=== PATIENT | female | born 1950 | race Caucasian/White ===

== ENCOUNTER 2018-01-23 11:17 | Inpatient (IN) | payer MEDICARE, OTHER ==
[2018-01-23 12:40] LABS: #Basophils 0.1 thou/uL (0.0-0.2); #Eosinphils 0.2 thou/uL (0.0-0.7); #Lymphocytes 1.5 thou/uL (1.20-3.40); #Monocytes 0.8 thou/uL (0.11-0.59); #Neutrophils 7.3 thou/uL (1.40-6.50); %Basophils 0.6 % (0.0-1.0); %Eosinophils 2.5 % (0.0-10.0); %Monocytes 8.2 % (0.0-10.0); %Neutrophils 73.8 % (42.0-75.0); Hemoglobin 10.3 g/dL (12.0-16.0); Mean Corpuscular HGB CONC 31.5 g/dL (32.0-36.0); Mean Corpuscular Hemoglobin 28.3 pg (27.0-31.0); Mean Corpuscular Volume 89.7 fl (81.0-99.0); Mean Platelet Volume 6.6 fL (7.4-10.4); Platelet Count 376 thou/uL (130-400); RBC Distribution Width 14.6 % (11.5-14.5); Red Blood Cell (RBC) Count 3.65 mill/uL (4.20-5.40); White Blood Cell (WBC) Count 9.9 thou/uL (4.8-10.8)
[2018-01-23 13:06] LABS: ALT (SGPT) 10 U/L (8-55); AST (SGOT) 17 U/L (5-34); Albumin 3.4 g/dL (3.4-4.8); Alkaline Phosphatase 120 U/L (40-150); Anion Gap 15 mmol/L (10-20); BUN (Urea Nitrogen) 16 mg/dL (9.8-20.1); Bilirubin, Total 0.4 mg/dL (0.2-1.2); Calc. Creatinine Clearance 0 mL/min (70-130); Calcium 9.1 mg/dL (7.8-10.44); Carbon Dioxide 26 mmol/L (23-31); Chloride 100 mmol/L (98-107); Estimated GFR-MDRD 32; Globulin 4.1 g/dL (2.4-3.5); Glucose 184 mg/dL (80-115); Potassium 4.1 mmol/L (3.5-5.1); Protein, Total 7.5 g/dL (6.0-8.3); Sodium 137 mmol/L (136-145)
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
[2018-01-23 17:25] LABS: Clarity Clear (Clear)
[2018-01-23 17:26] LABS: BF Color Yellow; BF RBC Count - Manual 289 /cumm; BF WBC/Nonhematics Ct. - Manua 135 /cumm; Tube # EDTA
[2018-01-23 17:46] LABS: BF Segmented Neutrophils 16 %; Cell Count Non Hematic 27 %; Lymphocytes 57 %
[2018-01-23] MEDS ORDERED: Clindamycin/D5W 900 mg/50 ml Premix Bag ONE (18:08)
[2018-01-23] MEDS ORDERED: Cefepime 2 GM/10 ML SYR ONE (18:08)
[2018-01-23] MEDS ORDERED: Acetaminophen 325 MG TAB PO PRN (18:36)
[2018-01-23] MEDS ORDERED: HumaLOG 300 UNITS/3 ML VIAL SC PRN (18:36)
[2018-01-23] MEDS ORDERED: Acetaminophen 650 MG Suppository PR PRN (18:36)
[2018-01-23] MEDS ORDERED: Dextrose 50% Abboject 50 ML SYRINGE SLOW IVP PRN (18:36)
[2018-01-23] MEDS ORDERED: Dextrose 5% in Water 1,000 ML IV PRN (18:36)
[2018-01-23 18:51] LABS: INR-International Normal Ratio 1.1; Prothrombin Time 14.2 SEC (12.0-14.7)
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
[2018-01-23] MEDS ORDERED: Ondansetron HCl/PF 4 MG/2 ML Vial IVP PRN (20:13)
[2018-01-23] MEDS ORDERED: Ondansetron ODT 4 MG TAB SL PRN (20:13)
[2018-01-23] MEDS ORDERED: Warfarin Sodium 10 MG TAB PO SCH (21:00)
[2018-01-23 21:58] VITALS: BMI 51.7
[2018-01-24] MEDS ORDERED: cloNIDine 0.2 MG TAB PO SCH ×2 (00:15→09:00)
[2018-01-24] MEDS ORDERED: Amitriptyline HCl 10 MG TAB PO SCH ×2 (00:15→21:00)
[2018-01-24] MEDS ORDERED: Pregabalin 75 MG CAP PO SCH ×2 (00:15→21:00)
[2018-01-24] MEDS ORDERED: Hydroxychloroquine Sulfate 200 MG TAB PO SCH ×2 (00:15→21:00)
[2018-01-24] MEDS: Clindamycin/D5W 900 MG in Premix Bag 1 BAG IVPB SCH ×2 (01:31→09:02)
[2018-01-24] MEDS: Albuterol Sulfate 1.25 MG/3 ML NEB NEB PRN (05:07)
[2018-01-24 05:21] LABS: #Basophils 0.1 thou/uL (0.0-0.2); #Eosinphils 0.4 thou/uL (0.0-0.7); #Lymphocytes 2.4 thou/uL (1.20-3.40); #Monocytes 1.1 thou/uL (0.11-0.59); #Neutrophils 4.9 thou/uL (1.40-6.50); %Basophils 0.6 % (0.0-1.0); %Eosinophils 4.4 % (0.0-10.0); %Monocytes 12.3 % (0.0-10.0); %Neutrophils 55.8 % (42.0-75.0); Hemoglobin 9.2 g/dL (12.0-16.0); Mean Corpuscular HGB CONC 31.4 g/dL (32.0-36.0); Mean Corpuscular Hemoglobin 28.1 pg (27.0-31.0); Mean Corpuscular Volume 89.4 fl (81.0-99.0); Mean Platelet Volume 7.1 fL (7.4-10.4); Platelet Count 377 thou/uL (130-400); RBC Distribution Width 14.7 % (11.5-14.5); Red Blood Cell (RBC) Count 3.27 mill/uL (4.20-5.40); White Blood Cell (WBC) Count 8.8 thou/uL (4.8-10.8)
[2018-01-24 05:25] LABS: INR-International Normal Ratio 1.2; Prothrombin Time 15.3 SEC (12.0-14.7)
[2018-01-24 05:31] LABS: Anion Gap 11 mmol/L (10-20); BUN (Urea Nitrogen) 18 mg/dL (9.8-20.1); Calc. Creatinine Clearance 67 mL/min (70-130); Calcium 8.4 mg/dL (7.8-10.44); Carbon Dioxide 29 mmol/L (23-31); Chloride 102 mmol/L (98-107); Estimated GFR-MDRD 27; Glucose 157 mg/dL (80-115); Sodium 138 mmol/L (136-145)
[2018-01-24] MEDS: Hydroxychloroquine Sulfate 200 MG TAB PO SCH ×2 (08:35→21:29)
[2018-01-24] MEDS: Pregabalin 75 MG CAP PO SCH ×2 (08:39→21:27)
[2018-01-24] MEDS ORDERED: Nystatin Powder 15 GM BOT TOP PRN (10:49)
--- NOTE | 2018-01-24 12:37 | PDOC.PN ---
- Subjective Encounter Start Date: 01/24/18 Encounter Start Time: 08:20 Pt seen for followup re: cellulitis. Denies chest pain, shortness of breath, fevers or chills. - Objective Resuscitation Status: Resuscitation Status FULL:Full Resuscitation MAR Reviewed: Yes Vital Signs & Weight: Vital Signs (12 hours) Temp Pulse Resp BP BP Pulse Ox 01/24/18 11:24 98.2 F 97 18 123/73 91 L 01/24/18 08:43 98.2 F 96 18 93 L 01/24/18 08:37 129/76 01/24/18 07:57 98.2 F 96 18 129/76 93 L 01/24/18 05:07 103 H 18 93 L 01/24/18 04:00 98.2 F 96 16 150/85 H Weight Weight 330 lb I&O: 01/23/18 01/24/18 01/25/18 06:59 06:59 06:59 Intake Total 1080 Balance 1080 Result Diagrams: 01/24/18 04:30 01/24/18 04:30 Additional Labs: Accuchecks 01/24/18 01/24/18 01/23/18 11:25 05:55 20:27 POC Glucose 175 H 157 H 212 H EKG Reviewed by me: Yes Phys Exam - Physical Examination Morbid obesity HEENT: PERRLA, moist MMs, sclera anicteric, oral pharynx no lesions Neck: no nodes, no JVD, supple, full ROM Respiratory: no wheezing, no rales, no rhonchi, clear to auscultation bilateral Cardiovascular: RRR, no rub Gastrointestinal: soft, non-tender, positive bowel sounds Neurological: moves all 4 limbs Psychiatric: normal affect Deviation from normal: R thigh: cellulitis has improved, no crepitus Dx/Plan (1) Cellulitis Code(s): L03.90 - CELLULITIS, UNSPECIFIED Status: Acute (2) Anticoagulated on Coumadin Code(s): Z51.81 - ENCOUNTER FOR THERAPEUTIC DRUG LEVEL MONITORING; Z79.01 - [facility] (CURRENT) USE OF ANTICOAGULANTS Status: Chronic (3) Diabetes Code(s): E11.9 - TYPE 2 DIABETES MELLITUS WITHOUT COMPLICATIONS Status: Chronic (4) HTN (hypertension) Code(s): I10 - ESSENTIAL (PRIMARY) HYPERTENSION Status: Chronic - Plan * . Monitor vital signs, titrate antihypertensives as needed. Continue IV antibiotics as below, await ID consult. Warfarim being managed by pharmacy. Review of Systems - Review of Systems Constitutional: negative: fever, chills, sweats, weakness, malaise Respiratory: negative: Cough, Dry, Shortness of Breath, Hemoptysis, SOB with Excertion, Pleuritic Pain, Sputum, Wheezing Cardiovascular: negative: chest pain, palpitations, orthopnea, paroxysmal nocturnal dyspnea, edema, light headedness Gastrointestinal: negative: Nausea, Vomiting, Abdominal Pain, Diarrhea, Constipation, Melena, Hematochezia Skin: Rash. negative: Lesions, Will, Bruising, Other - Medications/Allergies Allergies/Adverse Reactions: Allergies Allergy/AdvReac Type Severity Reaction Status Date / Time aspirin Allergy Verified 01/23/18 21:57 [From Talwin Compound] chocolate flavor Allergy Verified 01/23/18 21:57 codeine Allergy Verified 01/23/18 21:57 morphine Allergy Verified 01/23/18 21:57 NSAIDS (Non-Steroidal Allergy Verified 01/23/18 21:57 Anti-Inflamma Penicillins Allergy Verified 01/23/18 21:57 pentazocine HCl Allergy Verified 01/23/18 21:57 [From Talwin Compound] ottoniel Allergy Verified 01/23/18 21:57 Ffeuthd-Zpo-Upj Reductase Allergy Verified 01/23/18 21:57 Inhibitor Sulfa (Sulfonamide Allergy Verified 01/23/18 21:57 Antibiotics) sulfamethoxazole Allergy Verified 01/23/18 21:57 [From Bactrim] trimethoprim [From Bactrim] Allergy Verified 01/23/18 21:57 Medications: Current Medications Acetaminophen (Tylenol) 650 mg PO Q4H PRN PRN Reason: Headache/Fever or Pain Acetaminophen (Tylenol) 650 mg [place] Q4H PRN PRN Reason: Headache/Fever or Pain Albuterol Sulfate (Albuterol Sulfate) 1.25 mg NEB Q6H PRN PRN Reason: SOB &/or Wheezing Last Admin: 01/24/18 05:07 Dose: 1.25 mg Amitriptyline HCl (Elavil) 30 mg PO HS BRYAN Clonidine (Catapres) 0.2 mg PO BID BRYAN Last Admin: 01/24/18 08:37 Dose: 0.2 mg Dextrose/Water (Dextrose 50%) 25 gm SLOW IVP PRN PRN PRN Reason: Hypoglycemia Glucagon (Glucagon) 1 mg IM PRN PRN PRN Reason: Hypoglycemia Hydroxychloroquine Sulfate (Plaquenil) 200 mg PO BID [facility] Last Admin: 01/24/18 08:35 Dose: 200 mg Vancomycin HCl 2 gm/ Sodium (Chloride) 500 mls @ 250 mls/hr IVPB 2100 BRYAN Clindamycin Phosphate/Dextrose (900 mg/ Device) 50 mls @ 100 mls/hr IVPB 0200, 1000,1800 [facility] Last Admin: 01/24/18 09:02 Dose: 50 mls Dextrose/Water (D5w) 1,000 mls @ 0 mls/hr IV .Q0M PRN; As Directed PRN Reason: Hypoglycemia Insulin Human Lispro (Humalog) 0 units SC .MILD SLIDING SCALE PRN PRN Reason: Mild Correctional Scale Miscellaneous Medication (Pharmacy To Dose) 1 each IVPB PRN PRN PRN Reason: Pharmacy to dose Miscellaneous Medication (Pharmacy To Dose) 1 each PO PRN PRN PRN Reason: Pharmacy to dose Nystatin (Mycostatin Powder) 0 gm TOP BID PRN PRN Reason: Topical Irritations Pregabalin (Lyrica) 75 mg PO BID [facility] Last Admin: 01/24/18 08:39 Dose: 75 mg Sodium Chloride (Flush - Normal Saline) 10 ml IVF Q12HR [facility] Last Admin: 01/24/18 08:40 Dose: 10 ml Sodium Chloride (Flush - Normal Saline) 10 ml IVF PRN PRN PRN Reason: Saline Flush Warfarin Sodium (Coumadin) 10 mg PO 1700 [facility]
[2018-01-24] MEDS ORDERED: Albuterol Sulfate 1.25 MG/3 ML NEB NEB PRN (13:30)
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
[2018-01-24] MEDS ORDERED: Warfarin Sodium 2 MG TAB PO SCH (17:00)
[2018-01-24] MEDS ORDERED: Warfarin Sodium 10 MG TAB PO SCH (17:00)
[2018-01-24] MEDS: Senokot S 8.6-50 MG TAB PO SCH (21:28)
[2018-01-24] MEDS: Amitriptyline HCl 10 MG TAB PO SCH (21:29)
[2018-01-24] MEDS: cloNIDine 0.2 MG TAB PO SCH (21:29)
[2018-01-25] MEDS: Levothyroxine Sodium 100 MCG TAB PO SCH (05:16)
[2018-01-25 05:29] LABS: #Basophils 0.1 thou/uL (0.0-0.2); #Eosinphils 0.5 thou/uL (0.0-0.7); #Lymphocytes 2.2 thou/uL (1.20-3.40); #Monocytes 1.2 thou/uL (0.11-0.59); #Neutrophils 5.3 thou/uL (1.40-6.50); %Basophils 0.9 % (0.0-1.0); %Eosinophils 5.4 % (0.0-10.0); %Lymphocytes 23.9 % (21.0-51.0); %Monocytes 12.6 % (0.0-10.0); %Neutrophils 57.1 % (42.0-75.0); Mean Corpuscular HGB CONC 31.7 g/dL (32.0-36.0); Mean Corpuscular Hemoglobin 28.3 pg (27.0-31.0); Mean Corpuscular Volume 89.4 fl (81.0-99.0); Platelet Count 349 thou/uL (130-400); RBC Distribution Width 14.8 % (11.5-14.5); Red Blood Cell (RBC) Count 3.19 mill/uL (4.20-5.40); White Blood Cell (WBC) Count 9.2 thou/uL (4.8-10.8)
[2018-01-25 05:33] LABS: Anion Gap 11 mmol/L (10-20); BUN (Urea Nitrogen) 18 mg/dL (9.8-20.1); Calc. Creatinine Clearance 82 mL/min (70-130); Calcium 8.6 mg/dL (7.8-10.44); Carbon Dioxide 30 mmol/L (23-31); Chloride 102 mmol/L (98-107); Estimated GFR-MDRD 34; Glucose 168 mg/dL (80-115); Potassium 4.2 mmol/L (3.5-5.1); Sodium 139 mmol/L (136-145)
[2018-01-25 05:35] LABS: INR-International Normal Ratio 1.2; Prothrombin Time 15.6 SEC (12.0-14.7)
[2018-01-25] MEDS ORDERED: FEBUXOSTAT 80 MG PO SCH (09:00)
[2018-01-25] MEDS: Lactinex Tablet PO SCH (09:41)
[2018-01-25] MEDS: Senokot S 8.6-50 MG TAB PO SCH ×2 (09:41→20:35)
[2018-01-25] MEDS: predniSONE 5 MG TAB PO SCH (09:41)
[2018-01-25] MEDS: Hydroxychloroquine Sulfate 200 MG TAB PO SCH ×2 (09:41→20:36)
[2018-01-25] MEDS: Glimepiride 2 MG TAB PO SCH (09:42)
[2018-01-25] MEDS: Pregabalin 75 MG CAP PO SCH ×2 (09:42→20:35)
[2018-01-25] MEDS: Amlodipine 5 MG TAB PO SCH (09:42)
--- NOTE | 2018-01-25 10:40 | PRG ---
DATE OF SERVICE: 01/25/2018 She feels a little bit more swelling at the site of this likely seroma in the right thigh. No pain, no respiratory symptoms, abdominal pain or diarrhea. No genitourinary symptoms. PHYSICAL EXAMINATION: VITAL SIGNS: The T-max 98.7, blood 150/85, pulse 96, respirations 20. GENERAL: Appears in no distress. LUNGS: Clear. CARDIOVASCULAR: S1, S2, regular rate. EXTREMITIES: Right thigh is a little bit more prominent at the site of the previously noted seroma a nd previously noted cultures are negative. ASSESSMENT AND DISCUSSION: Rheumatoid arthritis on Remicade and pulmonary embolism, on warfarin. Co ntusion of the right thigh with likely chronic seroma with reaccumulation of fluid. Erythema probabl y secondary to the pressure induced by the seroma. The patient is currently on oral minocycline, the patient probably will need surgical resection of the seroma to prevent its reaccumulation.
[2018-01-25] MEDS: Albuterol Sulfate 1.25 MG/3 ML NEB NEB PRN (14:33)
--- NOTE | 2018-01-25 16:22 | PDOC.PN ---
- Subjective Encounter Start Date: 01/25/18 Encounter Start Time: 10:20 Pt seen for followup re: cellulitis. Feels well, no complaints. - Objective Resuscitation Status: Resuscitation Status FULL:Full Resuscitation MAR Reviewed: Yes Vital Signs & Weight: Vital Signs (12 hours) Temp Pulse Resp BP BP Pulse Ox 01/25/18 14:33 97 20 95 01/25/18 12:08 98.7 F 97 20 184/79 H 93 L 01/25/18 09:42 98 131/72 01/25/18 09:41 131/72 01/25/18 08:39 98.7 F 99 20 131/72 93 L 01/25/18 08:00 98.7 F 98 18 01/25/18 04:40 92 L Weight Admit Weight 330 lb Weight 330 lb I&O: 01/24/18 01/25/18 01/26/18 06:59 06:59 06:59 Intake Total 1080 770 Balance 1080 770 Result Diagrams: 01/25/18 04:39 01/25/18 04:39 Additional Labs: Accuchecks 01/25/18 01/25/18 01/24/18 11:25 05:20 20:00 POC Glucose 187 H 169 H 218 H 01/24/18 16:35 POC Glucose 147 H Phys Exam - Physical Examination Morbid obesity HEENT: moist MMs Neck: supple Respiratory: clear to auscultation bilateral Cardiovascular: RRR Gastrointestinal: soft Neurological: moves all 4 limbs Psychiatric: normal affect Deviation from normal: R thigh cellulitis is improving Dx/Plan (1) Cellulitis Code(s): L03.90 - CELLULITIS, UNSPECIFIED Status: Acute (2) Anticoagulated on Coumadin Code(s): Z51.81 - ENCOUNTER FOR THERAPEUTIC DRUG LEVEL MONITORING; Z79.01 - [facility] (CURRENT) USE OF ANTICOAGULANTS Status: Chronic (3) Diabetes Code(s): E11.9 - TYPE 2 DIABETES MELLITUS WITHOUT COMPLICATIONS Status: Chronic (4) HTN (hypertension) Code(s): I10 - ESSENTIAL (PRIMARY) HYPERTENSION Status: Chronic - Plan continue antibiotics, out of bed/ambulate * . Pt awaiting orthopedic opinion re: thigh seroma. Cellulitis improving. Continue accuchecks, insulin sliding scale. Review of Systems - Review of Systems Constitutional: negative: fever, chills, sweats, weakness, malaise Respiratory: negative: Cough, Dry, Shortness of Breath, Hemoptysis, SOB with Excertion, Pleuritic Pain, Sputum, Wheezing - Medications/Allergies Allergies/Adverse Reactions: Allergies Allergy/AdvReac Type Severity Reaction Status Date / Time aspirin Allergy Verified 01/23/18 21:57 [From Talwin Compound] chocolate flavor Allergy Verified 01/23/18 21:57 codeine Allergy Verified 01/23/18 21:57 morphine Allergy Verified 01/23/18 21:57 NSAIDS (Non-Steroidal Allergy Verified 01/23/18 21:57 Anti-Inflamma Penicillins Allergy Verified 01/23/18 21:57 pentazocine HCl Allergy Verified 01/23/18 21:57 [From TalXD Nutrition Compound] ottoniel Allergy Verified 01/23/18 21:57 Lsfqpfz-Acx-Ayt Reductase Allergy Verified 01/23/18 21:57 Inhibitor Sulfa (Sulfonamide Allergy Verified 01/23/18 21:57 Antibiotics) sulfamethoxazole Allergy Verified 01/23/18 21:57 [From Bactrim] trimethoprim [From Bactrim] Allergy Verified 01/23/18 21:57 Medications: Current Medications Acetaminophen (Tylenol) 650 mg PO Q4H PRN PRN Reason: Headache/Fever or Pain Acetaminophen (Tylenol) 650 mg [place] Q4H PRN PRN Reason: Headache/Fever or Pain Acidophilus (Floranex) 1 tab PO DAILY [facility] Last Admin: 01/25/18 09:41 Dose: 1 tab Albuterol Sulfate (Albuterol Sulfate) 1.25 mg NEB Q6H PRN PRN Reason: SOB &/or Wheezing Last Admin: 01/25/18 14:33 Dose: 1.25 mg Amitriptyline HCl (Elavil) 30 mg PO HS [facility] Last Admin: 01/24/18 21:29 Dose: 30 mg Amlodipine Besylate (Norvasc) 5 mg PO DAILY [facility] Last Admin: 01/25/18 09:42 Dose: 5 mg Cholecalciferol (Vitamin D3) 1,000 units PO DAILY [facility] Last Admin: 01/25/18 09:42 Dose: 1,000 units Clonidine (Catapres) 0.2 mg PO HS [facility] Last Admin: 01/24/18 21:29 Dose: 0.2 mg Dextrose/Water (Dextrose 50%) 25 gm SLOW IVP PRN PRN PRN Reason: Hypoglycemia Enalapril Maleate (Vasotec) 20 mg PO DAILY [facility] Last Admin: 01/25/18 09:41 Dose: 20 mg Glimepiride (Amaryl) 1 mg PO 0730 [facility] Last Admin: 01/25/18 09:42 Dose: 1 mg Glucagon (Glucagon) 1 mg IM PRN PRN PRN Reason: Hypoglycemia Hydroxychloroquine Sulfate (Plaquenil) 200 mg PO BID [facility] Last Admin: 01/25/18 09:41 Dose: 200 mg Dextrose/Water (D5w) 1,000 mls @ 0 mls/hr IV .Q0M PRN; As Directed PRN Reason: Hypoglycemia Insulin Human Lispro (Humalog) 0 units SC .MILD SLIDING SCALE PRN PRN Reason: Mild Correctional Scale Levothyroxine Sodium (Synthroid) 200 mcg PO 0600 [facility] Last Admin: 01/25/18 05:16 Dose: 200 mcg Minocycline HCl (Minocycline Hcl) 100 mg PO BID [facility] Last Admin: 01/25/18 09:41 Dose: 100 mg Miscellaneous Medication (Pharmacy To Dose) 1 each PO PRN PRN PRN Reason: Pharmacy to dose Non-Formulary Medication (Febuxostat [Uloric]) 80 mg PO DAILY [facility] Nystatin (Mycostatin Powder) 0 gm TOP BID PRN PRN Reason: Topical Irritations Last Admin: 01/24/18 21:36 Dose: 1 applic Pantoprazole Sodium (Protonix) 40 mg PO DAILY [facility] Last Admin: 01/25/18 09:41 Dose: 40 mg Prednisone (Prednisone) 5 mg PO QAM-WM [facility] Last Admin: 01/25/18 09:41 Dose: 5 mg Pregabalin (Lyrica) 75 mg PO BID [facility] Last Admin: 01/25/18 09:42 Dose: 75 mg Senna/Docusate Sodium (Senokot S) 1 tab PO BID [facility] Last Admin: 01/25/18 09:41 Dose: 1 tab Sodium Chloride (Flush - Normal Saline) 10 ml IVF Q12HR [facility] Last Admin: 01/25/18 10:19 Dose: 10 ml Sodium Chloride (Flush - Normal Saline) 10 ml IVF PRN PRN PRN Reason: Saline Flush Warfarin Sodium (Coumadin) 5 mg PO 1700 [facility]
[2018-01-25] MEDS ORDERED: Warfarin Sodium 5 MG TAB PO SCH (17:00)
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
[2018-01-25] MEDS: cloNIDine 0.2 MG TAB PO SCH (20:35)
[2018-01-25] MEDS: Amitriptyline HCl 10 MG TAB PO SCH (20:35)
[2018-01-26 05:07] LABS: #Basophils 0.1 thou/uL (0.0-0.2); #Eosinphils 0.3 thou/uL (0.0-0.7); #Lymphocytes 2.7 thou/uL (1.20-3.40); #Monocytes 1.3 thou/uL (0.11-0.59); #Neutrophils 5.7 thou/uL (1.40-6.50); %Basophils 0.6 % (0.0-1.0); %Eosinophils 3.1 % (0.0-10.0); %Lymphocytes 26.7 % (21.0-51.0); %Monocytes 12.6 % (0.0-10.0); Hemoglobin 9.4 g/dL (12.0-16.0); Mean Corpuscular HGB CONC 30.8 g/dL (32.0-36.0); Mean Corpuscular Hemoglobin 27.3 pg (27.0-31.0); Mean Corpuscular Volume 88.8 fl (81.0-99.0); Mean Platelet Volume 6.8 fL (7.4-10.4); Platelet Count 367 thou/uL (130-400); RBC Distribution Width 14.7 % (11.5-14.5); Red Blood Cell (RBC) Count 3.43 mill/uL (4.20-5.40)
[2018-01-26 05:12] LABS: INR-International Normal Ratio 1.3; Prothrombin Time 16.3 SEC (12.0-14.7)
[2018-01-26] MEDS: Levothyroxine Sodium 100 MCG TAB PO SCH (05:25)
[2018-01-26 05:28] LABS: Anion Gap 11 mmol/L (10-20); BUN (Urea Nitrogen) 21 mg/dL (9.8-20.1); Calc. Creatinine Clearance 87 mL/min (70-130); Carbon Dioxide 29 mmol/L (23-31); Chloride 101 mmol/L (98-107); Estimated GFR-MDRD 36; Glucose 131 mg/dL (80-115); Sodium 137 mmol/L (136-145)
[2018-01-26] MEDS: Glimepiride 2 MG TAB PO SCH (05:56)
[2018-01-26 07:10] VITALS: TEMP 98.5
[2018-01-26] MEDS ORDERED: Sodium Bicarbonate 2.4 MEQ/5 ML ONE (08:08)
[2018-01-26] MEDS: Hydroxychloroquine Sulfate 200 MG TAB PO SCH (09:38)
[2018-01-26] MEDS: Pregabalin 75 MG CAP PO SCH (09:38)
[2018-01-26] MEDS: predniSONE 5 MG TAB PO SCH (09:38)
[2018-01-26] MEDS: Senokot S 8.6-50 MG TAB PO SCH (09:38)
[2018-01-26] MEDS: Amlodipine 5 MG TAB PO SCH (09:39)
[2018-01-26] MEDS: Lactinex Tablet PO SCH (09:41)
--- NOTE | 2018-01-26 10:43 | ULT ---
ULTRASOUND GUIDED ASPIRATION OF A RIGHT THIGH SEROMA: INDICATION: Large right thigh fluid collection. COMPARISON: CT of the right thigh dated 01/23/18. TECHNIQUE: Informed consent was obtained. Preprocedure ultrasound demonstrated a large simple-appearing fluid c ollection within the subcutaneous tissues of the anterior right thigh. A site overlying the lateral aspect of the collection was marked. The site was prepped and draped in the usual sterile fashion. Buffered 1% Lidocaine was administered to the overlying subcutaneous tissues. Under ultrasound john nce, a 5 [employer] catheter was guided down into the collection. There was removal of 330 cc of se cuauhtemoc fluid. Sixty cc were sent to the pathology department for the request of laboratories by the chey cardoza clinician. Aspiration was maintained until collapse of the serous fluid collection francis. P ressure was held at the collection site and a pressure bandage was placed. The patient tolerated the procedure without difficulty. IMPRESSION: Successful ultrasound-guided fluid drainage of a large right subcutaneous anterior thigh seroma. POS: [facility]
[2018-01-26 10:52] LABS: BF Color Yellow; Clarity Hazy (Clear); Tube # EDTA
[2018-01-26 10:59] LABS: BF RBC Count - Manual 160 /cumm; BF WBC/Nonhematics Ct. - Manua 140 /cumm
--- NOTE | 2018-01-26 11:00 | DIS ---
PRIMARY CARE PHYSICIAN: Dr. Jyoti Burger DATE OF ADMISSION: 01/23/2018 DATE OF DISCHARGE: 01/26/2018 DISCHARGE DIAGNOSES: 1. Cellulitis. 2. Chronic seroma to the right upper thigh. CONDITION OF PATIENT AT THE TIME OF DISCHARGE: Stable. I assessed Ms. Renteria on the day of discharge. She denies any chest pain or shortness of breath. Sh e denies any fevers or chills. She denies any nausea, vomiting or diarrhea. S1 and S2 are heard, re gular. Lungs are clear to auscultation bilaterally. Cellulitic area on the right side shows signifi cant improvement. DISCHARGE MEDICATIONS: Warfarin dose was increased to 5 mg daily. She has been started on Nystatin 1 gram 2 times a day as needed to her chest. She has also been started on minocycline 100 mg 2 time s a day for 14 days. Her home medications were otherwise continued, including amitriptyline 30 mg at bedtime, amlodipine 5 mg daily, vitamin D3 1000 units daily, clonidine 0.2 mg at bedtime, Vasotec 20 mg daily, Uloric 80 mg daily, Amaryl 1 mg daily, hydroxychloroquine 200 mg 2 times a day, probiotic 1 capsule daily, levothyroxine 200 mcg daily, Protonix 40 mg daily, prednisone 5 mg daily, pregabalin 75 mg 2 times a day, Senokot-S 1 tablet 2 times a day, albuterol sulfate nebulizers as needed, eye l ubricant as needed. HOSPITAL COURSE: Ms. Renteria is a pleasant 67-year-old lady who was admitted to [facility] for cellulitis over a chronic seroma in the right thigh. She was seen by Infectious Dis ease Service as well as by the Orthopedic Surgery Service. She was treated with minocycline. This i s based on previous culture and sensitivity reports. The cellulitis improved[facility] and she underwent imaging guided aspiration of the seroma. Orthopedic Surgery Ser vice will follow up with her in 8-10 days. At the time of this dictation, preliminary blood cultures are negative. Preliminary bacterial cultur e from the leg aspirate is also pending. She is advised to follow up with her primary care provider for results of the same. High INR was subtherapeutic during this hospitalization. Her warfarin dose is being increased to 6 m g, starting 01/26/2018. She is advised to follow up with her primary care provider for INR managemen t. Many thanks for allowing me to participate in your patient's care. Please feel free to contact me wi th any questions or concerns. On the day of discharge, she has an INR of 1.3, normal electrolytes, elevated blood urea nitrogen of 21, elevated creatinine of 1.44, trending down from 1.60 on 01/23/2018, white count of 10,000, hemog lobin 9.4 and platelet count 367,000. DISCHARGE DESTINATION: Home. TOTAL AMOUNT OF TIME SPENT COORDINATING THIS DISCHARGE: 25 minutes.
[2018-01-26 12:09] LABS: BF Segmented Neutrophils 20 %; Cell Count Non Hematic 30 %; Lymphocytes 50 %
[2018-01-26 13:30] VITALS: BP 128/87
== END 2018-01-26 15:01 | disposition home or self-care (01) | DRG 603 ==
LOC: ERS 11:17 → T4-A 20:08
PROVIDERS: ADMIT Internal Medicine; ATTEND Internal Medicine
PROC: 0J9L3ZX Drainage of Right Upper Leg Subcutaneous Tissue and Fascia, Percutaneous Approach, Diagnostic (ICD-10-PCS; principal; 2018-01-26)
DX: L03.115 Cellulitis of right lower limb (principal); E11.22 Type 2 diabetes mellitus with diabetic chronic kidney disease; Z68.43 Body mass index [BMI] 50.0-59.9, adult; E66.01 Morbid (severe) obesity due to excess calories; M10.9 Gout, unspecified; I12.9 Hypertensive chronic kidney disease with stage 1 through stage 4 chronic kidney disease, or unspecified chronic kidney disease; N18.9 Chronic kidney disease, unspecified; E78.5 Hyperlipidemia, unspecified; S70.11XS Contusion of right thigh, sequela; M06.9 Rheumatoid arthritis, unspecified; Z86.711 Personal history of pulmonary embolism; Z88.6 Allergy status to analgesic agent; Z88.5 Allergy status to narcotic agent; Z88.2 Allergy status to sulfonamides; Z88.0 Allergy status to penicillin; Z88.8 Allergy status to other drugs, medicaments and biological substances; Z79.01 Long term (current) use of anticoagulants; Z79.899 Other long term (current) drug therapy; Z96.653 Presence of artificial knee joint, bilateral; V89.2XXS Person injured in unspecified motor-vehicle accident, traffic, sequela
CPT/HCPCS: 10022; 36415; 36416; 76942; 80048; 80053; 82945; 84157; 85025; 85060; 85610; 85652; 86140; 87040; 87070; 87205; 89051; 89060; 94640; A4216; G8996-GN-CK; G8997-GN-CH; J0692; J3370; J3490; J7050

== ENCOUNTER 2018-02-07 12:59 | Inpatient (IN) | payer MEDICARE, OTHER ==
[2018-02-07 14:17] LABS: #Basophils 0.1 thou/uL (0.0-0.2); #Eosinphils 0.1 thou/uL (0.0-0.7); #Lymphocytes 1.5 thou/uL (1.20-3.40); #Monocytes 0.8 thou/uL (0.11-0.59); #Neutrophils 8.1 thou/uL (1.40-6.50); %Basophils 0.6 % (0.0-1.0); %Eosinophils 1.1 % (0.0-10.0); %Lymphocytes 13.9 % (21.0-51.0); %Monocytes 7.8 % (0.0-10.0); %Neutrophils 76.6 % (42.0-75.0); Hemoglobin 9.9 g/dL (12.0-16.0); Mean Corpuscular HGB CONC 31.4 g/dL (32.0-36.0); Mean Corpuscular Volume 85.9 fl (81.0-99.0); Mean Platelet Volume 6.8 fL (7.4-10.4); Platelet Count 326 thou/uL (130-400); RBC Distribution Width 15.4 % (11.5-14.5); Red Blood Cell (RBC) Count 3.68 mill/uL (4.20-5.40); White Blood Cell (WBC) Count 10.6 thou/uL (4.8-10.8)
[2018-02-07 14:23] LABS: INR-International Normal Ratio 1.2; Prothrombin Time 15.4 SEC (12.0-14.7)
[2018-02-07 14:23] LABS: Lactate 3.46 mmol/L (0.50-2.20)
[2018-02-07 14:41] LABS: ALT (SGPT) 10 U/L (8-55); AST (SGOT) 15 U/L (5-34); Albumin 3.1 g/dL (3.4-4.8); Alkaline Phosphatase 133 U/L (40-150); Anion Gap 16 mmol/L (10-20); BUN (Urea Nitrogen) 36 mg/dL (9.8-20.1); Bilirubin, Total 0.3 mg/dL (0.2-1.2); Calc. Creatinine Clearance 0 mL/min (70-130); Calcium 8.8 mg/dL (7.8-10.44); Carbon Dioxide 22 mmol/L (23-31); Chloride 102 mmol/L (98-107); Estimated GFR-MDRD 28; Globulin 3.9 g/dL (2.4-3.5); Glucose 231 mg/dL (80-115); Potassium 4.6 mmol/L (3.5-5.1); Sodium 135 mmol/L (136-145)
[2018-02-07 14:44] LABS: Lactate 2.71 mmol/L (0.50-2.20)
--- NOTE | 2018-02-07 15:28 | ULT ---
RIGHT LOWER EXTREMITY VENOUS DOPPLER: Date: 02/07/18 PROVIDED CLINICAL HISTORY: Right lower extremity edema. FINDINGS: Valencia scale and color Doppler sonography with spectral analysis was performed of the right common femo ral, femoral, popliteal, posterior tibial, greater saphenous, and profunda femoral veins, demonstrati ng a normal sonographic appearance to each. IMPRESSION: No sonographic evidence for right lower extremity deep venous thrombosis. POS: [facility]
[2018-02-07] MEDS ORDERED: HYDROmorphone 0.5 MG/0.5 ML SYRINGE ONE (16:35)
[2018-02-07] MEDS ORDERED: Fentanyl 100 MCG/2 ML VIAL ONE (17:10)
[2018-02-07] MEDS ORDERED: Albuterol Sulfate 1.25 MG/3 ML NEB NEB PRN (17:58)
--- NOTE | 2018-02-07 18:59 | HP ---
DATE OF ADMISSION: 02/07/2018 CHIEF COMPLAINT: Right leg swelling and tenderness. HISTORY OF PRESENT ILLNESS: This is a 67-year-old morbidly obese white female with a recent history of admission to the hospital 2 weeks ago for right thigh abscess and the patient has been treated wit h minocycline and she finished her last day course of minocycline yesterday and this morning when she woke up, she found severe pain in her right calf which was swollen with severe redness and severe te nderness. She decided to come to the ER thinking that could be a blood clot. She had a DVT ultrasou nd here, which did not reveal any evidence of a clot, but severely tender and has a clear signs of ce llulitis. The patient has known history of type 2 diabetes mellitus with poorly controlled diabetes and elevated creatinine of 1.8 today. She has known history of asthma, which is well controlled at t his time. History of chronic kidney disease, stage 3; and also hypertension; history of gout, which she was recently treated. The patient is on anticoagulation because of the history of pulmonary embo lism and her INR today was 1.2. The patient had a normal white count today, but had a mildly elevate d lactic acid and she clearly has signs suggestive of either a Staph or strep infection. The patient was then started on vancomycin in the ER. She has multiple other drug allergies, so it is very limi elle on using any antibiotics at this time. PAST MEDICAL HISTORY: 1. Type 2 diabetes mellitus. 2. Gout. 3. Hypertension. 4. Gouty arthritis. 5. Dyslipidemia. 6. Recurrent pulmonary embolism, on warfarin. PAST SURGICAL HISTORY: Significant for bilateral knee replacements, carpal tunnel repair, left hand cyst removal, bilateral rotator cuff repair, total hysterectomy and appendectomy. SOCIAL HISTORY: The patient denies tobacco use. No history of alcohol, no history of illicit drug u se. FAMILY HISTORY: Significant for coronary artery disease in her father and mother. ALLERGIES: The patient is allergic to PENICILLIN, which caused anaphylactic reaction; CODEINE; MORPH INE; NSAIDs; PENTAZOCINE; STATINS; SULFA ANTIBIOTICS; and TRIMETHOPRIM also. HOME MEDICATIONS: 1. Amlodipine. 2. Klonopin. 3. Neurontin. 4. Plaquenil. 5. Synthroid. 6. Flexeril. 7. Warfarin. 8. Lyons. 9. Lyrica. 10. Enalapril. 11. Minocycline, which she completed yesterday. REVIEW OF SYSTEMS: All 12 systems are reviewed with the patient thoroughly and found to be negative at this time. Systems reviewed are HEENT, CVS, WEAVER APPRENTICE, respiratory, GI, . All systems are reviewed a nd found to be negative. Constitutional: Weight loss or gain, sense of well-being, ability to conduct usual activities, exerc ise tolerance. Skin/Breast: Rash, itching, changes in hair growth or loss, nail changes, breast lumps, tenderness, swelling, nipple discharge. Eyes: Vision, double vision, tearing, blind spots, pain. ENT/Mouth: Headaches (location, time of onset, duration, precipitating factors), vertigo, lightheade dness, injury. Vision, double vision, tearing, blind spots, pain, nose bleeding, colds, obstruction, discharge, dental difficulties, gingival bleeding, dentures, neck stiffness, pain, tenderness, masses in thyroid or other areas. Cardiovascular: Precordial pain, substernal distress, palpitations, syncope, dyspnea on exertion, or thopnea, nocturnal paroxysmal dyspnea, edema, cyanosis, hypertension, heart murmurs, varicosities, ph lebitis, claudication. Respiratory: Pain, shortness of breath, wheezing, stridor, cough, hemoptysis, fever or night sweats. Gastrointestinal: Poor appetite, dysphagia, indigestion, abdominal pain, heartburn, eructation, naus ea, vomiting, hematemesis, jaundice, constipation, or diarrhea, abnormal stools (coty-colored, tarry, bloody, greasy, foul smelling), flatulence, hemorrhoids, recent changes in bowel habits. Genitourinary: Urgency, frequency, dysuria, nocturia, hematuria, polyuria, oliguria, unusual (or kaitlin nge in) color of urine, stones, hesitancy, change in size of stream, dribbling, acute retention or in continence, libido, potency. Musculoskeletal: Pain, swelling, redness or heat of muscles or joints, limitation, of motion, muscul ar weakness, atrophy, cramps. Neurologic/Psychiatric: Convulsions, paralyses, tremor, incoordination, paresthesias, difficulties w ith memory of speech, sensory or motor disturbances, or muscular coordination (ataxia, tremor), emoti onal problems, anxiety, depression, previous psychiatric care, unusual perceptions, hallucinations. Allergy/Immunologic: Skin rash, anemia, bleeding tendency, polydipsia, polyuria, intolerance to heat or cold. PHYSICAL EXAMINATION: VITAL SIGNS: Blood pressures are 120/80, heart rate is 88, respiratory rate is 18, saturation is 98% . GENERAL: The patient is moderately built and moderately nourished. She is morbidly obese. She is a lert and oriented. HEENT: Atraumatic, normocephalic, PERRLA. Extraocular movements were intact. Oral mucosa is pink an d moist. CARDIOVASCULAR: S1, S2 normal. No murmurs, rubs or gallops. LUNGS: Bilateral air entry was equal. No wheezing, no crackles. ABDOMEN: Soft, nontender, no guarding, no rebound tenderness. Bowel sounds are normal. MUSCULOSKELETAL: The patient has right lower extremity tenderness in the calf area extending towards the right knee joint, but the patient has no problem in the range of motion of the knee joints was n ormal. SKIN: No cyanosis, erythema was noted, specifically on the right calf area with a spotted appearance of the erythema and exquisitely tender. WEAVER APPRENTICE: Cranial examination II-XII intact. No focal deficits were noted. PSYCHIATRIC: No signs of suicidal ideation. No signs of akhil. NECK: No JVD, no thyromegaly. LYMPHADENOPATHY: No evidence of any generalized lymph nodes was noted. Inguinal and cervical lymph nodes were checked and were normal. LABORATORY DATA: 1. WBC is 10.6, hemoglobin is 9.9, hematocrit is 31.6, platelets are 326. 2. Sodium is 135, potassium 4.6, chloride is 102, bicarbonate is 22, BUN 36, creatinine is 1.8, bloo d sugar is 231. 3. INR is 1.2. 4. Lower extremity ultrasound was done, which did not show any evidence of clot. ASSESSMENT: 1. Acute right leg cellulitis, failed outpatient oral antibiotics. 2. Type 2 diabetes mellitus. 3. History of pulmonary embolism, on anticoagulation. 4. Morbid obesity. 5. Hypertension. 6. Hyperlipidemia. PLAN: 1. Plan is to closely monitor this patient as infection is pretty close to the right knee joint and currently she does not have any problem in the range of motions, so we will start the patient on vanc omycin 1 gram b.i.d. and we will have the pharmacy dose at this time and we will also start the patie nt on levofloxacin at 750 mg IV daily. We will consult Infectious Disease as the patient has been re cently treated by an abscess with oral antibiotics with minocycline. The patient had a recurrent inf ection. 2. The patient has type 2 diabetes mellitus. We will continue the patient on sliding scale insulin and restart the home medications. Plan to keep the blood sugars between 140-180 for better wound hea ling. 3. The patient has a history of pulmonary embolism. She is on Coumadin. Continue the home medicati ons at this time and we will have the pharmacy managed her INR levels. Plan to keep the INR between 2-3. 4. The patient has a history of hypertension. Blood pressures are well controlled at this time. We will restart the home medications. 5. The patient has a history of gout. We will continue the patient on the home medications. She is on allopurinol. 6. The patient is on low dose of steroids of 5 mg prednisone. We will continue with this at this ti me. 7. Deep venous thrombosis prophylaxis is low. We will start Lovenox if the patient's INR is subther apeutic. I spent 75 minutes with this patient.
[2018-02-07] MEDS ORDERED: Ondansetron HCl/PF 4 MG/2 ML Vial IVP PRN (21:13)
[2018-02-07] MEDS: cloNIDine 0.2 MG TAB PO SCH (21:44)
[2018-02-07] MEDS: Amitriptyline HCl 10 MG TAB PO SCH (21:44)
[2018-02-07] MEDS: Pregabalin 75 MG CAP PO SCH (21:45)
[2018-02-07] MEDS: Hydroxychloroquine Sulfate 200 MG TAB PO SCH (21:45)
[2018-02-07] MEDS: Sodium Chloride 0.9% 1,000 ML IV SCH (21:57)
[2018-02-07 22:06] VITALS: BMI 50.1
[2018-02-07] MEDS ORDERED: Acetaminophen 325 MG TAB PO PRN (23:38)
[2018-02-07] MEDS ORDERED: Dextrose 5% in Water 1,000 ML IV PRN (23:39)
[2018-02-07] MEDS ORDERED: Dextrose 50% Abboject 50 ML SYRINGE IVP PRN (23:39)
[2018-02-07] MEDS ORDERED: HYDROcodone/Acetaminophen 5/325 mg Tablet PO PRN (23:39)
[2018-02-07] MEDS ORDERED: HumaLOG 300 UNITS/3 ML VIAL SC PRN (23:39)
[2018-02-08] MEDS: Levothyroxine Sodium 100 MCG TAB PO SCH (04:32)
[2018-02-08 05:44] LABS: #Eosinphils 0.2 thou/uL (0.0-0.7); #Monocytes 0.8 thou/uL (0.11-0.59); #Neutrophils 5.5 thou/uL (1.40-6.50); %Basophils 0.6 % (0.0-1.0); %Eosinophils 2.4 % (0.0-10.0); %Monocytes 9.5 % (0.0-10.0); %Neutrophils 64.5 % (42.0-75.0); Mean Corpuscular HGB CONC 32.2 g/dL (32.0-36.0); Mean Corpuscular Hemoglobin 27.5 pg (27.0-31.0); Mean Corpuscular Volume 85.5 fl (81.0-99.0); Mean Platelet Volume 6.8 fL (7.4-10.4); Platelet Count 275 thou/uL (130-400); RBC Distribution Width 15.3 % (11.5-14.5); Red Blood Cell (RBC) Count 3.26 mill/uL (4.20-5.40); White Blood Cell (WBC) Count 8.6 thou/uL (4.8-10.8)
[2018-02-08 05:48] LABS: INR-International Normal Ratio 1.3; Prothrombin Time 16.9 SEC (12.0-14.7)
[2018-02-08 05:59] LABS: Anion Gap 11 mmol/L (10-20); BUN (Urea Nitrogen) 30 mg/dL (9.8-20.1); CRP (Inflammatory) 5.15 mg/dL (= or < 0.5); Calc. Creatinine Clearance 88 mL/min (70-130); Calcium 8.4 mg/dL (7.8-10.44); Carbon Dioxide 25 mmol/L (23-31); Chloride 105 mmol/L (98-107); Estimated GFR-MDRD 38; Glucose 79 mg/dL (80-115); Potassium 4.2 mmol/L (3.5-5.1); Sodium 137 mmol/L (136-145)
[2018-02-08] MEDS: Glimepiride 2 MG TAB PO SCH (09:30)
[2018-02-08] MEDS: predniSONE 5 MG TAB PO SCH (09:31)
[2018-02-08] MEDS: Pregabalin 75 MG CAP PO SCH ×2 (09:31→21:51)
[2018-02-08] MEDS: Hydroxychloroquine Sulfate 200 MG TAB PO SCH ×2 (09:32→21:51)
[2018-02-08] MEDS: Amlodipine 5 MG TAB PO SCH (09:32)
[2018-02-08] MEDS: Enoxaparin Sodium 40 MG/0.4 ML SYRINGE SC SCH (09:33)
[2018-02-08] MEDS: Famotidine 40 MG/4 ML VIAL SLOW IVP SCH ×2 (09:33→22:09)
[2018-02-08] MEDS: Sodium Chloride 0.9% 1,000 ML IV SCH ×2 (09:39→21:53)
--- NOTE | 2018-02-08 09:47 | PDOC.PN ---
- Subjective Encounter Start Date: 02/08/18 Encounter Start Time: 08:00 -: old records requested/rev c/o right leg pain and erythema, no fever, no chest pain, Patient seen and examined. No overnight events - Objective Resuscitation Status: Resuscitation Status FULL:Full Resuscitation MAR Reviewed: Yes Vital Signs & Weight: Vital Signs (12 hours) Temp Pulse Resp BP BP Pulse Ox 02/08/18 09:32 88 154/77 H 02/08/18 07:56 98.3 F 88 18 95 02/08/18 07:23 98.3 F 88 18 154/77 H 95 02/08/18 04:00 98.1 F 91 18 153/73 H 91 L 02/07/18 23:55 97.8 F 70 16 148/81 H 95 I&O: 02/07/18 02/08/18 02/09/18 06:59 06:59 06:59 Intake Total 1650 Balance 1650 Result Diagrams: 02/08/18 05:26 02/08/18 05:25 Additional Labs: Accuchecks 02/08/18 05:44 POC Glucose 89 Radiology Reviewed by me: Yes (US no DVT) Phys Exam - Physical Examination Constitutional: NAD HEENT: PERRLA, moist MMs, sclera anicteric Neck: no JVD, supple Respiratory: no wheezing, no rales, no rhonchi Cardiovascular: RRR, no significant murmur, no rub Gastrointestinal: soft, non-tender, no distention, positive bowel sounds morbid obesity Musculoskeletal: no edema, pulses present right leg erythema, warmth, tenderness Neurological: non-focal, normal sensation, moves all 4 limbs Psychiatric: normal affect, A&O x 3 Skin: no rash, normal turgor Dx/Plan (1) Acute worsening of stage 3 chronic kidney disease Code(s): N18.3 - CHRONIC KIDNEY DISEASE, STAGE 3 (MODERATE) Status: Acute (2) Cellulitis of right leg Code(s): L03.115 - CELLULITIS OF RIGHT LOWER LIMB Status: Acute (3) Failure of outpatient treatment Code(s): Z78.9 - OTHER SPECIFIED HEALTH STATUS Status: Acute (4) Anemia, normocytic normochromic Code(s): D64.9 - ANEMIA, UNSPECIFIED Status: Chronic (5) Chronic anticoagulation Code(s): Z79.01 - WASHERY BOSS (CURRENT) USE OF ANTICOAGULANTS Status: Chronic (6) Diabetes type 2, controlled Code(s): E11.9 - TYPE 2 DIABETES MELLITUS WITHOUT COMPLICATIONS Status: Chronic (7) GERD (gastroesophageal reflux disease) Code(s): K21.9 - GASTRO-ESOPHAGEAL REFLUX DISEASE WITHOUT ESOPHAGITIS Status: Chronic (8) HTN (hypertension) Code(s): I10 - ESSENTIAL (PRIMARY) HYPERTENSION Status: Chronic (9) History of pulmonary embolus (PE) Code(s): Z86.711 - PERSONAL HISTORY OF PULMONARY EMBOLISM Status: Chronic (10) Morbid obesity with BMI of 50.0-59.9, adult Code(s): E66.01 - MORBID (SEVERE) OBESITY DUE TO EXCESS CALORIES; Z68.43 - BODY MASS INDEX (BMI) 50-59.9 , ADULT Status: Chronic - Plan cont current plan of care, continue antibiotics * continue vancomycin and levaquin * monitor INR daily * continue IVF * repeat labs tomorrow * monitor renal function * will need placement to swing bed * medication reviewed as below * symptomatic treatment. * ID consulted Review of Systems - Review of Systems Constitutional: negative: fever, chills, sweats, weakness, malaise, other Eyes: negative: Pain, Vision Change, Conjunctivae Inflammation, Eyelid Inflammation, Redness, Other ENT: negative: Ear Pain, Ear Discharge, Nose Pain, Nose Discharge, Nose Congestion, Mouth Pain, Mouth Swelling, Throat Pain, Throat Swelling, Other Respiratory: negative: Cough, Dry, Shortness of Breath, Hemoptysis, SOB with Excertion, Pleuritic Pain, Sputum, Wheezing Cardiovascular: negative: chest pain, palpitations, orthopnea, paroxysmal nocturnal dyspnea, edema, light headedness, other Gastrointestinal: negative: Nausea, Vomiting, Abdominal Pain, Diarrhea, Constipation, Melena, Hematochezia, Other Genitourinary: negative: Dysuria, Frequency, Incontinence, Hematuria, Retention , Other Musculoskeletal: Leg Pain. negative: Neck Pain, Shoulder Pain, Arm Pain, Back Pain, Hand Pain, Foot Pain, Other - Medications/Allergies Allergies/Adverse Reactions: Allergies Allergy/AdvReac Type Severity Reaction Status Date / Time aspirin Allergy Severe Anaphylaxis Verified 02/08/18 02:36 [From Talwin Compound] codeine Allergy Severe Rash Verified 02/08/18 02:36 morphine Allergy Severe Anaphylaxis Verified 02/08/18 02:36 NSAIDS (Non-Steroidal Allergy Severe Verified 02/08/18 02:37 Anti-Inflamma Penicillins Allergy Severe Anaphylaxis Verified 02/08/18 02:36 pentazocine HCl Allergy Severe Anaphylaxis Verified 02/08/18 02:36 [From Talwin Compound] [id number]-[id number] Reductase Allergy Severe Verified 02/08/18 02:37 Inhibitor chocolate flavor Allergy Verified 02/08/18 02:36 ottoniel Allergy Verified 02/08/18 02:36 Sulfa (Sulfonamide Allergy Verified 02/08/18 02:36 Antibiotics) sulfamethoxazole Allergy Verified 02/08/18 02:36 [From Bactrim] trimethoprim [From Bactrim] Allergy Verified 02/08/18 02:36 Medications: Current Medications Acetaminophen (Tylenol) 650 mg PO Q6H PRN PRN Reason: Headache/Fever or Pain Hydrocodone Bitart/Acetaminophen (Quinby 5/325) 1 tab PO Q6H PRN PRN Reason: Pain Albuterol Sulfate (Albuterol Sulfate) 1.25 mg NEB Q6H PRN PRN Reason: SOB &/or Wheezing Amitriptyline HCl (Elavil) 30 mg PO HS [facility] Last Admin: 02/07/18 21:44 Dose: 30 mg Amlodipine Besylate (Norvasc) 5 mg PO DAILY [facility] Last Admin: 02/08/18 09:32 Dose: 5 mg Clonidine (Catapres) 0.2 mg PO HS [facility] Last Admin: 02/07/18 21:44 Dose: 0.2 mg Dextrose/Water (Dextrose 50%) 25 gm IVP PRN PRN PRN Reason: HYPOGLYCEMIA PROTOCOL Enalapril Maleate (Vasotec) 20 mg PO DAILY [facility] Last Admin: 02/08/18 09:32 Dose: 20 mg Enoxaparin Sodium (Lovenox) 40 mg SC 0900 [facility] Last Admin: 02/08/18 09:33 Dose: 40 mg Famotidine (Pepcid) 20 mg SLOW IVP Q12HR [facility] Last Admin: 02/08/18 09:33 Dose: 20 mg Glimepiride (Amaryl) 1 mg PO 0730 [facility] Last Admin: 02/08/18 09:30 Dose: 1 mg Glucagon (Glucagon) 1 mg IM PRN PRN PRN Reason: HYPOGLYCEMIA PROTOCOL Hydroxychloroquine Sulfate (Plaquenil) 200 mg PO BID [facility] Last Admin: 02/08/18 09:32 Dose: 200 mg Levofloxacin 750 mg/ Device 150 mls @ 100 mls/hr IVPB Q24HR [facility] Last Admin: 02/07/18 21:46 Dose: 150 mls Sodium Chloride (Normal Saline 0.9%) 1,000 mls @ 100 mls/hr IV .Q10H [facility] Last Admin: 02/08/18 09:39 Dose: 1,000 mls Vancomycin HCl 2 gm/ Sodium (Chloride) 500 mls @ 250 mls/hr IVPB Q24HR@0400 [facility] Last Admin: 02/08/18 04:28 Dose: 500 mls Dextrose/Water (D5w) 1,000 mls @ 0 mls/hr IV INF PRN; As Directed PRN Reason: HYPOGLYCEMIA PROTOCOL Insulin Human Lispro (Humalog) 0 units SC .MILD SLIDING SCALE PRN; Protocol PRN Reason: MILD SLIDING SCALE Levothyroxine Sodium (Synthroid) 200 mcg PO 0600 [facility] Last Admin: 02/08/18 04:32 Dose: 200 mcg Miscellaneous Medication (Pharmacy To Dose) 0 each IVPB PRN PRN PRN Reason: VANC Pharmacy to Dose Febuxostat [Uloric] (80 Mg) 80 mg PO DAILY [facility] Ondansetron HCl (Zofran) 4 mg IVP Q6H PRN PRN Reason: Nausea/Vomiting Pantoprazole Sodium (Protonix) 40 mg PO DAILY [facility] Last Admin: 02/08/18 09:32 Dose: 40 mg Prednisone (Prednisone) 5 mg PO QAM-WM [facility] Last Admin: 02/08/18 09:31 Dose: 5 mg Pregabalin (Lyrica) 75 mg PO BID [facility] Last Admin: 02/08/18 09:31 Dose: 75 mg Warfarin Sodium (Coumadin) 5 mg PO 1700 [facility]
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
[2018-02-08] MEDS: Clindamycin 150 MG CAP PO SCH ×2 (13:36→17:40)
[2018-02-08] MEDS: Warfarin Sodium 5 MG TAB PO SCH (17:40)
[2018-02-08] MEDS: cloNIDine 0.2 MG TAB PO SCH (21:52)
[2018-02-08] MEDS: Amitriptyline HCl 10 MG TAB PO SCH (21:52)
[2018-02-08] MEDS: Famotidine 20 MG TAB PO SCH (21:52)
[2018-02-09] MEDS: Clindamycin 150 MG CAP PO SCH ×4 (00:55→17:46)
[2018-02-09 04:21] LABS: #Basophils 0.1 thou/uL (0.0-0.2); #Eosinphils 0.3 thou/uL (0.0-0.7); #Lymphocytes 2.4 thou/uL (1.20-3.40); #Monocytes 0.8 thou/uL (0.11-0.59); #Neutrophils 3.4 thou/uL (1.40-6.50); %Eosinophils 4.6 % (0.0-10.0); %Lymphocytes 34.7 % (21.0-51.0); %Monocytes 11.3 % (0.0-10.0); %Neutrophils 48.5 % (42.0-75.0); Hemoglobin 8.8 g/dL (12.0-16.0); Mean Corpuscular HGB CONC 31.8 g/dL (32.0-36.0); Mean Corpuscular Hemoglobin 27.3 pg (27.0-31.0); Mean Corpuscular Volume 85.8 fl (81.0-99.0); Mean Platelet Volume 6.8 fL (7.4-10.4); Platelet Count 276 thou/uL (130-400); RBC Distribution Width 15.4 % (11.5-14.5); Red Blood Cell (RBC) Count 3.24 mill/uL (4.20-5.40); White Blood Cell (WBC) Count 6.9 thou/uL (4.8-10.8)
[2018-02-09 04:30] LABS: INR-International Normal Ratio 1.3; Prothrombin Time 16.6 SEC (12.0-14.7)
[2018-02-09 04:34] LABS: Albumin 2.6 g/dL (3.4-4.8); Anion Gap 11 mmol/L (10-20); BUN (Urea Nitrogen) 27 mg/dL (9.8-20.1); BUN/Creatinine Ratio 19.71; Calc. Creatinine Clearance 89 mL/min (70-130); Calcium 8.4 mg/dL (7.8-10.44); Carbon Dioxide 25 mmol/L (23-31); Chloride 106 mmol/L (98-107); Estimated GFR-MDRD 38; Glucose 64 mg/dL (80-115); Phosphorus 3.8 mg/dL (2.3-4.7); Potassium 4.3 mmol/L (3.5-5.1); Sodium 138 mmol/L (136-145)
[2018-02-09] MEDS: Levothyroxine Sodium 100 MCG TAB PO SCH (05:29)
[2018-02-09] MEDS: Pregabalin 75 MG CAP PO SCH ×2 (08:39→21:59)
[2018-02-09] MEDS: Enoxaparin Sodium 40 MG/0.4 ML SYRINGE SC SCH (08:40)
[2018-02-09] MEDS: Famotidine 20 MG TAB PO SCH ×2 (08:40→21:59)
[2018-02-09] MEDS: Amlodipine 5 MG TAB PO SCH (08:44)
[2018-02-09] MEDS: Hydroxychloroquine Sulfate 200 MG TAB PO SCH ×2 (08:45→21:59)
[2018-02-09] MEDS: Glimepiride 2 MG TAB PO SCH (08:45)
[2018-02-09] MEDS: predniSONE 5 MG TAB PO SCH (08:45)
[2018-02-09] MEDS: Sodium Chloride 0.9% 1,000 ML IV SCH ×2 (08:46→20:56)
--- NOTE | 2018-02-09 09:20 | PDOC.PN ---
- Subjective Encounter Start Date: 02/09/18 Encounter Start Time: 08:40 Patient seen and examined. No new complaints. No overnight events - Objective Resuscitation Status: Resuscitation Status FULL:Full Resuscitation MAR Reviewed: Yes Vital Signs & Weight: Vital Signs (12 hours) Temp Pulse Resp BP BP Pulse Ox 02/09/18 08:45 157/73 H 02/09/18 08:44 84 157/73 H 02/09/18 07:52 97.8 F 84 14 157/73 H 94 L 02/09/18 07:31 97.7 F 84 18 02/09/18 04:38 97.7 F 84 18 131/76 93 L 02/09/18 00:00 97.9 F 94 18 152/79 H 94 L 02/08/18 21:52 160/85 H 02/08/18 21:29 98.1 F 88 18 160/85 H 96 I&O: 02/08/18 02/09/18 02/10/18 06:59 06:59 06:59 Intake Total 1650 2875 Balance 1650 2875 Result Diagrams: 02/09/18 03:59 02/09/18 03:59 Additional Labs: Accuchecks 02/09/18 02/09/18 02/09/18 07:56 05:20 03:47 POC Glucose 118 H 61 L 73 02/08/18 02/08/18 02/08/18 19:56 16:18 11:25 POC Glucose 138 H 184 H 134 H Phys Exam - Physical Examination Constitutional: NAD HEENT: PERRLA, moist MMs, sclera anicteric Neck: no JVD, supple Respiratory: no wheezing, no rales, no rhonchi Cardiovascular: RRR, no significant murmur, no rub Gastrointestinal: soft, non-tender, no distention, positive bowel sounds morbid obesity Musculoskeletal: no edema, pulses present erythema, tenderness improving right leg Neurological: non-focal, normal sensation, moves all 4 limbs Lymphatic: no nodes Psychiatric: normal affect, A&O x 3 Skin: no rash, normal turgor Dx/Plan (1) Acute worsening of stage 3 chronic kidney disease Code(s): N18.3 - CHRONIC KIDNEY DISEASE, STAGE 3 (MODERATE) Status: Acute (2) Cellulitis of right leg Code(s): L03.115 - CELLULITIS OF RIGHT LOWER LIMB Status: Acute (3) Failure of outpatient treatment Code(s): Z78.9 - OTHER SPECIFIED HEALTH STATUS Status: Acute (4) Anemia, normocytic normochromic Code(s): D64.9 - ANEMIA, UNSPECIFIED Status: Chronic (5) Chronic anticoagulation Code(s): Z79.01 - MCC (CURRENT) USE OF ANTICOAGULANTS Status: Chronic (6) Diabetes type 2, controlled Code(s): E11.9 - TYPE 2 DIABETES MELLITUS WITHOUT COMPLICATIONS Status: Chronic (7) GERD (gastroesophageal reflux disease) Code(s): K21.9 - GASTRO-ESOPHAGEAL REFLUX DISEASE WITHOUT ESOPHAGITIS Status: Chronic (8) HTN (hypertension) Code(s): I10 - ESSENTIAL (PRIMARY) HYPERTENSION Status: Chronic (9) History of pulmonary embolus (PE) Code(s): Z86.711 - PERSONAL HISTORY OF PULMONARY EMBOLISM Status: Chronic (10) Morbid obesity with BMI of 50.0-59.9, adult Code(s): E66.01 - MORBID (SEVERE) OBESITY DUE TO EXCESS CALORIES; Z68.43 - BODY MASS INDEX (BMI) 50-59.9 , ADULT Status: Chronic - Plan cont current plan of care, continue antibiotics, public health social worker * ID recommendation appreciated * continue clindamycin * medication reviewed as below * symptomatic treatment. Review of Systems - Review of Systems ENT: negative: Ear Pain, Ear Discharge, Nose Pain, Nose Discharge, Nose Congestion, Mouth Pain, Mouth Swelling, Throat Pain, Throat Swelling, Other Respiratory: negative: Cough, Dry, Shortness of Breath, Hemoptysis, SOB with Excertion, Pleuritic Pain, Sputum, Wheezing Cardiovascular: negative: chest pain, palpitations, orthopnea, paroxysmal nocturnal dyspnea, edema, light headedness, other Gastrointestinal: negative: Nausea, Vomiting, Abdominal Pain, Diarrhea, Constipation, Melena, Hematochezia, Other Genitourinary: negative: Dysuria, Frequency, Incontinence, Hematuria, Retention , Other Musculoskeletal: negative: Neck Pain, Shoulder Pain, Arm Pain, Back Pain, Hand Pain, Leg Pain, Foot Pain, Other Skin: negative: Rash, Lesions, Will, Bruising, Other - Medications/Allergies Allergies/Adverse Reactions: Allergies Allergy/AdvReac Type Severity Reaction Status Date / Time aspirin Allergy Severe Anaphylaxis Verified 02/08/18 02:36 [From Tal[place] Compound] codeine Allergy Severe Rash Verified 02/08/18 02:36 morphine Allergy Severe Anaphylaxis Verified 02/08/18 02:36 NSAIDS (Non-Steroidal Allergy Severe Verified 02/08/18 02:37 Anti-Inflamma Penicillins Allergy Severe Anaphylaxis Verified 02/08/18 02:36 pentazocine HCl Allergy Severe Anaphylaxis Verified 02/08/18 02:36 [From [place]win Compound] Xzhtcbu-Ult-Csu Reductase Allergy Severe Verified 02/08/18 02:37 Inhibitor chocolate flavor Allergy Verified 02/08/18 02:36 ottoniel Allergy Verified 02/08/18 02:36 Sulfa (Sulfonamide Allergy Verified 02/08/18 02:36 Antibiotics) sulfamethoxazole Allergy Verified 02/08/18 02:36 [From Bactrim] trimethoprim [From Bactrim] Allergy Verified 02/08/18 02:36 Medications: Current Medications Acetaminophen (Tylenol) 650 mg PO Q6H PRN PRN Reason: Headache/Fever or Pain Hydrocodone Bitart/Acetaminophen ([place] 5/325) 1 tab PO Q6H PRN PRN Reason: Pain Albuterol Sulfate (Albuterol Sulfate) 1.25 mg NEB Q6H PRN PRN Reason: SOB &/or Wheezing Amitriptyline HCl (Elavil) 30 mg PO HS [facility] Last Admin: 02/08/18 21:52 Dose: 30 mg Amlodipine Besylate (Norvasc) 5 mg PO DAILY [facility] Last Admin: 02/09/18 08:44 Dose: 5 mg Clindamycin HCl (Cleocin) 300 mg PO Q6H [facility] Last Admin: 02/09/18 06:58 Dose: 300 mg Clonidine (Catapres) 0.2 mg PO HS [facility] Last Admin: 02/08/18 21:52 Dose: 0.2 mg Dextrose/Water (Dextrose 50%) 25 gm IVP PRN PRN PRN Reason: HYPOGLYCEMIA PROTOCOL Enalapril Maleate (Vasotec) 20 mg PO DAILY [facility] Last Admin: 02/09/18 08:45 Dose: 20 mg Enoxaparin Sodium (Lovenox) 40 mg SC 0900 [facility] Last Admin: 02/09/18 08:40 Dose: 40 mg Famotidine (Pepcid) 20 mg PO Q12HR [facility] Last Admin: 02/09/18 08:40 Dose: 20 mg Glimepiride (Amaryl) 1 mg PO 0730 [facility] Last Admin: 02/09/18 08:45 Dose: 1 mg Glucagon (Glucagon) 1 mg IM PRN PRN PRN Reason: HYPOGLYCEMIA PROTOCOL Hydroxychloroquine Sulfate (Plaquenil) 200 mg PO BID [facility] Last Admin: 02/09/18 08:45 Dose: 200 mg Sodium Chloride (Normal Saline 0.9%) 1,000 mls @ 100 mls/hr IV .Q10H [facility] Last Admin: 02/09/18 08:46 Dose: 1,000 mls Dextrose/Water (D5w) 1,000 mls @ 0 mls/hr IV INF PRN; As Directed PRN Reason: HYPOGLYCEMIA PROTOCOL Insulin Human Lispro (Humalog) 0 units SC .MILD SLIDING SCALE PRN; Protocol PRN Reason: MILD SLIDING SCALE Levothyroxine Sodium (Synthroid) 200 mcg PO 0600 [facility] Last Admin: 02/09/18 05:29 Dose: 200 mcg Febuxostat [Uloric] (80 Mg) 80 mg PO DAILY [facility] Ondansetron HCl (Zofran) 4 mg IVP Q6H PRN PRN Reason: Nausea/Vomiting Pantoprazole Sodium (Protonix) 40 mg PO DAILY [facility] Last Admin: 02/09/18 08:44 Dose: 40 mg Prednisone (Prednisone) 5 mg PO QAM-WM [facility] Last Admin: 02/09/18 08:45 Dose: 5 mg Pregabalin (Lyrica) 75 mg PO BID [facility] Last Admin: 02/09/18 08:39 Dose: 75 mg Saccharomyces Boulardii (Florastor) 250 mg PO DAILY [facility] Warfarin Sodium (Coumadin) 5 mg PO 1700 [facility] Last Admin: 02/08/18 17:40 Dose: 5 mg
[2018-02-09] MEDS: Saccharomyces boulardii 250 MG CAP PO SCH (10:50)
[2018-02-09] MEDS: Warfarin Sodium 5 MG TAB PO SCH (17:46)
--- NOTE | 2018-02-09 21:32 | PRG ---
DATE OF SERVICE: 02/09/2018 SUBJECTIVE: Ms. Renteria is feeling better. She was having some recrudescence of her gout. The right calf is about the same. The thigh is not bothering her. No respiratory symptoms. OBJECTIVE: VITAL SIGNS: She has been afebrile throughout the hospital stay here, pulse is 91, O2 sats 97%. SKIN: The area in the right calf is about the same with a kind of somewhat purpuric reticulated skin changes with sort of fusiform nodular indurated areas which are quite tender to palpation. Remainde r of the examination is not remarkable. The right anterior thigh again with no evidence of recrudesc ence of the previously noted seroma. LABORATORY DATA: The labs are again not remarkable. She does have a normocytic anemia with the whit e cell count is normal and the chemistry showed a creatinine of 1.37, which is improved from admissio n. The INR is still at 1.3 and the blood cultures no growth. ASSESSMENT AND DISCUSSION: Rheumatoid arthritis, type 2 diabetes, gout, thromboembolism in the past with subtherapeutic Coumadin and now those changes in the skin of the right calf I believe that the s uperficial thrombophlebitis is the more likely scenario here and once the Coumadin becomes therapeuti c, we want to see improvement of those lesions. The other possibility would be a vasculitis, but magen t is less likely and I believe the cellulitis is also less likely.
[2018-02-09] MEDS: Amitriptyline HCl 10 MG TAB PO SCH (21:59)
[2018-02-09] MEDS: cloNIDine 0.2 MG TAB PO SCH (21:59)
[2018-02-10] MEDS: Febuxostat [Uloric] 80 MG PO SCH ×2 (01:01→01:19)
[2018-02-10] MEDS: Clindamycin 150 MG CAP PO SCH ×3 (01:06→12:23)
[2018-02-10 04:10] LABS: INR-International Normal Ratio 1.4
[2018-02-10 04:23] LABS: Vancomycin, Trough 11.4 ug/mL
[2018-02-10] MEDS: Levothyroxine Sodium 100 MCG TAB PO SCH (06:14)
[2018-02-10] MEDS: Sodium Chloride 0.9% 1,000 ML IV SCH ×2 (06:14→09:07)
[2018-02-10] MEDS: Glimepiride 2 MG TAB PO SCH (09:04)
[2018-02-10] MEDS: Pregabalin 75 MG CAP PO SCH (09:05)
[2018-02-10] MEDS: Hydroxychloroquine Sulfate 200 MG TAB PO SCH (09:05)
[2018-02-10] MEDS: Enoxaparin Sodium 40 MG/0.4 ML SYRINGE SC SCH (09:05)
[2018-02-10] MEDS: Famotidine 20 MG TAB PO SCH (09:06)
[2018-02-10] MEDS: Saccharomyces boulardii 250 MG CAP PO SCH (09:07)
[2018-02-10] MEDS: Amlodipine 5 MG TAB PO SCH (09:07)
[2018-02-10] MEDS: predniSONE 5 MG TAB PO SCH (09:07)
--- NOTE | 2018-02-10 09:18 | PDOC.PN ---
- Subjective Encounter Start Date: 02/10/18 Encounter Start Time: 08:00 Patient seen and examined. No new complaints. No overnight events - Objective Resuscitation Status: Resuscitation Status FULL:Full Resuscitation MAR Reviewed: Yes Vital Signs & Weight: Vital Signs (12 hours) Temp Pulse Resp BP BP BP Pulse Ox 02/10/18 09:07 90 157/80 H 02/10/18 09:06 157/80 H 02/10/18 08:29 97.6 F 90 20 157/80 H 97 02/10/18 04:00 97.8 F 89 18 144/79 H 94 L 02/09/18 23:42 98.3 F 92 16 139/75 95 02/09/18 21:59 157/73 H I&O: 02/09/18 02/10/18 02/11/18 06:59 06:59 06:59 Intake Total 2875 1925 Balance 2875 1925 Result Diagrams: 02/09/18 03:59 02/09/18 03:59 Additional Labs: Accuchecks 02/10/18 02/09/18 02/09/18 05:36 21:09 16:19 POC Glucose 80 149 H 166 H 02/09/18 11:45 POC Glucose 149 H Phys Exam - Physical Examination Constitutional: NAD HEENT: PERRLA, moist MMs, sclera anicteric Neck: no JVD, supple Respiratory: no wheezing, no rales, no rhonchi Cardiovascular: RRR, no significant murmur, no rub Gastrointestinal: soft, non-tender, no distention, positive bowel sounds Musculoskeletal: no edema, pulses present Neurological: non-focal, normal sensation, moves all 4 limbs Psychiatric: normal affect, A&O x 3 Skin: no rash, normal turgor Dx/Plan (1) Acute worsening of stage 3 chronic kidney disease Code(s): N18.3 - CHRONIC KIDNEY DISEASE, STAGE 3 (MODERATE) Status: Acute (2) Cellulitis of right leg Code(s): L03.115 - CELLULITIS OF RIGHT LOWER LIMB Status: Acute (3) Failure of outpatient treatment Code(s): Z78.9 - OTHER SPECIFIED HEALTH STATUS Status: Acute (4) Anemia, normocytic normochromic Code(s): D64.9 - ANEMIA, UNSPECIFIED Status: Chronic (5) Chronic anticoagulation Code(s): Z79.01 - [place] (CURRENT) USE OF ANTICOAGULANTS Status: Chronic (6) Diabetes type 2, controlled Code(s): E11.9 - TYPE 2 DIABETES MELLITUS WITHOUT COMPLICATIONS Status: Chronic (7) GERD (gastroesophageal reflux disease) Code(s): K21.9 - GASTRO-ESOPHAGEAL REFLUX DISEASE WITHOUT ESOPHAGITIS Status: Chronic (8) HTN (hypertension) Code(s): I10 - ESSENTIAL (PRIMARY) HYPERTENSION Status: Chronic (9) History of pulmonary embolus (PE) Code(s): Z86.711 - PERSONAL HISTORY OF PULMONARY EMBOLISM Status: Chronic (10) Morbid obesity with BMI of 50.0-59.9, adult Code(s): E66.01 - MORBID (SEVERE) OBESITY DUE TO EXCESS CALORIES; Z68.43 - BODY MASS INDEX (BMI) 50-59.9 , ADULT Status: Chronic - Plan cont current plan of care, continue antibiotics * pt decided to go to home with home health rather than swing bed * medication reviewed as below * symptomatic treatment * will discharge today * see discharge michelle. Review of Systems - Review of Systems Eyes: negative: Pain, Vision Change, Conjunctivae Inflammation, Eyelid Inflammation, Redness, Other ENT: negative: Ear Pain, Ear Discharge, Nose Pain, Nose Discharge, Nose Congestion, Mouth Pain, Mouth Swelling, Throat Pain, Throat Swelling, Other Respiratory: negative: Cough, Dry, Shortness of Breath, Hemoptysis, SOB with Excertion, Pleuritic Pain, Sputum, Wheezing Cardiovascular: negative: chest pain, palpitations, orthopnea, paroxysmal nocturnal dyspnea, edema, light headedness, other Gastrointestinal: negative: Nausea, Vomiting, Abdominal Pain, Diarrhea, Constipation, Melena, Hematochezia, Other Genitourinary: negative: Dysuria, Frequency, Incontinence, Hematuria, Retention , Other Musculoskeletal: negative: Neck Pain, Shoulder Pain, Arm Pain, Back Pain, Hand Pain, Leg Pain, Foot Pain, Other Skin: negative: Rash, Lesions, Will, Bruising, Other - Medications/Allergies Allergies/Adverse Reactions: Allergies Allergy/AdvReac Type Severity Reaction Status Date / Time aspirin Allergy Severe Anaphylaxis Verified 02/08/18 02:36 [From Talwin Compound] codeine Allergy Severe Rash Verified 02/08/18 02:36 morphine Allergy Severe Anaphylaxis Verified 02/08/18 02:36 NSAIDS (Non-Steroidal Allergy Severe Verified 02/08/18 02:37 Anti-Inflamma Penicillins Allergy Severe Anaphylaxis Verified 02/08/18 02:36 pentazocine HCl Allergy Severe Anaphylaxis Verified 02/08/18 02:36 [From [place]win Compound] Rxqsgcz-Thk-Ged Reductase Allergy Severe Verified 02/08/18 02:37 Inhibitor chocolate flavor Allergy Verified 02/08/18 02:36 ottoniel Allergy Verified 02/08/18 02:36 Sulfa (Sulfonamide Allergy Verified 02/08/18 02:36 Antibiotics) sulfamethoxazole Allergy Verified 02/08/18 02:36 [From Bactrim] trimethoprim [From Bactrim] Allergy Verified 02/08/18 02:36 Medications: Current Medications Acetaminophen (Tylenol) 650 mg PO Q6H PRN PRN Reason: Headache/Fever or Pain Hydrocodone Bitart/Acetaminophen ([place] 5/325) 1 tab PO Q6H PRN PRN Reason: Pain Albuterol Sulfate (Albuterol Sulfate) 1.25 mg NEB Q6H PRN PRN Reason: SOB &/or Wheezing Amitriptyline HCl (Elavil) 30 mg PO HS [facility] Last Admin: 02/09/18 21:59 Dose: 30 mg Amlodipine Besylate (Norvasc) 5 mg PO DAILY [facility] Last Admin: 02/10/18 09:07 Dose: 5 mg Clindamycin HCl (Cleocin) 300 mg PO Q6H [facility] Last Admin: 02/10/18 06:14 Dose: 300 mg Clonidine (Catapres) 0.2 mg PO HS [facility] Last Admin: 02/09/18 21:59 Dose: 0.2 mg Dextrose/Water (Dextrose 50%) 25 gm IVP PRN PRN PRN Reason: HYPOGLYCEMIA PROTOCOL Enalapril Maleate (Vasotec) 20 mg PO DAILY [facility] Last Admin: 02/10/18 09:06 Dose: 20 mg Enoxaparin Sodium (Lovenox) 40 mg SC 0900 [facility] Last Admin: 02/10/18 09:05 Dose: 40 mg Famotidine (Pepcid) 20 mg PO Q12HR [facility] Last Admin: 02/10/18 09:06 Dose: 20 mg Glimepiride (Amaryl) 1 mg PO 0730 [facility] Last Admin: 02/10/18 09:04 Dose: 1 mg Glucagon (Glucagon) 1 mg IM PRN PRN PRN Reason: HYPOGLYCEMIA PROTOCOL Hydroxychloroquine Sulfate (Plaquenil) 200 mg PO BID [facility] Last Admin: 02/10/18 09:05 Dose: 200 mg Sodium Chloride (Normal Saline 0.9%) 1,000 mls @ 100 mls/hr IV .Q10H [facility] Last Admin: 02/10/18 09:07 Dose: Not Given Dextrose/Water (D5w) 1,000 mls @ 0 mls/hr IV INF PRN; As Directed PRN Reason: HYPOGLYCEMIA PROTOCOL Insulin Human Lispro (Humalog) 0 units SC .MILD SLIDING SCALE PRN; Protocol PRN Reason: MILD SLIDING SCALE Levothyroxine Sodium (Synthroid) 200 mcg PO 0600 [facility] Last Admin: 02/10/18 06:14 Dose: 200 mcg Ondansetron HCl (Zofran) 4 mg IVP Q6H PRN PRN Reason: Nausea/Vomiting Pantoprazole Sodium (Protonix) 40 mg PO DAILY [facility] Last Admin: 02/10/18 09:06 Dose: 40 mg Prednisone (Prednisone) 5 mg PO QAM[facility] Last Admin: 02/10/18 09:07 Dose: 5 mg Pregabalin (Lyrica) 75 mg PO BID [facility] Last Admin: 02/10/18 09:05 Dose: 75 mg Saccharomyces Boulardii (Florastor) 250 mg PO DAILY [facility] Last Admin: 02/10/18 09:07 Dose: 250 mg Warfarin Sodium (Coumadin) 5 mg PO 1700 [facility] Last Admin: 02/09/18 17:46 Dose: 5 mg
--- NOTE | 2018-02-10 10:24 | DIS ---
DATE OF ADMISSION: 02/07/2018 DATE OF DISCHARGE: 02/10/2018 PRIMARY CARE PHYSICIAN: Dr. Montes. DISCHARGE DISPOSITION: Home with resuming home health. PRIMARY DISCHARGE DIAGNOSES: 1. Right lower extremity cellulitis. 2. Acute on chronic kidney failure, baseline chronic kidney disease stage 3. 3. Superficial thrombophlebitis. 4. Failure of outpatient therapy. SECONDARY DISCHARGE DIAGNOSES: Morbid obesity with BMI 50, hypertension, history of pulmonary emboli sm, chronic anticoagulation, gastroesophageal reflux disease, diabetes type 2; anemia, normocytic, no rmochromic; chronic kidney disease stage 3. PRIMARY PROCEDURE/OPERATION: None. RADIOLOGICAL INVESTIGATION: Ultrasound was negative for any DVT. SIGNIFICANT LABS: WBC 6.9, hemoglobin 8.8, platelet 276. INR 1.4. Sodium 138, potassium 4.3, BUN 2 7, creatinine 1.37, calcium 8.4, albumin 2.6. Blood culture negative. DISCHARGE MEDICATIONS: Albuterol sulfate nebulization q.6 hourly p.r.n., amitriptyline 30 mg p.o. at bedtime, amlodipine 5 mg p.o. daily, Catapres 0.2 mg p.o. at bedtime, Uloric 80 mg p.o. daily, Amary l 2 mg p.o. daily, Plaquenil 200 mg p.o. b.i.d., Synthroid 200 mcg p.o. daily, lisinopril 20 mg p.o. b.i.d., Protonix 40 mg p.o. daily, prednisone 5 mg p.o. daily, Lyrica 75 mg p.o. b.i.d., warfarin 5 m g p.o. daily, clindamycin 300 mg q.6 hours for 7 days. CONTRAINDICATIONS: None. CODE STATUS: FULL CODE. INPATIENT CONSULTANTS: Dr. Kenny was following while in hospital. TEST RESULTS PENDING ON DISCHARGE: None. ALLERGIES: ASPIRIN, CODEINE, MORPHINE. DISCHARGE PLAN: Post hospital, the patient is instructed to follow up with Dr. Kenny and Dr. Montes as instructed. HOSPITAL COURSE: A 67-year-old female with above-mentioned medical problem who was admitted by Dr. Rafael kelly. Please see his H&P for further details. This patient was having tenderness, erythema over pos terior aspect of calf on the right lower extremity. The patient was given antibiotic therapy by [facility] physician without any improvement. The patient came to emergency room and the patient was a dmitted to medical floor. During this admission, she had acute on chronic kidney failure. Her creat inine on admission 1.81 and on discharge 1.37. She was given gentle IV fluid. While in hospital, twan larsen was given IV antibiotic therapy and we consulted Dr. Kenny and Dr. Kenny was thinking that patient most likely has superficial thrombophlebitis because of subtherapeutic INR and secondary hypercoagula ble status from protein C deficiency. Once we started warfarin therapy and this patient's swelling w as also improving, Dr. Kenny recommended to continue clindamycin for 7 more days. The patient's home medication was continued while in hospital as well as on discharge. Initially, the patient decided to go to swing bed, but subsequently patient changed her mind and she decided to go home with home health. Home health is arranged with help of complex case manager. Patient is doing very well now. She is ambulatory. Her pain is under control and she is afebrile, h emodynamically stable and her renal function is back to baseline. The patient is seen and examined at bedside today. Please see my progress note from today for furthe r detail.
[2018-02-10 15:29] VITALS: BP 146/81; TEMP 98.1
== END 2018-02-10 16:10 | disposition home health service (06) | DRG 300 ==
LOC: ERS 12:59 → SURG A 21:10
PROVIDERS: ADMIT Family Medicine; ATTEND Family Medicine
DX: M10.9 Gout, unspecified; K21.9 Gastro-esophageal reflux disease without esophagitis; Z78.9 Other specified health status; M06.9 Rheumatoid arthritis, unspecified; N17.9 Acute kidney failure, unspecified; I80.9 Phlebitis and thrombophlebitis of unspecified site; Z68.43 Body mass index [BMI] 50.0-59.9, adult; D68.69 Other thrombophilia; N18.3 Chronic kidney disease, stage 3 (moderate); E66.01 Morbid (severe) obesity due to excess calories; L03.115 Cellulitis of right lower limb; Z79.01 Long term (current) use of anticoagulants; Z86.711 Personal history of pulmonary embolism; I12.9 Hypertensive chronic kidney disease with stage 1 through stage 4 chronic kidney disease, or unspecified chronic kidney disease; E11.22 Type 2 diabetes mellitus with diabetic chronic kidney disease; D64.9 Anemia, unspecified; J45.909 Unspecified asthma, uncomplicated; E78.5 Hyperlipidemia, unspecified
CPT/HCPCS: 36415; 36416; 80048; 80053; 80069; 80202; 83605; 85025; 85610; 85730; 86140; 87040; 96365; 96375; G8978-GP-CK; G8979-GP-CI; G8987-GO-CJ; G8988-GO-CI; J1170; J1650; J1956; J3010; J3370; J7050

== ENCOUNTER 2018-04-23 17:46 | Inpatient (IN) | payer MEDICARE, OTHER ==
[2018-04-23 18:13] LABS: Hemoglobin 9.4 g/dL (12.0-16.0); Mean Corpuscular HGB CONC 31.3 g/dL (32.0-36.0); Mean Corpuscular Hemoglobin 25.8 pg (27.0-31.0); Mean Corpuscular Volume 82.5 fl (81.0-99.0); Mean Platelet Volume 6.3 fL (7.4-10.4); Platelet Count 381 thou/uL (130-400); RBC Distribution Width 16.6 % (11.5-14.5); Red Blood Cell (RBC) Count 3.63 mill/uL (4.20-5.40); White Blood Cell (WBC) Count 22.5 thou/uL (4.8-10.8)
[2018-04-23 18:33] LABS: Anisocytosis SLIGHT = 6-15 cells (100X) (0-5/hpf); Band 3 % (5-11); Eosinophils 1 % (0-10); Hypochromia SLIGHT = 6-15 cells (100X) (0-5/hpf); Lymphocytes 8 % (21-51); MDiff Complete? YES; Monocytes 9 % (0-10); Neutrophil 76 % (42-75); PLT Morphology Comment Appears Adequate; Reactive Lymphocytes 2 % (0-10)
[2018-04-23 18:38] LABS: ALT (SGPT) 13 U/L (8-55); AST (SGOT) 21 U/L (5-34); Albumin 3.3 g/dL (3.4-4.8); Alkaline Phosphatase 127 U/L (40-150); Anion Gap 13 mmol/L (10-20); BUN (Urea Nitrogen) 22 mg/dL (9.8-20.1); Bilirubin, Total 0.4 mg/dL (0.2-1.2); Calc. Creatinine Clearance 0 mL/min (70-130); Calcium 8.7 mg/dL (7.8-10.44); Carbon Dioxide 27 mmol/L (23-31); Chloride 102 mmol/L (98-107); Estimated GFR-MDRD 29; Globulin 4.4 g/dL (2.4-3.5); Glucose 79 mg/dL (80-115); Potassium 4.6 mmol/L (3.5-5.1); Protein, Total 7.7 g/dL (6.0-8.3); Sodium 137 mmol/L (136-145)
[2018-04-23 18:51] LABS: CRP (Inflammatory) 38.03 mg/dL (= or < 0.5)
[2018-04-23] MEDS ORDERED: Fentanyl 100 MCG/2 ML VIAL ONE (18:52)
--- NOTE | 2018-04-23 19:18 | RAD ---
FRONTAL VIEW CHEST: INDICATIONS: Fever. FINDINGS: There is added interstitial density at each perihilar region without evidence of lobar consolidation. Minimal blunting of the costophrenic sulci could be on the basis of mild pleural fluid. The cardia c silhouette is accentuated by the portable technique. The chest is otherwise similar in appearance. IMPRESSION: Findings which may relate to edema or pneumonitis of the perihilar regions. Correlate clinically. As necessary, imaging followup may be obtained. POS: YVAN
[2018-04-23] MEDS ORDERED: Clindamycin/D5W 900 mg/50 ml Premix Bag ONE (19:39)
[2018-04-23] MEDS ORDERED: Bisacodyl 5 MG TAB PO PRN (20:09)
[2018-04-23] MEDS ORDERED: Acetaminophen 650 MG Suppository PR PRN (20:09)
[2018-04-23] MEDS ORDERED: Vancomycin HCl 1 GM in Premix Bag 1 BAG IVPB SCH ×2 (20:15→21:30)
--- NOTE | 2018-04-23 20:15 | RAD ---
RIGHT FOOT THREE VIEWS: HISTORY: Cellulitis. COMPARISON: 11/26/2009 FINDINGS: There is diffuse bone demineralization. There is extensive soft tissue swelling. There are degenera tive changes in the mid foot. Lisfranc alignment is maintained. There are degenerative changes in t he first metatarsophalangeal joint space with hallus valgus deformity. There are indeterminate fract ures along the proximal third and fourth metatarsals. There are degenerative changes of the fifth ta rsometatarsal articulation. IMPRESSION: 1. Extensive soft tissue swelling. 2. Demineralization and irregularity involving the midfoot. Osteomyelitis cannot be excluded. 3. Fractures involving the 3rd and 4th metatarsals. Fractures are indeterminate. No obvious [place] injury. POS: PPP
[2018-04-23 20:17] LABS: INR-International Normal Ratio 3.2; Prothrombin Time 33.8 SEC (12.0-14.7)
--- NOTE | 2018-04-23 20:19 | RAD ---
RIGHT LEG TWO VIEW SERIES: INDICATIONS: Cellulitis. FINDINGS: There is incidental note of a right knee arthroplasty. There is slight heterogeneous density of the fibula with slight indistinctness of the periosteum, nonspecific. Vascular calcification is present. There is no fracture or dislocation. IMPRESSION: Mild heterogeneity of the fibula, as above. If there is clinical concern, followup with a three-phas e bone scan could be performed, to exclude underlying osteomyelitis, given clinical history of cellul itis. Correlate clinically in this regard. POS: YVAN
[2018-04-23] MEDS ORDERED: WARFARIN PO PRN (20:26)
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
[2018-04-23] MEDS ORDERED: Heparin 5,000 UNITS/ML VIAL SC SCH (21:00)
[2018-04-23] MEDS: Sodium Chloride 0.9% 1,000 ML IV SCH (21:10)
[2018-04-23] MEDS: cloNIDine 0.2 MG TAB PO SCH (21:38)
[2018-04-23] MEDS: Hydroxychloroquine Sulfate 200 MG TAB PO SCH (21:38)
[2018-04-23] MEDS: Amitriptyline HCl 10 MG TAB PO SCH (21:38)
[2018-04-23] MEDS: Fentanyl 100 MCG/2 ML VIAL SLOW IVP PRN (21:39)
[2018-04-23] MEDS: Pregabalin 75 MG CAP PO SCH (21:39)
[2018-04-23 22:11] VITALS: BMI 49.6
[2018-04-23 22:50] LABS: Lactic Acid 1.5 mmol/L (0.5-2.2)
[2018-04-23] MEDS: Clindamycin/D5W 900 MG in Premix Bag 1 BAG IVPB SCH (22:52)
[2018-04-24] MEDS: Fentanyl 100 MCG/2 ML VIAL SLOW IVP PRN ×3 (03:58→17:40)
[2018-04-24] MEDS: Levothyroxine Sodium 100 MCG TAB PO SCH (05:28)
[2018-04-24] MEDS: Sodium Chloride 0.9% 1,000 ML IV SCH ×2 (05:28→21:21)
[2018-04-24] MEDS: Clindamycin/D5W 900 MG in Premix Bag 1 BAG IVPB SCH ×3 (05:28→21:18)
[2018-04-24 05:37] LABS: #Lymphocytes 1.8 thou/uL (1.20-3.40); #Monocytes 2.2 thou/uL (0.11-0.59); #Neutrophils 16.5 thou/uL (1.40-6.50); %Basophils 0.2 % (0.0-1.0); %Eosinophils 0.2 % (0.0-10.0); %Lymphocytes 8.8 % (21.0-51.0); %Monocytes 10.5 % (0.0-10.0); %Neutrophils 80.2 % (42.0-75.0); Hemoglobin 8.5 g/dL (12.0-16.0); Mean Corpuscular HGB CONC 31.5 g/dL (32.0-36.0); Mean Corpuscular Hemoglobin 26.3 pg (27.0-31.0); Mean Corpuscular Volume 83.5 fl (81.0-99.0); Mean Platelet Volume 6.8 fL (7.4-10.4); Platelet Count 354 thou/uL (130-400); RBC Distribution Width 16.6 % (11.5-14.5); Red Blood Cell (RBC) Count 3.23 mill/uL (4.20-5.40); White Blood Cell (WBC) Count 20.5 thou/uL (4.8-10.8)
[2018-04-24 05:42] LABS: Prothrombin Time 40.9 SEC (12.0-14.7)
[2018-04-24 06:05] LABS: Anion Gap 14 mmol/L (10-20); BUN (Urea Nitrogen) 22 mg/dL (9.8-20.1); Calc. Creatinine Clearance 71 mL/min (70-130); Carbon Dioxide 23 mmol/L (23-31); Chloride 103 mmol/L (98-107); Estimated GFR-MDRD 30; Glucose 81 mg/dL (80-115); Potassium 4.4 mmol/L (3.5-5.1); Sodium 136 mmol/L (136-145)
[2018-04-24] MEDS: Pregabalin 75 MG CAP PO SCH ×2 (08:40→20:42)
[2018-04-24] MEDS: Hydroxychloroquine Sulfate 200 MG TAB PO SCH ×2 (08:40→20:43)
[2018-04-24] MEDS: Glimepiride 1 MG TAB PO SCH (08:41)
[2018-04-24] MEDS: Amlodipine 5 MG TAB PO SCH (08:41)
[2018-04-24] MEDS: Saccharomyces boulardii 250 MG CAP PO SCH (08:41)
[2018-04-24] MEDS ORDERED: (Febuxostat [Uloric] 80 MG) PO SCH (09:00)
[2018-04-24] MEDS: Acetaminophen 325 MG TAB PO PRN ×2 (12:14→20:47)
--- NOTE | 2018-04-24 13:49 | PDOC.PN ---
- Subjective Encounter Start Date: 04/24/18 Encounter Start Time: 09:20 Pt seen for followup re: sepsis. Denies chest pain, shortness of breath, fevers or chills. Complains of bernice leg pain. - Objective Resuscitation Status: Resuscitation Status FULL:Full Resuscitation Vital Signs & Weight: Vital Signs (12 hours) Temp Pulse Resp BP Pulse Ox 04/24/18 12:00 101.3 F H 109 H 28 H 164/67 H 94 L 04/24/18 08:41 108 H 04/24/18 08:00 99.6 F 108 H 24 H 146/68 H 94 L 04/24/18 03:05 98.8 F 108 H 17 123/74 91 L Weight Admit Weight 317 lb Weight 317 lb 4.8 oz I&O: 04/23/18 04/24/18 04/25/18 06:59 06:59 06:59 Intake Total 1218.5 Balance 1218.5 Result Diagrams: 04/24/18 04:28 04/24/18 04:28 Additional Labs: Accuchecks 04/24/18 04/24/18 04/23/18 11:58 05:18 22:20 POC Glucose 63 L 115 H 64 L Labs reviewed by me Phys Exam - Physical Examination Morbid obesity HEENT: moist MMs, sclera anicteric, oral pharynx no lesions, 2+ tonsils Neck: no nodes, no JVD, supple, full ROM Respiratory: no wheezing, no rales, no rhonchi, clear to auscultation bilateral Cardiovascular: RRR, no rub S1, S2 Gastrointestinal: soft, non-tender, positive bowel sounds distention Musculoskeletal: edema present Neurological: moves all 4 limbs Psychiatric: normal affect, A&O x 3 Deviation from normal: rash R lower extremity Dx/Plan (1) Sepsis Code(s): A41.9 - SEPSIS, UNSPECIFIED ORGANISM Status: Acute Comment: likely due to cellulitis. Pt had fever overnight. Leucocytosis slightly improved. (2) Cellulitis Code(s): L03.90 - CELLULITIS, UNSPECIFIED Status: Acute Comment: Continue IV antibiotics as below, follow cultures (3) CKD stage 3 secondary to diabetes Code(s): E11.22 - TYPE 2 DIABETES MELLITUS W DIABETIC CHRONIC KIDNEY DISEASE; N18.3 - CHRONIC KIDNEY DISEASE, STAGE 3 (MODERATE) Status: Chronic Comment: stable (4) Diabetes type 2, controlled Code(s): E11.9 - TYPE 2 DIABETES MELLITUS WITHOUT COMPLICATIONS Status: Chronic Comment: continue accuchecks, insulin sliding scale (5) GERD (gastroesophageal reflux disease) Code(s): K21.9 - GASTRO-ESOPHAGEAL REFLUX DISEASE WITHOUT ESOPHAGITIS Status: Chronic Comment: stable (6) HTN (hypertension) Code(s): I10 - ESSENTIAL (PRIMARY) HYPERTENSION Status: Chronic Comment: Monitor vital signs, titrate antihypertensives as needed - Plan * . Review of Systems - Review of Systems Constitutional: negative: fever, chills, sweats, weakness, malaise Respiratory: negative: Cough, Shortness of Breath, SOB with Excertion, Pleuritic Pain, Wheezing Cardiovascular: negative: chest pain, palpitations, orthopnea, paroxysmal nocturnal dyspnea, edema, light headedness Gastrointestinal: negative: Nausea, Vomiting, Abdominal Pain, Diarrhea, Constipation, Melena, Hematochezia Genitourinary: negative: Dysuria, Frequency, Incontinence, Hematuria, Retention Musculoskeletal: Leg Pain, Foot Pain. negative: Neck Pain, Shoulder Pain, Arm Pain, Back Pain, Hand Pain - Medications/Allergies Allergies/Adverse Reactions: Allergies Allergy/AdvReac Type Severity Reaction Status Date / Time aspirin Allergy Severe Anaphylaxis Verified 02/08/18 02:36 [From Talwin Compound] codeine Allergy Severe Rash Verified 02/08/18 02:36 morphine Allergy Severe Anaphylaxis Verified 02/08/18 02:36 NSAIDS (Non-Steroidal Allergy Severe Verified 02/08/18 02:37 Anti-Inflamma Penicillins Allergy Severe Anaphylaxis Verified 02/08/18 02:36 pentazocine HCl Allergy Severe Anaphylaxis Verified 02/08/18 02:36 [From Talwin Compound] Jrjxavp-Oic-Bbp Reductase Allergy Severe Verified 02/08/18 02:37 Inhibitor chocolate flavor Allergy Verified 02/08/18 02:36 ottoniel Allergy Verified 02/08/18 02:36 Sulfa (Sulfonamide Allergy Verified 02/08/18 02:36 Antibiotics) sulfamethoxazole Allergy Verified 02/08/18 02:36 [From Bactrim] trimethoprim [From Bactrim] Allergy Verified 02/08/18 02:36 Medications: Current Medications Acetaminophen (Tylenol) 650 mg PO Q4H PRN PRN Reason: Headache/Fever or Pain Last Admin: 04/24/18 12:14 Dose: 650 mg Acetaminophen (Tylenol) 650 mg ME Q4H PRN PRN Reason: Headache/Fever or Pain Albuterol Sulfate (Albuterol Sulfate) 1.25 mg NEB Q6H PRN PRN Reason: SOB &/or Wheezing Amitriptyline HCl (Elavil) 30 mg PO HS [facility] Last Admin: 04/23/18 21:38 Dose: 30 mg Amlodipine Besylate (Norvasc) 5 mg PO DAILY [facility] [place] Last Admin: 04/24/18 08:41 Dose: 5 mg Bisacodyl (Dulcolax) 10 mg PO DAILYPRN PRN PRN Reason: Constipation Clonidine (Catapres) 0.2 mg PO HS [facility] [place] Last Admin: 04/23/18 21:38 Dose: 0.2 mg Fentanyl (Sublimaze) 12.5 mcg SLOW IVP Q6H PRN PRN Reason: Pain Last Admin: 04/24/18 10:15 Dose: 12.5 mcg Glimepiride (Amaryl) 1 mg PO 0730 [facility] [place] Last Admin: 04/24/18 08:41 Dose: 1 mg Hydroxychloroquine Sulfate (Plaquenil) 200 mg PO BID [facility] [place] Last Admin: 04/24/18 08:40 Dose: 200 mg Clindamycin Phosphate/Dextrose (900 mg/ Device) 50 mls @ 100 mls/hr IVPB Q8HR [facility] [place] Last Admin: 04/24/18 14:43 Dose: 50 mls Sodium Chloride (Normal Saline 0.9%) 1,000 mls @ 70 mls/hr IV .[id number] [facility] [place] Last Admin: 04/24/18 05:28 Dose: 1,000 mls Levothyroxine Sodium (Synthroid) 200 mcg PO 0600 [facility] [place] Last Admin: 04/24/18 05:28 Dose: 200 mcg Miscellaneous Medication (Pharmacy To Dose) 1 each IVPB ONE PRN PRN Reason: Pharmacy to dose Stop: 05/23/18 20:09 Miscellaneous Medication (Pharmacy To Dose) 1 each PO PRN PRN PRN Reason: PHARMACY TO DOSE (Febuxostat [Uloric] (80 Mg)) 80 mg PO DAILY [facility] [place] Pantoprazole Sodium (Protonix) 40 mg PO DAILY [facility] [place] Last Admin: 04/24/18 08:41 Dose: 40 mg Pregabalin (Lyrica) 75 mg PO BID [facility] [place] Last Admin: 04/24/18 08:40 Dose: 75 mg Saccharomyces Boulardii (Florastor) 250 mg PO DAILY [facility] [place] Last Admin: 04/24/18 08:41 Dose: 250 mg
[2018-04-24] MEDS: cloNIDine 0.2 MG TAB PO SCH (20:42)
[2018-04-24] MEDS: Amitriptyline HCl 10 MG TAB PO SCH (20:42)
[2018-04-24 21:30] LABS: Vancomycin, Random 7.2 ug/mL (See Comment)
[2018-04-25] MEDS: Acetaminophen 325 MG TAB PO PRN ×4 (00:34→20:37)
[2018-04-25] MEDS: Fentanyl 100 MCG/2 ML VIAL SLOW IVP PRN ×4 (00:37→18:09)
[2018-04-25 04:45] LABS: #Lymphocytes 1.8 thou/uL (1.20-3.40); #Monocytes 1.8 thou/uL (0.11-0.59); #Neutrophils 14.8 thou/uL (1.40-6.50); %Eosinophils 0.2 % (0.0-10.0); %Lymphocytes 9.7 % (21.0-51.0); %Monocytes 9.9 % (0.0-10.0); %Neutrophils 80.2 % (42.0-75.0); Hemoglobin 7.7 g/dL (12.0-16.0); Mean Corpuscular HGB CONC 31.2 g/dL (32.0-36.0); Mean Corpuscular Volume 83.5 fl (81.0-99.0); Mean Platelet Volume 6.9 fL (7.4-10.4); Platelet Count 368 thou/uL (130-400); RBC Distribution Width 16.7 % (11.5-14.5); Red Blood Cell (RBC) Count 2.95 mill/uL (4.20-5.40); White Blood Cell (WBC) Count 18.5 thou/uL (4.8-10.8)
[2018-04-25 04:52] LABS: Anion Gap 12 mmol/L (10-20); BUN (Urea Nitrogen) 25 mg/dL (9.8-20.1); Calc. Creatinine Clearance 72 mL/min (70-130); Carbon Dioxide 23 mmol/L (23-31); Chloride 105 mmol/L (98-107); Estimated GFR-MDRD 30; Potassium 4.3 mmol/L (3.5-5.1); Sodium 136 mmol/L (136-145)
[2018-04-25 05:05] LABS: Glucose 34 mg/dL (80-115)
[2018-04-25] MEDS: Levothyroxine Sodium 100 MCG TAB PO SCH (05:16)
[2018-04-25] MEDS: Clindamycin/D5W 900 MG in Premix Bag 1 BAG IVPB SCH ×3 (05:17→22:24)
[2018-04-25 05:37] LABS: Prothrombin Time 59.1 SEC (12.0-14.7)
[2018-04-25 06:01] LABS: INR-International Normal Ratio 6.3
[2018-04-25] MEDS: Glimepiride 1 MG TAB PO SCH (07:52)
[2018-04-25] MEDS: Amlodipine 5 MG TAB PO SCH (07:55)
[2018-04-25] MEDS: Pregabalin 75 MG CAP PO SCH ×2 (07:55→20:37)
[2018-04-25] MEDS: Hydroxychloroquine Sulfate 200 MG TAB PO SCH ×2 (07:56→20:38)
[2018-04-25] MEDS: Saccharomyces boulardii 250 MG CAP PO SCH (07:56)
[2018-04-25] MEDS ORDERED: Phytonadione 10 MG/ML AMP PO SCH (11:30)
--- NOTE | 2018-04-25 13:10 | PDOC.PN ---
- Subjective Encounter Start Date: 04/25/18 Encounter Start Time: 09:40 Pt seen for followup re: bacteremia. Denies chest pain or shortness of breath. Complains of leg pain. - Objective Resuscitation Status: Resuscitation Status FULL:Full Resuscitation MAR Reviewed: Yes Vital Signs & Weight: Vital Signs (12 hours) Temp Pulse Resp BP BP Pulse Ox 04/25/18 10:51 98.7 F 99 20 136/56 L 92 L 04/25/18 08:00 97.5 F L 94 20 96 04/25/18 07:55 94 114/63 04/25/18 07:16 97.5 F L 88 20 114/63 96 04/25/18 04:35 98.3 F 105 H 22 H 132/76 92 L Weight Admit Weight 317 lb Weight 317 lb 4.8 oz I&O: 04/24/18 04/25/18 04/26/18 06:59 06:59 06:59 Intake Total 1218.5 1950 Output Total 2050 Balance 1218.5 -100 Result Diagrams: 04/25/18 03:36 04/25/18 03:36 Additional Labs: Accuchecks 04/25/18 04/25/18 04/25/18 10:02 08:06 06:45 POC Glucose 134 H 96 73 04/25/18 04/25/18 04/25/18 06:08 05:19 04:54 POC Glucose 59 L* 47 L* 43 L* 04/24/18 04/24/18 19:34 16:13 POC Glucose 72 60 L Labs reviewed by me Phys Exam - Physical Examination Morbid obesity HEENT: moist MMs, sclera anicteric, oral pharynx no lesions, 2+ tonsils Neck: no nodes, no JVD, supple, full ROM Respiratory: no wheezing, no rales, no rhonchi, clear to auscultation bilateral Cardiovascular: RRR, no rub S1, S2 Gastrointestinal: soft, non-tender, positive bowel sounds distention Neurological: moves all 4 limbs Psychiatric: normal affect, A&O x 3 Deviation from normal: rash right lower extremity Dx/Plan (1) Bacteremia Code(s): R78.81 - BACTEREMIA Status: Acute Comment: MRSA bacteremia. Continue IV vancomycin and IV clindamycin. Await ID consult. (2) Anemia Code(s): D64.9 - ANEMIA, UNSPECIFIED Status: Acute Comment: Hb slowly trending down. Scheck stool for occult blood. Could be secondary to sepsis. However, INR is elevated. (3) Elevated INR Code(s): R79.1 - ABNORMAL COAGULATION PROFILE Status: Acute Comment: Pt has not received warfarin since admission. No evidence of bleeding. Likely due to combination of sepsis and antibiotic use. Administer Vit K, recheck INR. (4) Sepsis Code(s): A41.9 - SEPSIS, UNSPECIFIED ORGANISM Status: Acute Comment: Due to sepsis and cellulitis. Continue IV antibiotics as below. (5) Cellulitis Code(s): L03.90 - CELLULITIS, UNSPECIFIED Status: Acute Comment: Continue IV antibiotics as below. Blood cultures growing MRSA. Await ID consult. Pt has hardware in both knees. (6) CKD stage 3 secondary to diabetes Code(s): E11.22 - TYPE 2 DIABETES MELLITUS W DIABETIC CHRONIC KIDNEY DISEASE; N18.3 - CHRONIC KIDNEY DISEASE, STAGE 3 (MODERATE) Status: Chronic Comment: stable (7) Diabetes type 2, controlled Code(s): E11.9 - TYPE 2 DIABETES MELLITUS WITHOUT COMPLICATIONS Status: Chronic Comment: pt had hypoglycemia earlier today, contyinue accuchecks. (8) GERD (gastroesophageal reflux disease) Code(s): K21.9 - GASTRO-ESOPHAGEAL REFLUX DISEASE WITHOUT ESOPHAGITIS Status: Chronic Comment: stable (9) HTN (hypertension) Code(s): I10 - ESSENTIAL (PRIMARY) HYPERTENSION Status: Chronic Comment: controlled - Plan * . Review of Systems - Review of Systems Constitutional: weakness. negative: fever, chills, sweats, malaise Respiratory: negative: Cough, Dry, Shortness of Breath, Hemoptysis, SOB with Excertion, Pleuritic Pain, Sputum, Wheezing Cardiovascular: negative: chest pain, palpitations, orthopnea, paroxysmal nocturnal dyspnea, edema, light headedness Musculoskeletal: Leg Pain. negative: Neck Pain, Shoulder Pain, Arm Pain, Back Pain, Hand Pain, Foot Pain Skin: Rash. negative: Lesions, Will, Bruising Neurological: negative: Weakness, Numbness, Incoordination, Change in Speech, Confusion, Seizures - Medications/Allergies Allergies/Adverse Reactions: Allergies Allergy/AdvReac Type Severity Reaction Status Date / Time aspirin Allergy Severe Anaphylaxis Verified 02/08/18 02:36 [From Talwin Compound] codeine Allergy Severe Rash Verified 02/08/18 02:36 morphine Allergy Severe Anaphylaxis Verified 02/08/18 02:36 NSAIDS (Non-Steroidal Allergy Severe Verified 02/08/18 02:37 Anti-Inflamma Penicillins Allergy Severe Anaphylaxis Verified 02/08/18 02:36 pentazocine HCl Allergy Severe Anaphylaxis Verified 02/08/18 02:36 [From Talwin Compound] Fksychn-Qha-Hwc Reductase Allergy Severe Verified 02/08/18 02:37 Inhibitor chocolate flavor Allergy Verified 02/08/18 02:36 ottoniel Allergy Verified 02/08/18 02:36 Sulfa (Sulfonamide Allergy Verified 02/08/18 02:36 Antibiotics) sulfamethoxazole Allergy Verified 02/08/18 02:36 [From Bactrim] trimethoprim [From Bactrim] Allergy Verified 02/08/18 02:36 Medications: Current Medications Acetaminophen (Tylenol) 650 mg PO Q4H PRN PRN Reason: Headache/Fever or Pain Last Admin: 04/25/18 05:17 Dose: 650 mg Acetaminophen (Tylenol) 650 mg DC Q4H PRN PRN Reason: Headache/Fever or Pain Albuterol Sulfate (Albuterol Sulfate) 1.25 mg NEB Q6H PRN PRN Reason: SOB &/or Wheezing Amitriptyline HCl (Elavil) 30 mg PO [facility] Last Admin: 04/24/18 20:42 Dose: 30 mg Amlodipine Besylate (Norvasc) 5 mg PO DAILY [facility] Last Admin: 04/25/18 07:55 Dose: 5 mg Bisacodyl (Dulcolax) 10 mg PO DAILYPRN PRN PRN Reason: Constipation Clonidine (Catapres) 0.2 mg PO [facility] Last Admin: 04/24/18 20:42 Dose: 0.2 mg Fentanyl (Sublimaze) 12.5 mcg SLOW IVP Q6H PRN PRN Reason: Pain Last Admin: 04/25/18 09:19 Dose: 12.5 mcg Glimepiride (Amaryl) 1 mg PO 0730 [facility] Last Admin: 04/25/18 07:52 Dose: Not Given Hydroxychloroquine Sulfate (Plaquenil) 200 mg PO BID [facility] Last Admin: 04/25/18 07:56 Dose: 200 mg Clindamycin Phosphate/Dextrose (900 mg/ Device) 50 mls @ 100 mls/hr IVPB Q8HR [facility] Last Admin: 04/25/18 05:17 Dose: 50 mls Sodium Chloride (Normal Saline 0.9%) 1,000 mls @ 70 mls/hr IV .[id number] [facility] Last Admin: 04/24/18 21:21 Dose: 1,000 mls Vancomycin HCl 2 gm/ Sodium (Chloride) 500 mls @ 250 mls/hr IVPB 2359 [facility] Last Admin: 04/25/18 00:43 Dose: 500 mls Levothyroxine Sodium (Synthroid) 200 mcg PO 0600 [facility] Last Admin: 04/25/18 05:16 Dose: 200 mcg Miscellaneous Medication (Pharmacy To Dose) 1 each IVPB PRN PRN PRN Reason: Pharmacy to dose Miscellaneous Medication (Pharmacy To Dose) 1 each PO PRN PRN PRN Reason: PHARMACY TO DOSE (Febuxostat [Uloric] (80 Mg)) 80 mg PO DAILY [facility] Pantoprazole Sodium (Protonix) 40 mg PO DAILY [facility] Last Admin: 04/25/18 07:56 Dose: 40 mg Phytonadione (Aquamephyton) 5 mg PO NOW [facility] Stop: 04/25/18 13:30 Last Admin: 04/25/18 11:55 Dose: 5 mg Pregabalin (Lyrica) 75 mg PO BID [facility] Last Admin: 04/25/18 07:55 Dose: 75 mg Saccharomyces Boulardii (Florastor) 250 mg PO DAILY [facility] Last Admin: 04/25/18 07:56 Dose: 250 mg
[2018-04-25 16:36] LABS: Vancomycin, Random 25.4 ug/mL (See Comment)
--- NOTE | 2018-04-25 16:40 | PDOC.EVN ---
Event Note - Event Note Event Note: Pt was tachycardic and tachypneic earlier. Discussed with Dr. Kenny. Will transfer pt to [facility] for close monitoring. Updated pt and family.
[2018-04-25] MEDS: Dextrose 50% Abboject 50 ML SYRINGE SLOW IVP PRN ×2 (16:42→23:34)
[2018-04-25] MEDS: Lactated Ringer's 1,000 ML IV SCH ×2 (16:44→17:41)
[2018-04-25] MEDS: Sodium Chloride 0.9% 1,000 ML IV SCH (16:48)
[2018-04-25 16:54] LABS: Platelet Count 403 thou/uL (130-400)
[2018-04-25] MEDS: Dextrose 5 %-0.45 % NaCl 1,000 ML IV SCH (16:55)
[2018-04-25 17:00] LABS: Prothrombin Time 62.6 SEC (12.0-14.7)
[2018-04-25 17:04] LABS: Fibrinogen 1124 mg/dL (253-463)
[2018-04-25 17:08] LABS: D-Dimer Test 2.97 *mcg/mL (0.27-0.43); Lactic Acid 1.3 mmol/L (0.5-2.2)
[2018-04-25 17:11] LABS: Anion Gap 12 mmol/L (10-20); BUN (Urea Nitrogen) 23 mg/dL (9.8-20.1); Calc. Creatinine Clearance 74 mL/min (70-130); Carbon Dioxide 25 mmol/L (23-31); Chloride 103 mmol/L (98-107); Estimated GFR-MDRD 31; Phosphorus 4.2 mg/dL (2.3-4.7); Potassium 4.3 mmol/L (3.5-5.1); Sodium 136 mmol/L (136-145)
[2018-04-25 17:18] LABS: INR-International Normal Ratio 6.7
[2018-04-25 17:19] LABS: Glucose 46 mg/dL (80-115)
[2018-04-25 17:24] LABS: Actual Bicarbonate (HCO3a) 23.4 mEq/L (22-26); Base Excess (BEa) -1.3 mEq/L (0 (+/-) 2.5); CO2 Tension 38.8 mmHg (35.0-45.0); Hematocrit-ABG 27.9 % (36.0-47.0); Hemoglobin (Hb) 7.8 g/dL (12.0-16.0); O2 Tension (PaO2) 69.2 mmHg (80.0-100.0)
[2018-04-25 17:25] LABS: Puncture Site LRA
[2018-04-25 17:36] LABS: FSP-Qualitative ABNORMAL (Normal); FSP-Semiquantitative >=5 & <20 mcg/mL (Less than 5)
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
[2018-04-25] MEDS ORDERED: Magnesium Sulfate 4 GM in Sodium Chloride 0.9% 250 ML 250 ML IVPB SCH (17:45)
[2018-04-25] MEDS ORDERED: Dextrose 50% Abboject 50 ML SYRINGE IVP PRN (20:00)
[2018-04-25] MEDS: Amitriptyline HCl 10 MG TAB PO SCH (20:37)
[2018-04-25] MEDS: cloNIDine 0.2 MG TAB PO SCH (20:37)
--- NOTE | 2018-04-25 22:17 | CON ---
DATE OF CONSULTATION: 04/25/2018 SERVICE: Pulmonary Medicine. REASON FOR CONSULTATION: Severe sepsis. HISTORY OF PRESENT ILLNESS: The patient is a 67-year-old white female with past medical history significant for rheumatoid arthritis. She is on Remicade, steroid chronically. She was in her usual state of health when she started having increasing fevers and chills. She came to the Emergency Department 2 days ago. She was placed on the floor. Empiric antibiotics were initially directed at some aspiration lung related issues. Ultimately, she progressed. She had increasing fevers and looked increasingly septic. Blood cultures came back as MRSA. She was subsequently transitioned down to the [facility]. She was initiated on vancomycin. Shortly after, her blood pressures became a little bit marginal. Her mentation is intact currently. She has septic appearing. At this point, she has not developed any evidence of end organ damage. I was consulted to be aware of her just in case things get worse. PAST MEDICAL HISTORY: 1. Rheumatoid arthritis. 2. Type 2 diabetes mellitus. 3. Hypertension. 4. Dyslipidemia. 5. Gout. 6. History of pulmonary embolism x2, on lifelong anticoagulation at this point. PAST SURGICAL HISTORY: 1. Left hand cyst removal. 2. Hysterectomy. 3. Appendectomy. 4. Total knee replacement, bilateral. SOCIAL HISTORY: She lives in [place]. She is a never smoker and denies any alcohol or illicit drugs. She has no exposure to chemicals, dust asbestos or gliosis. FAMILY HISTORY: Noncontributory. ALLERGIES: PENICILLIN causes anaphylaxis. CODEINE, NSAIDs, PENTAZOCINE, STATIN , and SULFA are all tolerated poorly. MEDICATIONS: List of her inpatient medications were reviewed. Multiple updates were made. REVIEW OF SYSTEMS: General, head, ears, eyes, nose, throat, cardiovascular, respiratory, GI, , musculoskeletal, neurologic and skin is negative except as mention in the HPI. PHYSICAL EXAMINATION: VITAL SIGNS: Afebrile, pulse 99, blood pressure 136/56, respirations 20, saturation 92% on 2 liters nasal cannula. GENERAL: The patient is awake, alert, no apparent distress. LUNGS: Decent air entry. Dependent crackles are present. There is no prolonged expiratory phase. I do not appreciate any wheezing or rhonchi. HEART: Normal rate, regular. ABDOMEN: Soft, nontender, nondistended. Bowel sounds are positive. MUSCULOSKELETAL: No cyanosis or clubbing. There is trace 1+ pitting in the bilateral lower extremities. NEUROLOGIC: Grossly nonfocal. LABORATORY DATA: WBC 18.5, hemoglobin down trending to 7.7, platelets 403,000. Neutrophil count is 80%. INR 6.7 and up trending. A pH 7.40, pCO2 of 38, pO2 of 70. Creatinine 1.63 and stable. Basic metabolic profile is otherwise unremarkable. Glucose 46. Magnesium 1.0, phosphorus 4.2 and stable. Random vancomycin is 25.4. Blood cultures x2 are growing MRSA. IMAGING: A tib-fib x-ray demonstrates mild heterogeneity of the fibula. Osteomyelitis cannot be excluded. Chest x-ray demonstrates soft tissue attenuation. Low lung volumes accentuate interstitial markings. ASSESSMENT: 1. Acute hypoxic respiratory failure. 2. Severe sepsis secondary to cellulitis. 3. Bacteremia secondary to methicillin-resistant Staphylococcus aureus. 4. Chronic kidney disease. 5. Immunocompromised state secondary to Remicade. 6. Type 2 diabetes mellitus. PLAN: We will repeat some laboratories. The patient is septic appearing, though she does not have any obvious evidence of end organ damage. As such, we will leave her in the IMCU for the time being. I will replace the magnesium. ABG looks reassuring for the time being. She has not had a significant acidosis and she certainly has an appropriate pCO2 level. I will give her 1 more liter of fluid. Echocardiogram will be obtained, though the body habitus will likely prevent us from getting a good picture of the heart valves. I agree with our current antibiotic selection. Pulmonary Critical Care will continue to follow along for the time being. 70 minutes have been devoted to this patient in various activities. I personally reviewed all imaging studies and laboratory data noted within this document. For fifty percent of this time, I was interacting with the patient at the bedside or coordinating care with the care team. For the remainder of the time I was immediately available to the patient in the hospital unit. KARI
[2018-04-25 23:38] LABS: Vancomycin, Random 19.6 ug/mL (See Comment)
--- NOTE | 2018-04-25 23:39 | CON ---
DATE OF CONSULTATION: 04/26/2018 CONSULTING PHYSICIAN: Lm Grissom M.D. REASON FOR CONSULTATION: Right knee redness. HISTORY OF PRESENT ILLNESS: Ms. Renteria is a 67-year-old female who presents to hospital 3 days ago f or increasing right foot pain. The patient has no acute trauma per report, the pain is elevated. e has been switched to the [facility] for some distress. The patient has currently been diagnosed with a bacteremia, has been followed recently for right thigh fluid collection by Dr. Kenny, it was given a supratherapeutic INR as well as been hypoglycemic during her stay. The patient underwent an I&D by Dr. Grissom was consulted to evaluate her right total knee performed by Dr. Leach performed back in 2011 per the patient's report. PAST MEDICAL HISTORY: Includes type 2 diabetes, gout, rheumatoid arthritis, hypertension, pulmonary embolism with two include therapeutic, history of the swollen right thigh. PAST SURGICAL HISTORY: Bilateral knee arthroplasties performed by Dr. Leach, bilateral carpal tunne l releases, hysterectomy, appendectomy. MEDICATIONS: Please see admission list. ALLERGIES: PENICILLINS, CODEINE, NSAIDS, STATINS, and SULFA. SOCIAL HISTORY: Lives in [place]. No current alcohol, tobacco, or drug use. Patient was admitt ed to medical service on the 25th has been in the hospital since at times. REVIEW OF SYSTEMS: Noncontributory. PHYSICAL EXAMINATION: VITAL SIGNS: Heart rate 119, blood pressure 146/69, she is 95% on O2. Patient's last temperature wa s 98.7. GENERAL: Female tachycardic, responding to questions, alert and oriented x3 in some respiratory dist ress. EXTREMITIES: Patient's right lower extremity, she has well-healed surgical scar. There is some mild erythema but not substantial versus the opposite side. She does not have tenderness to light touch. There is no obvious blanching. The patient has a small fluid collection, but no large effusion not ed. She has no pain with knee flexion extended. She does have warmth to the posterior calf and righ t foot has a wound from the I&D, Dr. Grissom performed. The patient has limited gross sensation. e has pain localized to her right foot. No previous left lower extremity knee looks well-healed scar . White blood cell count 82.5. Patient has blood cultures x2 positive MRSA. Her INR is currently 6 .3. Patient is currently in some pulmonary distress follwing IMC step down. IMPRESSION: 1. History of right total knee arthroplasty. No obvious signs of gross infection, given no pain wit h range of motion or obvious pain. 2. Likely x-rays taken in her admission showed foot fractures without history of trauma was concerni ng for possible Charcot's arthropathy versus osteomyelitis given the positive blood cultures. ASSESSMENT AND PLAN: We will follow the patient's knee and examined and shows that is improving at t his time. I will hold any aspiration given the recent I&D by Dr. Grissom. The patient is also curre ntly in pulmonary distress and has a supratherapeutic INR. Patient will await cultures of the foot a nd continue medical management and IV antibiotics.
[2018-04-26] MEDS: Fentanyl 100 MCG/2 ML VIAL SLOW IVP PRN ×4 (00:45→22:34)
[2018-04-26] MEDS: Acetaminophen 325 MG TAB PO PRN ×4 (00:45→21:41)
--- NOTE | 2018-04-26 01:22 | CON ---
DATE OF CONSULTATION: 04/25/2018 REASON FOR CONSULTATION: Possible abscess of right foot. HISTORY OF PRESENT ILLNESS: Ms. Renteria is a 67-year-old woman with history of right lower extremity cellulitis. She was in the hospital for 3 days earlier this month for this problem and diagnosis of superficial thrombophlebitis. She was readmitted on 04/23/2018 with redness and swelling of her righ t leg. She states that the pain and swelling came on around , and since that time she has diez d several fevers. She denies any chills, but states that the foot is so painful she cannot walk on i t. She does have a history of peripheral neuropathy, but does not recall any trauma to the foot. Sh e states that she has not had any open wounds or penetrating injuries. She is chronically anticoagul ated on Coumadin and her INR this morning was elevated. PAST MEDICAL HISTORY: Diabetes, gout, hypertension, pulmonary embolism, arthritis, hyperlipidemia. PAST SURGICAL HISTORY: Bilateral knee replacements with right knee replaced in 2011 by fred Arzate arpal tunnel repair, removal of the ganglion cyst in the left hand, bilateral rotator cuff repair, hy sterectomy, appendectomy, and cataract surgery. SOCIAL HISTORY: The patient does not smoke, drink or use illicit drugs. FAMILY HISTORY: Heart disease. ALLERGIES: She reports an anaphylactic reaction to PENICILLIN. She also reports intolerance of CODE INE, MORPHINE, NSAIDS, PENTAZOCINE, STATINS, SULFA, and TRIMETHOPRIM. OUTPATIENT MEDICATIONS: Include Coumadin, amlodipine, Catapres, Uloric, Amaryl, Plaquenil, Synthroid , lisinopril, Protonix, Lyrica, and albuterol nebulizers. According to Dr. Kenny, she is also on imm unomodulator for rheumatoid. REVIEW OF SYSTEMS: Ten-system review of systems is negative except for HPI. The patient has had a w orsening of her clinical status today with increased heart rate and respiratory rate and the decision was made to transfer her to [facility] for closer monitoring. She states that she has little short of rachel ath, but she denies chest pain or abdominal pain. She had a bit of a sore throat, but otherwise not had any major complaints except for pain in her right foot. PHYSICAL EXAMINATION: VITAL SIGNS: The patient was febrile to 101.3 yesterday, but was afebrile when I saw her. Her heart rate was elevated in the one teens and she was saturating in the low 90s on nasal cannula O2. GENERAL: Reveals a morbidly obese elderly woman who appears older than her stated age. She was in m oderate distress and appeared flushed and diaphoretic. HEENT: Unremarkable. NECK: Supple, without lymphadenopathy or thyroid nodules. HEART: Tachycardic but regular. I did not appreciate murmurs, rubs or gallops. LUNGS: Clear, although breath sounds are somewhat distant. ABDOMEN: Soft, nontender and nondistended. EXTREMITIES: Warm and well perfused with severe swelling and erythema of her right foot. She is briana y tender to palpation diffusely. Her foot was not adequately elevated and was below the level of her knee. She had excellent capillary refill, although I was not able to palpate pulses due to pain wit h compression over the areas of her pulses. There was not any definite fluctuance, but there was avery e bogginess especially near the lateral foot. No open sores, although she did have some calluses. T he patient also had some erythema of her lateral calf and her right knee was significantly redder magen n her left knee, although she did not have any significant pain with movements of her knee. No visib le effusion. She had no pain with movement of her toes and she has normal gross sensation to light t ouch. On ultrasound, she had significant edema in the soft tissues, but there appeared to be a fluid collection over the lateral dorsal foot which was marked on the skin. This was just above the area of bogginess previously noted on exam. X-rays were examined. She did have x-rays of her foot on adm ission and had indeterminant age fractures of the third and fourth metatarsals as well as some osteo lucency and severe edema of the soft tissues. LABORATORY DATA: Her white count was elevated to 22,000 on admission and had come down slightly to 1 8.5 this morning. H and H are 7.7 and 24.6, platelets 403. INR this morning was 6.3 and a follow up chest done this afternoon was 6.7 despite vitamin K. Her D-dimers were high at 2.97 and fibrinogen was high at 1124. BUN and creatinine are 23 and 1.63, which is about her baseline. Blood sugars hav e been somewhat labile. She was 46 this afternoon and after treatment is 80. Magnesium was low at 1 . BNP is normal at 80.5. ASSESSMENT: Sepsis, likely due to right foot cellulitis. I suspect she has an abscess based on ultr asound and recommended I and D and the patient was in agreement with this. Due to her elevated INR, she is at increased risk for bleeding, but since this appears to be superficial. I do not think that risk is inordinate. I did consult Dr. More of Orthopedic Surgery to evaluate her right knee, alt rachele she does not have any pain with movement of her knee, her pain is all in her foot. I believe t hat the metatarsal fractures are chronic and likely due to neuropathy representing a Charcot foot sce nario. I&D was performed at the bedside. After informed consent was obtained. The previously marke d area was anesthetized with local anesthesia and then incision made. A small amount of cloudy fluid was encountered and sent for Gram stain and culture; however, there was no large abscess cavity. Th is may just be a focal collection of edema from her cellulitis. I do not think it is likely that she has a deep abscess of her foot, although she may very well of chronic osteomyelitis. Due to her kaushal al insufficiency, I would prefer to avoid IV contrast. I have ordered a noncontrast CT of the foot. This should suffice to see whether there is an undrained deep abscess. If this is present, then amp utation might will be necessary; however, given her morbid obesity, this would likely lead to nonambu latory status and a decline in her level of function. I have ordered the CT scan, currently, she is not stable enough to travel to [place], but hopefully her condition will improve and enough to allow that to be performed shortly. She appears to be in sinus tachycardia on the rhythm strip, but I have orde red a 12-lead to ensure this.
[2018-04-26 04:23] LABS: INR-International Normal Ratio 3.7; Prothrombin Time 38.8 SEC (12.0-14.7)
[2018-04-26 04:28] LABS: Anion Gap 13 mmol/L (10-20); BUN (Urea Nitrogen) 22 mg/dL (9.8-20.1); Calc. Creatinine Clearance 84 mL/min (70-130); Carbon Dioxide 21 mmol/L (23-31); Chloride 103 mmol/L (98-107); Estimated GFR-MDRD 36; Glucose 63 mg/dL (80-115); Potassium 4.2 mmol/L (3.5-5.1); Sodium 133 mmol/L (136-145)
[2018-04-26 05:18] LABS: Band 3 % (5-11); Lymphocytes 17 % (21-51); MDiff Complete? YES; Mean Corpuscular HGB CONC 31.7 g/dL (32.0-36.0); Mean Corpuscular Hemoglobin 26.4 pg (27.0-31.0); Mean Corpuscular Volume 83.4 fl (81.0-99.0); Mean Platelet Volume 6.9 fL (7.4-10.4); Monocytes 6 % (0-10); Neutrophil 74 % (42-75); Platelet Count 374 thou/uL (130-400); RBC Distribution Width 16.9 % (11.5-14.5); Red Blood Cell (RBC) Count 3.03 mill/uL (4.20-5.40); White Blood Cell (WBC) Count 16.1 thou/uL (4.8-10.8)
[2018-04-26] MEDS: Clindamycin/D5W 900 MG in Premix Bag 1 BAG IVPB SCH ×3 (06:01→21:41)
[2018-04-26] MEDS: Levothyroxine Sodium 100 MCG TAB PO SCH (06:02)
--- NOTE | 2018-04-26 07:33 | CT ---
NONCONTRAST CT RIGHT LEG NONCONTRAST CT RIGHT ANKLE AND FOOT: Clinical history: Soft tissue infection, cellulitis, evaluate for abscess. FINDINGS: Prominent streak artifact from the right knee is present related to right knee prosthesis, limiting a ssessment in this region. There is diffuse vascular disease. Evidence of subcutaneous edema throughout the craniocaudal extent of the right leg is present, notabl y at the anterior aspect. There is extensive heterogeneity of the osseous structures of the midfoot w ith multifocal bone destruction which disrupts the lisfranc joint involving multiple tarsal bones as well as the proximal aspect of the metatarsals. This may relate to a long standing neurogenic arthrop athy although superimposed acute infectious/inflammatory process is not excluded. Correlate clinicall y. There is abnormal hyperdensity with interspersed air locules of the soft tissues of the lateral ri ght midfoot with communication of the skin surface indicating soft tissue ulceration. Correlate with physical exam. There is muscular atrophy. Multiple prominent in varicosities are seen. There is no discrete fracture of the tibia and fibula. IMPRESSION: 1. Findings likely related to neurogenic arthropathy (Charcot foot) of the right foot. Superimposed a cute osteomyelitis is not excluded. 2. There are overlying areas of soft tissue ulceration with adjacent edema and skin thickening. Corre late with physical exam. 3. Generalized edema and muscular atrophy. 4. Additional details as described above. POS: YVAN
[2018-04-26] MEDS: Hydroxychloroquine Sulfate 200 MG TAB PO SCH ×2 (08:03→20:42)
[2018-04-26] MEDS: Pregabalin 75 MG CAP PO SCH ×2 (08:03→20:41)
[2018-04-26] MEDS: Amlodipine 5 MG TAB PO SCH (08:03)
[2018-04-26] MEDS: Saccharomyces boulardii 250 MG CAP PO SCH (08:03)
--- NOTE | 2018-04-26 10:14 | ULT ---
BILATERAL VENOUS DOPPLER ULTRASOUND: History: Left and right lower extremity swelling, edema. Comparison: None. Technique: Grayscale, color flow, and doppler imaging with spectral waveform analysis performed of th e left and right venous system. FINDINGS: Bilateral compressibility, flow, and augmentation of the common femoral vein, femoral vein, and popli teal vein. Flow in bilateral greater saphenous, profunda veins, and posterior tibial veins. IMPRESSION: No evidence of thrombus in the left and right deep venous lower extremity system. POS: CODEY
--- NOTE | 2018-04-26 11:04 | PDOC.GSPN ---
Surgery Progress Note: Subj - Subjective Narrative: Patient looks better this morning compared to last night. She is no longer diaphoretic or toxic appearing and her heart rate has come down. She is still breathing little heavily. Her right foot is still red and swollen. No expressible purulent drainage from the I&D site. Noncontrast CT did not show any deep abscess or drainable fluid collection but did show fairly extensive bony distraction of the metatarsals felt to be most likely due to chronic neuropathic damage. However, osteomyelitis could not be ruled out. Assessment/plan: Right foot cellulitis. Status post I&D of small fluid collection but this was more of a focal seroma from her severe cellulitis then discrete abscess. No evidence of deep abscess on CT but she could have chronic osteomyelitis. Unfortunately it very difficult to differentiate this from Charcot joint. I would anticipate that bone scan and MRI would be abnormal in both cases. I discussed her case with Dr. Kenny and since she has improved somewhat, for now we are going to continue with elevation antibiotics and wound care. If she does proceed to amputation I expect it would be extremely difficult for her to ambulate with a BKA given her morbid obesity and medical issues, so this would be a very morbid operation for her. We will continue to observe her closely in IMCU. Surgery Progress Note: Obj - Vital signs Vital signs: Vital Signs - Most Recent Temp Pulse Resp BP Pulse Ox 98.8 F 103 H 24 H 111/43 L 97 04/26/18 08:00 04/26/18 08:03 04/26/18 08:00 04/26/18 07:25 04/26/18 08:00 Surgery Progress Note: Results - Labs Result Diagrams: 04/26/18 03:22 04/26/18 03:22 Lab results: Laboratory Results - last 24 hr 04/25/18 04/25/18 04/25/18 23:13 23:33 23:59 WBC RBC Hgb Hct MCV MCH MCHC RDW Plt Count MPV Neutrophils % (Manual) Band Neuts % (Manual) Lymphocytes % (Manual) Monocytes % (Manual) PT INR Sodium Potassium Chloride Carbon Dioxide Anion Gap BUN Creatinine Estimated GFR (MDRD) Glucose POC Glucose 58 L* 136 H Calcium Random Vancomycin 19.6 04/26/18 04/26/18 04/26/18 01:58 03:22 03:22 WBC RBC Hgb Hct MCV MCH MCHC RDW Plt Count MPV Neutrophils % (Manual) Band Neuts % (Manual) Lymphocytes % (Manual) Monocytes % (Manual) PT 38.8 H INR 3.7 Sodium 133 L Potassium 4.2 Chloride 103 Carbon Dioxide 21 L Anion Gap 13 BUN 22 H Creatinine 1.44 H Estimated GFR (MDRD) 36 Glucose 63 L POC Glucose 82 Calcium 8.0 Random Vancomycin 04/26/18 04/26/18 04/26/18 03:22 04:02 05:55 WBC 16.1 H RBC 3.03 L Hgb 8.0 L Hct 25.3 L MCV 83.4 MCH 26.4 L MCHC 31.7 L RDW 16.9 H Plt Count 374 MPV 6.9 L Neutrophils % (Manual) 74 Band Neuts % (Manual) 3 L Lymphocytes % (Manual) 17 L Monocytes % (Manual) 6 PT INR Sodium Potassium Chloride Carbon Dioxide Anion Gap BUN Creatinine Estimated GFR (MDRD) Glucose POC Glucose 77 78 Calcium Random Vancomycin 04/26/18 08:02 WBC RBC Hgb Hct MCV MCH MCHC RDW Plt Count MPV Neutrophils % (Manual) Band Neuts % (Manual) Lymphocytes % (Manual) Monocytes % (Manual) PT INR Sodium Potassium Chloride Carbon Dioxide Anion Gap BUN Creatinine Estimated GFR (MDRD) Glucose POC Glucose 83 Calcium Random Vancomycin
[2018-04-26] MEDS: traMADol HCl 50 MG TAB PO PRN ×2 (11:38→20:41)
[2018-04-26] MEDS: Dextrose 5 %-0.45 % NaCl 1,000 ML IV SCH (11:39)
[2018-04-26] MEDS: Albuterol Sulfate 1.25 MG/3 ML NEB NEB PRN (11:51)
--- NOTE | 2018-04-26 13:30 | PRG ---
DATE OF SERVICE: 04/26/2018 Ms. Renteria has no complaints other than feeling bad all over. PHYSICAL EXAMINATION: VITAL SIGNS: Temperature is 99, heart rate 104, respiratory rate 22, oximetry is 100% on 2 liters, b lood pressure 137/67. LUNGS: She does have wheezes on exam. HEART: Regular rhythm. ABDOMEN: Abdomen is soft. EXTREMITIES: Her right lower extremity is bandaged. IMPRESSION: 1. Cellulitis. 2. Methicillin-resistant Staphylococcus aureus bacteremia, 2 out of 2 positive blood cultures. 3. Chronic Remicade use. 4. Diabetes. 5. Chronic kidney disease. 6. Reactive airways ?, she says she uses albuterol at home. So I will place her on around the clock nebulizer treatments. Hopefully, this will help. We will co maisha to follow with the other physicians.
--- NOTE | 2018-04-26 14:35 | RAD ---
PORTABLE UPRIGHT FRONTAL CHEST RADIOGRAPH: DATE: 04/26/18. COMPARISON: 04/23/18. HISTORY: Wheezing, assess for aspiration. FINDINGS: There is no pneumothorax, pleural fluid, focal consolidation, or alveolar edema. There is mild pulmo nary vascular congestion. Postoperative anchors overlie the right humeral head. IMPRESSION: No focal consolidation or alveolar edema. POS: [facility]
--- NOTE | 2018-04-26 15:09 | PDOC.PN ---
- Subjective Encounter Start Date: 04/26/18 Encounter Start Time: 10:00 Pt seen for followup re: bacteremia. c/o R foot pain. Denies fevers or chills. No nausea or vomiting. - Objective Resuscitation Status: Resuscitation Status FULL:Full Resuscitation MAR Reviewed: Yes Vital Signs & Weight: Vital Signs (12 hours) Temp Pulse Resp BP Pulse Ox 04/26/18 11:51 110 H 24 H 99 04/26/18 11:09 99.1 F 104 H 22 H 137/67 100 04/26/18 08:03 103 H 04/26/18 08:00 98.8 F 103 H 24 H 97 04/26/18 07:25 98.8 F 103 H 20 111/43 L 97 Weight Admit Weight 317 lb 4.8 oz Weight 317 lb 4.8 oz I&O: 04/25/18 04/26/18 04/27/18 06:59 06:59 06:59 Intake Total 1950 2796 Output Total 2050 1200 Balance -100 1596 Result Diagrams: 04/26/18 03:22 04/26/18 03:22 Additional Labs: Accuchecks 04/26/18 04/26/18 04/26/18 10:56 08:02 05:55 POC Glucose 70 83 78 04/26/18 04/26/18 04/25/18 04:02 01:58 23:59 POC Glucose 77 82 136 H 04/25/18 04/25/18 04/25/18 23:33 22:02 21:08 POC Glucose 58 L* 81 106 04/25/18 04/25/18 04/25/18 20:01 17:41 16:36 POC Glucose 57 L* 80 48 L* EKG Reviewed by me: Yes (Tele: NSR) Phys Exam - Physical Examination Morbid obesity HEENT: moist MMs, sclera anicteric, oral pharynx no lesions, 2+ tonsils Neck: no nodes, no JVD, supple, full ROM Respiratory: no wheezing, no rales, no rhonchi, clear to auscultation bilateral Cardiovascular: RRR, no rub S1, S2 Gastrointestinal: soft, non-tender, positive bowel sounds distended Musculoskeletal: edema present Neurological: moves all 4 limbs Psychiatric: normal affect, A&O x 3 Deviation from normal: R foot dressing Dx/Plan (1) Bacteremia Code(s): R78.81 - BACTEREMIA Status: Acute Comment: MRSA bacteremia. Continue IV vancomycin and IV clindamycin. Pt transferred to IM yesterday for close monitoring (2) Anemia Code(s): D64.9 - ANEMIA, UNSPECIFIED Status: Acute Comment: Hemoglobin stable today (3) Elevated INR Code(s): R79.1 - ABNORMAL COAGULATION PROFILE Status: Acute Comment: INR improved to 3.7 (pt received Vit K yesterday) (4) Sepsis Code(s): A41.9 - SEPSIS, UNSPECIFIED ORGANISM Status: Acute Comment: Due to sepsis and cellulitis. Continue IV antibiotics as below. (5) Cellulitis Code(s): L03.90 - CELLULITIS, UNSPECIFIED Status: Acute Comment: Continue IV antibiotics as below. s/p I&D of fluid collection yesterday. (6) CKD stage 3 secondary to diabetes Code(s): E11.22 - TYPE 2 DIABETES MELLITUS W DIABETIC CHRONIC KIDNEY DISEASE; N18.3 - CHRONIC KIDNEY DISEASE, STAGE 3 (MODERATE) Status: Chronic Comment: stable (7) Diabetes type 2, controlled Code(s): E11.9 - TYPE 2 DIABETES MELLITUS WITHOUT COMPLICATIONS Status: Chronic Comment: continue accuchecks and insulin sliding scale. (8) GERD (gastroesophageal reflux disease) Code(s): K21.9 - GASTRO-ESOPHAGEAL REFLUX DISEASE WITHOUT ESOPHAGITIS Status: Chronic Comment: stable (9) HTN (hypertension) Code(s): I10 - ESSENTIAL (PRIMARY) HYPERTENSION Status: Chronic Comment: controlled - Plan * . Review of Systems - Review of Systems Constitutional: weakness. negative: fever, chills, sweats, malaise Respiratory: negative: Cough, Shortness of Breath, SOB with Excertion, Pleuritic Pain, Wheezing Cardiovascular: negative: chest pain, palpitations, orthopnea, paroxysmal nocturnal dyspnea, edema, light headedness Gastrointestinal: negative: Nausea, Vomiting, Abdominal Pain, Diarrhea, Constipation, Melena, Hematochezia Genitourinary: negative: Dysuria, Frequency, Incontinence, Hematuria, Retention Musculoskeletal: Foot Pain. negative: Neck Pain, Shoulder Pain, Arm Pain, Back Pain, Hand Pain, Leg Pain - Medications/Allergies Allergies/Adverse Reactions: Allergies Allergy/AdvReac Type Severity Reaction Status Date / Time aspirin Allergy Severe Anaphylaxis Verified 02/08/18 02:36 [From TalBigTwist Compound] codeine Allergy Severe Rash Verified 02/08/18 02:36 morphine Allergy Severe Anaphylaxis Verified 02/08/18 02:36 NSAIDS (Non-Steroidal Allergy Severe Verified 02/08/18 02:37 Anti-Inflamma Penicillins Allergy Severe Anaphylaxis Verified 02/08/18 02:36 pentazocine HCl Allergy Severe Anaphylaxis Verified 02/08/18 02:36 [From Talwin Compound] [id number] Reductase Allergy Severe Verified 02/08/18 02:37 Inhibitor chocolate flavor Allergy Verified 02/08/18 02:36 ottoniel Allergy Verified 02/08/18 02:36 Sulfa (Sulfonamide Allergy Verified 02/08/18 02:36 Antibiotics) sulfamethoxazole Allergy Verified 02/08/18 02:36 [From Bactrim] trimethoprim [From Bactrim] Allergy Verified 02/08/18 02:36 Medications: Current Medications Acetaminophen (Tylenol) 650 mg PO Q4H PRN PRN Reason: Headache/Fever or Pain Last Admin: 04/26/18 11:38 Dose: 650 mg Acetaminophen (Tylenol) 650 mg AK Q4H PRN PRN Reason: Headache/Fever or Pain Albuterol Sulfate (Albuterol Sulfate) 1.25 mg NEB Q6H PRN PRN Reason: SOB &/or Wheezing Last Admin: 04/26/18 11:51 Dose: 1.25 mg Albuterol/Ipratropium (Duoneb) 3 ml NEB [id number] Amitriptyline HCl (Elavil) 30 mg PO HS [facility] Last Admin: 04/25/18 20:37 Dose: 30 mg Amlodipine Besylate (Norvasc) 5 mg PO DAILY [facility] Last Admin: 04/26/18 08:03 Dose: 5 mg Bisacodyl (Dulcolax) 10 mg PO DAILYPRN PRN PRN Reason: Constipation Clonidine (Catapres) 0.2 mg PO HS [facility] Last Admin: 04/25/18 20:37 Dose: 0.2 mg Dextrose/Water (Dextrose 50%) 25 gm SLOW IVP ONE PRN PRN Reason: Hypoglycemia Stop: 05/02/18 16:36 Last Admin: 04/25/18 23:34 Dose: 25 gm Fentanyl (Sublimaze) 25 mcg SLOW IVP Q6H PRN PRN Reason: Pain Hydroxychloroquine Sulfate (Plaquenil) 200 mg PO BID [facility] Last Admin: 04/26/18 08:03 Dose: 200 mg Clindamycin Phosphate/Dextrose (900 mg/ Device) 50 mls @ 100 mls/hr IVPB Q8HR [facility] Last Admin: 04/26/18 14:08 Dose: 50 mls Vancomycin HCl 2 gm/ Sodium (Chloride) 500 mls @ 250 mls/hr IVPB 2359 [facility] Last Admin: 04/26/18 00:39 Dose: 500 mls Dextrose/Sodium Chloride (D5 1/2 Ns) 1,000 mls @ 50 mls/hr IV .Q20H [facility] Last Admin: 04/26/18 11:39 Dose: 1,000 mls Levothyroxine Sodium (Synthroid) 200 mcg PO 0600 [facility] Last Admin: 04/26/18 06:02 Dose: 200 mcg Miscellaneous Medication (Pharmacy To Dose) 1 each IVPB PRN PRN PRN Reason: Pharmacy to dose Miscellaneous Medication (Pharmacy To Dose) 1 each PO PRN PRN PRN Reason: PHARMACY TO DOSE (Febuxostat [Uloric] (80 Mg)) 80 mg PO DAILY [facility] Pantoprazole Sodium (Protonix) 40 mg PO DAILY [facility] Last Admin: 04/26/18 08:03 Dose: 40 mg Pregabalin (Lyrica) 75 mg PO BID [facility] Last Admin: 04/26/18 08:03 Dose: 75 mg Saccharomyces Boulardii (Florastor) 250 mg PO DAILY [facility] Last Admin: 04/26/18 08:03 Dose: 250 mg Tramadol HCl (Ultram) 50 mg PO Q6H PRN PRN Reason: Pain Last Admin: 04/26/18 11:38 Dose: 50 mg
--- NOTE | 2018-04-26 17:13 | EKG ---
Test Reason : Blood Pressure : / mmHG Vent. Rate : 118 BPM Atrial Rate : 118 BPM P-R Int : 156 ms QRS Dur : 084 ms QT Int : 332 ms P-R-T Axes : 046 050 074 degrees QTc Int : 465 ms Sinus tachycardia with Premature atrial complexes Otherwise normal ECG No previous ECGs available Confirmed by KAIT COCHRAN, DR. Camilo ([id number]) on 04/26/2018 5:12:56 PM Referred By: [email or web address] Confirmed By:DR. Leslee CARBALLO MD
[2018-04-26] MEDS: cloNIDine 0.2 MG TAB PO SCH (20:42)
[2018-04-26] MEDS: Amitriptyline HCl 10 MG TAB PO SCH (20:42)
[2018-04-26 23:13] LABS: Vancomycin, Trough 28.2 ug/mL
[2018-04-27] MEDS: traMADol HCl 50 MG TAB PO PRN ×3 (03:11→21:06)
[2018-04-27] MEDS: Acetaminophen 325 MG TAB PO PRN ×4 (03:11→23:11)
[2018-04-27] MEDS: Albuterol Sulfate 1.25 MG/3 ML NEB NEB PRN (03:13)
[2018-04-27] MEDS: Clindamycin/D5W 900 MG in Premix Bag 1 BAG IVPB SCH ×3 (05:58→21:09)
[2018-04-27] MEDS: Levothyroxine Sodium 100 MCG TAB PO SCH (06:00)
[2018-04-27] MEDS: Fentanyl 100 MCG/2 ML VIAL SLOW IVP PRN ×3 (06:02→23:11)
[2018-04-27 06:03] LABS: INR-International Normal Ratio 3.2; Prothrombin Time 34.3 SEC (12.0-14.7)
[2018-04-27] MEDS: Saccharomyces boulardii 250 MG CAP PO SCH (08:09)
[2018-04-27] MEDS: Pregabalin 75 MG CAP PO SCH ×2 (08:09→21:07)
[2018-04-27] MEDS: Amlodipine 5 MG TAB PO SCH (08:09)
[2018-04-27] MEDS: Hydroxychloroquine Sulfate 200 MG TAB PO SCH ×2 (08:09→21:08)
[2018-04-27 08:38] LABS: #Basophils 0.1 thou/uL (0.0-0.2); #Eosinphils 0.1 thou/uL (0.0-0.7); #Monocytes 2.5 thou/uL (0.11-0.59); #Neutrophils 12.8 thou/uL (1.40-6.50); %Basophils 0.3 % (0.0-1.0); %Eosinophils 0.5 % (0.0-10.0); %Lymphocytes 11.4 % (21.0-51.0); %Monocytes 14.1 % (0.0-10.0); %Neutrophils 73.7 % (42.0-75.0); Hemoglobin 7.5 g/dL (12.0-16.0); Mean Corpuscular HGB CONC 30.3 g/dL (32.0-36.0); Mean Corpuscular Volume 82.6 fl (81.0-99.0); Mean Platelet Volume 6.8 fL (7.4-10.4); Platelet Count 439 thou/uL (130-400); Red Blood Cell (RBC) Count 3.01 mill/uL (4.20-5.40); White Blood Cell (WBC) Count 17.4 thou/uL (4.8-10.8)
[2018-04-27 09:05] LABS: Anion Gap 12 mmol/L (10-20); BUN (Urea Nitrogen) 22 mg/dL (9.8-20.1); Calc. Creatinine Clearance 76 mL/min (70-130); Calcium 8.3 mg/dL (7.8-10.44); Carbon Dioxide 23 mmol/L (23-31); Chloride 101 mmol/L (98-107); Estimated GFR-MDRD 32; Glucose 145 mg/dL (80-115); Potassium 4.6 mmol/L (3.5-5.1); Sodium 131 mmol/L (136-145)
--- NOTE | 2018-04-27 09:38 | CON ---
DATE OF CONSULTATION: 04/26/2018 HISTORY OF PRESENT ILLNESS: Mr. Renteria is a 67-year-old female here with infection of right foot, bacteremia. The patient's respiratory distress yesterday, which is improved today. The patient is currently complaining of pain in her right foot. She still denies pain to her right knee. OBJECTIVE: VITAL SIGNS: Afebrile at 98.8, heart rate 103, respiratory rate 20, saturation 97%, blood pressure 111/43. GENERAL: Alert and oriented to person, place and time. EXTREMITIES: The patient's right knee has had some slight erythema, but no large effusions. She is tender to her right foot and ankle. She has some pain with motion of her knee. LABORATORY AND X-RAY FINDINGS: H&H of 8 and 24. IMPRESSION: 1. Right lower extremity infection, bacteremia. 2. History of right total knee arthroplasty, indeterminate, without obvious signs of septic arthritis. PLAN: We will continue to follow the patient. She is slowly clinically improving,We will consider aspiration in the future if the pain persists. KARI
--- NOTE | 2018-04-27 10:45 | CON ---
DATE OF CONSULTATION: 04/27/2018 HISTORY OF PRESENT ILLNESS: Ms. Renteria is a 67-year-old female being treated for a bacteremia in her right foot infection, possible osteomyelitis versus a Charcot's arthropathy. The patient is current ly improved clinically. She is being followed by Pulmonology, Internal Medicine and General Surgery, ID. The patient is not complaining of pain in her right knee. PHYSICAL EXAMINATION: VITAL SIGNS: She is a 97 pulse, 21 respiratory rate, 96% on 1 liter. The patient is 112/51 and temp of 98. GENERAL: Alert and oriented, in no acute distress. EXTREMITIES: Right knee decreasing erythema. No obvious acute effusion. Neurovascularly intact dis tally. Pain with motion of her foot. No pain with knee palpation. She still has warmth and celluli tic changes to her calf into her ankle. LABS: Laboratory values, H&H 7.5 and 24, white cell count of 17. The patient has positive bacteremi a. IMPRESSION: 1. Bacteremia right lower extremity abscess. 2. History of right total knee arthroplasty. ASSESSMENT AND PLAN: The patient clinically is not clinically stable at this time, not complaining o f right knee pain. We will defer management of the right knee until she is more medically stabilized . The patient will need follow up with Dr. Leach in 1-2 weeks after discharge. We will consider as piration at that time, although she does not necessarily have any obvious signs of infected right tot al knee.
[2018-04-27 11:24] LABS: Vancomycin, Random 20.4 ug/mL (See Comment)
[2018-04-27] MEDS: Vancomycin HCl 1.5 GM in Sodium Chloride 0.9% 250 ML 300 ML IVPB SCH (13:08)
[2018-04-27] MEDS: Dextrose 5 %-0.45 % NaCl 1,000 ML IV SCH (13:08)
--- NOTE | 2018-04-27 13:16 | PDOC.GSPN ---
Surgery Progress Note: Subj - Subjective Narrative: Feels better. Not as much pain in her foot. AF HR 90's, BP low normal. Maintaining sats on decreased O2 flow now at 1 l/min Foot still swollen but less red. Knee also looks better. Not as tender to touch. She can move it without pain now. Duplex negative for DVT. A/P) Cellulitis right foot, improving slowly w elevation and IV abx. Can't rule out osteo but will give abx a try. Will follow. Pt has multiple varicose veins and venous insufficiency predisposing her to RLE infx and I rec compression stockings after acute illness rersolves. Surgery Progress Note: Obj - Vital signs Vital signs: Vital Signs - Most Recent Temp Pulse Resp BP Pulse Ox 98 F 97 18 112/51 L 96 04/27/18 08:00 04/27/18 10:56 04/27/18 10:56 04/27/18 07:25 04/27/18 10:56 Surgery Progress Note: Results - Labs Result Diagrams: 04/27/18 08:32 04/27/18 08:32 Lab results: Laboratory Results - last 24 hr 04/27/18 04/27/18 04/27/18 04:06 04:38 08:32 WBC RBC Hgb Hct MCV MCH MCHC RDW Plt Count MPV Neutrophils % Lymphocytes % Monocytes % Eosinophils % Basophils % Neutrophils # Lymphocytes # Monocytes # Eosinophils # Basophils # PT 34.3 H INR 3.2 Sodium 131 L Potassium 4.6 Chloride 101 Carbon Dioxide 23 Anion Gap 12 BUN 22 H Creatinine 1.58 H Estimated GFR (MDRD) 32 Glucose 145 H POC Glucose 126 H Calcium 8.3 Random Vancomycin 04/27/18 04/27/18 04/27/18 08:32 10:49 12:15 WBC 17.4 H RBC 3.01 L Hgb 7.5 L Hct 24.8 L MCV 82.6 MCH 25.0 L MCHC 30.3 L RDW 17.0 H Plt Count 439 H MPV 6.8 L Neutrophils % 73.7 Lymphocytes % 11.4 L Monocytes % 14.1 H Eosinophils % 0.5 Basophils % 0.3 Neutrophils # 12.8 H Lymphocytes # 2.0 Monocytes # 2.5 H Eosinophils # 0.1 Basophils # 0.1 PT INR Sodium Potassium Chloride Carbon Dioxide Anion Gap BUN Creatinine Estimated GFR (MDRD) Glucose POC Glucose 171 H Calcium Random Vancomycin 20.4
[2018-04-27] MEDS: Nystatin 500,000 UNITS/5 ML UDCUP SSP SCH ×2 (15:24→21:09)
--- NOTE | 2018-04-27 17:25 | PDOC.PN ---
- Subjective Encounter Start Date: 04/27/18 Encounter Start Time: 09:20 Pt seen for followup re: bacteremia. Feels weak. Denies fevers. No nausea or vomiting. No diarrhea. - Objective Resuscitation Status: Resuscitation Status FULL:Full Resuscitation MAR Reviewed: Yes Vital Signs & Weight: Vital Signs (12 hours) Temp Pulse Resp BP Pulse Ox 04/27/18 15:50 100.5 F H 112 H 24 H 142/65 H 94 L 04/27/18 14:52 105 H 19 99 04/27/18 12:00 98.7 F 100 18 134/47 L 93 L 04/27/18 10:56 97 18 96 04/27/18 08:19 96 04/27/18 08:09 97 21 H 96 04/27/18 08:00 98 F 97 21 H 96 04/27/18 07:25 98 F 96 20 112/51 L 97 04/27/18 06:07 96 20 116/51 L 92 L Weight Admit Weight 317 lb 4.8 oz Weight 317 lb 4.8 oz I&O: 04/26/18 04/27/18 04/28/18 06:59 06:59 06:59 Intake Total 2796 1540 Output Total 1200 750 Balance 1596 790 Result Diagrams: 04/27/18 08:32 04/27/18 08:32 Additional Labs: Accuchecks 04/27/18 04/27/18 04/27/18 15:55 12:15 04:06 POC Glucose 133 H 171 H 126 H 04/26/18 22:10 POC Glucose 107 EKG Reviewed by me: Yes (Tele: NSR) Phys Exam - Physical Examination Morbid obesity HEENT: moist MMs, sclera anicteric, oral pharynx no lesions Neck: no nodes, no JVD, supple, full ROM Respiratory: no wheezing, no rales, no rhonchi, clear to auscultation bilateral Cardiovascular: RRR, no rub S1, S2 Gastrointestinal: soft, non-tender, positive bowel sounds distention Musculoskeletal: edema present Neurological: moves all 4 limbs Psychiatric: normal affect Deviation from normal: R foot dressing Dx/Plan (1) Bacteremia Code(s): R78.81 - BACTEREMIA Status: Acute Comment: Continue IV vancomycin and IV clindamycin for MRSA bacteremia. (2) Anemia Code(s): D64.9 - ANEMIA, UNSPECIFIED Status: Acute Comment: continue to monitor hemoglobin levels, ? due to sepsis (3) Elevated INR Code(s): R79.1 - ABNORMAL COAGULATION PROFILE Status: Acute Comment: INR continues to improve after pt received vitamin K. Pharmacy managing warfarin dosing. (4) Sepsis Code(s): A41.9 - SEPSIS, UNSPECIFIED ORGANISM Status: Acute Comment: Due to bacteremia and cellulitis. Continue IV clindamycin and IV vancomycin (5) Cellulitis Code(s): L03.90 - CELLULITIS, UNSPECIFIED Status: Acute Comment: Continue IV antibiotics as below. s/p I&D of fluid collection on 04/25/2019 (6) CKD stage 3 secondary to diabetes Code(s): E11.22 - TYPE 2 DIABETES MELLITUS W DIABETIC CHRONIC KIDNEY DISEASE; N18.3 - CHRONIC KIDNEY DISEASE, STAGE 3 (MODERATE) Status: Chronic Comment: stable (7) Diabetes type 2, controlled Code(s): E11.9 - TYPE 2 DIABETES MELLITUS WITHOUT COMPLICATIONS Status: Chronic Comment: continue accuchecks and insulin sliding scale. (8) GERD (gastroesophageal reflux disease) Code(s): K21.9 - GASTRO-ESOPHAGEAL REFLUX DISEASE WITHOUT ESOPHAGITIS Status: Chronic Comment: stable (9) HTN (hypertension) Code(s): I10 - ESSENTIAL (PRIMARY) HYPERTENSION Status: Chronic Comment: controlled - Plan * . Review of Systems - Medications/Allergies Allergies/Adverse Reactions: Allergies Allergy/AdvReac Type Severity Reaction Status Date / Time aspirin Allergy Severe Anaphylaxis Verified 02/08/18 02:36 [From Talwin Compound] codeine Allergy Severe Rash Verified 02/08/18 02:36 morphine Allergy Severe Anaphylaxis Verified 02/08/18 02:36 NSAIDS (Non-Steroidal Allergy Severe Verified 02/08/18 02:37 Anti-Inflamma Penicillins Allergy Severe Anaphylaxis Verified 02/08/18 02:36 pentazocine HCl Allergy Severe Anaphylaxis Verified 02/08/18 02:36 [From Talwin Compound] Uiwimar-Qbn-Ewm Reductase Allergy Severe Verified 02/08/18 02:37 Inhibitor chocolate flavor Allergy Verified 02/08/18 02:36 ottoniel Allergy Verified 02/08/18 02:36 Sulfa (Sulfonamide Allergy Verified 02/08/18 02:36 Antibiotics) sulfamethoxazole Allergy Verified 02/08/18 02:36 [From Bactrim] trimethoprim [From Bactrim] Allergy Verified 02/08/18 02:36 Medications: Current Medications Acetaminophen (Tylenol) 650 mg PO Q4H PRN PRN Reason: Headache/Fever or Pain Last Admin: 04/27/18 08:09 Dose: 650 mg Acetaminophen (Tylenol) 650 mg DE Q4H PRN PRN Reason: Headache/Fever or Pain Albuterol Sulfate (Albuterol Sulfate) 1.25 mg NEB Q6H PRN PRN Reason: SOB &/or Wheezing Last Admin: 04/27/18 03:13 Dose: 1.25 mg Albuterol/Ipratropium (Duoneb) 3 ml NEB [id number] [facility] Last Admin: 04/27/18 14:52 Dose: 3 ml Amitriptyline HCl (Elavil) 30 mg PO HS [facility] Last Admin: 04/26/18 20:42 Dose: 30 mg Amlodipine Besylate (Norvasc) 5 mg PO DAILY [facility] Last Admin: 04/27/18 08:09 Dose: 5 mg Bisacodyl (Dulcolax) 10 mg PO DAILYPRN PRN PRN Reason: Constipation Clonidine (Catapres) 0.2 mg PO [facility] Last Admin: 04/26/18 20:42 Dose: 0.2 mg Dextrose/Water (Dextrose 50%) 25 gm SLOW IVP ONE PRN PRN Reason: Hypoglycemia Stop: 05/02/18 16:36 Last Admin: 04/25/18 23:34 Dose: 25 gm Fentanyl (Sublimaze) 25 mcg SLOW IVP Q6H PRN PRN Reason: Pain Last Admin: 04/27/18 15:13 Dose: 25 mcg Hydroxychloroquine Sulfate (Plaquenil) 200 mg PO BID [facility] Last Admin: 04/27/18 08:09 Dose: 200 mg Clindamycin Phosphate/Dextrose (900 mg/ Device) 50 mls @ 100 mls/hr IVPB Q8HR [facility] Last Admin: 04/27/18 15:12 Dose: 50 mls Dextrose/Sodium Chloride (D5 1/2 Ns) 1,000 mls @ 50 mls/hr IV .Q20H [facility] Last Admin: 04/27/18 13:08 Dose: 1,000 mls Vancomycin HCl 1.5 gm/ Sodium (Chloride) 300 mls @ 200 mls/hr IVPB Q24HR@1300 [facility] Last Admin: 04/27/18 13:08 Dose: 300 mls Levothyroxine Sodium (Synthroid) 200 mcg PO 0600 [facility] Last Admin: 04/27/18 06:00 Dose: 200 mcg Miscellaneous Medication (Pharmacy To Dose) 1 each PO PRN PRN PRN Reason: PHARMACY TO DOSE Miscellaneous Medication (Pharmacy To Dose) 1 each IVPB PRN PRN PRN Reason: MRSA BACTEREMIA /Pharm to dose Nystatin (Mycostatin) 500,000 units SSP TID [facility] Last Admin: 04/27/18 15:24 Dose: 500,000 units Pantoprazole Sodium (Protonix) 40 mg PO DAILY [facility] Last Admin: 04/27/18 08:09 Dose: 40 mg (Febuxostat [Uloric] (80 Mg)) 0 each PO DAILY [facility] Pregabalin (Lyrica) 75 mg PO BID [facility] Last Admin: 04/27/18 08:09 Dose: 75 mg Saccharomyces Boulardii (Florastor) 250 mg PO DAILY [facility] Last Admin: 04/27/18 08:09 Dose: 250 mg Sodium Chloride (Flush - Normal Saline) 10 ml IVF Q12HR [facility] Sodium Chloride (Flush - Normal Saline) 10 ml IVF PRN PRN PRN Reason: Saline Flush Tramadol HCl (Ultram) 50 mg PO Q6H PRN PRN Reason: Pain Last Admin: 04/27/18 08:10 Dose: 50 mg
[2018-04-27] MEDS ORDERED: Furosemide 40 MG/4 ML VIAL SLOW IVP SCH (17:45)
--- NOTE | 2018-04-27 17:50 | PRG ---
DATE OF SERVICE: 04/27/2018 SERVICE: Pulmonary Medicine. INTERVAL HISTORY: The patient is doing fine from a respiratory standpoint. She is breathing comfortably. She is less toxic appearing compared to when I left her previously. She denies any current chest pain, nausea, vomiting, fevers, or chills. She is having severe arthralgias in the bilateral upper extremities. It mostly involves the MCP and the PIP joints as well as the wrists. PHYSICAL EXAMINATION: VITAL SIGNS: Previously afebrile, but now with a T-max of 100.5. Pulse 112, blood pressure 142/65, respirations 24, saturation 94% on 1 liter nasal cannula. GENERAL: The patient is awake, alert, in no apparent distress. LUNGS: Excellent air entry. There is a prolonged expiratory phase with polyphonic wheezing present. HEART: Normal rate, regular. ABDOMEN: Soft, nontender, nondistended. Bowel sounds are positive. MUSCULOSKELETAL: No cyanosis or clubbing. There is no pitting in the bilateral lower extremities. She has arthralgia and arthritis involving the first and second MCP as well as the other MCPs, but is more pronounced in the second and third MCP. She also has pain and stiffness with moving the PIP joints as well as the wrists in the bilateral upper extremities. She has significant foot discomforts as well. LABORATORY DATA: WBC 17.4, hemoglobin 7.5 and stable, platelets 439,000. Band count was previously low. INR has improved to 3.2. Creatinine is 1.58. Basic metabolic profile is otherwise unremarkable. Blood cultures are growing Staph aureus in 2 out of 2. It is sensitive to vancomycin, linezolid, and gentamicin. Random vancomycin level was 20.4. ASSESSMENT: 1. Acute hypoxic respiratory failure. 2. Severe sepsis, secondary to cellulitis. 3. Bacteremia secondary to methicillin-resistant Staphylococcus aureus. 4. Chronic kidney disease. 5. Immunocompromised state secondary to Remicade. 6. Type 2 diabetes mellitus. 7. Acute attack of polyarticular arthritis. PLAN: I will initiate some steroids. We will repeat blood cultures. Otherwise , supportive measures will be continued. This is polyarticular arthralgia. I am doubtful that she is having multiple septic joints show up, or a polyarticular gout. Hopefully, the steroids will help this. We will send off rheumatoid factor and an SALINAS screen as what we are seeing is not characteristic of gout. The Uloric can be started up once again, but I do not think it is going to help or hurt the situation. She will remain in the IMCU for an additional 24 hours. KARI
[2018-04-27] MEDS: cloNIDine 0.2 MG TAB PO SCH (21:06)
[2018-04-27] MEDS: Amitriptyline HCl 10 MG TAB PO SCH (21:08)
[2018-04-28] MEDS: traMADol HCl 50 MG TAB PO PRN ×2 (04:18→14:57)
[2018-04-28] MEDS ORDERED: Dextrose 5% in Water 1,000 ML IV PRN (05:08)
[2018-04-28] MEDS ORDERED: Insulin Glargine 15 UNITS in Pre-Filled Syringe 1 EACH SC SCH (05:15)
[2018-04-28] MEDS: Clindamycin/D5W 900 MG in Premix Bag 1 BAG IVPB SCH ×3 (05:38→21:26)
[2018-04-28] MEDS: HumaLOG 300 UNITS/3 ML VIAL SC PRN ×2 (05:40→12:29)
[2018-04-28] MEDS: Levothyroxine Sodium 100 MCG TAB PO SCH (05:42)
[2018-04-28] MEDS: Fentanyl 100 MCG/2 ML VIAL SLOW IVP PRN ×2 (05:51→20:07)
[2018-04-28 06:10] LABS: INR-International Normal Ratio 2.9; Prothrombin Time 31.7 SEC (12.0-14.7)
[2018-04-28] MEDS: Dextrose 5 %-0.45 % NaCl 1,000 ML IV SCH (09:13)
[2018-04-28] MEDS: Pregabalin 75 MG CAP PO SCH ×2 (09:28→21:25)
[2018-04-28] MEDS: (Febuxostat [Uloric] 80 MG) PO SCH (09:28)
[2018-04-28] MEDS: Nystatin 500,000 UNITS/5 ML UDCUP SSP SCH ×3 (09:29→21:24)
[2018-04-28] MEDS: Saccharomyces boulardii 250 MG CAP PO SCH (09:29)
[2018-04-28] MEDS: Amlodipine 5 MG TAB PO SCH (09:29)
[2018-04-28] MEDS: Hydroxychloroquine Sulfate 200 MG TAB PO SCH ×2 (09:29→21:24)
--- NOTE | 2018-04-28 09:46 | PRG ---
DATE OF SERVICE: 04/28/2018 SUBJECTIVE: The patient is feeling better. Headaches are less, but still present. No visual sympto ms, no sore throat, no dyspnea, no chest pain. Moderate pain in the right foot. OBJECTIVE: VITAL SIGNS: T-max 100.5, blood pressure 120/71, pulse 89, respirations 18, O2 sat 97%. GENERAL: The skin is not as flushed as before. She still appears ill, but less so than when I initi ally saw her. LUNGS: Symmetric air entry. No obvious crackles or wheezing. CARDIOVASCULAR: S1, S2, regular rate. ABDOMEN: Soft, without distention or tenderness. EXTREMITIES: Right foot is dressed. Dressing not removed. She has a little pressure ulceration in the lower extremity. LABORATORY DATA: White blood cell count 17.4, hemoglobin 7.5, platelets 439, 72% neutrophils. Creat inine is stable at 1.58, GFR at 32. Microbiology with MRSA, positive blood cultures. She has a ther apeutic vancomycin level at this time and the vancomycin JOSE is at 1. The lower extremity CT scan sh owed neurogenic arthropathy in the right foot, superimposed, acute osteo not excluded, overlying area s of soft tissue ulceration, adjacent edema, skin thickening noted in the foot. ASSESSMENT AND DISCUSSION: Rheumatoid arthritis, type 2 diabetes, gout, and recently residual seroma in right thigh, episode of superficial thrombophlebitis and now with inflammatory process right foot with likely cellulitis, possible not likely myositis as well. No obvious abscess formation yet. Os teomyelitis is likely associated with bacteremia. There has been some improvement, but still with qu ite a bit of active inflammatory process, hopefully, we will be able to salvage her foot. MRI withou t contrast has limited ability to identify abscess formation, but may get better resolution in terms of identifying muscle involvement. The presence of osteomyelitis would be difficult to evaluate with MRI in the phase of Charcot's arthropathy.
--- NOTE | 2018-04-28 12:01 | PDOC.PN ---
- Subjective Encounter Start Date: 04/28/18 Encounter Start Time: 09:20 states that she feels much better than she did yesterday but did not sleep well last night. no acute night events - Objective Resuscitation Status: Resuscitation Status FULL:Full Resuscitation Vital Signs & Weight: Vital Signs (12 hours) Temp Pulse Resp BP BP Pulse Ox 04/28/18 11:48 97.6 F 81 15 135/63 95 04/28/18 11:12 81 14 04/28/18 09:29 82 04/28/18 08:07 82 16 04/28/18 08:00 97.8 F 82 20 99 04/28/18 07:39 97.8 F 81 19 130/56 L 95 04/28/18 03:41 98.2 F 89 18 162/79 H 97 Weight Admit Weight 317 lb 4.8 oz Weight 317 lb 4.8 oz I&O: 04/27/18 04/28/18 04/29/18 06:59 06:59 06:59 Intake Total 1540 890 Output Total 750 2200 Balance 790 -1310 Result Diagrams: 04/27/18 08:32 04/27/18 08:32 Additional Labs: Accuchecks 04/28/18 04/27/18 04/27/18 04:08 22:02 15:55 POC Glucose 321 H 229 H 133 H 04/27/18 12:15 POC Glucose 171 H Phys Exam - Physical Examination Constitutional: NAD HEENT: PERRLA, moist MMs, sclera anicteric Neck: no nodes, supple Respiratory: no wheezing, no rhonchi Cardiovascular: RRR, no rub Gastrointestinal: soft, non-tender, no distention Musculoskeletal: pulses present Neurological: non-focal, moves all 4 limbs Psychiatric: normal affect, A&O x 3 Dx/Plan (1) Bacteremia Code(s): R78.81 - BACTEREMIA Status: Acute Comment: Continue IV vancomycin and IV clindamycin for MRSA bacteremia. f/u with repeat cultures for clearance of MRSA (2) Cellulitis Code(s): L03.90 - CELLULITIS, UNSPECIFIED Status: Acute Comment: Continue IV antibiotics as below. s/p I&D of fluid collection on 04/25/2019 (3) Elevated INR Code(s): R79.1 - ABNORMAL COAGULATION PROFILE Status: Acute Comment: INR continues to improve after pt received vitamin K. Pharmacy managing warfarin dosing. (4) Sepsis Code(s): A41.9 - SEPSIS, UNSPECIFIED ORGANISM Status: Acute Comment: Due to bacteremia and cellulitis. Continue IV clindamycin and IV vancomycin (5) CKD stage 3 secondary to diabetes Code(s): E11.22 - TYPE 2 DIABETES MELLITUS W DIABETIC CHRONIC KIDNEY DISEASE; N18.3 - CHRONIC KIDNEY DISEASE, STAGE 3 (MODERATE) Status: Chronic Comment: stable (6) Acute worsening of stage 3 chronic kidney disease Code(s): N18.3 - CHRONIC KIDNEY DISEASE, STAGE 3 (MODERATE) Status: Acute - Plan cont current plan of care, plan discussed w/ family, continue antibiotics * . f/u with repeat cultures for clearance of MRSA. supportive care mgmt
[2018-04-28] MEDS: Vancomycin HCl 1.5 GM in Sodium Chloride 0.9% 250 ML 300 ML IVPB SCH (12:29)
[2018-04-28] MEDS ORDERED: Furosemide 40 MG/4 ML VIAL SLOW IVP SCH (16:45)
--- NOTE | 2018-04-28 17:03 | PRG ---
DATE OF SERVICE: 04/28/2018 SERVICE: Pulmonary Medicine. INTERVAL HISTORY: The patient is doing fantastic from a respiratory standpoint. Her arthralgias are much better with steroids. She denies any current chest pain, nausea, vomiting, fevers or chills. Otherwise, there has been no interval change to her condition. PHYSICAL EXAMINATION: VITAL SIGNS: Afebrile, pulse 90, blood pressure 117/58, respirations 18, saturation 96% on 1 liter n dwight cannula. GENERAL: The patient is awake, alert, no apparent distress. LUNGS: Decent air entry. There is no prolonged expiratory phase, wheezing, rhonchi, or crackles pre sent. HEART: Normal rate and regular. ABDOMEN: Soft, nontender, nondistended. Bowel sounds positive. MUSCULOSKELETAL: No cyanosis or clubbing. There is 1+ pitting in the bilateral lower extremities. NEUROLOGIC: Grossly nonfocal. LABORATORY DATA: WBC 17.4, hemoglobin 7.5, and platelets 436,000. INR 2.9 and down trending. Creat inine 1.58 and stable. Basic metabolic profile is otherwise unremarkable with bicarbonate of 23. So dium continues to fall off at 131. MRSA is growing in 2/2 blood cultures. It is sensitive to vancom ycin. Repeat blood cultures are negative to date. ASSESSMENT: 1. Acute hypoxic respiratory failure. 2. Severe sepsis secondary to suspected cellulitis. 3. Bacteremia secondary to methicillin-resistant Staphylococcus aureus. 4. Chronic kidney disease. 5. Immunocompromised state secondary to Remicade. 6. Type 2 diabetes mellitus. 7. Polyarticular arthritis with acute attack. PLAN: We will continue our steroids, but I will decrease them to 40 mg of prednisone p.o. on a daily basis. Reyes catheter will be removed. I will give the patient an additional dose of Lasix today. We will get physical therapy involved and start moving her. I will get into a chair if tolerated. From my perspective, she is stable for transition to the medical unit. I will continue to follow how ever.
--- NOTE | 2018-04-28 17:18 | PDOC.GSPN ---
Surgery Progress Note: Subj - Subjective Narrative: Patient feels better. She was able to sit up on the side bed today. Her foot is not hurting. When the dressing on her foot was taken down there was thick white material on the dressing similar in appearance to silver nitrate. On examination this was being extruded from the aspiration site on her lateral foot. This is the only site on her foot that was still red and swollen so the decision was made to I&D this. This was done using sterile technique and local anesthesia and a large amount of thick white material was extruded. There was no odor to it. It was sent for Gram stain and culture. Assessment/plan: Cellulitis of the right foot with sepsis. White-colored to the material at the lateral foot is suggestive of tophaceous gout but superinfection is likely given positive blood cultures for MRSA. Cultures were sent. I am beginning treatment for gout as well. Surgery Progress Note: Obj - Vital signs Vital signs: Vital Signs - Most Recent Temp Pulse Resp BP Pulse Ox 97.7 F 90 18 117/58 L 96 04/28/18 15:27 04/28/18 15:27 04/28/18 15:27 04/28/18 15:27 04/28/18 15:27 Surgery Progress Note: Results - Labs Result Diagrams: 04/27/18 08:32 04/27/18 08:32 Lab results: Laboratory Results - last 24 hr 04/28/18 04/28/18 05:58 12:10 PT 31.7 H INR 2.9 POC Glucose 246 H
[2018-04-28] MEDS: Warfarin Sodium 2.5 MG TAB PO SCH (17:40)
[2018-04-28] MEDS: cloNIDine 0.2 MG TAB PO SCH (21:24)
[2018-04-28] MEDS: Amitriptyline HCl 10 MG TAB PO SCH (21:24)
[2018-04-29] MEDS: traMADol HCl 50 MG TAB PO PRN ×2 (04:47→16:27)
[2018-04-29] MEDS: Levothyroxine Sodium 100 MCG TAB PO SCH (04:48)
[2018-04-29] MEDS: Clindamycin/D5W 900 MG in Premix Bag 1 BAG IVPB SCH ×3 (04:49→20:50)
[2018-04-29 05:31] LABS: Anion Gap 15 mmol/L (10-20); BUN (Urea Nitrogen) 36 mg/dL (9.8-20.1); Calc. Creatinine Clearance 77 mL/min (70-130); Calcium 9.1 mg/dL (7.8-10.44); Carbon Dioxide 24 mmol/L (23-31); Chloride 100 mmol/L (98-107); Estimated GFR-MDRD 33; Glucose 201 mg/dL (80-115); Magnesium 1.6 mg/dL (1.6-2.6); Phosphorus 5.2 mg/dL (2.3-4.7); Potassium 4.6 mmol/L (3.5-5.1); Sodium 134 mmol/L (136-145)
[2018-04-29 05:58] LABS: Band 10 % (5-11); Hemoglobin 7.6 g/dL (12.0-16.0); Lymphocytes 12 % (21-51); MDiff Complete? YES; Mean Corpuscular HGB CONC 31.3 g/dL (32.0-36.0); Mean Corpuscular Hemoglobin 25.6 pg (27.0-31.0); Mean Corpuscular Volume 81.9 fl (81.0-99.0); Mean Platelet Volume 6.7 fL (7.4-10.4); Metamyelocyte 2 % (0-0); Monocytes 7 % (0-10); Neutrophil 69 % (42-75); PLT Morphology Comment Appears Increased; Platelet Count 552 thou/uL (130-400); RBC Distribution Width 16.9 % (11.5-14.5); Red Blood Cell (RBC) Count 2.98 mill/uL (4.20-5.40); White Blood Cell (WBC) Count 21.6 thou/uL (4.8-10.8)
[2018-04-29] MEDS: Fentanyl 100 MCG/2 ML VIAL SLOW IVP PRN (09:02)
[2018-04-29] MEDS: Nystatin 500,000 UNITS/5 ML UDCUP SSP SCH ×3 (09:03→20:50)
[2018-04-29] MEDS: Amlodipine 5 MG TAB PO SCH (09:04)
[2018-04-29] MEDS: Pregabalin 75 MG CAP PO SCH ×2 (09:04→20:49)
[2018-04-29] MEDS: Colchicine 0.6 MG TAB PO SCH (09:04)
[2018-04-29] MEDS: Saccharomyces boulardii 250 MG CAP PO SCH (09:04)
[2018-04-29] MEDS: predniSONE 20 MG TAB PO SCH (09:04)
[2018-04-29] MEDS: Acetaminophen 325 MG TAB PO PRN ×2 (09:04→16:27)
[2018-04-29] MEDS: Hydroxychloroquine Sulfate 200 MG TAB PO SCH ×2 (09:05→20:49)
[2018-04-29] MEDS: (Febuxostat [Uloric] 80 MG) PO SCH (09:05)
[2018-04-29 12:48] LABS: Vancomycin, Trough 30.1 ug/mL
--- NOTE | 2018-04-29 13:32 | PDOC.PN ---
- Subjective Encounter Start Date: 04/29/18 Encounter Start Time: 09:25 -: old records requested/rev Pt seen and examined, chart reviewed in its Admitted for cellulitis, sepsis, BCx X 2 on admit positive for MRSA. On Vanc, ID following. planning for prolonged course. no f/c, no N/V/D/c, no CP or SOB, complaints of RA flare to hands with increased joint pain All systems reviewed and neg x as above - Objective Resuscitation Status: Resuscitation Status FULL:Full Resuscitation MAR Reviewed: Yes Vital Signs & Weight: Vital Signs (12 hours) Temp Pulse Resp BP BP Pulse Ox 04/29/18 11:10 97.3 F L 91 20 121/67 93 L 04/29/18 09:07 93 L 04/29/18 09:06 92 16 04/29/18 08:00 98 F 92 16 92 L 04/29/18 07:49 98.0 F 97 22 H 148/83 H 91 L 04/29/18 05:00 98.3 F 92 22 H 118/70 92 L Weight Admit Weight 317 lb 4.8 oz Weight 317 lb 4.8 oz I&O: 04/28/18 04/29/18 04/30/18 06:59 06:59 06:59 Intake Total 890 1100 Output Total 2200 3750 Balance -1310 -2650 Result Diagrams: 04/29/18 04:34 04/29/18 04:34 Additional Labs: Accuchecks 04/29/18 04/29/18 11:16 05:39 POC Glucose 180 H 201 H Radiology Reviewed by me: Yes EKG Reviewed by me: Yes Phys Exam - Physical Examination Constitutional: NAD chronically ill-appearing HEENT: PERRLA, moist MMs, sclera anicteric, oral pharynx no lesions Neck: no nodes, no JVD, supple, full ROM Respiratory: no wheezing, no rales, no rhonchi, clear to auscultation bilateral Cardiovascular: RRR, no rub 3/6 HSM LLSB Gastrointestinal: soft, non-tender, no distention, positive bowel sounds Musculoskeletal: edema present MCP joint bilaterla hand red, inflamed and tender Neurological: non-focal, normal sensation, moves all 4 limbs Lymphatic: no nodes Psychiatric: normal affect, A&O x 3 Skin: normal turgor, cap refill <2 seconds Dx/Plan (1) Anemia Code(s): D64.9 - ANEMIA, UNSPECIFIED Status: Chronic Qualifiers: Anemia type: unspecified type Qualified Code(s): D64.9 - Anemia, unspecified Comment: continue to monitor hemoglobin levels, ? due to sepsis (2) Bacteremia Code(s): R78.81 - BACTEREMIA Status: Acute Comment: Continue IV vancomycin and IV clindamycin for MRSA bacteremia. f/u with repeat cultures for clearance of MRSA. will need prolonged IV antibiotics (3) Cellulitis Code(s): L03.90 - CELLULITIS, UNSPECIFIED Status: Acute Qualifiers: Site of cellulitis of extremity: lower extremity Laterality: right Comment: Continue IV antibiotics as below. s/p I&D of fluid collection on 2018 (4) Sepsis Code(s): A41.9 - SEPSIS, UNSPECIFIED ORGANISM Status: Acute Qualifiers: Sepsis type: methicillin resistant Staphylococcus aureus Qualified Code(s) : A41.02 - Sepsis due to Methicillin resistant Staphylococcus aureus Comment: Due to bacteremia and cellulitis. Continue IV clindamycin and IV vancomycin (5) CKD stage 3 secondary to diabetes Code(s): E11.22 - TYPE 2 DIABETES MELLITUS W DIABETIC CHRONIC KIDNEY DISEASE; N18.3 - CHRONIC KIDNEY DISEASE, STAGE 3 (MODERATE) Status: Chronic Comment: stable (6) Acute worsening of stage 3 chronic kidney disease Code(s): N18.3 - CHRONIC KIDNEY DISEASE, STAGE 3 (MODERATE) Status: Chronic Comment: stable (7) Cellulitis of right leg Code(s): L03.115 - CELLULITIS OF RIGHT LOWER LIMB Status: Acute (8) Anemia, normocytic normochromic Code(s): D64.9 - ANEMIA, UNSPECIFIED Status: Chronic (9) Chronic anticoagulation Code(s): Z79.01 - FLAG MAKER (CURRENT) USE OF ANTICOAGULANTS Status: Chronic (10) Diabetes type 2, controlled Code(s): E11.9 - TYPE 2 DIABETES MELLITUS WITHOUT COMPLICATIONS Status: Chronic Qualifiers: Diabetes mellitus vermin exterminator insulin use: with vermin exterminator use Diabetes mellitus complication status: with kidney complications Diabetes mellitus complication detail: with chronic kidney disease Chronic kidney disease stage : stage 3 (moderate) Qualified Code(s): E11.22 - Type 2 diabetes mellitus with diabetic chronic kidney disease; N18.3 - Chronic kidney disease, stage 3 ( moderate); N18.3 - Chronic kidney disease, stage 3 (moderate); Z79.4 - care home (current) use of insulin; Z79.4 - manager long term care (current) use of insulin; Z79.4 - manager long term care (current) use of insulin; Z79.4 - care home (current) use of insulin Comment: continue accuchecks and insulin sliding scale. (11) GERD (gastroesophageal reflux disease) Code(s): K21.9 - GASTRO-ESOPHAGEAL REFLUX DISEASE WITHOUT ESOPHAGITIS Status: Chronic Qualifiers: Esophagitis presence: without esophagitis Qualified Code(s): K21.9 - Gastro -esophageal reflux disease without esophagitis Comment: stable (12) HTN (hypertension) Code(s): I10 - ESSENTIAL (PRIMARY) HYPERTENSION Status: Chronic Qualifiers: Hypertension type: essential hypertension Qualified Code(s): I10 - Essential (primary) hypertension Comment: controlled (13) History of pulmonary embolus (PE) Code(s): Z86.711 - PERSONAL HISTORY OF PULMONARY EMBOLISM Status: Chronic Comment: on chronic anticoagulation (14) Morbid obesity with BMI of 50.0-59.9, adult Code(s): E66.01 - MORBID (SEVERE) OBESITY DUE TO EXCESS CALORIES; Z68.43 - BODY MASS INDEX (BMI) 50-59.9 , ADULT Status: Chronic - Plan cont current plan of care, continue antibiotics, PT/OT, social media job titles, out of bed/ambulate * .
[2018-04-29] MEDS: Vancomycin HCl 1.5 GM in Sodium Chloride 0.9% 250 ML 300 ML IVPB SCH (13:36)
--- NOTE | 2018-04-29 13:58 | PDOC.GSPN ---
Surgery Progress Note: Subj - Subjective Narrative: Patient is feeling better. She denies pain in her foot. She states that she has been on a lower can the past for gout but it hasn't helped. She has been transferred back to the medical [facility]. Afebrile. Vital signs are okay. White count is slightly up again today. Her foot is no longer swollen and she only has some focal erythema surrounding the I &D site on the lateral foot. She continues to have silvery white drainage from that site. Additional drainage material was sent to pathology for crystal ID. 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 Culture is pending. MRSA bacteremia appears to have responded to antibiotics as her latest blood cultures are negative to date. Continue with local wound care and antibiotics and elevation. Continue with physical therapy. I'm going to be out of town but Dr. Leblanc and Dr. Maciel are going to cover in my absence. She can follow up with me after discharge. Surgery Progress Note: Obj - Vital signs Vital signs: Vital Signs - Most Recent Temp Pulse Resp BP Pulse Ox 97.3 F L 91 20 121/67 93 L 04/29/18 11:10 04/29/18 11:10 04/29/18 11:10 04/29/18 11:10 04/29/18 11:10 Surgery Progress Note: Results - Labs Result Diagrams: 04/29/18 04:34 04/29/18 04:34 Lab results: Laboratory Results - last 24 hr 04/29/18 04/29/18 04/29/18 04:34 04:34 05:39 WBC 21.6 H RBC 2.98 L Hgb 7.6 L Hct 24.4 L MCV 81.9 MCH 25.6 L MCHC 31.3 L RDW 16.9 H Plt Count 552 H MPV 6.7 L Neutrophils % (Manual) 69 Band Neuts % (Manual) 10 Lymphocytes % (Manual) 12 L Monocytes % (Manual) 7 Metamyelocytes % (Man) 2 H Plt Morphology Comment Appears Increased H Sodium 134 L Potassium 4.6 Chloride 100 Carbon Dioxide 24 Anion Gap 15 BUN 36 H Creatinine 1.56 H Estimated GFR (MDRD) 33 Glucose 201 H POC Glucose 201 H Calcium 9.1 Phosphorus 5.2 H Magnesium 1.6 Vancomycin Trough 04/29/18 04/29/18 11:16 12:02 WBC RBC Hgb Hct MCV MCH MCHC RDW Plt Count MPV Neutrophils % (Manual) Band Neuts % (Manual) Lymphocytes % (Manual) Monocytes % (Manual) Metamyelocytes % (Man) Plt Morphology Comment Sodium Potassium Chloride Carbon Dioxide Anion Gap BUN Creatinine Estimated GFR (MDRD) Glucose POC Glucose 180 H Calcium Phosphorus Magnesium Vancomycin Trough 30.1 H*
[2018-04-29] MEDS ORDERED: Heparin 1,000 UNITS/ML VIAL ONE (15:58)
[2018-04-29] MEDS: Warfarin Sodium 2.5 MG TAB PO SCH (16:27)
[2018-04-29] MEDS ORDERED: predniSONE 20 MG TAB PO SCH (17:15)
--- NOTE | 2018-04-29 17:15 | PRG ---
DATE OF SERVICE: 04/29/2018 SERVICE: Pulmonary Medicine. INTERVAL HISTORY: The patient feels like she is doing much better. Her strength is improved. Her a rthralgias are a little bit worse today. She denies any current fevers, chills, nausea or vomiting. A culture was taken from her foot today. It was sent to pathology looking for gouty crystals. PHYSICAL EXAMINATION: VITAL SIGNS: Afebrile, pulse 91, blood pressure 121/67, respirations 20, saturation 93% on 2 liters nasal cannula. GENERAL: The patient is awake, alert, in no apparent distress. LUNGS: Decent air entry. There is no prolonged expiratory phase, wheezing, rhonchi or crackles. HEART: Normal rate and regular. ABDOMEN: Soft, nontender, nondistended. Bowel sounds are positive. MUSCULOSKELETAL: No cyanosis or clubbing. There is trace pitting in the bilateral lower extremities , which is much improved. GENITOURINARY: Reyes catheter in place. NEUROLOGIC: Grossly nonfocal. LABORATORY DATA: WBC 21.6, hemoglobin 7.6, platelets 552,000. INR 2.9. Creatinine 1.56 and stable, BUN is gently up trending to 36, bicarbonate is stable at 24. Basic metabolic profile is otherwise unremarkable. Phosphorus 5.2, magnesium 1.6. Blood cultures x2 are growing MRSA. Repeat blood cult ures are negative. Foot abscess culture is negative to date. ASSESSMENT: 1. Acute hypoxic respiratory failure. 2. Severe sepsis secondary to suspected cellulitis/foot abscess. 3. Bacteremia secondary to methicillin-resistant Staphylococcus aureus. 4. Chronic kidney disease. 5. Immunocompromised state secondary to Remicade. 6. Type 2 diabetes mellitus. 7. Polyarticular arthritis with acute attack, responding to steroids. DISCUSSION AND PLAN: I will give her another one-time dose of prednisone right now. Pulmonary Criti kristina Care will continue to follow along. I will follow until she more clearly turns the corner. She is moving in the right direction, however. No additional doses of Lasix will be provided.
[2018-04-29] MEDS: HumaLOG 300 UNITS/3 ML VIAL SC PRN (17:52)
--- NOTE | 2018-04-29 19:20 | PRG ---
DATE OF SERVICE: 04/29/2018 SUBJECTIVE: Dexter is feeling better. She is back in the floor. No headaches, no respiratory sympt oms, eating better, no abdominal pain, voiding without difficulty. OBJECTIVE: VITAL SIGNS: Demonstrate Temperature max 98, blood pressure 120/60, pulse 86, respirations 16. GENERAL: Appears much more rest rested. HEENT: Facial skin is of normal color, it is not flushed anymore. Her ocular movements are conjugat e. Oral cavity normal. NECK: Supple. LUNGS: With symmetric clear breath sounds. HEART: S1, S2, regular rate. No S3, S4. ABDOMEN: Soft, not distended. EXTREMITIES: The right foot has displayed marked improvement compared with initial findings, I would say at least 80% improvement. She has a packed area, kind of round shaped lateral aspect, close to the hindfoot region. LABORATORY DATA: White cell count is at 21.6, hemoglobin 7.6, platelets 552 with 69% neutrophils, ba nds are at 10%. Sodium 134, creatinine 1.56. Microbiology with the findings before noted. ASSESSMENT AND DISCUSSION: Rheumatoid arthritis; type 2 diabetes; gout; recent residual seroma, righ t thigh; episode of superficial thrombophlebitis and now with inflammatory process; right foot cellul itis; possible myositis; and MRSA bacteremia, marked improvement on vancomycin and clindamycin. The patient has evidence of a Charcot arthropathy in the right foot as well in addition those areas proba prasad became colonized by MRSA. The plan will be to continue antimicrobial therapy for a long period o f time. Follow up imaging studies. Again, MRI without contrast or with contrast would be somewhat d ifficult to interpret except for the evidence to suggest myositis. The bone changes would be difficu lt to interpret due to the underlying Charcot arthropathy and fractures. I would probably tend to ju st continue treating this with long-term vancomycin. End date of therapy probably around 06/08/2018 approximately or maybe even longer may be 06/20/2018. Assuming osteomyelitis of the foot due to meth icillin-resistant Staphylococcus aureus.
[2018-04-29] MEDS: Amitriptyline HCl 10 MG TAB PO SCH (20:48)
[2018-04-29] MEDS: cloNIDine 0.2 MG TAB PO SCH (20:49)
[2018-04-30] MEDS ORDERED: Vancomycin HCl 1.5 GM in Sodium Chloride 0.9% 250 ML 300 ML IVPB SCH (01:00)
[2018-04-30] MEDS: Clindamycin/D5W 900 MG in Premix Bag 1 BAG IVPB SCH ×3 (05:09→21:24)
[2018-04-30] MEDS: HumaLOG 300 UNITS/3 ML VIAL SC PRN ×4 (05:10→21:12)
[2018-04-30] MEDS: Levothyroxine Sodium 100 MCG TAB PO SCH (05:10)
[2018-04-30 05:20] LABS: INR-International Normal Ratio 2.3
[2018-04-30 05:28] LABS: Anion Gap 16 mmol/L (10-20); BUN (Urea Nitrogen) 36 mg/dL (9.8-20.1); Calc. Creatinine Clearance 75 mL/min (70-130); Calcium 9.2 mg/dL (7.8-10.44); Carbon Dioxide 25 mmol/L (23-31); Chloride 99 mmol/L (98-107); Estimated GFR-MDRD 32; Glucose 303 mg/dL (80-115); Magnesium 1.5 mg/dL (1.6-2.6); Phosphorus 3.5 mg/dL (2.3-4.7); Potassium 5.5 mmol/L (3.5-5.1); Sodium 134 mmol/L (136-145)
[2018-04-30 06:01] LABS: Anisocytosis MODERATE=16-30 cells (100X) (0-5/hpf); Band 13 % (5-11); Hemoglobin 7.7 g/dL (12.0-16.0); Lymphocytes 14 % (21-51); MDiff Complete? YES; Mean Corpuscular HGB CONC 30.1 g/dL (32.0-36.0); Mean Corpuscular Hemoglobin 24.4 pg (27.0-31.0); Mean Corpuscular Volume 81.1 fl (81.0-99.0); Mean Platelet Volume 6.6 fL (7.4-10.4); Metamyelocyte 5 % (0-0); Monocytes 5 % (0-10); Myelocyte 1 % (0-0); Neutrophil 62 % (42-75); PLT Morphology Comment Appears Increased; Platelet Count 612 thou/uL (130-400); RBC Distribution Width 17.1 % (11.5-14.5); Red Blood Cell (RBC) Count 3.17 mill/uL (4.20-5.40); Rouleaux Formation SLIGHT = 1-5 cells (100X) (None Seen); Tear Drops SLIGHT = 2-5 cells (100X) (0-1/hpf); White Blood Cell (WBC) Count 18.1 thou/uL (4.8-10.8)
[2018-04-30] MEDS ORDERED: Magnesium 2 GM/NS 0.9% 100 ML 2 GM in Premix Bag 1 BAG IVPB SCH ×2 (07:30→15:45)
[2018-04-30] MEDS: Nystatin 500,000 UNITS/5 ML UDCUP SSP SCH ×3 (08:45→20:13)
[2018-04-30] MEDS: predniSONE 20 MG TAB PO SCH (08:45)
[2018-04-30] MEDS: Saccharomyces boulardii 250 MG CAP PO SCH (08:45)
[2018-04-30] MEDS: Hydroxychloroquine Sulfate 200 MG TAB PO SCH ×2 (08:45→20:12)
[2018-04-30] MEDS: Pregabalin 75 MG CAP PO SCH ×2 (08:46→20:12)
[2018-04-30] MEDS: Colchicine 0.6 MG TAB PO SCH (08:47)
[2018-04-30] MEDS: Amlodipine 5 MG TAB PO SCH (08:47)
[2018-04-30] MEDS: traMADol HCl 50 MG TAB PO PRN ×2 (08:51→21:10)
[2018-04-30] MEDS: (Febuxostat [Uloric] 80 MG) PO SCH (08:55)
[2018-04-30 09:32] LABS: Vancomycin, Random 18.8 ug/mL (See Comment)
[2018-04-30] MEDS: Fentanyl 100 MCG/2 ML VIAL SLOW IVP PRN (10:25)
[2018-04-30] MEDS: Vancomycin HCl 1 GM in Premix Bag 1 BAG IVPB SCH (11:06)
--- NOTE | 2018-04-30 14:42 | PDOC.PN ---
- Subjective Encounter Start Date: 04/30/18 Encounter Start Time: 10:50 Follow up for MRSA bacteremia, right foot abscess and cellulitis, RA, obesity Hands feel better except for right thump PIP joint. no f/C, no n/V/D/c. Foot hurts after dressing change.. no Cough or sputum or blood WBC stable, up due to steroids, but bands still 13%. All systems reviewed and neg x as per HPI - Objective Resuscitation Status: Resuscitation Status FULL:Full Resuscitation MAR Reviewed: Yes Vital Signs & Weight: Vital Signs (12 hours) Temp Pulse Resp BP BP Pulse Ox 04/30/18 14:34 90 14 04/30/18 11:23 97.4 F L 97 20 165/87 H 92 L 04/30/18 10:36 90 14 04/30/18 08:47 90 156/84 H 04/30/18 08:00 98.0 F 90 14 04/30/18 07:10 90 14 04/30/18 07:04 98.0 F 94 20 156/84 H 93 L Weight Admit Weight 317 lb 4.8 oz Weight 317 lb 4.8 oz I&O: 04/29/18 04/30/18 05/01/18 06:59 06:59 06:59 Intake Total 1100 990 180 Output Total 3750 300 Balance -2650 690 180 Result Diagrams: 04/30/18 04:48 04/30/18 04:48 Additional Labs: Accuchecks 04/30/18 04/30/18 04/29/18 11:24 05:02 19:35 POC Glucose 268 H 297 H 318 H 04/29/18 17:07 POC Glucose 345 H Radiology Reviewed by me: Yes EKG Reviewed by me: Yes Phys Exam - Physical Examination Constitutional: NAD HEENT: PERRLA, moist MMs, sclera anicteric, oral pharynx no lesions Neck: no nodes, no JVD, supple, full ROM Respiratory: no wheezing, no rales, no rhonchi, clear to auscultation bilateral Cardiovascular: RRR, no significant murmur, no rub Gastrointestinal: soft, non-tender, no distention, positive bowel sounds Musculoskeletal: edema present Neurological: non-focal, moves all 4 limbs Lymphatic: no nodes Psychiatric: normal affect, A&O x 3 Deviation from normal: right thumb PIP looks like a tophus.MCPs red, less effusion. Dx/Plan (1) Anemia Code(s): D64.9 - ANEMIA, UNSPECIFIED Status: Chronic Qualifiers: Anemia type: unspecified type Qualified Code(s): D64.9 - Anemia, unspecified Comment: continue to monitor hemoglobin levels, ? due to sepsis (2) Bacteremia Code(s): R78.81 - BACTEREMIA Status: Acute Comment: Continue IV vancomycin and IV clindamycin for MRSA bacteremia. f/u with repeat cultures for clearance of MRSA. will need prolonged IV antibiotics (3) Cellulitis Code(s): L03.90 - CELLULITIS, UNSPECIFIED Status: Acute Qualifiers: Site of cellulitis of extremity: lower extremity Laterality: right Comment: Continue IV antibiotics as below. s/p I&D of fluid collection on 2018 (4) Sepsis Code(s): A41.9 - SEPSIS, UNSPECIFIED ORGANISM Status: Acute Qualifiers: Sepsis type: methicillin resistant Staphylococcus aureus Qualified Code(s) : A41.02 - Sepsis due to Methicillin resistant Staphylococcus aureus Comment: Due to bacteremia and cellulitis. Continue IV clindamycin and IV vancomycin (5) CKD stage 3 secondary to diabetes Code(s): E11.22 - TYPE 2 DIABETES MELLITUS W DIABETIC CHRONIC KIDNEY DISEASE; N18.3 - CHRONIC KIDNEY DISEASE, STAGE 3 (MODERATE) Status: Chronic Comment: stable (6) Acute worsening of stage 3 chronic kidney disease Code(s): N18.3 - CHRONIC KIDNEY DISEASE, STAGE 3 (MODERATE) Status: Chronic Comment: stable (7) Cellulitis of right leg Code(s): L03.115 - CELLULITIS OF RIGHT LOWER LIMB Status: Acute (8) Anemia, normocytic normochromic Code(s): D64.9 - ANEMIA, UNSPECIFIED Status: Chronic (9) Chronic anticoagulation Code(s): Z79.01 - HOT PACKER (CURRENT) USE OF ANTICOAGULANTS Status: Chronic (10) Diabetes type 2, controlled Code(s): E11.9 - TYPE 2 DIABETES MELLITUS WITHOUT COMPLICATIONS Status: Chronic Qualifiers: Diabetes mellitus intermediate accountant insulin use: with intermediate accountant use Diabetes mellitus complication status: with kidney complications Diabetes mellitus complication detail: with chronic kidney disease Chronic kidney disease stage : stage 3 (moderate) Qualified Code(s): E11.22 - Type 2 diabetes mellitus with diabetic chronic kidney disease; N18.3 - Chronic kidney disease, stage 3 ( moderate); N18.3 - Chronic kidney disease, stage 3 (moderate); Z79.4 - [facility] (current) use of insulin; Z79.4 - intermodal truck driver (current) use of insulin; Z79.4 - intermodal truck driver (current) use of insulin; Z79.4 - [facility] (current) use of insulin Comment: continue accuchecks and insulin sliding scale. (11) GERD (gastroesophageal reflux disease) Code(s): K21.9 - GASTRO-ESOPHAGEAL REFLUX DISEASE WITHOUT ESOPHAGITIS Status: Chronic Qualifiers: Esophagitis presence: without esophagitis Qualified Code(s): K21.9 - Gastro -esophageal reflux disease without esophagitis Comment: stable (12) HTN (hypertension) Code(s): I10 - ESSENTIAL (PRIMARY) HYPERTENSION Status: Chronic Qualifiers: Hypertension type: essential hypertension Qualified Code(s): I10 - Essential (primary) hypertension Comment: controlled (13) History of pulmonary embolus (PE) Code(s): Z86.711 - PERSONAL HISTORY OF PULMONARY EMBOLISM Status: Chronic Comment: on chronic anticoagulation (14) Morbid obesity with BMI of 50.0-59.9, adult Code(s): E66.01 - MORBID (SEVERE) OBESITY DUE TO EXCESS CALORIES; Z68.43 - BODY MASS INDEX (BMI) 50-59.9 , ADULT Status: Chronic - Plan * .
--- NOTE | 2018-04-30 16:20 | PRG ---
DATE OF SERVICE: 04/30/2018 SERVICE: Pulmonary Medicine. INTERVAL HISTORY: The patient is doing fine from a cardiovascular and respiratory standpoint. She d enies any current chest pain, nausea, vomiting, fevers or chills. Otherwise, there has been no inter maeve change to her condition. She is really happy with the progress that she has made since being in the hospital. She is starting to turn the corner as far as the way that her strength is treating her . PHYSICAL EXAMINATION: VITAL SIGNS: Afebrile, pulse 97, blood pressure 165/87, respirations 20, saturation 92% on 1 liter n dwight cannula. HEENT: Normocephalic, atraumatic. Sclerae are white, conjunctivae pink. Oral and nasal mucosa is m oist without lesions. LUNGS: Decent air entry without prolonged expiratory phase, wheezing, rhonchi, or crackles present. HEART: Normal rate, regular. ABDOMEN: Soft, nontender, nondistended. Bowel sounds are positive. MUSCULOSKELETAL: No cyanosis or clubbing. There is trace pitting in the left lower extremity. No p itting in the right lower extremity. Her arthralgia of the MCPs of the second and third digit on the right are improving a little bit. Erythema in the foot and knee is resolving. LABORATORY DATA: WBC 18.1, hemoglobin 7.7, platelets 612,000. Band count is 13%. INR 2.3. Creatin ine 1.60 and roughly stable. Basic metabolic profile is otherwise unremarkable. Magnesium 1.5. Dannie t abscess is growing Staph species. Blood cultures x2 are growing MRSA which demonstrates sensitivit ies to vancomycin. ASSESSMENT: 1. Acute hypoxic respiratory failure. 2. Severe sepsis secondary to foot abscess. 3. Bacteremia secondary to methicillin-resistant Staphylococcus aureus. 4. Chronic kidney disease. 5. Immunocompromised state secondary to Remicade. 6. Type 2 diabetes mellitus. 7. Polyarticular arthritis with acute attack, responding to steroids. DISCUSSION AND PLAN: I will replace the magnesium. Supportive measures will otherwise be continued. We will try to taper the prednisone away if tolerated. From my perspective, she is stable for sorto sition out of the hospital, assuming we have an antibiotic choice and duration in place.
--- NOTE | 2018-04-30 17:24 | PRG ---
DATE OF SERVICE: 04/30/2018 SUBJECTIVE: Ms. Renteria is a 67-year-old female who has been seen by Dr. Grissom. She presented with MRSA sepsis. The etiology is felt to be her foot, which has been incised and drained by Dr. Grissom . The patient is currently not on the floor. She is down in Radiology and PICC line for long-term IV a ntibiotics. PHYSICAL EXAMINATION: On examination today, she is afebrile. Her vital signs within normal limits. I cannot perform a physical examination as she is not here. LABORATORY DATA: Her laboratory studies reveal that her white blood cell count is 18 with hemoglobin of 7.7. These numbers are both relatively stable over the course of the past 2 or 3 days without an y real improvement. Her chemistry profile reveals moderate electrolyte abnormalities with some hyper kalemia and elevated blood sugars. Her cultures revealed Staphylococcus culture from her foot absces s. This was rare in volume within the foot, likely secondary to her previous IV antibiotics. She wa s MRSA positive in her blood cultures initially. PLAN: She will continue to undergo wound care of her foot and IV antibiotics with vancomycin which i s currently receiving. I will return on Thursday and try to coordinate with Wound Care to see her woun d. She clearly needs to continue on IV antibiotics for now.
--- NOTE | 2018-04-30 17:40 | SPC ---
LEFT UPPER EXTREMITY MIDLINE EXCHANGE 04/30/18 HISTORY: Cellulitis. Infection. IV antibiotics required. EXPOSURE: 0.6 minutes, 8211 mGy*cm2. FINDINGS: Successful exchange of a midline for a PICC line with fluoroscopic/x-ray guidance. Trim length is 47 cm. distal tip is in the right atrium. Single lumen catheter flushes and aspirates without difficulty . TECHNIQUE: Consent was obtained to perform an exchange of a left upper extremity midline. The left upper extremi ty and the midline were prepped and draped in the sterile fashion. 1% lidocaine was used for local an esthesia. A 0.018 guide wire was advanced through the midline to the level of the right atrium. Midli ne was removed. Dilator was placed. The wire was advanced into the inferior vena cava to document loren ous access and subsequently pulled back to the right atrium. A 5 Kyrgyz single lumen catheter was adv anced over the wire. The wire was removed. Catheter flushed and aspirates without difficulty. Distal tip is in the right atrium. Trim length is 47 cm. IMPRESSION: Successful exchange of a midline for a PICC line with the distal tip in the right atrium. POS: [facility]
[2018-04-30] MEDS: Warfarin Sodium 2.5 MG TAB PO SCH (18:01)
[2018-04-30] MEDS: Amitriptyline HCl 10 MG TAB PO SCH (20:12)
[2018-04-30] MEDS: cloNIDine 0.2 MG TAB PO SCH (20:12)
[2018-05-01] MEDS: Levothyroxine Sodium 100 MCG TAB PO SCH (05:37)
[2018-05-01] MEDS: Clindamycin/D5W 900 MG in Premix Bag 1 BAG IVPB SCH (05:38)
[2018-05-01 06:03] LABS: Prothrombin Time 23.5 SEC (12.0-14.7)
[2018-05-01 06:31] LABS: Anion Gap 12 mmol/L (10-20); BUN (Urea Nitrogen) 37 mg/dL (9.8-20.1); Calc. Creatinine Clearance 71 mL/min (70-130); Calcium 9.7 mg/dL (7.8-10.44); Carbon Dioxide 27 mmol/L (23-31); Chloride 101 mmol/L (98-107); Estimated GFR-MDRD 30; Glucose 155 mg/dL (80-115); Magnesium 1.8 mg/dL (1.6-2.6); Potassium 5.1 mmol/L (3.5-5.1); Sodium 135 mmol/L (136-145)
[2018-05-01 06:57] LABS: Band 8 % (5-11); Hemoglobin 8.1 g/dL (12.0-16.0); Lymphocytes 17 % (21-51); MDiff Complete? YES; Mean Corpuscular HGB CONC 29.9 g/dL (32.0-36.0); Mean Corpuscular Hemoglobin 24.3 pg (27.0-31.0); Mean Corpuscular Volume 81.3 fl (81.0-99.0); Mean Platelet Volume 6.3 fL (7.4-10.4); Metamyelocyte 6 % (0-0); Monocytes 5 % (0-10); Myelocyte 2 % (0-0); Neutrophil 61 % (42-75); PLT Morphology Comment Appears Increased; Platelet Count 760 thou/uL (130-400); Promyelocytes 1 % (0-0); RBC Distribution Width 17.2 % (11.5-14.5); Red Blood Cell (RBC) Count 3.31 mill/uL (4.20-5.40); White Blood Cell (WBC) Count 20.3 thou/uL (4.8-10.8)
[2018-05-01] MEDS ORDERED: predniSONE 20 MG TAB PO SCH (08:00)
[2018-05-01] MEDS: Amlodipine 5 MG TAB PO SCH (08:30)
[2018-05-01] MEDS: Hydroxychloroquine Sulfate 200 MG TAB PO SCH (08:33)
[2018-05-01] MEDS: Saccharomyces boulardii 250 MG CAP PO SCH (08:33)
[2018-05-01] MEDS: (Febuxostat [Uloric] 80 MG) PO SCH (08:34)
[2018-05-01] MEDS: Pregabalin 75 MG CAP PO SCH (08:34)
[2018-05-01] MEDS: Nystatin 500,000 UNITS/5 ML UDCUP SSP SCH ×2 (08:34→14:35)
[2018-05-01] MEDS: traMADol HCl 50 MG TAB PO PRN (08:36)
[2018-05-01] MEDS: Colchicine 0.6 MG TAB PO SCH (08:41)
[2018-05-01] MEDS: Vancomycin HCl 1 GM in Premix Bag 1 BAG IVPB SCH ×2 (12:00→12:29)
[2018-05-01 12:36] VITALS: TEMP 98.2
[2018-05-01] MEDS ORDERED: Colchicine 0.6 MG TAB PO SCH (14:30)
[2018-05-01] MEDS ORDERED: Warfarin Sodium 5 MG TAB PO SCH (17:00)
[2018-05-01 17:34] VITALS: BP 136/87
== END 2018-05-01 14:55 | disposition short-term general hospital (02) | DRG 871 ==
LOC: ERS 17:46 → T4-B 19:50 → IMCU/EMU 04-25 15:31 → T4-B 04-28 20:53
PROVIDERS: ADMIT Internal Medicine; ATTEND Internal Medicine
PROC: 02H633Z Insertion of Infusion Device into Right Atrium, Percutaneous Approach (ICD-10-PCS; principal; 2018-04-30)
PROC: 05PYX3Z Removal of Infusion Device from Upper Vein, External Approach (ICD-10-PCS; 2018-04-30)
DX: A41.02 Sepsis due to Methicillin resistant Staphylococcus aureus (principal); J96.01 Acute respiratory failure with hypoxia; L03.115 Cellulitis of right lower limb; L02.611 Cutaneous abscess of right foot; Z68.43 Body mass index [BMI] 50.0-59.9, adult; N17.9 Acute kidney failure, unspecified; R65.20 Severe sepsis without septic shock; D89.9 Disorder involving the immune mechanism, unspecified; T39.8X5A Adverse effect of other nonopioid analgesics and antipyretics, not elsewhere classified, initial encounter; N18.3 Chronic kidney disease, stage 3 (moderate); E11.22 Type 2 diabetes mellitus with diabetic chronic kidney disease; D64.9 Anemia, unspecified; Z79.01 Long term (current) use of anticoagulants; M13.80 Other specified arthritis, unspecified site; K21.9 Gastro-esophageal reflux disease without esophagitis; E66.01 Morbid (severe) obesity due to excess calories; M10.9 Gout, unspecified; Z96.653 Presence of artificial knee joint, bilateral; R79.1 Abnormal coagulation profile; I12.9 Hypertensive chronic kidney disease with stage 1 through stage 4 chronic kidney disease, or unspecified chronic kidney disease; Z86.711 Personal history of pulmonary embolism; E78.5 Hyperlipidemia, unspecified; E11.610 Type 2 diabetes mellitus with diabetic neuropathic arthropathy; Z79.4 Long term (current) use of insulin
CPT/HCPCS: 36415; 36416; 36569; 71045; 80048; 80053; 80202; 82550; 82805; 83605; 83735; 83880; 84100; 85025; 85049; 85300; 85362; 85379; 85384; 85610; 85652; 85730; 86140; 87040; 87070; 87077; 87149; 87186; 87205; 88305; 89060; 93005; 93010; 93306; 93970; 94640; 96361; 96365; 96368; 96375; A4216; G8978-GP-CM; G8979-GP-CJ; G8996-GN-CK; G8997-GN-CJ; G8997-GN-CK; J1644; J3010; J3370; J3430; J3475; J3490; J7050; J7506; J7620

== ENCOUNTER 2018-07-14 17:34 | Inpatient (IN) | payer MEDICARE, OTHER ==
[~2018-07-14 17:34] MED LIST: Heparin 1,000 UNITS/ML VIAL ONE
[2018-07-14 18:47] LABS: #Basophils 0.1 thou/uL (0.0-0.2); #Eosinphils 0.4 thou/uL (0.0-0.7); #Monocytes 1.2 thou/uL (0.11-0.59); #Neutrophils 8.1 thou/uL (1.40-6.50); %Basophils 0.5 % (0.0-1.0); %Eosinophils 3.7 % (0.0-10.0); %Lymphocytes 16.8 % (21.0-51.0); %Neutrophils 69.1 % (42.0-75.0); Hemoglobin 7.8 g/dL (12.0-16.0); Mean Corpuscular HGB CONC 30.4 g/dL (32.0-36.0); Mean Corpuscular Hemoglobin 22.8 pg (27.0-31.0); Mean Corpuscular Volume 75.3 fL (78.0-98.0); Mean Platelet Volume 8.4 fL (7.4-10.4); Platelet Count 397 thou/uL (130-400); RBC Distribution Width 19.9 % (11.5-14.5); Red Blood Cell (RBC) Count 3.43 mill/uL (4.20-5.40); White Blood Cell (WBC) Count 11.8 thou/uL (4.8-10.8)
[2018-07-14 18:56] LABS: INR-International Normal Ratio 1.3; Prothrombin Time 16.6 SEC (12.0-14.7)
[2018-07-14 19:08] LABS: ALT (SGPT) 10 U/L (8-55); AST (SGOT) 16 U/L (5-34); Albumin 3.3 g/dL (3.4-4.8); Alkaline Phosphatase 134 U/L (40-150); Anion Gap 16 mmol/L (10-20); BUN (Urea Nitrogen) 34 mg/dL (9.8-20.1); Bilirubin, Total 0.6 mg/dL (0.2-1.2); CK (CPK) 234 U/L (29-168); Calc. Creatinine Clearance 0 mL/min (70-130); Calcium 9.1 mg/dL (7.8-10.44); Carbon Dioxide 26 mmol/L (23-31); Chloride 97 mmol/L (98-107); Estimated GFR-MDRD 18; Glucose 194 mg/dL (80-115); Potassium 4.7 mmol/L (3.5-5.1); Protein, Total 7.3 g/dL (6.0-8.3); Sodium 134 mmol/L (136-145)
--- NOTE | 2018-07-14 20:48 | ULT ---
ULTRASOUND WITH DOPPLER DUPLEX VENOUS LOWER EXTREMITY RIGHT: 07/14/18 HISTORY: 68-year-old female with pain and edema in the right lower extremity. TECHNIQUE: Color flow Doppler, spectral waveform analysis of pulsed Doppler, and ramirez-scale imaging with ivonne tania and augmentation, were used to evaluate the right common femoral, femoral, popliteal, posterior tibial, and superficial femoral, veins; and the proximal portions of the profunda femoral and greater saphenous, veins. FINDINGS: There is normal compressibility, demonstration of blood flow by color Doppler and pulsed Doppler, and response to augmentation, in all interrogated veins. IMPRESSION: Negative. No deep vein thrombosis in the right lower extremity. jn [] POS: [facility]
[2018-07-14] MEDS ORDERED: Fentanyl 100 MCG/2 ML VIAL ONE (20:57)
[2018-07-14] MEDS ORDERED: Acetaminophen 325 MG TAB PO PRN (23:47)
[2018-07-14] MEDS ORDERED: Ondansetron HCl/PF 4 MG/2 ML Vial IVP PRN (23:47)
[2018-07-14] MEDS ORDERED: Sodium Chloride 0.9% 1,000 ML IV SCH (23:47)
[2018-07-14] MEDS ORDERED: Ondansetron ODT 4 MG TAB SL PRN (23:47)
[2018-07-14] MEDS ORDERED: HYDROcodone/Acetaminophen 5/325 mg Tablet PO PRN ×2 (23:47)
[2018-07-14] MEDS ORDERED: Clindamycin/D5W 600 MG in Premix Bag 1 BAG IVPB SCH (23:59)
[2018-07-15 00:04] VITALS: BMI 48.2
[2018-07-15] MEDS ORDERED: Refresh (Polyvinyl Alcohol 1.4%/Povidone 0.6%) Opth Drops EA EYE PRN (00:44)
[2018-07-15] MEDS ORDERED: ALPRAZolam 0.5 MG TAB PO PRN (00:44)
[2018-07-15] MEDS ORDERED: VANCOMYCIN IVPB PRN (00:52)
[2018-07-15] MEDS: HYDROcodone/Acetaminophen 5/325 mg Tablet PO PRN ×3 (02:43→17:29)
[2018-07-15] MEDS ORDERED: Dextrose 5% in Water 1,000 ML IV PRN (04:08)
[2018-07-15] MEDS ORDERED: Dextrose 50% Abboject 50 ML SYRINGE SLOW IVP PRN (04:08)
[2018-07-15 05:28] LABS: Anion Gap 14 mmol/L (10-20); BUN (Urea Nitrogen) 32 mg/dL (9.8-20.1); Calc. Creatinine Clearance 56 mL/min (70-130); Calcium 8.8 mg/dL (7.8-10.44); Carbon Dioxide 25 mmol/L (23-31); Chloride 103 mmol/L (98-107); Estimated GFR-MDRD 23; Glucose 151 mg/dL (80-115); Potassium 4.5 mmol/L (3.5-5.1); Sodium 137 mmol/L (136-145)
[2018-07-15] MEDS: Levothyroxine Sodium 100 MCG TAB PO SCH (05:58)
[2018-07-15 06:12] LABS: #Eosinphils 0.2 thou/uL (0.0-0.7); #Lymphocytes 1.8 thou/uL (1.20-3.40); #Monocytes 1.2 thou/uL (0.11-0.59); #Neutrophils 6.8 thou/uL (1.40-6.50); %Basophils 0.3 % (0.0-1.0); %Eosinophils 2.5 % (0.0-10.0); %Lymphocytes 18.1 % (21.0-51.0); %Monocytes 12.2 % (0.0-10.0); Anisocytosis SLIGHT = 6-15 cells (100X) (0-5/hpf); Hemoglobin 7.1 g/dL (12.0-16.0); MDiff Complete? YES; Mean Corpuscular HGB CONC 31.1 g/dL (32.0-36.0); Mean Corpuscular Hemoglobin 23.3 pg (27.0-31.0); Mean Corpuscular Volume 74.9 fL (78.0-98.0); Mean Platelet Volume 7.7 fL (7.4-10.4); Microcytosis SLIGHT = 6-15 cells (100X) (0-5/hpf); Platelet Count 337 thou/uL (130-400); RBC Distribution Width 19.3 % (11.5-14.5); Red Blood Cell (RBC) Count 3.04 mill/uL (4.20-5.40); White Blood Cell (WBC) Count 10.1 thou/uL (4.8-10.8)
[2018-07-15] MEDS ORDERED: Albuterol Sulfate 1.25 MG/3 ML NEB NEB SCH (06:30)
--- NOTE | 2018-07-15 06:37 | HP ---
PRIMARY CARE PHYSICIAN: Dr. Jyoti Burger CODE STATUS: FULL CODE. TIME OF EVALUATION: 12:30 a.m. CHIEF COMPLAINT: Right leg redness and swelling. HISTORY OF PRESENT ILLNESS: This is a 68-year-old female patient with past medical history of gout, diabetes, hypertension, arthritis, obesity, pulmonary embolism x2. The patient came to the hospital after having right lower extremity redness, swelling, tenderness, decreased range of motion due to te nderness and difficulty bearing weight. She reported that she had a history of right foot abscess an d MRSA infection in the same leg. She had long-term antibiotics. She was followed by Dr. Kenny at t [facility] time. Symptoms now has been present for the past 2 days with no clear triggers, have been gradua lly getting worse. REVIEW OF SYSTEMS: CONSTITUTIONAL: The patient had fever, no chills. Generalized weakness. RESPIRATORY: No cough, sputum production or shortness of breath. CARDIOVASCULAR: No chest pain, palpitations, shortness of breath. GASTROINTESTINAL: No nausea, no vomiting, diarrhea or abdominal pain. DOUGH SHEETER: No dizziness, headache or feeling lightheaded. GENITOURINARY: No burning on urination. Extremities: The patient has right lower extremity redness , swelling, tenderness, decreased range of motion. All other systems were reviewed and negative except for the findings mentioned above. PAST MEDICAL HISTORY: Positive for diabetes, hypertension, arthritis, asthma, anemia, obesity, pulmo nary embolism x2. PAST SURGICAL HISTORY: Positive for bilateral total knee replacement, right eye cataract surgery, bi lateral rotator cuff repairs, total hysterectomy, appendectomy, left hand cyst removal from tendon an d bilateral carpal tunnel. PSYCHIATRIC HISTORY: No previous psychiatric history. SOCIAL HISTORY: No alcohol, no drugs. No smoking history. FAMILY HISTORY: Reviewed and noncontributory for current presentation. ALLERGIES: ASPIRIN, BACTRIM, CHOCOLATE, CODEINE, MORPHINE, NSAIDS, PENICILLIN, BENTYL, ZOSYN, KATARINA, STATINS, TALWIN. MEDICATIONS: Amlodipine, clonidine, Coumadin, levothyroxine, albuterol, glyburide, Lyrica, prednison e, Prilosec, Uloric, Plaquenil, enalapril, amitriptyline, Remicade. PHYSICAL EXAMINATION: VITAL SIGNS: On presentation, blood pressure 113/56, heart rate 98. Respiratory rate was 18, temper ature 99.7, pain 6/10, oxygen saturation 92 on room air. GENERAL APPEARANCE: The patient is obese, alert, oriented, no acute distress. HEENT: Normocephalic, conjunctivae. Moist oral mucosa. Anicteric. NECK: No JVD. RESPIRATORY: Bilateral air entry. No rales, no wheezing. Symmetric expansion. CARDIOVASCULAR: Normal rate, regular rhythm. No murmurs, no gallop. No edema. ABDOMEN: Soft, normal bowel sounds. MUSCULOSKELETAL: Baseline range of motion and strength. No tenderness. Patient normally walks with a walker. SKIN: Warm and intact. No pallor, no rash or redness. EXTREMITIES: X-ray right lower extremity. The patient has redness, swelling, tenderness, decreased range of motion. Unable to bear weight due to tenderness. Peripheral pulses are present. Capillary refill seems to be intact. NEURO: Baseline sensory. No evidence of any new focal weakness. Baseline speech. Cranial nerves i ntact. PSYCHIATRIC: The patient is in a good mood. No anxiety, optimal judgment. RADIOLOGY: Vascular ultrasound was done from the right lower extremity and showed no deep vein throm bosis of the right lower extremity. LABORATORY DATA: The labs were reviewed. The patient has white count 11.8, hemoglobin 7.8, on previ ous admissions the hemoglobin level was 8.7, 7.6, the platelet count 397. PT 16.6, INR 1.3, PTT 36. Chemistry: Sodium 134, potassium 4.7, chloride 97, carbon dioxide 26, anion gap 16, BUN 34 with cre atinine of 2.59, in previous admission, it was 1.4, GFR 18. Lactic acid 1.9, glucose 194. CK 234. ASSESSMENT AND PLAN: The patient will be placed in the hospital following medical problems. 1. Right lower extremity cellulitis. Patient has a history of methicillin-resistant Staphylococcus aureus. We will cover with vancomycin, we will consult Dr. Kenny and as he has seen the patient in t he past and had her on long-term antibiotics. 2. Chronic microcytic anemia, hemoglobin 7.8, previous admission was about 8, we will monitor. ____ as needed. 3. Chronic anticoagulation due to previous pulmonary embolus x2. The patient's INR today is 1.3, ph armacy to dose warfarin. 4. Hyponatremia. Sodium 134, this is mild, no need for any acute intervention will monitor, adjust as needed. 5. Acute on chronic kidney injury. The patient has creatinine 2.59. That has almost doubled from t he previous values with GFR 18, we will hydrate, we will monitor, if not improving, might need assist ance for Nephrology. 6. Hyperglycemia with uncontrolled diabetes, reconcile home meds, sliding scale for diabetes control . 7. Deep venous thrombosis prophylaxis. 8. Controlled hypertension, reconcile home medications, adjust as needed. 9. Obesity, advised to lose weight. 10. History of gout, this problem is chronic, seems to be stable.
[2018-07-15] MEDS: Pregabalin 75 MG CAP PO SCH ×2 (08:51→19:44)
[2018-07-15] MEDS: Enoxaparin Sodium 40 MG/0.4 ML SYRINGE SC SCH (08:51)
[2018-07-15] MEDS: Saccharomyces boulardii 250 MG CAP PO SCH (08:52)
[2018-07-15] MEDS: Amlodipine 5 MG TAB PO SCH (08:52)
[2018-07-15] MEDS: predniSONE 5 MG TAB PO SCH (08:52)
[2018-07-15] MEDS: diphenhydrAMINE 12.5 MG/5 ML UDCUP PO SCH ×2 (08:53→19:44)
[2018-07-15] MEDS: SYSTANE GEL EYE DROP 10 ML 10 GM BOT EA EYE SCH ×3 (08:53→19:45)
[2018-07-15] MEDS ORDERED: Vancomycin HCl 1 GM in Premix Bag 1 BAG IVPB SCH (09:00)
[2018-07-15] MEDS ORDERED: Hydroxychloroquine Sulfate 200 MG TAB PO SCH (09:00)
[2018-07-15] MEDS: Vancomycin HCl 1.5 GM in Sodium Chloride 0.9% 250 ML 300 ML IVPB SCH (10:50)
[2018-07-15 11:27] LABS: Iron 13 ug/dL (50-170); Iron Binding Capacity, Total 239 mcg/dL (265-497)
[2018-07-15 11:37] LABS: Reticulocyte Count 2.3 % (0.5-1.5)
[2018-07-15] MEDS: Warfarin Sodium 5 MG TAB PO SCH (17:29)
[2018-07-15] MEDS: HumaLOG 300 UNITS/3 ML VIAL SC PRN (17:36)
--- NOTE | 2018-07-15 18:42 | PDOC.PN ---
- Subjective Encounter Start Date: 07/15/18 Encounter Start Time: 10:30 Subjective: pt up in bed states she has pain to her right calf area - Objective Resuscitation Status: Resuscitation Status FULL:Full Resuscitation Vital Signs & Weight: Vital Signs (12 hours) Temp Pulse Resp BP BP Pulse Ox 07/15/18 17:37 98.0 F 93 20 120/66 93 L 07/15/18 13:02 87 16 93 L 07/15/18 11:09 98.3 F 88 20 138/76 93 L 07/15/18 08:52 81 106/67 07/15/18 08:15 98.1 F 82 20 106/67 91 L 07/15/18 08:00 98.3 F 88 20 93 L 07/15/18 07:29 95 16 93 L Weight Weight 317 lb 7 oz I&O: 07/14/18 07/15/18 07/16/18 06:59 06:59 06:59 Intake Total 660 Balance 660 Result Diagrams: 07/15/18 04:45 07/15/18 04:44 Additional Labs: Accuchecks 07/15/18 07/15/18 11:17 04:49 POC Glucose 89 165 H Phys Exam - Physical Examination Neck: no nodes, no JVD, supple, full ROM Respiratory: no wheezing, no rales, no rhonchi, wheezing present, clear to auscultation bilateral Cardiovascular: RRR, no significant murmur, no rub, gallop, irregular Gastrointestinal: soft, non-tender, no distention, positive bowel sounds right calf erythema mild Neurological: non-focal, normal sensation, moves all 4 limbs Dx/Plan (1) Cellulitis of right leg Code(s): L03.115 - CELLULITIS OF RIGHT LOWER LIMB Status: Acute (2) Subtherapeutic anticoagulation Code(s): Z51.81 - ENCOUNTER FOR THERAPEUTIC DRUG LEVEL MONITORING; Z79.01 - CANCER PROGRAM DIRECTOR (CURRENT) USE OF ANTICOAGULANTS Status: Acute (3) Diabetes type 2, controlled Code(s): E11.9 - TYPE 2 DIABETES MELLITUS WITHOUT COMPLICATIONS Status: Chronic Qualifiers: Comment: continue accuchecks and insulin sliding scale. (4) Microcytic anemia Code(s): D50.9 - IRON DEFICIENCY ANEMIA, UNSPECIFIED Status: Acute (5) MRSA bacteremia Code(s): R78.81 - BACTEREMIA Status: Resolved Comment: history - Plan she is immunocompromised since she is on steroids/remicade -: venous doppler negative, she has mild redness to her right calf area. -: will order PT, will also check stool for occult blood -: will start pt on iv iron, will continue AC. -: given her hx of mrsa bactremia will continue abx, PT consulted * . Review of Systems - Review of Systems Respiratory: negative: Cough, Dry, Shortness of Breath, Hemoptysis, SOB with Excertion, Pleuritic Pain, Sputum, Wheezing Cardiovascular: negative: chest pain, palpitations, orthopnea, paroxysmal nocturnal dyspnea, edema, light headedness, other Gastrointestinal: negative: Nausea, Vomiting, Abdominal Pain, Diarrhea, Constipation, Melena, Hematochezia, Other Musculoskeletal: Leg Pain - Medications/Allergies Allergies/Adverse Reactions: Allergies Allergy/AdvReac Type Severity Reaction Status Date / Time aspirin Allergy Severe Anaphylaxis Verified 07/14/18 23:49 [From Talwin Compound] codeine Allergy Severe Rash Verified 07/14/18 23:49 morphine Allergy Severe Anaphylaxis Verified 07/14/18 23:49 NSAIDS (Non-Steroidal Allergy Severe Verified 07/14/18 23:49 Anti-Inflamma Penicillins Allergy Severe Anaphylaxis Verified 07/14/18 23:49 pentazocine HCl Allergy Severe Anaphylaxis Verified 07/14/18 23:49 [From Talwin Compound] [id number] Reductase Allergy Severe Verified 07/14/18 23:49 Inhibitor chocolate flavor Allergy Verified 07/14/18 23:49 ottoniel Allergy Verified 07/14/18 23:49 Sulfa (Sulfonamide Allergy Verified 07/14/18 23:49 Antibiotics) sulfamethoxazole Allergy Verified 07/14/18 23:49 [From Bactrim] trimethoprim [From Bactrim] Allergy Verified 07/14/18 23:49 Medications: Current Medications Hydrocodone Bitart/Acetaminophen ([place] 5/325) 1 tab PO Q4H PRN PRN Reason: Moderate to Severe Pain (6-10) Last Admin: 07/15/18 17:29 Dose: 1 tab Albuterol/Ipratropium (Duoneb) 3 ml NEB [id number] BRYAN Last Admin: 07/15/18 13:02 Dose: 3 ml Alprazolam (Xanax) 0.5 mg PO BIDPRN PRN PRN Reason: Anxiety Amitriptyline HCl (Elavil) 30 mg PO HS BRYAN Amlodipine Besylate (Norvasc) 5 mg PO DAILY [facility] Last Admin: 07/15/18 08:52 Dose: 5 mg Cholecalciferol (Vitamin D3) 1,000 units PO DAILY [facility] Last Admin: 07/15/18 08:53 Dose: 1,000 units Clonidine (Catapres) 0.4 mg PO HS BRYAN Colchicine (Colcrys) 0.6 mg PO DAILY [facility] Dextrose/Water (Dextrose 50%) 25 gm SLOW IVP PRN PRN PRN Reason: Hypoglycemia Diphenhydramine HCl (Benadryl) 10 mg PO BID [facility] Last Admin: 07/15/18 08:53 Dose: 10 mg Enalapril Maleate (Vasotec) 20 mg PO DAILY [facility] Last Admin: 07/15/18 08:52 Dose: 20 mg Enoxaparin Sodium (Lovenox) 40 mg SC 0900 [facility] Last Admin: 07/15/18 08:51 Dose: 40 mg Glucagon (Glucagon) 1 mg IM PRN PRN PRN Reason: Hypoglycemia Hypromellose (Systane Gel) 0 gm EA EYE TID [facility] Last Admin: 07/15/18 17:29 Dose: 1 drop Vancomycin HCl 1.5 gm/ Sodium (Chloride) 300 mls @ 200 mls/hr IVPB 1000 [facility] Last Admin: 07/15/18 10:50 Dose: 300 mls Dextrose/Water (D5w) 1,000 mls @ 0 mls/hr IV .Q0M PRN PRN Reason: Hypoglycemia Insulin Human Lispro (Humalog) 0 units SC .MILD SLIDING SCALE PRN PRN Reason: Mild Correctional Scale Last Admin: 07/15/18 17:36 Dose: 2 unit Levothyroxine Sodium (Synthroid) 200 mcg PO 0600 [facility] Last Admin: 07/15/18 05:58 Dose: 200 mcg Miscellaneous Medication (Pharmacy To Dose) 1 each IVPB PRN PRN PRN Reason: SSSI Pantoprazole Sodium (Protonix) 40 mg PO QAM-WM [facility] Last Admin: 07/15/18 08:52 Dose: 40 mg (Biotin [Biotin] 10, (000 Mcg) Tab) 1 each PO DAILY [facility] (Febuxostat [Uloric] (80 Mg)) 1 each PO DAILY [facility] Polyvinyl Alcohol/Povidone (Refresh Classic Eye Drops) 1 - 2 each EA EYE TIDPRN PRN PRN Reason: Dry Eyes Prednisone (Prednisone) 5 mg PO QAM-[facility] Last Admin: 07/15/18 08:52 Dose: 5 mg Pregabalin (Lyrica) 150 mg PO BID [facility] Last Admin: 07/15/18 08:51 Dose: 150 mg Saccharomyces Boulardii (Florastor) 250 mg PO DAILY [facility] Last Admin: 07/15/18 08:52 Dose: 250 mg Warfarin Sodium (Coumadin) 5 mg PO 1700 [facility] Last Admin: 07/15/18 17:29 Dose: 5 mg
[2018-07-15] MEDS ORDERED: Iron Sucrose Complex 200 MG in Sodium Chloride 0.9% 250 ML 250 ML IVPB SCH (18:45)
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
[2018-07-15] MEDS: cloNIDine 0.2 MG TAB PO SCH (19:43)
[2018-07-15] MEDS: Amitriptyline HCl 10 MG TAB PO SCH (19:43)
[2018-07-15] MEDS ORDERED: Sodium Ferric Gluconate 250 MG in Sodium Chloride 0.9% 100 ML IVPB SCH (20:30)
[2018-07-16 05:29] LABS: INR-International Normal Ratio 1.2; Prothrombin Time 15.3 SEC (12.0-14.7)
[2018-07-16] MEDS: Levothyroxine Sodium 100 MCG TAB PO SCH (05:50)
[2018-07-16] MEDS: Saccharomyces boulardii 250 MG CAP PO SCH (08:32)
[2018-07-16] MEDS: Enoxaparin Sodium 40 MG/0.4 ML SYRINGE SC SCH (08:32)
[2018-07-16] MEDS: predniSONE 5 MG TAB PO SCH (08:33)
[2018-07-16] MEDS: Amlodipine 5 MG TAB PO SCH (08:33)
[2018-07-16] MEDS: Colchicine 0.6 MG TAB PO SCH (08:33)
[2018-07-16] MEDS: SYSTANE GEL EYE DROP 10 ML 10 GM BOT EA EYE SCH ×3 (08:34→20:29)
[2018-07-16] MEDS: Pregabalin 75 MG CAP PO SCH ×2 (08:34→20:26)
[2018-07-16] MEDS: diphenhydrAMINE 12.5 MG/5 ML UDCUP PO SCH ×2 (08:37→20:27)
--- NOTE | 2018-07-16 08:52 | MRI ---
MRI RIGHT ANKLE WITHOUT CONTRAST: Date: 07/15/18 HISTORY: Right ankle inflammatory arthropathy. Gout vs. infection. FINDINGS: Bones: There is extensive destruction of the midfoot. There is loss of normal marrow signal in the T1-weight ed imaging sequence of the medial, intermediate, and lateral cuneiforms, as well as the cuboid. There is also loss of normal marrow signal of the navicular. These bones have large erosions at the interf kai of the articular surface with extensive marrow edema. Large fluid collections are present extendi ng from the joints. There is nondisplaced stress-type fracture of the second metatarsal head. Large p annus formation of the hindfoot seen to the sinus tarsi. Tendons: Extensive tenosynovitis of the extensor and flexor tendons, as well as the peroneal tendons. The Achi lles tendon has interstitial delamination of the central 1/3 at the level of the calcaneal insertion. Evaluation for soft tissue abscess is limited without intravenous contrast. There is extensive skin thickening, as well as edema. Muscles are atrophied. IMPRESSION: 1. Severe midfoot erosive changes with loss of marrow signal on the T1-weighted sequences. These are concerning for superimposed infection upon neurogenic arthropathy. Neurogenic arthropathy would not expect to have the amount of T1 signal loss on the midfoot. The entire midfoot is involved, including the navicular, cuboid, and cuneiform bones. Given the large fluid collections emanating from the mid foot joint, ultrasound guided aspiration may be beneficial in this patient. 2. Tenosynovitis of the flexor and extensor tendons, worse at the tibialis anterior tendon as it diversified crops farmer sses over the medial cuneiform. Aspiration may be beneficial with sampling of fluid to evaluate for u nderlying infectious organism. 3. Nondisplaced fracture of the second metatarsal head, likely stress related. POS: [facility] [place]
[2018-07-16] MEDS: Vancomycin HCl 1.5 GM in Sodium Chloride 0.9% 250 ML 300 ML IVPB SCH (09:47)
[2018-07-16 10:57] LABS: #Basophils 0.1 thou/uL (0.0-0.2); #Eosinphils 0.5 thou/uL (0.0-0.7); #Lymphocytes 1.6 thou/uL (1.20-3.40); #Neutrophils 6.5 thou/uL (1.40-6.50); %Basophils 0.5 % (0.0-1.0); %Eosinophils 5.3 % (0.0-10.0); %Lymphocytes 16.7 % (21.0-51.0); %Neutrophils 67.5 % (42.0-75.0); Hemoglobin 7.7 g/dL (12.0-16.0); Mean Corpuscular HGB CONC 31.1 g/dL (32.0-36.0); Mean Corpuscular Hemoglobin 23.6 pg (27.0-31.0); Mean Platelet Volume 7.6 fL (7.4-10.4); Platelet Count 376 thou/uL (130-400); RBC Distribution Width 19.4 % (11.5-14.5); Red Blood Cell (RBC) Count 3.27 mill/uL (4.20-5.40); White Blood Cell (WBC) Count 9.6 thou/uL (4.8-10.8)
[2018-07-16] MEDS: (Febuxostat [Uloric] 80 MG) PO SCH (11:04)
[2018-07-16 11:18] LABS: Anion Gap 15 mmol/L (10-20); BUN (Urea Nitrogen) 25 mg/dL (9.8-20.1); Calc. Creatinine Clearance 60 mL/min (70-130); Calcium 9.2 mg/dL (7.8-10.44); Carbon Dioxide 26 mmol/L (23-31); Chloride 103 mmol/L (98-107); Estimated GFR-MDRD 25; Glucose 129 mg/dL (80-115); Potassium 4.6 mmol/L (3.5-5.1); Sodium 139 mmol/L (136-145)
[2018-07-16] MEDS: HYDROcodone/Acetaminophen 5/325 mg Tablet PO PRN ×2 (11:54→17:41)
[2018-07-16] MEDS: HumaLOG 300 UNITS/3 ML VIAL SC PRN ×2 (11:55→17:42)
--- NOTE | 2018-07-16 12:22 | PRG ---
DATE OF SERVICE: 07/16/2018 Still with quite a bit of pain on palpation of the right lower extremity. No respiratory symptoms or diarrhea. PHYSICAL EXAMINATION: VITAL SIGNS: T-max 98.1, blood pressure 140/60, pulse 80, O2 saturation 92%. GENERAL: Awake, alert. LUNGS: Lungs with symmetric clear breath sounds. CARDIOVASCULAR: S1, S2. ABDOMEN: Soft. EXTREMITIES: The right leg with a similar appearance compared with yesterday, not much in terms of e rythema, more in terms of tenderness on palpation and moderate edema. LABORATORY DATA: White cell count is at 9.6, hemoglobin 7.7, platelets 376, 67% neutrophils, 16% lym phocytes. The creatinine is at 1.97, which is improving from admission. Microbiology: Two sets of blood cultures negative thus far. MRI showed extensive changes. In view of the T1 changes there is a concern with superimposed infection. Recommendation has been made for ultrasound guided aspirate. 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 Not much erythema when pedro red with previous visits, but the MRI findings are of concern. At this time, I would recommend ultra sound guided aspirate of the right foot/ankle to submit for cultures and Gram stain as well as richmond l analysis.
[2018-07-16] MEDS ORDERED: Sodium Bicarbonate 2.5 MEQ/5 ML VIAL ONE (15:28)
[2018-07-16] MEDS ORDERED: Lidocaine 1% PF 5 ML VIAL ONE (15:29)
--- NOTE | 2018-07-16 16:54 | ULT ---
ULTRASOUND GUIDED NEEDLE ASPIRATION OF RIGHT FOOT: 07/16/18 HISTORY: 68-year-old diabetic female with gout and previous history of right foot infection, presents with se cullen soft tissue edema of the right foot, and multiloculated fluid collections at the dorsum of the f oot. TECHNIQUE: Signed informed consent obtained. The skin of the dorsum of the foot was prepared and draped in the u sual sterile fashion. Under ultrasound guidance, a 25 gauge needle was used to apply buffered lidocai ne superficially and deeply. Under ultrasound guidance, a 20 gauge spinal needle was advanced into th e largest dorsal fluid collection. Stylet was removed, and a syringe was used to aspirate 2.5 mL of v iscous, opaque, yellow-brown fluid. This material was injected into two separate tubes provided by david peterson, and sent to laboratory. There was prolonged bleeding, even from the 25 gauge needle, becaus e the patient is on anticoagulation (Coumadin). Manual compression was applied for a long period of t genoveva after removal of the 20 gauge spinal needle. Otherwise, the patient tolerated the procedure fairl y well. No complications. FINDINGS: Prior to the procedure, images demonstrate an approximately 3 x 1 x 2 cm fluid collection in the dors al soft tissues of the midfoot, with thick francis. There are anechoic components in the near field and intermediate echogenicity material in the deep field. Other images demonstrate a 2 x 1 cm heterogene ously mixed echogenicity solid-appearing mass at the dorsum of the foot, perhaps a phlegmon. Image du ring the procedure demonstrate the tip of the 20 gauge spinal needle within the middle of the fluid c ollection. Postprocedure image demonstrates little or no residual fluid within this particular fluid cavity. There is diffuse soft tissue edema throughout the foot. IMPRESSION: Successful ultrasound guided fine needle aspiration of one of the fluid collections, apparently an ab scess, in the dorsum of the foot. 2mL of viscous, opaque fluid was aspirated (probably pus) and sent to laboratory. POS: [facility]
[2018-07-16] MEDS: Warfarin Sodium 5 MG TAB PO SCH (17:41)
[2018-07-16] MEDS: cloNIDine 0.2 MG TAB PO SCH (20:25)
[2018-07-16] MEDS: Amitriptyline HCl 10 MG TAB PO SCH (20:25)
[2018-07-17 04:58] LABS: INR-International Normal Ratio 1.2; Prothrombin Time 14.9 SEC (12.0-14.7)
[2018-07-17] MEDS: Levothyroxine Sodium 100 MCG TAB PO SCH (06:22)
[2018-07-17] MEDS: SYSTANE GEL EYE DROP 10 ML 10 GM BOT EA EYE SCH ×3 (08:42→20:22)
[2018-07-17] MEDS: Enoxaparin Sodium 40 MG/0.4 ML SYRINGE SC SCH (08:43)
[2018-07-17] MEDS: Pregabalin 75 MG CAP PO SCH ×2 (08:44→20:20)
[2018-07-17] MEDS: predniSONE 5 MG TAB PO SCH (08:44)
[2018-07-17] MEDS: Saccharomyces boulardii 250 MG CAP PO SCH (08:44)
[2018-07-17] MEDS: diphenhydrAMINE 12.5 MG/5 ML UDCUP PO SCH ×2 (08:46→20:20)
[2018-07-17] MEDS: Amlodipine 5 MG TAB PO SCH (08:46)
[2018-07-17] MEDS: Colchicine 0.6 MG TAB PO SCH (08:46)
[2018-07-17] MEDS: Vancomycin HCl 1.5 GM in Sodium Chloride 0.9% 250 ML 300 ML IVPB SCH (08:47)
[2018-07-17 09:31] LABS: Vancomycin, Trough 25.5 ug/mL
--- NOTE | 2018-07-17 13:29 | PDOC.PN ---
- Subjective Encounter Start Date: 07/16/18 - Objective Resuscitation Status: Resuscitation Status FULL:Full Resuscitation Vital Signs & Weight: Vital Signs (12 hours) Temp Pulse Resp BP Pulse Ox 07/17/18 13:02 73 16 94 L 07/17/18 12:35 97.9 F 86 20 116/71 100 07/17/18 08:46 86 07/17/18 08:24 97.8 F 86 20 101/46 L 90 L 07/17/18 08:00 97.8 F 86 20 90 L 07/17/18 06:28 91 L 07/17/18 06:26 74 16 91 L 07/17/18 03:15 92 L Weight Weight 317 lb 7 oz I&O: 07/16/18 07/17/18 07/18/18 06:59 06:59 06:59 Intake Total 760 930 Balance 760 930 Result Diagrams: 07/16/18 10:45 07/16/18 10:45 Additional Labs: Accuchecks 07/17/18 07/17/18 07/16/18 11:43 04:29 19:45 POC Glucose 132 H 154 H 162 H 07/16/18 16:57 POC Glucose 187 H Phys Exam - Physical Examination Neck: no nodes, no JVD, supple, full ROM Respiratory: no wheezing, no rales, no rhonchi, wheezing present, clear to auscultation bilateral Cardiovascular: RRR, no significant murmur, no rub, gallop, irregular Gastrointestinal: soft, non-tender, no distention, positive bowel sounds right foot pain Dx/Plan (1) Cellulitis of right leg Code(s): L03.115 - CELLULITIS OF RIGHT LOWER LIMB Status: Acute (2) Subtherapeutic anticoagulation Code(s): Z51.81 - ENCOUNTER FOR THERAPEUTIC DRUG LEVEL MONITORING; Z79.01 - CORRECTION (CURRENT) USE OF ANTICOAGULANTS Status: Acute (3) Diabetes type 2, controlled Code(s): E11.9 - TYPE 2 DIABETES MELLITUS WITHOUT COMPLICATIONS Status: Chronic Qualifiers: Comment: continue accuchecks and insulin sliding scale. (4) Microcytic anemia Code(s): D50.9 - IRON DEFICIENCY ANEMIA, UNSPECIFIED Status: Acute (5) MRSA bacteremia Code(s): R78.81 - BACTEREMIA Status: Resolved Comment: history - Plan based on mri will consult ortho for possible drainage -: will continue abx for now -: pt on po iron and was given iv iron will give another dose today * . Review of Systems - Review of Systems Respiratory: negative: Cough, Dry, Shortness of Breath, Hemoptysis, SOB with Excertion, Pleuritic Pain, Sputum, Wheezing Cardiovascular: negative: chest pain, palpitations, orthopnea, paroxysmal nocturnal dyspnea, edema, light headedness, other Musculoskeletal: Foot Pain - Medications/Allergies Allergies/Adverse Reactions: Allergies Allergy/AdvReac Type Severity Reaction Status Date / Time aspirin Allergy Severe Anaphylaxis Verified 07/14/18 23:49 [From Talwin Compound] codeine Allergy Severe Rash Verified 07/14/18 23:49 morphine Allergy Severe Anaphylaxis Verified 07/14/18 23:49 NSAIDS (Non-Steroidal Allergy Severe Verified 07/14/18 23:49 Anti-Inflamma Penicillins Allergy Severe Anaphylaxis Verified 07/14/18 23:49 pentazocine HCl Allergy Severe Anaphylaxis Verified 07/14/18 23:49 [From Talwin Compound] [id number] Reductase Allergy Severe Verified 07/14/18 23:49 Inhibitor chocolate flavor Allergy Verified 07/14/18 23:49 ottoniel Allergy Verified 07/14/18 23:49 Sulfa (Sulfonamide Allergy Verified 07/14/18 23:49 Antibiotics) sulfamethoxazole Allergy Verified 07/14/18 23:49 [From Bactrim] trimethoprim [From Bactrim] Allergy Verified 07/14/18 23:49 Medications: Current Medications Hydrocodone Bitart/Acetaminophen ([place] 5/325) 1 tab PO Q4H PRN PRN Reason: Moderate to Severe Pain (6-10) Last Admin: 07/16/18 17:41 Dose: 1 tab Albuterol/Ipratropium (Duoneb) 3 ml NEB [id number] [facility] Last Admin: 07/17/18 13:02 Dose: 3 ml Alprazolam (Xanax) 0.5 mg PO BIDPRN PRN PRN Reason: Anxiety Amitriptyline HCl (Elavil) 30 mg PO HS [facility] Last Admin: 07/16/18 20:25 Dose: 30 mg Amlodipine Besylate (Norvasc) 5 mg PO DAILY [facility] Last Admin: 07/17/18 08:46 Dose: 5 mg Cholecalciferol (Vitamin D3) 1,000 units PO DAILY [facility] Last Admin: 07/17/18 08:46 Dose: 1,000 units Clonidine (Catapres) 0.4 mg PO HS [facility] Last Admin: 07/16/18 20:25 Dose: 0.4 mg Colchicine (Colcrys) 0.6 mg PO DAILY [facility] Last Admin: 07/17/18 08:46 Dose: 0.6 mg Dextrose/Water (Dextrose 50%) 25 gm SLOW IVP PRN PRN PRN Reason: Hypoglycemia Diphenhydramine HCl (Benadryl) 10 mg PO BID [facility] Last Admin: 07/17/18 08:46 Dose: 10 mg Enalapril Maleate (Vasotec) 20 mg PO DAILY [facility] Last Admin: 07/17/18 08:45 Dose: 20 mg Enoxaparin Sodium (Lovenox) 40 mg SC 0900 [facility] Last Admin: 07/17/18 08:43 Dose: 40 mg Glucagon (Glucagon) 1 mg IM PRN PRN PRN Reason: Hypoglycemia Hypromellose (Systane Gel) 0 gm EA EYE TID [facility] Last Admin: 07/17/18 08:42 Dose: 1 drop Vancomycin HCl 1.5 gm/ Sodium (Chloride) 300 mls @ 200 mls/hr IVPB 1000 [facility] Last Admin: 07/17/18 08:47 Dose: 300 mls Dextrose/Water (D5w) 1,000 mls @ 0 mls/hr IV .Q0M PRN PRN Reason: Hypoglycemia Insulin Human Lispro (Humalog) 0 units SC .MILD SLIDING SCALE PRN PRN Reason: Mild Correctional Scale Last Admin: 07/16/18 17:42 Dose: 2 unit Levothyroxine Sodium (Synthroid) 200 mcg PO 0600 [facility] Last Admin: 07/17/18 06:22 Dose: 200 mcg Miscellaneous Medication (Pharmacy To Dose) 1 each IVPB PRN PRN PRN Reason: SSSI Pantoprazole Sodium (Protonix) 40 mg PO QAM-[facility] Last Admin: 07/17/18 08:46 Dose: 40 mg Polyvinyl Alcohol/Povidone (Refresh Classic Eye Drops) 1 - 2 each EA EYE TIDPRN PRN PRN Reason: Dry Eyes Prednisone (Prednisone) 5 mg PO QAM-[facility] Last Admin: 07/17/18 08:44 Dose: 5 mg Pregabalin (Lyrica) 150 mg PO BID [facility] Last Admin: 07/17/18 08:44 Dose: 150 mg Saccharomyces Boulardii (Florastor) 250 mg PO DAILY [facility] Last Admin: 07/17/18 08:44 Dose: 250 mg Warfarin Sodium (Coumadin) 5 mg PO 1700 [facility] Last Admin: 07/16/18 17:41 Dose: 5 mg
--- NOTE | 2018-07-17 13:31 | PDOC.PN ---
- Subjective Encounter Start Date: 07/17/18 Encounter Start Time: 10:30 Subjective: pt up in bed states she can put pressure on her right foot - Objective Resuscitation Status: Resuscitation Status FULL:Full Resuscitation Vital Signs & Weight: Vital Signs (12 hours) Temp Pulse Resp BP Pulse Ox 07/17/18 13:02 73 16 94 L 07/17/18 12:35 97.9 F 86 20 116/71 100 07/17/18 08:46 86 07/17/18 08:24 97.8 F 86 20 101/46 L 90 L 07/17/18 08:00 97.8 F 86 20 90 L 07/17/18 06:28 91 L 07/17/18 06:26 74 16 91 L 07/17/18 03:15 92 L Weight Weight 317 lb 7 oz I&O: 07/16/18 07/17/18 07/18/18 06:59 06:59 06:59 Intake Total 760 930 Balance 760 930 Result Diagrams: 07/16/18 10:45 07/16/18 10:45 Additional Labs: Accuchecks 07/17/18 07/17/18 07/16/18 11:43 04:29 19:45 POC Glucose 132 H 154 H 162 H 07/16/18 16:57 POC Glucose 187 H Phys Exam - Physical Examination Neck: no nodes, no JVD, supple, full ROM Respiratory: no wheezing, no rales, no rhonchi, wheezing present, clear to auscultation bilateral Cardiovascular: RRR, no significant murmur, no rub, gallop, irregular Gastrointestinal: soft, non-tender, no distention, positive bowel sounds Dx/Plan (1) Cellulitis of right leg Code(s): L03.115 - CELLULITIS OF RIGHT LOWER LIMB Status: Acute (2) Subtherapeutic anticoagulation Code(s): Z51.81 - ENCOUNTER FOR THERAPEUTIC DRUG LEVEL MONITORING; Z79.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 (4) Microcytic anemia Code(s): D50.9 - IRON DEFICIENCY ANEMIA, UNSPECIFIED Status: Acute (5) MRSA bacteremia Code(s): R78.81 - BACTEREMIA Status: Resolved Comment: history - Plan pt's cx so far negative -: will increase her steroids to see if this helps her pain -: she is on meds for gout, unable to start her on NSAIDs for ckd * . Review of Systems - Review of Systems Respiratory: negative: Cough, Dry, Shortness of Breath, Hemoptysis, SOB with Excertion, Pleuritic Pain, Sputum, Wheezing Cardiovascular: negative: chest pain, palpitations, orthopnea, paroxysmal nocturnal dyspnea, edema, light headedness, other Gastrointestinal: negative: Nausea, Vomiting, Abdominal Pain, Diarrhea, Constipation, Melena, Hematochezia, Other - Medications/Allergies Allergies/Adverse Reactions: Allergies Allergy/AdvReac Type Severity Reaction Status Date / Time aspirin Allergy Severe Anaphylaxis Verified 07/14/18 23:49 [From Talwin Compound] codeine Allergy Severe Rash Verified 07/14/18 23:49 morphine Allergy Severe Anaphylaxis Verified 07/14/18 23:49 NSAIDS (Non-Steroidal Allergy Severe Verified 07/14/18 23:49 Anti-Inflamma Penicillins Allergy Severe Anaphylaxis Verified 07/14/18 23:49 pentazocine HCl Allergy Severe Anaphylaxis Verified 07/14/18 23:49 [From Talwin Compound] Fclixwa-Wuf-Klf Reductase Allergy Severe Verified 07/14/18 23:49 Inhibitor chocolate flavor Allergy Verified 07/14/18 23:49 ottoniel Allergy Verified 07/14/18 23:49 Sulfa (Sulfonamide Allergy Verified 07/14/18 23:49 Antibiotics) sulfamethoxazole Allergy Verified 07/14/18 23:49 [From Bactrim] trimethoprim [From Bactrim] Allergy Verified 07/14/18 23:49 Medications: Current Medications Hydrocodone Bitart/Acetaminophen ([place] 5/325) 1 tab PO Q4H PRN PRN Reason: Moderate to Severe Pain (6-10) Last Admin: 07/16/18 17:41 Dose: 1 tab Albuterol/Ipratropium (Duoneb) 3 ml NEB [id number] Last Admin: 07/17/18 13:02 Dose: 3 ml Alprazolam (Xanax) 0.5 mg PO BIDPRN PRN PRN Reason: Anxiety Amitriptyline HCl (Elavil) 30 mg PO HS [facility] Last Admin: 07/16/18 20:25 Dose: 30 mg Amlodipine Besylate (Norvasc) 5 mg PO DAILY [facility] Last Admin: 07/17/18 08:46 Dose: 5 mg Cholecalciferol (Vitamin D3) 1,000 units PO DAILY [facility] Last Admin: 07/17/18 08:46 Dose: 1,000 units Clonidine (Catapres) 0.4 mg PO HS [facility] Last Admin: 07/16/18 20:25 Dose: 0.4 mg Colchicine (Colcrys) 0.6 mg PO DAILY [facility] Last Admin: 07/17/18 08:46 Dose: 0.6 mg Dextrose/Water (Dextrose 50%) 25 gm SLOW IVP PRN PRN PRN Reason: Hypoglycemia Diphenhydramine HCl (Benadryl) 10 mg PO BID [facility] Last Admin: 07/17/18 08:46 Dose: 10 mg Enalapril Maleate (Vasotec) 20 mg PO DAILY [facility] Last Admin: 07/17/18 08:45 Dose: 20 mg Enoxaparin Sodium (Lovenox) 40 mg SC 0900 [facility] Last Admin: 07/17/18 08:43 Dose: 40 mg Glucagon (Glucagon) 1 mg IM PRN PRN PRN Reason: Hypoglycemia Hypromellose (Systane Gel) 0 gm EA EYE TID [facility] Last Admin: 07/17/18 08:42 Dose: 1 drop Vancomycin HCl 1.5 gm/ Sodium (Chloride) 300 mls @ 200 mls/hr IVPB 1000 [facility] Last Admin: 07/17/18 08:47 Dose: 300 mls Dextrose/Water (D5w) 1,000 mls @ 0 mls/hr IV .Q0M PRN PRN Reason: Hypoglycemia Insulin Human Lispro (Humalog) 0 units SC .MILD SLIDING SCALE PRN PRN Reason: Mild Correctional Scale Last Admin: 07/16/18 17:42 Dose: 2 unit Levothyroxine Sodium (Synthroid) 200 mcg PO 0600 [facility] Last Admin: 07/17/18 06:22 Dose: 200 mcg Miscellaneous Medication (Pharmacy To Dose) 1 each IVPB PRN PRN PRN Reason: SSSI Pantoprazole Sodium (Protonix) 40 mg PO QAM-WM [facility] Last Admin: 07/17/18 08:46 Dose: 40 mg Polyvinyl Alcohol/Povidone (Refresh Classic Eye Drops) 1 - 2 each EA EYE TIDPRN PRN PRN Reason: Dry Eyes Prednisone (Prednisone) 5 mg PO QAM-WM [facility] Last Admin: 07/17/18 08:44 Dose: 5 mg Pregabalin (Lyrica) 150 mg PO BID [facility] Last Admin: 07/17/18 08:44 Dose: 150 mg Saccharomyces Boulardii (Florastor) 250 mg PO DAILY [facility] Last Admin: 07/17/18 08:44 Dose: 250 mg Warfarin Sodium (Coumadin) 5 mg PO 1700 [facility] Last Admin: 07/16/18 17:41 Dose: 5 mg
[2018-07-17] MEDS ORDERED: predniSONE 20 MG TAB PO SCH (13:45)
[2018-07-17] MEDS ORDERED: IRON SUCROSE COMPLEX 100 MG/5 ML SLOW IVP SCH (13:45)
[2018-07-17] MEDS: HYDROcodone/Acetaminophen 5/325 mg Tablet PO PRN (14:45)
[2018-07-17] MEDS: Warfarin Sodium 7.5 MG TAB PO SCH (17:38)
[2018-07-17] MEDS: HumaLOG 300 UNITS/3 ML VIAL SC PRN ×2 (17:39→20:50)
[2018-07-17] MEDS ORDERED: Bisacodyl 10 MG SUPP PR PRN (18:41)
[2018-07-17] MEDS: Senokot 8.6 MG TAB PO PRN (20:19)
[2018-07-17] MEDS: Amitriptyline HCl 10 MG TAB PO SCH (20:19)
[2018-07-17] MEDS: cloNIDine 0.2 MG TAB PO SCH (20:20)
[2018-07-17] MEDS: Bisacodyl 5 MG TAB PO PRN (20:22)
[2018-07-18 04:58] LABS: INR-International Normal Ratio 1.2; Prothrombin Time 15.2 SEC (12.0-14.7)
[2018-07-18] MEDS: Levothyroxine Sodium 100 MCG TAB PO SCH (05:53)
[2018-07-18] MEDS: HumaLOG 300 UNITS/3 ML VIAL SC PRN ×3 (05:57→17:45)
[2018-07-18] MEDS: HYDROcodone/Acetaminophen 5/325 mg Tablet PO PRN ×4 (09:51→23:53)
[2018-07-18] MEDS: diphenhydrAMINE 12.5 MG/5 ML UDCUP PO SCH ×2 (09:52→20:16)
[2018-07-18] MEDS: Enoxaparin Sodium 40 MG/0.4 ML SYRINGE SC SCH (09:52)
[2018-07-18] MEDS: SYSTANE GEL EYE DROP 10 ML 10 GM BOT EA EYE SCH ×3 (09:53→20:16)
[2018-07-18] MEDS: Pregabalin 75 MG CAP PO SCH ×2 (09:53→20:14)
[2018-07-18 09:54] LABS: Vancomycin, Trough 24.5 ug/mL
[2018-07-18] MEDS: Saccharomyces boulardii 250 MG CAP PO SCH (09:54)
[2018-07-18] MEDS: Colchicine 0.6 MG TAB PO SCH (09:55)
[2018-07-18] MEDS: predniSONE 5 MG TAB PO SCH (09:55)
[2018-07-18] MEDS: Amlodipine 5 MG TAB PO SCH (09:55)
--- NOTE | 2018-07-18 13:43 | PRG ---
DATE OF SERVICE: 07/18/2018 SUBJECTIVE: Mr. Renteria had a guided aspirate, cloudy purulent fluid was aspirated from the dorsal mi dfoot region and the results are discussed below. Still with moderate to significant pain in the rig ht foot. No headaches, no visual symptoms. No sore throat, odynophagia, or dysphagia. No diarrhea. OBJECTIVE: VITAL SIGNS: T-max 98.1. Other vital signs are not remarkable. O2 sat 91%. There is no distress, somewhat apprehensive. HEENT: Ocular movements conjugate. LUNGS: With symmetric clear breath sounds. HEART: S1, S2, regular rate. ABDOMEN: Soft. EXTREMITIES: Right foot, tender, but no erythema, mild to moderately swollen. LABORATORY DATA: White cell count down to 9.6, hemoglobin 7.7, platelets 376. Last chemistry from 0 07/16/2018 with creatinine of 1.97. Cultures from the foot aspirate with Staphylococcus species pendi ng identification and susceptibility profile. 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 DISCUSSION: Consultation with Orthopedic Surgery to evaluate the need for I&D of the area. Will nee d PICC line and protracted antimicrobial therapy administration again and probably will have to be on suppressive therapy after that.
[2018-07-18] MEDS: Warfarin Sodium 7.5 MG TAB PO SCH (17:42)
[2018-07-18] MEDS: Insulin Glargine 6 UNITS in Pre-Filled Syringe 1 EACH SC SCH (20:13)
[2018-07-18] MEDS: Amitriptyline HCl 10 MG TAB PO SCH (20:13)
[2018-07-18] MEDS: cloNIDine 0.2 MG TAB PO SCH (20:14)
--- NOTE | 2018-07-18 21:19 | PDOC.PN ---
- Subjective Encounter Start Date: 07/18/18 Encounter Start Time: 12:30 Subjective: pt up in bed still has some pain to her right foot - Objective Resuscitation Status: Resuscitation Status FULL:Full Resuscitation Vital Signs & Weight: Vital Signs (12 hours) Temp Pulse Resp BP BP BP Pulse Ox 07/18/18 20:14 159/69 H 07/18/18 19:45 97.7 F 89 18 159/69 H 98 07/18/18 19:12 88 20 92 L 07/18/18 16:00 98.0 F 85 18 136/71 91 L 07/18/18 13:24 96 24 H 07/18/18 11:00 98.1 F 90 18 129/80 91 L 07/18/18 09:55 90 142/92 H 07/18/18 09:54 142/92 H Weight Weight 317 lb 7 oz I&O: 07/17/18 07/18/18 07/19/18 06:59 06:59 06:59 Intake Total 930 1765 420 Balance 930 1765 420 Result Diagrams: 07/16/18 10:45 07/16/18 10:45 Additional Labs: Accuchecks 07/18/18 07/18/18 07/18/18 20:11 16:41 11:56 POC Glucose 211 H 221 H 268 H 07/18/18 07/18/18 05:58 04:29 POC Glucose 240 H 254 H Phys Exam - Physical Examination Respiratory: no wheezing, no rales, no rhonchi, wheezing present, clear to auscultation bilateral Cardiovascular: RRR, no significant murmur, no rub, gallop, irregular Gastrointestinal: soft, non-tender, no distention, positive bowel sounds mild edema to right foot and mild erythema to right foot Dx/Plan (1) Cellulitis of right leg Code(s): L03.115 - CELLULITIS OF RIGHT LOWER LIMB Status: Acute (2) Subtherapeutic anticoagulation Code(s): Z51.81 - ENCOUNTER FOR THERAPEUTIC DRUG LEVEL MONITORING; Z79.01 - HALF-WAY (CURRENT) USE OF ANTICOAGULANTS Status: Acute (3) Diabetes type 2, controlled Code(s): E11.9 - TYPE 2 DIABETES MELLITUS WITHOUT COMPLICATIONS Status: Chronic Qualifiers: Comment: continue accuchecks and insulin sliding scale. (4) Microcytic anemia Code(s): D50.9 - IRON DEFICIENCY ANEMIA, UNSPECIFIED Status: Acute (5) MRSA bacteremia Code(s): R78.81 - BACTEREMIA Status: Resolved Comment: history (6) Rheumatoid arthritis Code(s): M06.9 - RHEUMATOID ARTHRITIS, UNSPECIFIED Status: Acute - Plan pt's cx from right foot aspirate indicated staph -: will continue vanco for now. iv pain meds added -: Tried one dose of po steroids with a possibility of gout but no releif and -: worsening blood sugar. pt put back on her steroid for risk of worsening inf * . Review of Systems - Review of Systems Respiratory: negative: Cough, Dry, Shortness of Breath, Hemoptysis, SOB with Excertion, Pleuritic Pain, Sputum, Wheezing Gastrointestinal: negative: Nausea, Vomiting, Abdominal Pain, Diarrhea, Constipation, Melena, Hematochezia, Other Musculoskeletal: Foot Pain - Medications/Allergies Allergies/Adverse Reactions: Allergies Allergy/AdvReac Type Severity Reaction Status Date / Time aspirin Allergy Severe Anaphylaxis Verified 07/14/18 23:49 [From Talwin Compound] codeine Allergy Severe Rash Verified 07/14/18 23:49 morphine Allergy Severe Anaphylaxis Verified 07/14/18 23:49 NSAIDS (Non-Steroidal Allergy Severe Verified 07/14/18 23:49 Anti-Inflamma Penicillins Allergy Severe Anaphylaxis Verified 07/14/18 23:49 pentazocine HCl Allergy Severe Anaphylaxis Verified 07/14/18 23:49 [From Talwin Compound] Guauwfo-Emw-Afs Reductase Allergy Severe Verified 07/14/18 23:49 Inhibitor chocolate flavor Allergy Verified 07/14/18 23:49 ottoniel Allergy Verified 07/14/18 23:49 Sulfa (Sulfonamide Allergy Verified 07/14/18 23:49 Antibiotics) sulfamethoxazole Allergy Verified 07/14/18 23:49 [From Bactrim] trimethoprim [From Bactrim] Allergy Verified 07/14/18 23:49 Medications: Current Medications Hydrocodone Bitart/Acetaminophen (Hubbell 5/325) 1 tab PO Q4H PRN PRN Reason: Moderate to Severe Pain (6-10) Last Admin: 07/18/18 20:14 Dose: 1 tab Albuterol/Ipratropium (Duoneb) 3 ml NEB [id number] [id number] Last Admin: 07/18/18 19:12 Dose: 3 ml Alprazolam (Xanax) 0.5 mg PO BIDPRN PRN PRN Reason: Anxiety Amitriptyline HCl (Elavil) 30 mg PO HS [facility] Last Admin: 07/18/18 20:13 Dose: 30 mg Amlodipine Besylate (Norvasc) 5 mg PO DAILY [facility] Last Admin: 07/18/18 09:55 Dose: 5 mg Bisacodyl (Dulcolax) 10 mg WA Q8H PRN PRN Reason: Constipation Bisacodyl (Dulcolax) 5 mg PO DAILYPRN PRN PRN Reason: Constipation Last Admin: 07/17/18 20:22 Dose: 5 mg Cholecalciferol (Vitamin D3) 1,000 units PO DAILY [facility] Last Admin: 07/18/18 09:55 Dose: 1,000 units Clonidine (Catapres) 0.4 mg PO [facility] Last Admin: 07/18/18 20:14 Dose: 0.4 mg Colchicine (Colcrys) 0.6 mg PO DAILY [facility] Last Admin: 07/18/18 09:55 Dose: 0.6 mg Dextrose/Water (Dextrose 50%) 25 gm SLOW IVP PRN PRN PRN Reason: Hypoglycemia Diphenhydramine HCl (Benadryl) 10 mg PO BID [facility] Last Admin: 07/18/18 20:16 Dose: 10 mg Enalapril Maleate (Vasotec) 20 mg PO DAILY [facility] Last Admin: 07/18/18 09:54 Dose: 20 mg Enoxaparin Sodium (Lovenox) 40 mg SC 0900 [facility] Last Admin: 07/18/18 09:52 Dose: 40 mg Glucagon (Glucagon) 1 mg IM PRN PRN PRN Reason: Hypoglycemia Hypromellose (Systane Gel) 0 gm EA EYE TID [facility] Last Admin: 07/18/18 20:16 Dose: 1 drop Dextrose/Water (D5w) 1,000 mls @ 0 mls/hr IV .Q0M PRN PRN Reason: Hypoglycemia Insulin Glargine 6 units/ (Miscellaneous Medication) 0.06 mls @ 0 mls/hr SC HS [facility] Last Admin: 07/18/18 20:13 Dose: 0.06 mls Insulin Glargine 6 units/ (Miscellaneous Medication) 0.06 mls @ 0 mls/hr SC QAM [facility] Vancomycin HCl 1.25 gm/ Sodium (Chloride) 250 mls @ 166.667 mls/hr IVPB 2200 [facility] Insulin Human Lispro (Humalog) 0 units SC .MILD SLIDING SCALE PRN PRN Reason: Mild Correctional Scale Last Admin: 07/18/18 17:45 Dose: 3 unit Levothyroxine Sodium (Synthroid) 200 mcg PO 0600 [facility] Last Admin: 07/18/18 05:53 Dose: 200 mcg Miscellaneous Medication (Pharmacy To Dose) 1 each IVPB PRN PRN PRN Reason: SSSI Morphine Sulfate (Morphine) 2 mg SLOW IVP Q4H PRN PRN Reason: Pain Pantoprazole Sodium (Protonix) [address] [facility] Last Admin: 07/18/18 09:54 Dose: 40 mg Polyvinyl Alcohol/Povidone (Refresh Classic Eye Drops) 1 - 2 each EA EYE TIDPRN PRN PRN Reason: Dry Eyes Prednisone (Prednisone) [address] [facility] Last Admin: 07/18/18 09:55 Dose: 5 mg Pregabalin (Lyrica) 150 mg PO BID [facility] Last Admin: 07/18/18 20:14 Dose: 150 mg Saccharomyces Boulardii (Florastor) 250 mg PO DAILY [facility] Last Admin: 07/18/18 09:54 Dose: 250 mg Senna (Senokot) 2 tab PO HSPRN PRN PRN Reason: Constipation Last Admin: 07/17/18 20:19 Dose: 2 tab Sodium Chloride (Flush - Normal Saline) 10 ml IVF Q12HR [facility] Last Admin: 07/18/18 20:16 Dose: 10 ml Sodium Chloride (Flush - Normal Saline) 10 ml IVF PRN PRN PRN Reason: Saline Flush Tramadol HCl (Ultram) 50 mg PO Q6H PRN PRN Reason: Pain Warfarin Sodium (Coumadin) 7.5 mg PO 1700 [facility] Last Admin: 07/18/18 17:42 Dose: 7.5 mg
[2018-07-18] MEDS: Vancomycin HCl 1.25 GM in Sodium Chloride 0.9% 250 ML 250 ML IVPB SCH (22:25)
[2018-07-19] MEDS: Levothyroxine Sodium 100 MCG TAB PO SCH (05:06)
[2018-07-19 05:29] LABS: INR-International Normal Ratio 1.3; Prothrombin Time 16.5 SEC (12.0-14.7)
[2018-07-19] MEDS: diphenhydrAMINE 12.5 MG/5 ML UDCUP PO SCH ×2 (09:32→20:57)
[2018-07-19] MEDS: predniSONE 5 MG TAB PO SCH (09:32)
[2018-07-19] MEDS: Amlodipine 5 MG TAB PO SCH (09:32)
[2018-07-19] MEDS: Colchicine 0.6 MG TAB PO SCH (09:32)
[2018-07-19] MEDS: Enoxaparin Sodium 40 MG/0.4 ML SYRINGE SC SCH (09:33)
[2018-07-19] MEDS: Pregabalin 75 MG CAP PO SCH ×2 (09:33→20:56)
[2018-07-19] MEDS: Insulin Glargine 6 UNITS in Pre-Filled Syringe 1 EACH SC SCH ×2 (09:33→20:57)
[2018-07-19] MEDS: Saccharomyces boulardii 250 MG CAP PO SCH (09:34)
[2018-07-19] MEDS: SYSTANE GEL EYE DROP 10 ML 10 GM BOT EA EYE SCH ×3 (09:35→20:58)
[2018-07-19] MEDS: Bisacodyl 5 MG TAB PO PRN (09:36)
[2018-07-19] MEDS: HYDROcodone/Acetaminophen 5/325 mg Tablet PO PRN ×2 (14:41→21:00)
--- NOTE | 2018-07-19 15:10 | PRG ---
DATE OF SERVICE: 07/19/2018 SUBJECTIVE: Ms. Renteria is about the same. Still with moderate pain in the right foot. No respirato ry symptoms or abdominal pain, no diarrhea. OBJECTIVE: VITAL SIGNS: T-max 97.7, BP 120/50, pulse 78. LUNGS: Clear. CARDIOVASCULAR: S1, S2, regular rate. ABDOMEN: Soft. EXTREMITIES: Right foot with no significant changes. No erythema. Still with some tenderness on pa lpation, but not on range of motion. LABORATORY DATA: White cell count 9.6, hemoglobin 7.7, platelets 376, creatinine 1.97, which is down from admission. The aspirate showed positive urate crystals intra and extracellular. 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 She also has evidence of gouty arthr itis in the joint of the right ankle. DISCUSSION: The surgical consultation is pending. It looks like Orthopedic Surgery has recommended General Surgery consultation. I am not sure she would be a candidate for surgical intervention other than amputation at this point in time. She might opt for long-term antimicrobial therapy repeat and then indefinite suppressive therapy with doxycycline. She will need placement of a PICC line again.
--- NOTE | 2018-07-19 16:11 | PDOC.PN ---
- Subjective Encounter Start Date: 07/19/18 Encounter Start Time: 15:15 -: old records requested/rev Pt seen and examined, chart reviewed in its entirety, this is my first visit with this patient Followup for right foot/ankle cellulitis, ? osteo. acoute on chronic gouty arthropathy. Seen by ID, recommended surgical consultation. No F/C, no N/V/d/c, no CP or SOB, no cough, no GI bleeding All systems reviewed adn neg x as above - Objective Resuscitation Status: Resuscitation Status FULL:Full Resuscitation MAR Reviewed: Yes Vital Signs & Weight: Vital Signs (12 hours) Temp Pulse Resp BP BP Pulse Ox 07/19/18 14:29 88 24 H 07/19/18 09:35 129/50 L 07/19/18 09:32 78 129/50 L 07/19/18 08:00 97.6 F 78 18 129/50 L 91 L 07/19/18 06:26 93 L 07/19/18 06:21 84 20 93 L Weight Weight 317 lb 7 oz I&O: 07/18/18 07/19/18 07/20/18 06:59 06:59 06:59 Intake Total 1765 420 Balance 1765 420 Result Diagrams: 07/16/18 10:45 07/16/18 10:45 Additional Labs: Accuchecks 07/19/18 07/19/18 07/18/18 11:45 05:09 20:11 POC Glucose 151 H 193 H 211 H 07/18/18 16:41 POC Glucose 221 H Radiology Reviewed by me: Yes EKG Reviewed by me: Yes Phys Exam - Physical Examination Constitutional: NAD HEENT: PERRLA, moist MMs, sclera anicteric, oral pharynx no lesions Neck: no nodes, no JVD, supple, full ROM Respiratory: no wheezing, no rales, no rhonchi, clear to auscultation bilateral Cardiovascular: RRR, no significant murmur, no rub Gastrointestinal: soft, non-tender, no distention, positive bowel sounds Musculoskeletal: edema present dorsal foot erythema to right foot, warm Neurological: non-focal, normal sensation, moves all 4 limbs Lymphatic: no nodes Psychiatric: normal affect, A&O x 3 Skin: no rash, normal turgor, cap refill <2 seconds Dx/Plan (1) Gout Code(s): M10.9 - GOUT, UNSPECIFIED Status: Acute Qualifiers: Gout site: foot Gout etiology: unspecified cause Chronicity: chronic Laterality: unspecified laterality Qualified Code(s): M1A.0790 - Idiopathic chronic gout, unspecified ankle and foot, without tophus (tophi) (2) MRSA (methicillin resistant Staphylococcus aureus) infection Code(s): A49.02 - METHICILLIN RESIS STAPH INFECTION, UNSP SITE Status: Chronic Comment: recent bacteremia, treatedwith prolonged vanc, increased redness and swelling to right foot about 10 days post completion. (3) Septic arthritis Status: Acute Qualifiers: Septic arthritis location: foot Septic arthritis organism: staphylococcal Laterality: right Qualified Code(s): M00.071 - Staphylococcal arthritis, right ankle and foot (4) Chronic osteomyelitis involving ankle and foot Status: Chronic Qualifiers: Laterality: right Qualified Code(s): M86.671 - Other chronic osteomyelitis , right ankle and foot (5) Bacteremia Code(s): R78.81 - BACTEREMIA Status: Resolved Comment: ID following (6) CKD stage 3 secondary to diabetes Code(s): E11.22 - TYPE 2 DIABETES MELLITUS W DIABETIC CHRONIC KIDNEY DISEASE; N18.3 - CHRONIC KIDNEY DISEASE, STAGE 3 (MODERATE) Status: Chronic Comment: stable (7) Chronic anticoagulation Code(s): Z79.01 - 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 (CURRENT) USE OF ANTICOAGULANTS Status: Chronic (8) Diabetes type 2, controlled Code(s): E11.9 - TYPE 2 DIABETES MELLITUS WITHOUT COMPLICATIONS Status: Chronic Qualifiers: Diabetes mellitus joint terminal attack controller insulin use: without joint terminal attack controller use Diabetes mellitus complication status: with kidney complications Diabetes mellitus complication detail: with chronic kidney disease Chronic kidney disease stage : stage 3 (moderate) Qualified Code(s): E11.22 - Type 2 diabetes mellitus with diabetic chronic kidney disease; N18.3 - Chronic kidney disease, stage 3 ( moderate) Comment: continue accuchecks and insulin sliding scale. (9) GERD (gastroesophageal reflux disease) Code(s): K21.9 - GASTRO-ESOPHAGEAL REFLUX DISEASE WITHOUT ESOPHAGITIS Status: Chronic Qualifiers: Esophagitis presence: without esophagitis Qualified Code(s): K21.9 - Gastro -esophageal reflux disease without esophagitis Comment: stable (10) HTN (hypertension) Code(s): I10 - ESSENTIAL (PRIMARY) HYPERTENSION Status: Chronic Qualifiers: Hypertension type: essential hypertension Qualified Code(s): I10 - Essential (primary) hypertension Comment: controlled (11) History of pulmonary embolus (PE) Code(s): Z86.711 - PERSONAL HISTORY OF PULMONARY EMBOLISM Status: Chronic Comment: on chronic anticoagulation (12) Morbid obesity with BMI of 50.0-59.9, adult Code(s): E66.01 - MORBID (SEVERE) OBESITY DUE TO EXCESS CALORIES; Z68.43 - BODY MASS INDEX (BMI) 50-59.9 , ADULT Status: Chronic - Plan cont current plan of care, continue antibiotics, PT/OT, out of bed/ambulate * . follow up on ID and surgical recommendations
[2018-07-19] MEDS: Warfarin Sodium 7.5 MG TAB PO SCH (18:26)
[2018-07-19] MEDS: HumaLOG 300 UNITS/3 ML VIAL SC PRN (18:27)
[2018-07-19] MEDS: Amitriptyline HCl 10 MG TAB PO SCH (20:56)
[2018-07-19] MEDS: cloNIDine 0.2 MG TAB PO SCH (20:57)
[2018-07-19] MEDS: Vancomycin HCl 1.25 GM in Sodium Chloride 0.9% 250 ML 250 ML IVPB SCH (22:18)
[2018-07-20 04:43] LABS: #Eosinphils 0.3 thou/uL (0.0-0.7); #Lymphocytes 2.8 thou/uL (1.20-3.40); #Monocytes 0.7 thou/uL (0.11-0.59); #Neutrophils 4.6 thou/uL (1.40-6.50); %Basophils 0.5 % (0.0-1.0); %Eosinophils 3.5 % (0.0-10.0); %Lymphocytes 33.5 % (21.0-51.0); %Monocytes 8.7 % (0.0-10.0); %Neutrophils 53.9 % (42.0-75.0); Hemoglobin 7.1 g/dL (12.0-16.0); Mean Corpuscular HGB CONC 31.3 g/dL (32.0-36.0); Mean Corpuscular Hemoglobin 23.8 pg (27.0-31.0); Mean Corpuscular Volume 76.3 fL (78.0-98.0); Mean Platelet Volume 7.5 fL (7.4-10.4); Platelet Count 441 thou/uL (130-400); RBC Distribution Width 20.9 % (11.5-14.5); Red Blood Cell (RBC) Count 2.99 mill/uL (4.20-5.40); White Blood Cell (WBC) Count 8.5 thou/uL (4.8-10.8)
[2018-07-20 04:45] LABS: INR-International Normal Ratio 1.5; Prothrombin Time 18.5 SEC (12.0-14.7)
[2018-07-20 04:58] LABS: Anion Gap 15 mmol/L (10-20); BUN (Urea Nitrogen) 37 mg/dL (9.8-20.1); Calc. Creatinine Clearance 67 mL/min (70-130); Carbon Dioxide 25 mmol/L (23-31); Chloride 105 mmol/L (98-107); Estimated GFR-MDRD 28; Glucose 127 mg/dL (80-115); Magnesium 1.2 mg/dL (1.6-2.6); Potassium 4.6 mmol/L (3.5-5.1); Sodium 140 mmol/L (136-145)
[2018-07-20] MEDS: Levothyroxine Sodium 100 MCG TAB PO SCH (05:00)
--- NOTE | 2018-07-20 05:31 | CON ---
DATE OF CONSULTATION: 07/19/2018 REASON FOR CONSULTATION: Cellulitis and abscess. HISTORY OF PRESENT ILLNESS: Ms. Renteria is a 68-year-old woman who is known to me from previous admis sions. She came in with severe which was superinfected. She underwent a prolonged period of w ound care and antibiotics. She completed her antibiotics about a week ago and for 5 days later, star elle noticing recurrent redness and pain in her foot and she started to have fevers. Her home health nurse told her to come into the hospital and she was placed back on antibiotics and aspiration of the fluid collection connected to the joints of the mid foot was positive for MRSA and she has been on a ntibiotics since her admission. The redness and pain in her foot have responded to this and she has stopped having fevers. On MRI of the foot, there is destruction of most of the mid foot by severe in flammatory process and there is a large fluid collection extending from the joints toward the dorsum of the foot. PAST MEDICAL HISTORY: Antibiotics, morbid obesity with a BMI of 48, hypertension, asthma, anemia, an d history of pulmonary embolism on chronic anticoagulation, severe gouty and rheumatoid arthritis. PAST SURGICAL HISTORY: Bilateral total knee replacements, cataract surgery, rotator cuff repairs, hy sterectomy, appendectomy, bilateral carpal tunnel and left hand ganglion cyst surgery. She also had previous I&D of her right foot. SOCIAL HISTORY: She does not drink, smoke, or use alcohol. She lives at home with her family. She does not ambulate much, but is able to ambulate short distances at home using a walker and her balanc e is not good. FAMILY HISTORY: Noncontributory. REVIEW OF SYSTEMS: Negative except per HPI. ALLERGIES: She has multiple allergies including ASPIRIN, CODEINE, MORPHINE, NSAIDs, PENICILLIN, ZOSY N, STATINS, POLLEN, BENZOS, CHOCOLATES AND KATARINA. OUTPATIENT MEDICATIONS: Include Coumadin, amlodipine, clonidine, Synthroid, albuterol, glyburide, Ly huy, prednisone, Prilosec, Uloric, Plaquenil, enalapril, amitriptyline and Remicade. PHYSICAL EXAMINATION: VITAL SIGNS: Patient has been afebrile since her admission, although she reports fevers at home. He art rate 90, blood pressure 132/67, respirations 18, 92% on room air. GENERAL: Reveals an elderly woman in no acute distress. She is not flushed or toxic in appearance. She is not jaundiced or icteric. HEENT: Unremarkable. NECK: Supple without lymphadenopathy or thyroid nodules. HEART: Regular in its rate and rhythm without murmurs, rubs, or gallops. LUNGS: Clear to auscultation bilaterally. ABDOMEN: Soft and nondistended without palpable masses or hernias. She has mild lower abdominal ten derness without rigidity, rebound, or guarding. EXTREMITIES: Warm and well perfused. She has palpable pedal pulses. Her right foot is tender to pa lpation and there is some fluctuance in the area where she previously underwent her aspiration; howev er, the erythema has resolved and the tenderness is much less according to her. No ulcers or drainin g sinuses and currently no erythema. NEUROLOGIC: Diminished peripheral sensation, but no focal deficits. Global weakness. PSYCHIATRIC: Alert, oriented, and appropriate. LABORATORY DATA: White count was initially elevated at 11.8, but has come down to 9.6. INR today wa s 1.3. Electrolytes are unremarkable. BUN and creatinine a few days ago are mildly elevated at 25 a nd 1.97, but this was down from admission. Blood sugars have ranged from 150 to 220. Fluid crystal from the aspiration was positive for urate crystals and culture was positive for MRSA. Vancomycin tr ough yesterday was 24.5. IMAGING: MRI images are reviewed and I agree with the written report. ASSESSMENT: Severe destruction of the mid foot, likely a combination of neuropathic changes with sup erimposed gouty arthritis and superinfection. The chances of completely clearing this infection are close to now, although it may be possible to suppress it at least for some time with chronic antibiot ics. The only option I can offer her to clear the infection is aitsr-dis-mkao amputation; however, g iven her preexisting weakness, balance issues, and morbid obesity. Her chances of ambulating with a prosthesis are low as well. If she wants to go to a patient financial specialist in another city, a Syme's amputa tion may be another option, but again this would present problems in terms of balance and the patient is already at high risk for falls. If she decides to proceed with long-term suppression, then I&D c an be performed. This would be limited if performed at the bedside, but could be done with minimal r isks under local anesthesia, a more thorough drainage could be performed in the operating room, but t he infection would not be able to be completely addressed since it is into the joints of the mid foot . I discussed these options with the patient and with her daughter and they are going to discuss it and think it over. If they decide to proceed with operative drainage, she will need to be made n.p.o . for this and schedule for the OR, so I have asked her to let her nurse know if she is proceeding wi th operative drainage or [id number] amputation, otherwise bedside drainage can be attempted. I w ill continue to follow her as an inpatient.
[2018-07-20] MEDS: Amlodipine 5 MG TAB PO SCH (08:38)
[2018-07-20] MEDS: predniSONE 5 MG TAB PO SCH (08:38)
[2018-07-20] MEDS: Colchicine 0.6 MG TAB PO SCH (08:39)
[2018-07-20] MEDS: diphenhydrAMINE 12.5 MG/5 ML UDCUP PO SCH ×2 (08:39→20:38)
[2018-07-20] MEDS: Insulin Glargine 6 UNITS in Pre-Filled Syringe 1 EACH SC SCH ×2 (08:40→20:38)
[2018-07-20] MEDS: Enoxaparin Sodium 40 MG/0.4 ML SYRINGE SC SCH (08:40)
[2018-07-20] MEDS: Pregabalin 75 MG CAP PO SCH ×2 (08:41→20:39)
[2018-07-20] MEDS: SYSTANE GEL EYE DROP 10 ML 10 GM BOT EA EYE SCH ×3 (08:42→20:41)
[2018-07-20] MEDS: Saccharomyces boulardii 250 MG CAP PO SCH (08:42)
[2018-07-20] MEDS: Bisacodyl 5 MG TAB PO PRN (08:45)
--- NOTE | 2018-07-20 12:48 | SPC ---
SONOGRAPHIC GUIDED LEFT UPPER EXTREMITY PICC: History: Foot infection. FINDINGS: After explaining the procedure and answering all questions, the left upper extremity was prepped and draped in the usual sterile fashion. Sterile technique, buffered local anesthesia, sonographic guidan ce and a 22 gauge needle were used to carefully access the left basilic vein. Standard technique was then used to place the tip of a 5 [place] single lumen PICC. The tip lies at the level of the cavoatri al junction. Catheter was flushed and secured externally. The patient tolerated the procedure well an d was returned in unchanged condition. Fluoro time = 0 seconds. IMPRESSION: Left upper extremity PICC is ready for use. POS: [facility]
--- NOTE | 2018-07-20 15:13 | PDOC.PN ---
- Subjective Encounter Start Date: 07/20/18 Encounter Start Time: 15:00 follow up for gout, cellulitis, osteomyelitis and cellulitif No F/C, no N/V/d/C. Appreciate surgery input, amputation vs I&D offered, awaiting decisions. Appreciate ID input Pt dar IV Vanc, no CP or SOB, no N/V/D/C, no F/C - Objective Resuscitation Status: Resuscitation Status FULL:Full Resuscitation MAR Reviewed: Yes Vital Signs & Weight: Vital Signs (12 hours) Temp Pulse Resp BP BP Pulse Ox 07/20/18 12:31 75 20 98 07/20/18 08:39 118/61 07/20/18 08:38 83 118/61 07/20/18 08:00 97.6 F 83 16 98 07/20/18 07:52 97.6 F 83 16 118/61 98 07/20/18 06:48 89 L 07/20/18 06:40 79 20 89 L 07/20/18 03:50 91 L Weight Weight 317 lb 7 oz I&O: 07/19/18 07/20/18 07/21/18 06:59 06:59 06:59 Intake Total 420 1220 Balance 420 1220 Result Diagrams: 07/20/18 04:02 07/20/18 04:02 Additional Labs: Accuchecks 07/20/18 07/19/18 07/19/18 12:41 20:42 16:34 POC Glucose 171 H 196 H 214 H Phys Exam - Physical Examination Constitutional: NAD HEENT: PERRLA, moist MMs, sclera anicteric, oral pharynx no lesions Neck: no nodes, no JVD, supple, full ROM Respiratory: no wheezing, no rales, no rhonchi, clear to auscultation bilateral Cardiovascular: RRR, no significant murmur, no rub Gastrointestinal: soft, non-tender, no distention, positive bowel sounds Musculoskeletal: edema present dorsal right foot red, warm, tender Neurological: non-focal, normal sensation, moves all 4 limbs Lymphatic: no nodes Psychiatric: normal affect, A&O x 3 Skin: no rash, normal turgor, cap refill <2 seconds Dx/Plan (1) Gout Code(s): M10.9 - GOUT, UNSPECIFIED Status: Acute Qualifiers: Gout site: foot Gout etiology: unspecified cause Chronicity: chronic Laterality: right Qualified Code(s): M1A.0710 - Idiopathic chronic gout, right ankle and foot, without tophus (tophi) (2) MRSA (methicillin resistant Staphylococcus aureus) infection Code(s): A49.02 - METHICILLIN RESIS STAPH INFECTION, UNSP SITE Status: Chronic Comment: recent bacteremia, treatedwith prolonged vanc, increased redness and swelling to right foot about 10 days post completion. suspected neuropathic or gouty arthropathy, and secondary infection. needs I&D or amputation (3) Septic arthritis Status: Acute Qualifiers: Septic arthritis location: foot Septic arthritis organism: staphylococcal Laterality: right Qualified Code(s): M00.071 - Staphylococcal arthritis, right ankle and foot (4) Chronic osteomyelitis involving ankle and foot Status: Chronic Qualifiers: Laterality: right Qualified Code(s): M86.671 - Other chronic osteomyelitis , right ankle and foot (5) Bacteremia Code(s): R78.81 - BACTEREMIA Status: Resolved Comment: ID following (6) CKD stage 3 secondary to diabetes Code(s): E11.22 - TYPE 2 DIABETES MELLITUS W DIABETIC CHRONIC KIDNEY DISEASE; N18.3 - CHRONIC KIDNEY DISEASE, STAGE 3 (MODERATE) Status: Chronic Comment: stable (7) Chronic anticoagulation Code(s): Z79.01 - 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 (9) GERD (gastroesophageal reflux disease) Code(s): K21.9 - GASTRO-ESOPHAGEAL REFLUX DISEASE WITHOUT ESOPHAGITIS Status: Chronic Qualifiers: Esophagitis presence: without esophagitis Qualified Code(s): K21.9 - Gastro -esophageal reflux disease without esophagitis Comment: stable (10) HTN (hypertension) Code(s): I10 - ESSENTIAL (PRIMARY) HYPERTENSION Status: Chronic Qualifiers: Hypertension type: essential hypertension Qualified Code(s): I10 - Essential (primary) hypertension Comment: controlled (11) History of pulmonary embolus (PE) Code(s): Z86.711 - PERSONAL HISTORY OF PULMONARY EMBOLISM Status: Chronic Comment: on chronic anticoagulation (12) Morbid obesity with BMI of 50.0-59.9, adult Code(s): E66.01 - MORBID (SEVERE) OBESITY DUE TO EXCESS CALORIES; Z68.43 - BODY MASS INDEX (BMI) 50-59.9 , ADULT Status: Chronic - Plan * .
[2018-07-20] MEDS: cloNIDine 0.2 MG TAB PO SCH (20:37)
[2018-07-20] MEDS: Amitriptyline HCl 10 MG TAB PO SCH (20:37)
[2018-07-20] MEDS: HYDROcodone/Acetaminophen 5/325 mg Tablet PO PRN (20:41)
[2018-07-20] MEDS: HumaLOG 300 UNITS/3 ML VIAL SC PRN (20:46)
--- NOTE | 2018-07-20 22:29 | PDOC.GSPN ---
Surgery Progress Note: Subj - Subjective Narrative: Pt has decided to proceed with long goods drier suppressive antibiotics and surgical debridement. PICC placed today. Plan I&D in OR with post-op VAC placement tomorrow. Hold coumadin, NPO after midnight. Surgery Progress Note: Obj - Vital signs Vital signs: Vital Signs - Most Recent Temp Pulse Resp BP Pulse Ox 97.6 F 90 16 126/63 95 07/20/18 20:00 07/20/18 20:00 07/20/18 20:00 07/20/18 20:37 07/20/18 20:00 Surgery Progress Note: Results - Labs Result Diagrams: 07/20/18 04:02 07/20/18 04:02 Lab results: Laboratory Results - last 24 hr 07/20/18 07/20/18 07/20/18 12:41 16:16 19:46 POC Glucose 171 H 194 H 201 H
[2018-07-20 23:20] LABS: Vancomycin, Trough 28.4 ug/mL
[2018-07-20] MEDS: Vancomycin HCl 1.25 GM in Sodium Chloride 0.9% 250 ML 250 ML IVPB SCH (23:30)
[2018-07-21] MEDS: Levothyroxine Sodium 100 MCG TAB PO SCH (04:49)
[2018-07-21 06:31] LABS: #Eosinphils 0.5 thou/uL (0.0-0.7); #Lymphocytes 2.9 thou/uL (1.20-3.40); #Monocytes 0.9 thou/uL (0.11-0.59); #Neutrophils 3.4 thou/uL (1.40-6.50); %Basophils 0.5 % (0.0-1.0); %Lymphocytes 37.5 % (21.0-51.0); %Monocytes 11.6 % (0.0-10.0); %Neutrophils 44.4 % (42.0-75.0); Hemoglobin 7.6 g/dL (12.0-16.0); Mean Corpuscular HGB CONC 31.3 g/dL (32.0-36.0); Mean Corpuscular Hemoglobin 23.7 pg (27.0-31.0); Mean Corpuscular Volume 75.9 fL (78.0-98.0); Mean Platelet Volume 7.6 fL (7.4-10.4); Platelet Count 432 thou/uL (130-400); RBC Distribution Width 21.1 % (11.5-14.5); Red Blood Cell (RBC) Count 3.21 mill/uL (4.20-5.40); White Blood Cell (WBC) Count 7.7 thou/uL (4.8-10.8)
[2018-07-21 06:37] LABS: INR-International Normal Ratio 1.7; Prothrombin Time 20.5 SEC (12.0-14.7)
[2018-07-21 06:55] LABS: Anion Gap 13 mmol/L (10-20); BUN (Urea Nitrogen) 31 mg/dL (9.8-20.1); Calc. Creatinine Clearance 68 mL/min (70-130); Calcium 8.6 mg/dL (7.8-10.44); Carbon Dioxide 27 mmol/L (23-31); Chloride 105 mmol/L (98-107); Estimated GFR-MDRD 29; Glucose 132 mg/dL (80-115); Magnesium 1.2 mg/dL (1.6-2.6); Potassium 4.2 mmol/L (3.5-5.1); Sodium 141 mmol/L (136-145)
[2018-07-21] MEDS: SYSTANE GEL EYE DROP 10 ML 10 GM BOT EA EYE SCH ×3 (09:15→20:01)
[2018-07-21] MEDS: Enoxaparin Sodium 40 MG/0.4 ML SYRINGE SC SCH (09:15)
[2018-07-21] MEDS ORDERED: Bupivacaine/Epinephrine 0.25% 30 ML VIAL ONE (09:46)
[2018-07-21] MEDS ORDERED: Fentanyl 100 MCG/2 ML VIAL ONE (09:49)
[2018-07-21] MEDS ORDERED: Lidocaine 1% PF 5 ML VIAL ONE (09:51)
[2018-07-21] MEDS ORDERED: ePHEDrine/0.9% NaCl/PF SYRINGE 50 mg/10 ml ONE (09:51)
[2018-07-21] MEDS ORDERED: PHENYLEPHRINE-NS 100 MCG/ML 10 ML SYRINGE ONE (09:51)
[2018-07-21] MEDS ORDERED: Succinylcholine Chloride 20 MG/ML 10 ml SYRINGE FS ONE (09:51)
[2018-07-21] MEDS ORDERED: PROPOFOL 200 MG/20 ML VIAL ONE (09:51)
[2018-07-21] MEDS ORDERED: Dexamethasone 20 MG/5 ML VIAL ONE (09:51)
[2018-07-21] MEDS ORDERED: Vancomycin HCl 1.25 GM in Sodium Chloride 0.9% 250 ML 250 ML IVPB SCH (10:00)
[2018-07-21] MEDS ORDERED: Promethazine HCl 25 MG/ML VIAL IM PRN (10:20)
[2018-07-21] MEDS ORDERED: Ondansetron HCl/PF 4 MG/2 ML Vial IVP PRN (10:20)
[2018-07-21] MEDS ORDERED: Promethazine HCl 25 MG/ML VIAL SLOW IVP PRN (10:20)
[2018-07-21] MEDS ORDERED: Sodium Chloride 0.9% 10 ML ONE (11:30)
[2018-07-21 11:40] LABS: Vancomycin, Random 22.8 ug/mL (See Comment)
[2018-07-21] MEDS: Colchicine 0.6 MG TAB PO SCH (12:10)
[2018-07-21] MEDS: Saccharomyces boulardii 250 MG CAP PO SCH (12:10)
[2018-07-21] MEDS: diphenhydrAMINE 12.5 MG/5 ML UDCUP PO SCH ×2 (12:10→20:00)
[2018-07-21] MEDS: predniSONE 5 MG TAB PO SCH (12:11)
[2018-07-21] MEDS: Amlodipine 5 MG TAB PO SCH (12:11)
[2018-07-21] MEDS: Pregabalin 75 MG CAP PO SCH ×2 (12:13→20:00)
[2018-07-21] MEDS: Insulin Glargine 6 UNITS in Pre-Filled Syringe 1 EACH SC SCH ×2 (12:30→20:25)
[2018-07-21] MEDS: traMADol HCl 50 MG TAB PO PRN (15:02)
--- NOTE | 2018-07-21 15:24 | PDOC.PN ---
- Subjective Encounter Start Date: 07/21/18 Encounter Start Time: 15:00 to OR today for I&D, awaiting operative report. No f/c, no N/V/d/C, no CP or sOB, leg hurts post op all systems reviewed and neg x as above - Objective Resuscitation Status: Resuscitation Status FULL:Full Resuscitation MAR Reviewed: Yes Vital Signs & Weight: Vital Signs (12 hours) Temp Pulse Resp BP BP Pulse Ox 07/21/18 12:28 83 16 96 07/21/18 12:11 85 130/76 07/21/18 12:10 130/76 07/21/18 11:35 97.6 F 84 20 127/58 L 99 07/21/18 07:30 97.9 F 80 18 121/68 94 L 07/21/18 07:25 97.9 F 80 18 94 L 07/21/18 07:02 91 L 07/21/18 07:00 91 16 91 L Weight Admit Weight 317 lb 7 oz Weight 317 lb 7 oz I&O: 07/20/18 07/21/18 07/22/18 06:59 06:59 06:59 Intake Total 1220 490 Balance 1220 490 Result Diagrams: 07/21/18 06:20 07/21/18 06:20 Additional Labs: Accuchecks 07/21/18 07/21/18 07/20/18 11:47 05:31 19:46 POC Glucose 151 H 139 H 201 H 07/20/18 16:16 POC Glucose 194 H Phys Exam - Physical Examination Constitutional: NAD HEENT: PERRLA, moist MMs, sclera anicteric, oral pharynx no lesions Neck: no nodes, no JVD, supple, full ROM Respiratory: no wheezing, no rales, no rhonchi, clear to auscultation bilateral Cardiovascular: RRR, no significant murmur, no rub Gastrointestinal: soft, non-tender, no distention, positive bowel sounds Neurological: non-focal, normal sensation, moves all 4 limbs Lymphatic: no nodes Psychiatric: normal affect, A&O x 3 Skin: no rash, normal turgor, cap refill <2 seconds Dx/Plan (1) Gout Code(s): M10.9 - GOUT, UNSPECIFIED Status: Acute Qualifiers: Gout site: foot Gout etiology: unspecified cause Chronicity: chronic Laterality: right Qualified Code(s): M1A.0710 - Idiopathic chronic gout, right ankle and foot, without tophus (tophi) (2) MRSA (methicillin resistant Staphylococcus aureus) infection Code(s): A49.02 - METHICILLIN RESIS STAPH INFECTION, UNSP SITE Status: Chronic Comment: recent bacteremia, treatedwith prolonged vanc, increased redness and swelling to right foot about 10 days post completion. suspected neuropathic or gouty arthropathy, and secondary infection. needs I&D or amputation - predded with I&D earlier, follow up on ID recs adnsurgical findings (3) Septic arthritis Status: Acute Qualifiers: Septic arthritis location: foot Septic arthritis organism: staphylococcal Laterality: right Qualified Code(s): M00.071 - Staphylococcal arthritis, right ankle and foot (4) Chronic osteomyelitis involving ankle and foot Status: Chronic Qualifiers: Laterality: right Qualified Code(s): M86.671 - Other chronic osteomyelitis , right ankle and foot (5) Bacteremia Code(s): R78.81 - BACTEREMIA Status: Resolved Comment: ID following (6) CKD stage 3 secondary to diabetes Code(s): E11.22 - TYPE 2 DIABETES MELLITUS W DIABETIC CHRONIC KIDNEY DISEASE; N18.3 - CHRONIC KIDNEY DISEASE, STAGE 3 (MODERATE) Status: Chronic Comment: stable (7) Chronic anticoagulation Code(s): Z79.01 - TERRAZZO GRINDER (CURRENT) USE OF ANTICOAGULANTS Status: Chronic (8) Diabetes type 2, controlled Code(s): E11.9 - TYPE 2 DIABETES MELLITUS WITHOUT COMPLICATIONS Status: Chronic Qualifiers: Diabetes mellitus nursing home insulin use: without nursing home use Diabetes mellitus complication status: with kidney complications Diabetes mellitus complication detail: with chronic kidney disease Chronic kidney disease stage : stage 3 (moderate) Qualified Code(s): E11.22 - Type 2 diabetes mellitus with diabetic chronic kidney disease; N18.3 - Chronic kidney disease, stage 3 ( moderate) Comment: continue accuchecks and insulin sliding scale. (9) GERD (gastroesophageal reflux disease) Code(s): K21.9 - GASTRO-ESOPHAGEAL REFLUX DISEASE WITHOUT ESOPHAGITIS Status: Chronic Qualifiers: Esophagitis presence: without esophagitis Qualified Code(s): K21.9 - Gastro -esophageal reflux disease without esophagitis Comment: stable (10) HTN (hypertension) Code(s): I10 - ESSENTIAL (PRIMARY) HYPERTENSION Status: Chronic Qualifiers: Hypertension type: essential hypertension Qualified Code(s): I10 - Essential (primary) hypertension Comment: controlled (11) History of pulmonary embolus (PE) Code(s): Z86.711 - PERSONAL HISTORY OF PULMONARY EMBOLISM Status: Chronic Comment: on chronic anticoagulation (12) Morbid obesity with BMI of 50.0-59.9, adult Code(s): E66.01 - MORBID (SEVERE) OBESITY DUE TO EXCESS CALORIES; Z68.43 - BODY MASS INDEX (BMI) 50-59.9 , ADULT Status: Chronic - Plan * .
[2018-07-21] MEDS: Warfarin Sodium 7.5 MG TAB PO SCH (17:34)
[2018-07-21] MEDS: HumaLOG 300 UNITS/3 ML VIAL SC PRN ×2 (17:34→20:25)
--- NOTE | 2018-07-21 17:53 | PDOC.OP ---
Operative Note - Operative Note Operative Note: PROCEDURE: Incision and drainage of right foot DATE OF PROCEDURE: 07/21/2018 SURGEON: Lm Grissom M.D. PREOPERATIVE DIAGNOSES: Osteomyelitis and gout of the right foot with associated abscess POSTOPERATIVE DIAGNOSIS: Osteomyelitis and gout of the right foot with associated abscess HISTORY: Patient with recurrent redness and swelling of her right foot after finishing a prolonged course of antibiotics. Ultrasound-guided aspiration was positive for urinary crystals and MRSA. She has decided to proceed with another course of antibiotics and incision and drainage of the foot was requested. PROCEDURE IN DETAIL: After informed consent was obtained and appropriate preoperative antibiotics continued the patient was taken to the operating room she was placed in supine position and anesthesia was administered. She was prepped and draped in standard sterile fashion and local anesthesia infused to the skin and subcutaneous tissues of the right foot at the area where there was the most edema in the subcutaneous tissues. This coincided with the previous site of aspiration and also the patient's site of greatest tenderness. An incision was made and some gelatinous fluid encountered and suctioned out. There was no shahram abscess cavity. There were some urate crystals in the subcutaneous tissues which were irrigated out. The patient had previously had drainage of urate crystals from the lateral foot and an area of increased edema in that area was also identified by ultrasound. Local anesthesia was infused and an incision made at that site but only edematous subcutaneous tissues were encountered there. Both sites were dressed with VAC dressings the patient was extubated and taken to the recovery room in good condition. Estimated blood loss was minimal. There were no complications. There were no specimens.
[2018-07-21] MEDS: Amitriptyline HCl 10 MG TAB PO SCH (19:59)
[2018-07-21] MEDS: cloNIDine 0.2 MG TAB PO SCH (19:59)
[2018-07-21] MEDS: HYDROcodone/Acetaminophen 5/325 mg Tablet PO PRN (22:05)
[2018-07-21 23:13] LABS: Vancomycin, Random 17.8 ug/mL (See Comment)
[2018-07-22] MEDS ORDERED: Vancomycin HCl 1.5 GM in Sodium Chloride 0.9% 250 ML 300 ML IVPB SCH (02:00)
[2018-07-22 05:23] LABS: #Eosinphils 0.1 thou/uL (0.0-0.7); #Lymphocytes 1.2 thou/uL (1.20-3.40); #Monocytes 0.6 thou/uL (0.11-0.59); #Neutrophils 5.3 thou/uL (1.40-6.50); %Eosinophils 1.1 % (0.0-10.0); %Lymphocytes 17.1 % (21.0-51.0); %Neutrophils 73.8 % (42.0-75.0); Hemoglobin 7.6 g/dL (12.0-16.0); Mean Corpuscular HGB CONC 31.4 g/dL (32.0-36.0); Mean Corpuscular Hemoglobin 24.4 pg (27.0-31.0); Mean Corpuscular Volume 77.6 fL (78.0-98.0); Mean Platelet Volume 7.9 fL (7.4-10.4); Platelet Count 420 thou/uL (130-400); RBC Distribution Width 21.5 % (11.5-14.5); Red Blood Cell (RBC) Count 3.12 mill/uL (4.20-5.40); White Blood Cell (WBC) Count 7.2 thou/uL (4.8-10.8)
[2018-07-22 05:25] LABS: INR-International Normal Ratio 1.9; Prothrombin Time 21.7 SEC (12.0-14.7)
[2018-07-22 05:30] LABS: Anion Gap 17 mmol/L (10-20); BUN (Urea Nitrogen) 31 mg/dL (9.8-20.1); Calc. Creatinine Clearance 73 mL/min (70-130); Calcium 8.4 mg/dL (7.8-10.44); Carbon Dioxide 23 mmol/L (23-31); Chloride 104 mmol/L (98-107); Estimated GFR-MDRD 31; Glucose 228 mg/dL (80-115); Magnesium 1.5 mg/dL (1.6-2.6); Potassium 4.9 mmol/L (3.5-5.1); Sodium 139 mmol/L (136-145)
[2018-07-22] MEDS: Levothyroxine Sodium 100 MCG TAB PO SCH (05:52)
[2018-07-22] MEDS: HumaLOG 300 UNITS/3 ML VIAL SC PRN ×3 (05:53→16:51)
[2018-07-22] MEDS: Amlodipine 5 MG TAB PO SCH (08:40)
[2018-07-22] MEDS: SYSTANE GEL EYE DROP 10 ML 10 GM BOT EA EYE SCH ×3 (08:40→21:19)
[2018-07-22] MEDS: predniSONE 5 MG TAB PO SCH (08:41)
[2018-07-22] MEDS: Colchicine 0.6 MG TAB PO SCH (08:41)
[2018-07-22] MEDS: Saccharomyces boulardii 250 MG CAP PO SCH (08:41)
[2018-07-22] MEDS: Pregabalin 75 MG CAP PO SCH ×2 (08:41→21:19)
[2018-07-22] MEDS: Insulin Glargine 6 UNITS in Pre-Filled Syringe 1 EACH SC SCH ×2 (08:42→21:30)
[2018-07-22] MEDS: diphenhydrAMINE 12.5 MG/5 ML UDCUP PO SCH ×2 (08:43→21:19)
[2018-07-22] MEDS: Enoxaparin Sodium 40 MG/0.4 ML SYRINGE SC SCH ×2 (08:48→09:52)
[2018-07-22] MEDS ORDERED: Magnesium 2 GM/NS 0.9% 100 ML 2 GM in Premix Bag 1 BAG IVPB SCH (09:15)
[2018-07-22] MEDS: traMADol HCl 50 MG TAB PO PRN (10:47)
[2018-07-22] MEDS: Bisacodyl 5 MG TAB PO PRN (12:42)
[2018-07-22] MEDS: Warfarin Sodium 7.5 MG TAB PO SCH (16:51)
--- NOTE | 2018-07-22 17:24 | PRG ---
DATE OF SERVICE: 07/22/2018 SUBJECTIVE: Feeling much better and able to walk. She had I&D and there is not a lot of purulence, mostly a gelatinous substance and crystal like material. No headaches. No shortness of breath or ab dominal pain or diarrhea. PHYSICAL EXAMINATION: VITAL SIGNS: Not remarkable. She is afebrile, awake, alert, oriented. LUNGS: Clear. HEART: S1, S2, regular rate. ABDOMEN: Soft. EXTREMITIES: The foot with dressing and a splint. LABORATORY DATA: White cell count 7.2, hemoglobin 7.6, platelets 420. Creatinine is 1.63, which is improved. Microbiology with MRSA from the ankle aspirate. 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 The patient did not have a lot of purulence or necrosis and may be managed conservatively after the surgical intervention with protracted IV antimicrobial therapy with vancomycin for 42 days approximately and then transitioned to oral antimicrobial therapy to be transferred to [place], I [facility].
[2018-07-22] MEDS: Amitriptyline HCl 10 MG TAB PO SCH (21:18)
[2018-07-22] MEDS: cloNIDine 0.2 MG TAB PO SCH (21:18)
[2018-07-22] MEDS: Senokot 8.6 MG TAB PO PRN (21:59)
[2018-07-23 05:13] LABS: INR-International Normal Ratio 2.1; Prothrombin Time 23.7 SEC (12.0-14.7)
[2018-07-23] MEDS: Levothyroxine Sodium 100 MCG TAB PO SCH (06:06)
[2018-07-23 07:58] VITALS: BP 113/66; TEMP 98.2
[2018-07-23] MEDS: Insulin Glargine 6 UNITS in Pre-Filled Syringe 1 EACH SC SCH (08:55)
[2018-07-23] MEDS: Amlodipine 5 MG TAB PO SCH (08:55)
[2018-07-23] MEDS: predniSONE 5 MG TAB PO SCH (08:56)
[2018-07-23] MEDS: Saccharomyces boulardii 250 MG CAP PO SCH (08:56)
[2018-07-23] MEDS: Colchicine 0.6 MG TAB PO SCH (08:56)
[2018-07-23] MEDS: Pregabalin 75 MG CAP PO SCH (08:56)
[2018-07-23] MEDS: SYSTANE GEL EYE DROP 10 ML 10 GM BOT EA EYE SCH (08:57)
[2018-07-23] MEDS: diphenhydrAMINE 12.5 MG/5 ML UDCUP PO SCH (08:59)
[2018-07-23] MEDS: HYDROcodone/Acetaminophen 5/325 mg Tablet PO PRN (11:08)
[2018-07-23] MEDS: traMADol HCl 50 MG TAB PO PRN (11:14)
--- NOTE | 2018-07-23 14:09 | DIS ---
PRIMARY CARE PHYSICIAN: Dr. Jyoti Burger DATE OF ADMISSION: 07/15/2018 DATE OF DISCHARGE: 07/23/2018 DISCHARGE DIAGNOSES: 1. Methicillin-resistant Staphylococcus aureus superinfection of a gouty arthropathy of the right fo ot. 2. Long-term antibiotic monitoring. 3. Diabetes mellitus type 2. 4. Gout. 5. Hypertension. 6. Obesity. 7. Cellulitis of the right lower extremity. 8. Chronic kidney disease stage 3, secondary to diabetes. 9. Chronic anticoagulation. 10. Chronic osteomyelitis of the right forefoot. 11. History of pulmonary embolus. 12. Gastroesophageal reflux disease. CONSULTATIONS: 1. Surgery, Dr. Lm Grissom. 2. Dr. Geovanni Kenny. PROCEDURES: 1. PICC line placement 07/20/2018. 2. Right foot incision and drainage on 07/21/2018 with wound VAC placement. HISTORY AND PHYSICAL: Ms. Renteria is a 68-year-old female who presented to the emergency department 0 07/14/2018 with complaints of increasing redness and swelling to her right foot. She had a history of recent MRSA bacteremia and foot abscess laterally on the same leg. She completed a several week cou rse of antibiotics about 10 days prior and while off of the antibiotics had increased redness and swe lling. She went back to the emergency department and was felt to have a worsening infection. We are called for admission. HOSPITAL COURSE: The patient was seen and examined by Dr. Garcia and placed in inpatient status. The patient was started on vancomycin which she had previously been on and Infectious Disease was con sulted. She was seen by Dr. Kenny on 07/15/2018, he recommended the same antibiotics and a surgical evaluatio n. A consult was placed to General Surgery. The patient will follow up with Dr. Wu for the next 4 days, surgery had not come by to see her. I took the case over on 07/19/2018. I contacted Orthopedics who did not get the consult and felt it was more appropriate for General Surgery as Dr. Grissom had seen her, so I consulted Dr. Jaciel trevino. The patient was seen by Dr. Grissom and options for amputation versus incision and drainage we re given. The patient was sent for PICC line on 07/20/2018, on 07/21/2018 went to the operating room for I&D where she was found to have gouty arthropathy with purulence of superinfection. The patient was given IV vancomycin per Dr. Kenny and arrangements were made for her to go to a swing bed at [facility] in [place]. The patient was approved and accepted and stable for discharge on 8 post VAC change. PHYSICAL EXAMINATION: The patient was seen and examined on the day of discharge. Discharge plan and disposition and discharge instructions were given to the patient face to face at the bedside. DISCHARGE MEDICATIONS: 1. Vancomycin 1.5 mg IV q.48h. to be followed by Dr. Kenny. 2. Albuterol 1.25 mg nebulized t.i.d. 3. Xanax 0.5 mg p.o. b.i.d. to resume. 4. Amitriptyline 30 mg p.o. at bedtime. 5. Amlodipine 5 mg daily. 6. Biotin 10,000 mcg daily. 7. Cholecalciferol 1000 mg daily. 8. Clonidine 0.4 mg p.o. at bedtime. 9. Benadryl 10 mg p.o. b.i.d. 10. Enalapril 20 mg daily. 11. Nexium 40 mg p.o. q.a.m. with meals. 12. Artificial Tears 1-2 drops each eye t.i.d. 13. Uloric 80 mg p.o. daily. 14. Glimepiride 2 mg p.o. daily. 15. Hydrocodone/APAP to resume her home dosing. 16. Plaquenil 200 mg p.o. b.i.d. 17. Infliximab per previous dosing. 18. Lantus 60 units subcu b.i.d. 19. DuoNeb 3 mL q.6 hours when awake 20. Levothyroxine 200 mcg daily. 21. Prednisone 5 mg p.o. q.a.m. 22. Pregabalin 150 mg p.o. b.i.d. 23. Florastor 250 mg p.o. daily. 24. Systane eye gel 1-2 drops each eye t.i.d. 25. Coumadin 5 mg p.o. q.p.m. FOLLOWUP APPOINTMENTS: 1. Primary care physician in [address] Kenny per his clinic. 3. Dr. Lm Grissom in 2-3 weeks. DISCHARGE ACTIVITY: Per cardiopulmonary limits. DISCHARGE CONDITION: Stable. DISPOSTION: The patient will be discharged to [facility] bed. DISCHARGE DIET: Heart healthy diabetic diet. Coumadin friendly diet prescribed.
== END 2018-07-23 11:13 | DRG 638 ==
LOC: ERS 17:34 → T4-B 21:33 → ERS 23:29
PROVIDERS: ADMIT Hospitalist; ATTEND Hospitalist
PROC: 0J9Q3ZX Drainage of Right Foot Subcutaneous Tissue and Fascia, Percutaneous Approach, Diagnostic (ICD-10-PCS; principal; 2018-07-16)
PROC: 02HV33Z Insertion of Infusion Device into Superior Vena Cava, Percutaneous Approach (ICD-10-PCS; 2018-07-20)
PROC: 0J9Q00Z Drainage of Right Foot Subcutaneous Tissue and Fascia with Drainage Device, Open Approach (ICD-10-PCS; 2018-07-21)
DX: E11.69 Type 2 diabetes mellitus with other specified complication (principal); M86.671 Other chronic osteomyelitis, right ankle and foot; Z68.42 Body mass index [BMI] 45.0-49.9, adult; E87.1 Hypo-osmolality and hyponatremia; M00.071 Staphylococcal arthritis, right ankle and foot; L02.611 Cutaneous abscess of right foot; N17.9 Acute kidney failure, unspecified; E66.01 Morbid (severe) obesity due to excess calories; M1A.0711 Idiopathic chronic gout, right ankle and foot, with tophus (tophi); D50.9 Iron deficiency anemia, unspecified; E11.22 Type 2 diabetes mellitus with diabetic chronic kidney disease; N18.3 Chronic kidney disease, stage 3 (moderate); I12.9 Hypertensive chronic kidney disease with stage 1 through stage 4 chronic kidney disease, or unspecified chronic kidney disease; E11.42 Type 2 diabetes mellitus with diabetic polyneuropathy; M06.9 Rheumatoid arthritis, unspecified; B95.62 Methicillin resistant Staphylococcus aureus infection as the cause of diseases classified elsewhere; K21.9 Gastro-esophageal reflux disease without esophagitis; M19.90 Unspecified osteoarthritis, unspecified site; J45.909 Unspecified asthma, uncomplicated; Z86.711 Personal history of pulmonary embolism; Z79.01 Long term (current) use of anticoagulants; Z79.84 Long term (current) use of oral hypoglycemic drugs; Z88.5 Allergy status to narcotic agent; Z88.0 Allergy status to penicillin; Z88.2 Allergy status to sulfonamides; Z88.8 Allergy status to other drugs, medicaments and biological substances
CPT/HCPCS: 10022; 36415; 36416; 36569; 76942; 80048; 80053; 80202; 82550; 82728; 83540; 83550; 83605; 83735; 85025; 85046; 85610; 85730; 87040; 87070; 87077; 87186; 87205; 89060; 94640; 96365; 96366; 96375; A4216; C1751; G8978-GP-CJ; G8987-GO-CJ; G8988-GO-CI; J1100; J1644; J1650; J1756; J2001; J2270; J2704; J2916; J3010; J3370; J3475; J3490; J7050; J7506; J7620

== ENCOUNTER → 2018-08-17 | Day surgery (SDC) | payer MEDICARE, OTHER ==
--- NOTE | 2018-08-17 12:56 | SPC ---
ULTRASOUND GUIDED LEFT UPPER EXTREMITY PICC LINE PLACEMENT: 08/17/2018 HISTORY: Right foot infection. The patient needs long-term IV antibiotics. TECHNIQUE: After informed consent was obtained, the patient was placed on the angiography table in the supine po sition. The left upper extremity was meticulously prepped and draped in the usual sterile fashion. An appropriate access site was determined with ultrasound guidance. The skin and subcutaneous tissues were infiltrated with buffered 1% Lidocaine for local anesthesia. Utilizing concurrent real-time ultrasound guidance, the left basilic vein was accessed utilizing a mi cropuncture technique, and a 5 Burkinan peel-away sheath was placed. The catheter was measured and cut to the appropriate length. The catheter was placed over the guidew deja with the tip position overlying the cavoatrial junction. The guidewire and peel-away sheath were removed. Each port on the double-lumen PICC line was accessed and aspirated/flushed easily. The ca theter was secured to the skin utilizing a dry, sterile dressing. The patient tolerated the procedur e well and without immediate complications. TOTAL FLUOROSCOPY TIME: Zero minutes. TOTAL FLUOROSCOPY DOSE: 67 mGy per cm2. FINDINGS: Technically successful placement of a dual-lumen, 5-Burkinan, 46 cm PICC line via the left basilic vein . The tip of the catheter overlies the cavoatrial junction. IMPRESSION: Technically successful left upper extremity peripherally inserted central catheter line placement. POS: [facility]
== END ==
LOC: SPEC 09:43
PROVIDERS: ATTEND Family Medicine
PROC: 05HC33Z Insertion of Infusion Device into Left Basilic Vein, Percutaneous Approach (ICD-10-PCS; principal; 2018-08-17)
PROC: B54NZZA Ultrasonography of Left Upper Extremity Veins, Guidance (ICD-10-PCS; 2018-08-17)
DX: L08.9 Local infection of the skin and subcutaneous tissue, unspecified (principal); Z79.4 Long term (current) use of insulin; Z79.899 Other long term (current) drug therapy; Z88.5 Allergy status to narcotic agent; Z88.8 Allergy status to other drugs, medicaments and biological substances; Z91.018 Allergy to other foods
CPT/HCPCS: 36569; C1751

== ENCOUNTER 2018-09-09 13:53 | Emergency (ER) | payer MEDICARE, OTHER ==
--- NOTE | 2018-09-09 15:35 | RAD ---
RIGHT HIP TWO VIEWS: History: Right hip pain. FINDINGS: Joint space is preserved. Mild osteophytosis and subchondral sclerosis. Femoral head contour is maint ained. No acute fracture, dislocation, or aggressive osseous erosions. Calcification over the arteria l structures. IMPRESSION: 1. Mild degenerative changes, right hip. 2. Atherosclerosis. POS: [facility]
--- NOTE | 2018-09-09 16:04 | ULT ---
VENOUS DUPLEX SONOGRAM RIGHT LOWER EXTREMITY: Date: 09/09/18 HISTORY: Right leg pain and edema. FINDINGS: The right common femoral vein and greater saphenous junction were evaluated along with the femoral, d eep femoral, popliteal, and posterior tibial veins. There is good color and spectral Doppler flow, co mpression, and augmentation. IMPRESSION: No sonographic evidence of deep venous thrombosis within the right lower extremity. POS: [facility]
[2018-09-09 16:29] LABS: #Basophils 0.1 thou/uL (0.0-0.2); #Lymphocytes 0.6 thou/uL (1.20-3.40); #Monocytes 0.4 thou/uL (0.11-0.59); #Neutrophils 7.4 thou/uL (1.40-6.50); %Basophils 1.3 % (0.0-1.0); %Eosinophils 0.3 % (0.0-10.0); %Lymphocytes 7.2 % (21.0-51.0); %Monocytes 4.3 % (0.0-10.0); %Neutrophils 86.9 % (42.0-75.0); Hemoglobin 9.2 g/dL (12.0-16.0); Mean Corpuscular HGB CONC 30.2 g/dL (32.0-36.0); Mean Corpuscular Hemoglobin 23.2 pg (27.0-31.0); Mean Corpuscular Volume 76.8 fL (78.0-98.0); Mean Platelet Volume 9.5 fL (7.4-10.4); Platelet Count 381 thou/uL (130-400); RBC Distribution Width 21.2 % (11.5-14.5); Red Blood Cell (RBC) Count 3.95 mill/uL (4.20-5.40); White Blood Cell (WBC) Count 8.5 thou/uL (4.8-10.8)
[2018-09-09 16:50] LABS: ALT (SGPT) 13 U/L (8-55); AST (SGOT) 16 U/L (5-34); Albumin 3.5 g/dL (3.4-4.8); Alkaline Phosphatase 144 U/L (40-150); Anion Gap 15 mmol/L (10-20); BUN (Urea Nitrogen) 30 mg/dL (9.8-20.1); Bilirubin, Total 0.2 mg/dL (0.2-1.2); Calc. Creatinine Clearance 0 mL/min (70-130); Calcium 9.7 mg/dL (7.8-10.44); Carbon Dioxide 23 mmol/L (23-31); Chloride 104 mmol/L (98-107); Estimated GFR-MDRD 30; Globulin 3.8 g/dL (2.4-3.5); Glucose 226 mg/dL (80-115); Potassium 5.2 mmol/L (3.5-5.1); Protein, Total 7.3 g/dL (6.0-8.3); Sodium 137 mmol/L (136-145)
[2018-09-09 18:20] LABS: INR-International Normal Ratio 1.6; PTT 37.5 SEC (22.9-36.1); Prothrombin Time 18.8 SEC (12.0-14.7)
[2018-09-09] MEDS ORDERED: Morphine 2 MG/ML SYRINGE ONE (18:53)
[2018-09-09] MEDS ORDERED: Morphine 4 MG/ML VIAL ONE (20:38)
--- NOTE | 2018-09-09 20:44 | CT ---
CT PELVIS WITH IV CONTRAST CT LOWER EXTREMITIES (THIGHS) WITH IV CONTRAST 10/10/18 HISTORY: Bilateral lower extremity swelling. FINDINGS: The urinary bladder is well distended and intact. No free fluid is seen in the pelvis. Vascular calci fications are present. The patient is post hysterectomy. No abnormally loculated fluid collection is seen in the pelvis or the soft tissues of the thighs on either side. There are postop changes of bila teral knee arthroplasty. There are degenerative changes in the lower lumbar spine. The pelvic bones and the femurs are bilater ally intact. No bony destruction or periosteal reaction is seen to suggest osteomyelitis. IMPRESSION: No definite evidence of osteomyelitis or soft tissue abscess in the pelvis or thighs. POS: [facility]
== END 2018-09-09 20:41 | disposition home or self-care (01) ==
LOC: ERS 13:53
DX: L03.115 Cellulitis of right lower limb (principal)
CPT/HCPCS: 36415; 72193; 80053; 85025; 85610; 85730; 96374; 96376; J2270

== ENCOUNTER 2018-09-20 12:24 | Inpatient (IN) | payer MEDICARE, OTHER ==
[2018-09-20] MEDS ORDERED: [UNRECOGNIZED DRUG - OTHER] IV SCH (13:00)
[2018-09-20] MEDS ORDERED: ADMIXTURE FEE IV SCH (13:00)
[2018-09-20] MEDS ORDERED: SODIUM CHLORIDE IV SCH (13:00)
[2018-09-20] MEDS ORDERED: POTASSIUM CHLORIDE IV SCH (13:00)
[2018-09-20 13:28] LABS: Bilirubin Negative (Negative); Blood, Urine Moderate (Negative); Clarity CLOUDY (Clear); Glucose, Urine (Dipstick) Negative (Negative); Leukocyte Large (Negative); Nitrite Negative (Negative); Protein, Urine (Dipstick) Negative (Neg-Trace); Specific Gravity, Urine 1.018 (1.002-1.036); Urobilinogen 0.2 mg/dL (0.2-1.0)
[2018-09-20 13:33] LABS: Bacteria/HPF 1+ HPF (None Seen); Hyaline Casts/LPF 7-10 HYALINE CAST LPF (0-3 Hyaline); Pathc Cast-AUWi Flag 1.88 (0-2.49); Squamous Epithelial None Seen HPF (0-3)
[2018-09-20 14:25] LABS: #Eosinphils 0.1 thou/uL (0.0-0.7); #Lymphocytes 1.2 thou/uL (1.20-3.40); #Monocytes 1.1 thou/uL (0.11-0.59); #Neutrophils 12.8 thou/uL (1.40-6.50); %Basophils 0.2 % (0.0-1.0); %Eosinophils 0.8 % (0.0-10.0); %Monocytes 7.3 % (0.0-10.0); %Neutrophils 83.7 % (42.0-75.0); Hemoglobin 9.6 g/dL (12.0-16.0); Mean Corpuscular HGB CONC 29.4 g/dL (32.0-36.0); Mean Corpuscular Hemoglobin 22.7 pg (27.0-31.0); Mean Corpuscular Volume 77.1 fL (78.0-98.0); Mean Platelet Volume 8.9 fL (7.4-10.4); Platelet Count 509 thou/uL (130-400); RBC Distribution Width 21.5 % (11.5-14.5); Red Blood Cell (RBC) Count 4.24 mill/uL (4.20-5.40); White Blood Cell (WBC) Count 15.3 thou/uL (4.8-10.8)
--- NOTE | 2018-09-20 14:33 | RAD ---
CHEST 1 VIEW: Date: 09/20/18 INDICATION: Altered mental status and hypoglycemia. COMPARISON: Prior exam dated 04/26/18. FINDINGS: There is cardiomegaly, pulmonary vascular congestion, and perihilar edema. No definite pleural effusi on or pneumothorax is evident. IMPRESSION: Cardiomegaly with pulmonary vascular congestion and perihilar edema. Recommend correlation for CHF. POS: [facility]
[2018-09-20 14:45] LABS: ALT (SGPT) 18 U/L (8-55); AST (SGOT) 22 U/L (5-34); Albumin 3.3 g/dL (3.4-4.8); Alkaline Phosphatase 129 U/L (40-150); Anion Gap 13 mmol/L (10-20); BUN (Urea Nitrogen) 31 mg/dL (9.8-20.1); Bilirubin, Total 0.3 mg/dL (0.2-1.2); CK (CPK) 52 U/L (29-168); Calc. Creatinine Clearance 0 mL/min (70-130); Calcium 9.2 mg/dL (7.8-10.44); Carbon Dioxide 25 mmol/L (23-31); Chloride 104 mmol/L (98-107); Estimated GFR-MDRD 51; Globulin 3.9 g/dL (2.4-3.5); Lipase 25 U/L (8-78); Potassium 4.5 mmol/L (3.5-5.1); Protein, Total 7.2 g/dL (6.0-8.3); Sodium 137 mmol/L (136-145)
[2018-09-20 14:47] LABS: CKMB 4.8 ng/mL (0-6.6); Troponin I Less than 0.010 ng/mL (< 0.028)
[2018-09-20 14:52] LABS: Glucose 20 mg/dL (80-115)
[2018-09-20] MEDS ORDERED: Dextrose 50% Abboject 50 ML SYRINGE ONE ×5 (14:56→23:12)
[2018-09-20] MEDS ORDERED: Sodium Chloride 0.9% 100 ML ONE (15:30)
[2018-09-20] MEDS ORDERED: cefTRIAXone\\ROCEPHIN 2 GM VIAL ONE (15:30)
[2018-09-20] MEDS ORDERED: ALPRAZolam 0.5 MG TAB PO PRN (16:00)
[2018-09-20] MEDS ORDERED: Dextrose 50% Abboject 50 ML SYRINGE SLOW IVP PRN (16:10)
[2018-09-20] MEDS ORDERED: Dextrose 5% in Water 1,000 ML IV PRN ×2 (16:10→22:28)
[2018-09-20] MEDS ORDERED: Dextrose 10% in Water 1,000 ML IV SCH ×2 (16:15→22:30)
[2018-09-20] MEDS ORDERED: Octreotide Acetate 50 MCG/ML AMP SC SCH (16:15)
[2018-09-20] MEDS ORDERED: Colchicine 0.6 MG TAB PO SCH (17:00)
[2018-09-20] MEDS ORDERED: Warfarin Sodium 5 MG TAB PO SCH ×2 (17:00→18:00)
[2018-09-20] MEDS ORDERED: Warfarin Sodium 2.5 MG TAB PO SCH ×2 (17:00→18:00)
[2018-09-20] MEDS ORDERED: Hydrocortisone Sod Succ/PF 100 mg/2 ml Vial IVP SCH ×2 (17:15→18:00)
[2018-09-20] MEDS: SODIUM CHLORIDE IV SCH ×2 (18:29→23:22)
[2018-09-20] MEDS: ADMIXTURE FEE IV SCH ×2 (18:29→23:22)
[2018-09-20] MEDS: [UNRECOGNIZED DRUG - OTHER] IV SCH ×2 (18:29→23:22)
[2018-09-20] MEDS: POTASSIUM CHLORIDE IV SCH ×2 (18:29→23:22)
[2018-09-20] MEDS ORDERED: Amitriptyline HCl 10 MG TAB PO SCH (21:00)
[2018-09-20] MEDS ORDERED: Hydroxychloroquine Sulfate 200 MG TAB PO SCH (21:00)
[2018-09-20] MEDS ORDERED: cloNIDine 0.1 MG TAB PO SCH (21:00)
[2018-09-20] MEDS ORDERED: Pregabalin 50 MG CAP PO SCH (21:00)
--- NOTE | 2018-09-20 21:58 | HP ---
CHIEF COMPLAINT: Hypoglycemia. HISTORY OF PRESENT ILLNESS: Patient is a very pleasant 68-year-old female with multiple medical prob lems including rheumatoid arthritis on chronic steroids, diabetes, and hypertension, who presented to the hospital with complaints of hypoglycemia x1 day. Patient's daughter was at the bedside stated t hat patient was recently sent home from rehab after treating her right foot infection. She has been doing well at home; however, yesterday she started not feeling well. When patient took her blood sug ar at home, her blood sugar was in the 20s and 30s. At this time, she called her daughter who fixed her some food. Her blood sugar improved slightly; however, continued to decline. They tried to keep up with her oral intake to keep her blood sugar within the normal range; however, at 3:45 this morni ng, she again started feeling unwell, at this time, the blood sugar was 20 called the EMS. EMS came and provided the patient with D50 requested to come into the ER; however, patient refused. This morn ing, patient woke up again, she was not feeling well. The blood sugar at this time was 20, so the ruthann barbosa brought her into the hospital for further investigation. Patient denies any recent fevers or chills, any nausea, vomiting, diarrhea, or any change of any medication. She has been taking glimepi ride and for quite a long time. Patient states that she lost maybe some weight and has been eating q uite well, so no change in anything significantly; however, has been trying to cut down on certain fo ods, since she is on Coumadin. According to patient's daughter and patient, they have been battling her INR since she is on Coumadin and also her blood sugars have been on and off low and high or labil e for the past few weeks. Upon reviewing the hospital chart, she also has had a few episodes of hypo glycemia in the past. PAST MEDICAL HISTORY: Extensive patient is type 2 diabetic, morbid obesity, hypertension, gout. She has rheumatoid arthritis. She has had a history of PE. She also has GERD, hypertension. PAST SURGICAL HISTORY: She has had bilateral knee replacement, rotator cuff repair. She has had a h ysterectomy, appendectomy, and right eye cataract surgery. SOCIAL HISTORY: She denies any illicit drug use, tobacco, or alcohol use. FAMILY HISTORY: Coronary artery disease in father and grandmother are both . ALLERGIES: She has got multiple ALLERGIES: PENICILLIN, ANAPHYLAXIS, CODEINE, but able to take NORCO , MORPHINE, NSAIDs, SULFA, STATINS, TRIMETHOPRIM, and PENTAZOCINE. CURRENT MEDICATIONS: This is per her last discharge as of the following medications: Prednisone 5 m g daily, Xanax 0.5 b.i.d. p.r.n., amitriptyline 30 mg at bedtime, amlodipine 5 mg daily, tramadol 50 mg one q.6 hours p.r.n., DuoNeb q.6 hours p.r.n., vitamin D3 of 1000 units daily, clonidine 0.4 mg at bedtime, colchicine 0.6 b.i.d., Flexeril 10 mg b.i.d. p.r.n., enalapril 20 mg daily, glimepiride 2 m g daily, Plaquenil 200 mg b.i.d., levothyroxine 200 mcg daily, Lyrica 50 mg at bedtime, and warfarin 7.5 daily. CODE STATUS: She is a FULL, I have discussed it with patient and patient's daughter. LABORATORY DATA: As of the following: WBCs of 15.3, hemoglobin of 9.6, hematocrit of 32.6. Her MCV is very low at 77.1. Platelets are normal at 509. Her sodium is 137, potassium of 4.1, BUN of 31, creatinine 1.07. Her sugar was 20 when she came in. LFTs were normal. TSH was 1.01. Her troponin x1 was negative. PHYSICAL EXAMINATION: VITAL SIGNS: Patient is hypothermic at 97.0, heart rate is in the 80s, blood pressure is 120/60. Sh e is 99% on room air. GENERAL: She is awake, alert, oriented x3. Patient is very cold. She does have a Janneth Hugger on. CARDIOVASCULAR: S1, S2 present. No murmurs, rubs, or gallops. LUNGS: Clear to auscultation, rhonchi or wheezes noted. ABDOMEN: Obese. Bowel sounds are present x2. EXTREMITIES: No pain upon palpation. Neurovascular ovalle, no focal deficits noted. She does have a small skin scab on her right posterior thigh area. Pedal pulses are present x2 bilaterally. She lorenzana s have mild lower extremity edema bilaterally. SKIN: She does have a little lesion on her right posterior thigh area. NEUROLOGICAL: She is awake, alert, able to move all extremities. ASSESSMENT AND PLAN: The patient is a very pleasant 68-year-old female who presents to the hospital for hypoglycemia. 1. Hypoglycemia. This could be secondary to medications, glimepiride, especially versus maybe some underlying infectious process, we will hold glimepiride for now. We will check Accu-Cheks every 2 or 1 hour. We will admit the patient to the IMCU. We will start her on D10 drip. She was given octre otide in the ER. We also recommend maybe glucagon is another good option. The half life of glimepir marianna is pretty long, maybe there is some interaction with warfarin, however, not really sure. We will check a hemoglobin A1c maybe she does not require glimepiride. For right now, continue all her home medications except for course her diabetes medication. Sepsis workup has been started on this patie nt. However, the source, I do not think she has any sepsis. We will continue the antibiotic for 24 hours and if everything is stable, may discontinue the antibiotic in the morning. We will also give her a little stress dose of steroids some Solu-Cortef, which could also mineralocorticoid deficiency is also a possibility may be could worsen the effects of hypoglycemia in this patient. We will check a cortisol level in the morning. Her TSH was normal. 2. Rheumatoid arthritis. We will continue home medications. 3. She does have microcytic anemia. We will check iron studies, ferritin, and retic count. 4. Deep venous thrombosis prophylaxis. We will put patient on sequential compression devices or hep gualberto subcutaneous for now. 5. History of pulmonary embolism. We will continue the warfarin. 6. History of hypothyroidism. We will continue her Synthroid.
[2018-09-20 22:44] LABS: Prothrombin Time 13.5 SEC (12.0-14.7)
[2018-09-20] MEDS ORDERED: Warfarin Sodium 7.5 MG TAB PO SCH (23:45)
[2018-09-21] MEDS ORDERED: Dextrose 50% Abboject 50 ML SYRINGE ONE ×3 (01:02→06:30)
[2018-09-21 02:22] LABS: INR-International Normal Ratio 1.1; Prothrombin Time 14.2 SEC (12.0-14.7)
[2018-09-21] MEDS: Oxymetazoline HCl 0.05% ( 15 ML ) NASAL PRN ×3 (03:07→22:07)
[2018-09-21] MEDS: Dextrose 50% Abboject 50 ML SYRINGE SLOW IVP PRN ×2 (03:40→10:33)
[2018-09-21] MEDS: ADMIXTURE FEE IV SCH ×3 (05:49→22:15)
[2018-09-21] MEDS: SODIUM CHLORIDE IV SCH ×3 (05:49→22:15)
[2018-09-21] MEDS: Levothyroxine Sodium 100 MCG TAB PO SCH (05:49)
[2018-09-21] MEDS: [UNRECOGNIZED DRUG - OTHER] IV SCH ×3 (05:49→22:15)
[2018-09-21] MEDS: POTASSIUM CHLORIDE IV SCH ×3 (05:49→22:15)
[2018-09-21 05:53] LABS: #Eosinphils 0.1 thou/uL (0.0-0.7); #Lymphocytes 2.3 thou/uL (1.20-3.40); #Monocytes 1.6 thou/uL (0.11-0.59); %Basophils 0.1 % (0.0-1.0); %Eosinophils 0.6 % (0.0-10.0); %Lymphocytes 13.4 % (21.0-51.0); %Monocytes 9.6 % (0.0-10.0); %Neutrophils 76.2 % (42.0-75.0); Hemoglobin 8.5 g/dL (12.0-16.0); Mean Corpuscular HGB CONC 29.2 g/dL (32.0-36.0); Mean Corpuscular Hemoglobin 22.4 pg (27.0-31.0); Mean Corpuscular Volume 76.6 fL (78.0-98.0); Platelet Count 414 thou/uL (130-400); RBC Distribution Width 21.9 % (11.5-14.5); White Blood Cell (WBC) Count 17.1 thou/uL (4.8-10.8)
[2018-09-21] MEDS ORDERED: Levothyroxine Sodium 100 MCG TAB PO SCH (06:00)
[2018-09-21 06:03] LABS: Hemoglobin A1c 5.8 % (4.0-6.0)
[2018-09-21 06:26] LABS: Anion Gap 13 mmol/L (10-20); BUN (Urea Nitrogen) 26 mg/dL (9.8-20.1); Calc. Creatinine Clearance 94 mL/min (70-130); Calcium 8.8 mg/dL (7.8-10.44); Carbon Dioxide 22 mmol/L (23-31); Chloride 105 mmol/L (98-107); Estimated GFR-MDRD 44; Potassium 5.7 mmol/L (3.5-5.1); Sodium 134 mmol/L (136-145)
[2018-09-21 06:28] LABS: Glucose 38 mg/dL (80-115)
[2018-09-21] MEDS ORDERED: Amlodipine 5 MG TAB PO SCH (09:00)
[2018-09-21] MEDS ORDERED: Saccharomyces boulardii 250 MG CAP PO SCH (09:00)
[2018-09-21] MEDS ORDERED: Febuxostat [Uloric] 80 MG PO SCH ×2 (09:00)
[2018-09-21] MEDS ORDERED: Prevnar 13-Val Conj/PF 0.5 ML SYRINGE IM ONE (09:00)
[2018-09-21] MEDS ORDERED: Pregabalin 50 MG CAP PO SCH (09:00)
[2018-09-21] MEDS ORDERED: Hydrocortisone Sod Succ/PF 100 mg/2 ml Vial IVP SCH (09:00)
[2018-09-21] MEDS: Amlodipine 5 MG TAB PO SCH (09:10)
[2018-09-21] MEDS: Colchicine 0.6 MG TAB PO SCH ×2 (09:10→16:01)
[2018-09-21] MEDS: Pregabalin 50 MG CAP PO SCH ×3 (09:12→20:16)
[2018-09-21] MEDS: Hydroxychloroquine Sulfate 200 MG TAB PO SCH ×2 (09:17→20:16)
[2018-09-21] MEDS: Saccharomyces boulardii 250 MG CAP PO SCH (09:17)
[2018-09-21] MEDS: Acetaminophen 1,000 MG in Premix Bag 1 BAG IVPB PRN ×2 (09:35→17:41)
[2018-09-21 10:53] LABS: Ref Lab Test Ordered PRO-INSILIN; Reference Lab Name LABCORP
[2018-09-21 10:55] LABS: Reference Lab Name LABCORP
[2018-09-21 10:56] LABS: Ref Lab Test Ordered URINE Sulfonylurea; Reference Lab Name LABCORP
[2018-09-21 13:10] LABS: Actual Bicarbonate (HCO3v) 25 mEq/L (22-28); Base Excess 0.4 mEq/L (-2.0 to +3.0); Calcium, Ionized 1.03 mmol/L (1.16-1.32); Chloride (ABG LAB) 102 mmol/L (98-106); Hemoglobin (Hb) 10.3 g/dL (11.7-16.1); Potassium - ABG Lab 5.65 mmol/L (3.70-5.30); pH (venous) 7.44 (7.32-7.43)
[2018-09-21] MEDS ORDERED: Sterile Water Injection 714 ML in Dextrose 70% in Water 286 ML IV SCH (13:15)
[2018-09-21 13:20] LABS: Anion Gap 11 mmol/L (10-20); BUN (Urea Nitrogen) 25 mg/dL (9.8-20.1); Calc. Creatinine Clearance 94 mL/min (70-130); Calcium 9.1 mg/dL (7.8-10.44); Carbon Dioxide 24 mmol/L (23-31); Chloride 102 mmol/L (98-107); Estimated GFR-MDRD 44; Glucose 140 mg/dL (80-115); Magnesium 1.2 mg/dL (1.6-2.6); Phosphorus 2.8 mg/dL (2.3-4.7); Potassium 5.5 mmol/L (3.5-5.1); Sodium 131 mmol/L (136-145)
[2018-09-21] MEDS ORDERED: Magnesium Sulfate 4 GM in Sodium Chloride 0.9% 250 ML 250 ML IVPB SCH (14:15)
[2018-09-21] MEDS ORDERED: WARFARIN PO PRN (14:15)
[2018-09-21] MEDS: Warfarin Sodium 7.5 MG TAB PO SCH (16:01)
[2018-09-21] MEDS: Hydrocortisone Sod Succ/PF 100 mg/2 ml Vial IVP SCH ×2 (17:36→20:13)
--- NOTE | 2018-09-21 19:47 | CON ---
DATE OF CONSULTATION: 09/21/2018 Tg Renteria is a very pleasant woman who apparently has presented with multiple episodes of hypoglycemia. She is on oral hyperglycemic agents ( glimepiride) and denies taking extra glimepiride or missing her prednisone. This is not something that happened multiple times in the past according to her daughter. She was just in the hospital earlier this month and discharged with MRSA bacteremia. She was seen by Dr. Grissom and below the knee amputation of her right foot was offered. She declined, so incision and drainage and a wound VAC was applied. Apparently, wound looked good at discharge. She was walking with a walker at discharge. She presented back to the hospital 6 days after discharge with altered mental status and hypoglycemia. PAST MEDICAL HISTORY: Remarkable for, 1. Longstanding type 2 diabetes. 2. Obesity. 3. Hypertension. 4. Rheumatoid arthritis. 5. History of pulmonary embolism in the past. 6. Reflux disease. 7. Hypertension. 8. History of bilateral knee replacements. 9. Rotator cuff repair. 10. Status post hysterectomy. 11. History of cataract surgery. 12. History of appendectomy. ALLERGIES: Reports allergies to PENICILLIN, CODEINE, MORPHINE, NONSTEROIDALS, SULFA, STATINS, TRIMETHOPRIM and PENTAZOCINE. FAMILY HISTORY: Positive for vascular disease. SOCIAL HISTORY: She is nonsmoker, nondrinker, does not use drugs. MEDICATIONS PRIOR TO ADMISSION: Have been reviewed. REVIEW OF SYSTEMS: 10 point review of systems completed, otherwise negative. PHYSICAL EXAMINATION: GENERAL: Tg Renteria is a very pleasant woman who apparently has presented with multiple episodes of hypoglycemia. VITALS: She is afebrile, heart rate 73. Blood pressure 149/71, respiratory rate is 20, oximetry is 100% on 3 liters. HEENT: Pupils react. EYES: Sclerae is anicteric. NECK: Supple. No lymphadenopathy. LUNGS: Clear. HEART: Regular rhythm. ABDOMEN: Soft and nontender. LABORATORY AND X-RAY FINDINGS: White count 17.1, hemoglobin 8.5, platelets 414. Sodium 131, potassium 5.5, chloride 102, BUN 24, creatinine 1.22. Glucose on multiple occasions she has been admitted, been 40 or less. We switched her to D20 earlier and increased the rate and her last glucose is 183. IMPRESSION: Recurrent hypoglycemia.? secondary to an oral agent. It is unclear what her p.o. intake has been, whether or not she inadvertently took more of her oral agent than was ordered. She will be in the hospital for several days. She will probably move out to a medical bed tomorrow. We will be happy to follow with the other physicians caring for her. This is a 50 minute consult with greater than 50% of time spent on unit with coordination of care. KARI
[2018-09-21] MEDS: cloNIDine 0.1 MG TAB PO SCH (20:15)
[2018-09-21] MEDS: Amitriptyline HCl 10 MG TAB PO SCH (20:15)
[2018-09-21] MEDS: ALPRAZolam 0.5 MG TAB PO PRN (22:07)
--- NOTE | 2018-09-21 23:38 | PDOC.PN ---
- Subjective Encounter Start Date: 09/21/18 Encounter Start Time: 11:30 Patient seen and examined for Encephalopathy/Hypoglycemia. Feels gen weak. No new complaints. No overnight events - Objective MAR Reviewed: Yes Vital Signs & Weight: Vital Signs (12 hours) Temp Pulse Resp BP BP Pulse Ox 09/21/18 20:15 149/71 H 09/21/18 20:00 99 09/21/18 19:40 98.7 F 98 27 H 142/65 H 99 09/21/18 15:56 98.7 F 94 25 H 145/98 H 99 Weight Admit Weight 305 lb 1.6 oz Weight 305 lb 1.6 oz I&O: 09/20/18 09/21/18 09/22/18 06:59 06:59 06:59 Intake Total 1100 2350 Output Total 600 Balance 1100 1750 Result Diagrams: 09/21/18 05:32 09/21/18 12:24 Additional Labs: Accuchecks 09/21/18 09/21/18 09/21/18 22:03 20:00 17:58 POC Glucose 343 H 260 H 164 H 09/21/18 09/21/18 09/21/18 15:39 13:06 11:23 POC Glucose 147 H 183 H 124 H 09/21/18 09/21/18 09/20/18 10:13 07:57 15:47 POC Glucose Less than 35 L* 81 80 09/20/18 09/20/18 09/20/18 15:01 14:56 12:30 POC Glucose 36 L* 40 L* 77 EKG Reviewed by me: Yes (Tele SR) Phys Exam - Physical Examination Constitutional: NAD Respiratory: no wheezing, no rhonchi Cardiovascular: RRR, no rub Gastrointestinal: soft, non-tender, positive bowel sounds Musculoskeletal: no edema Neurological: moves all 4 limbs Dx/Plan - Plan DVT proph w/SCDs IMPRESSION / PLAN: 1. Encephalopathy due to Suflonylureas induced Hypoglycemia Glimepiride on hold Con IV Dextrose Increase IV Steroid dose 2. Hyperkalemia ?etio Low Potassium diet VBG done Hold ACEI 3. UTI Received Ceftriaxone in ER Start Levaquin No urine cultures sent 4. DM2 As above 5. HTN Cont to monitor 6. Morbid Obesity BMI 47.8 Review of Systems - Review of Systems Respiratory: negative: Cough, Dry, Shortness of Breath, Hemoptysis, SOB with Excertion, Pleuritic Pain, Sputum, Wheezing Cardiovascular: negative: chest pain, palpitations, orthopnea, paroxysmal nocturnal dyspnea, edema, light headedness, other - Medications/Allergies Allergies/Adverse Reactions: Allergies Allergy/AdvReac Type Severity Reaction Status Date / Time aspirin Allergy Severe Anaphylaxis Verified 07/14/18 23:49 [From [employer]ward[employer] Compound] codeine Allergy Severe Rash Verified 07/14/18 23:49 morphine Allergy Severe Anaphylaxis Verified 07/14/18 23:49 NSAIDS (Non-Steroidal Allergy Severe Verified 07/14/18 23:49 Anti-Inflamma Penicillins Allergy Severe Anaphylaxis Verified 07/14/18 23:49 pentazocine HCl Allergy Severe Anaphylaxis Verified 07/14/18 23:49 [From [employer]Artwardly Compound] [id number]-Dry Reductase Allergy Severe Verified 07/14/18 23:49 Inhibitor chocolate flavor Allergy Verified 07/14/18 23:49 ottoniel Allergy Verified 07/14/18 23:49 Sulfa (Sulfonamide Allergy Verified 07/14/18 23:49 Antibiotics) sulfamethoxazole Allergy Verified 07/14/18 23:49 [From Bactrim] trimethoprim [From Bactrim] Allergy Verified 07/14/18 23:49 Medications: Current Medications Alprazolam (Xanax) 0.5 mg PO BIDPRN PRN PRN Reason: Anxiety Last Admin: 09/21/18 22:07 Dose: 0.5 mg Amitriptyline HCl (Elavil) 30 mg PO HS [facility] Last Admin: 09/21/18 20:15 Dose: 30 mg Amlodipine Besylate (Norvasc) 5 mg PO DAILY [facility] Last Admin: 09/21/18 09:10 Dose: 5 mg Cholecalciferol (Vitamin D3) 1,000 units PO DAILY [facility] Last Admin: 09/21/18 09:11 Dose: 1,000 units Clonidine (Catapres) 0.4 mg PO HS [facility] Last Admin: 09/21/18 20:15 Dose: 0.4 mg Colchicine (Colcrys) 0.6 mg PO BID-[facility] Last Admin: 09/21/18 16:01 Dose: 0.6 mg Dextrose/Water (Dextrose 50%) 25 gm SLOW IVP PRN PRN PRN Reason: Hypoglycemia Last Admin: 09/21/18 10:33 Dose: 25 gm Glucagon (Glucagon) 1 mg IM PRN PRN PRN Reason: Hypoglycemia Last Admin: 09/21/18 10:40 Dose: 1 mg Hydrocortisone Sodium Succinate (Solu-Cortef) 50 mg IVP Q6H [facility] Last Admin: 09/21/18 20:13 Dose: 50 mg Hydroxychloroquine Sulfate (Plaquenil) 200 mg PO BID [facility] Last Admin: 09/21/18 20:16 Dose: 200 mg Dextrose/Water (D5w) 1,000 mls @ 0 mls/hr IV .Q0M PRN PRN Reason: Hypoglycemia Acetaminophen 1,000 mg/ Device 100 mls @ 400 mls/hr IVPB Q6H PRN PRN Reason: FEVER/MILD PAIN 1-3 Stop: 09/22/18 02:57 Last Admin: 09/21/18 17:41 Dose: 100 mls Levofloxacin 500 mg/ Device 100 mls @ 100 mls/hr IVPB Q24HR [facility] Last Admin: 09/21/18 16:00 Dose: 100 mls Levothyroxine Sodium (Synthroid) 200 mcg PO 0600 [facility] Last Admin: 09/21/18 05:49 Dose: Not Given Miscellaneous Medication (Pharmacy To Dose) 1 each PO DAILYPRN PRN PRN Reason: LABS Oxymetazoline HCl (Oxymetazoline Hcl) 0 sprays NASAL Q12H PRN PRN Reason: Nasal Congestion Last Admin: 09/21/18 22:07 Dose: 1 spr Pantoprazole Sodium (Protonix) 40 mg PO QAM-WM [facility] Last Admin: 09/21/18 09:10 Dose: 40 mg Febuxostat [Uloric] (80 Mg) 1 each PO DAILY [facility] Pregabalin (Lyrica) 50 mg PO BID [facility] Last Admin: 09/21/18 20:16 Dose: 50 mg Pregabalin (Lyrica) 100 mg PO QAM [facility] Last Admin: 09/21/18 09:15 Dose: 100 mg Saccharomyces Boulardii (Florastor) 250 mg PO DAILY [facility] Last Admin: 09/21/18 09:17 Dose: 250 mg Sodium Chloride (Flush - Normal Saline) 10 ml IVF Q12HR [facility] Last Admin: 09/21/18 20:17 Dose: 10 ml Sodium Chloride (Flush - Normal Saline) 10 ml IVF PRN PRN PRN Reason: Saline Flush Last Admin: 09/21/18 17:37 Dose: 10 ml Warfarin Sodium (Coumadin) 7.5 mg PO 1700 [facility] Last Admin: 09/21/18 16:01 Dose: 7.5 mg
[2018-09-22] MEDS: Levothyroxine Sodium 100 MCG TAB PO SCH (05:46)
[2018-09-22 06:04] LABS: #Lymphocytes 1.5 thou/uL (1.20-3.40); #Monocytes 0.8 thou/uL (0.11-0.59); #Neutrophils 6.3 thou/uL (1.40-6.50); %Basophils 0.2 % (0.0-1.0); %Eosinophils 0.2 % (0.0-10.0); %Lymphocytes 16.9 % (21.0-51.0); %Neutrophils 73.7 % (42.0-75.0); Hemoglobin 8.6 g/dL (12.0-16.0); Mean Corpuscular Hemoglobin 22.8 pg (27.0-31.0); Mean Platelet Volume 9.7 fL (7.4-10.4); Platelet Count 364 thou/uL (130-400); RBC Distribution Width 21.7 % (11.5-14.5); Red Blood Cell (RBC) Count 3.77 mill/uL (4.20-5.40); White Blood Cell (WBC) Count 8.6 thou/uL (4.8-10.8)
[2018-09-22 06:10] LABS: INR-International Normal Ratio 1.1; Prothrombin Time 13.8 SEC (12.0-14.7)
[2018-09-22 06:23] LABS: ALT (SGPT) 21 U/L (8-55); AST (SGOT) 20 U/L (5-34); Albumin 2.9 g/dL (3.4-4.8); Alkaline Phosphatase 125 U/L (40-150); Anion Gap 14 mmol/L (10-20); BUN (Urea Nitrogen) 25 mg/dL (9.8-20.1); Bilirubin, Total 0.2 mg/dL (0.2-1.2); Calc. Creatinine Clearance 83 mL/min (70-130); Calcium 9.2 mg/dL (7.8-10.44); Carbon Dioxide 24 mmol/L (23-31); Chloride 101 mmol/L (98-107); Estimated GFR-MDRD 38; Globulin 3.4 g/dL (2.4-3.5); Glucose 301 mg/dL (80-115); Protein, Total 6.3 g/dL (6.0-8.3); Sodium 134 mmol/L (136-145)
[2018-09-22] MEDS ORDERED: Dextrose 5% in Water 1,000 ML IV PRN (07:47)
[2018-09-22] MEDS ORDERED: Dextrose 50% Abboject 50 ML SYRINGE SLOW IVP PRN (07:47)
[2018-09-22] MEDS: predniSONE 20 MG TAB PO SCH (08:32)
[2018-09-22] MEDS: Hydroxychloroquine Sulfate 200 MG TAB PO SCH ×2 (08:32→21:06)
[2018-09-22] MEDS: Pregabalin 50 MG CAP PO SCH ×3 (08:32→21:06)
[2018-09-22] MEDS: Saccharomyces boulardii 250 MG CAP PO SCH (08:33)
[2018-09-22] MEDS: Colchicine 0.6 MG TAB PO SCH ×2 (08:33→17:23)
[2018-09-22] MEDS: Amlodipine 5 MG TAB PO SCH (08:33)
--- NOTE | 2018-09-22 13:29 | PDOC.PN ---
- Subjective Encounter Start Date: 09/22/18 Encounter Start Time: 11:00 Subjective: pt up in bed no complains - Objective Vital Signs & Weight: Vital Signs (12 hours) Temp Pulse Resp BP BP Pulse Ox 09/22/18 12:43 98.3 F 85 16 129/69 94 L 09/22/18 08:33 96 114/67 09/22/18 07:32 98 09/22/18 04:16 98.1 F 96 24 H 123/70 98 Weight Admit Weight 305 lb 1.6 oz Weight 305 lb 1.6 oz I&O: 09/21/18 09/22/18 09/23/18 06:59 06:59 06:59 Intake Total 1100 3040 Output Total 3500 Balance 1100 -460 Result Diagrams: 09/22/18 04:51 09/22/18 04:51 Additional Labs: Accuchecks 09/22/18 09/22/18 09/22/18 12:05 10:05 08:15 POC Glucose 215 H 148 H 189 H 09/22/18 09/22/18 09/22/18 06:05 04:32 02:03 POC Glucose 257 H 318 H 357 H 09/22/18 09/21/18 09/21/18 00:42 22:03 20:00 POC Glucose 335 H 343 H 260 H 09/21/18 09/21/18 17:58 15:39 POC Glucose 164 H 147 H Phys Exam - Physical Examination Respiratory: no wheezing, no rales, no rhonchi, wheezing present, clear to auscultation bilateral Cardiovascular: RRR, no significant murmur, no rub, gallop, irregular Gastrointestinal: soft, non-tender, no distention, positive bowel sounds Musculoskeletal: no edema, pulses present, edema present Dx/Plan (1) Hypoglycemia Code(s): E16.2 - HYPOGLYCEMIA, UNSPECIFIED Status: Acute (2) Rheumatoid arthritis Code(s): M06.9 - RHEUMATOID ARTHRITIS, UNSPECIFIED Status: Acute (3) Anemia Code(s): D64.9 - ANEMIA, UNSPECIFIED Status: Chronic Qualifiers: Anemia type: unspecified type Qualified Code(s): D64.9 - Anemia, unspecified Comment: continue to monitor hemoglobin levels, ? due to sepsis (4) Diabetes type 2, controlled Code(s): E11.9 - TYPE 2 DIABETES MELLITUS WITHOUT COMPLICATIONS Status: Chronic Qualifiers: Diabetes mellitus fdc insulin use: without fdc use Diabetes mellitus complication status: with kidney complications Diabetes mellitus complication detail: with chronic kidney disease Chronic kidney disease stage : stage 3 (moderate) Qualified Code(s): E11.22 - Type 2 diabetes mellitus with diabetic chronic kidney disease; N18.3 - Chronic kidney disease, stage 3 ( moderate) Comment: continue accuchecks and insulin sliding scale. - Plan will hold glimepride -: pt put on insulin sliding scale and lantus -: will check hbg alc. -: will get PT to see pt, possible discharge in am -: inr is subtheraputic * . Review of Systems - Review of Systems Cardiovascular: negative: chest pain, palpitations, orthopnea, paroxysmal nocturnal dyspnea, edema, light headedness, other Gastrointestinal: negative: Nausea, Vomiting, Abdominal Pain, Diarrhea, Constipation, Melena, Hematochezia, Other Genitourinary: negative: Dysuria, Frequency, Incontinence, Hematuria, Retention , Other - Medications/Allergies Allergies/Adverse Reactions: Allergies Allergy/AdvReac Type Severity Reaction Status Date / Time aspirin Allergy Severe Anaphylaxis Verified 07/14/18 23:49 [From [employer] Compound] codeine Allergy Severe Rash Verified 07/14/18 23:49 morphine Allergy Severe Anaphylaxis Verified 07/14/18 23:49 NSAIDS (Non-Steroidal Allergy Severe Verified 07/14/18 23:49 Anti-Inflamma Penicillins Allergy Severe Anaphylaxis Verified 07/14/18 23:49 pentazocine HCl Allergy Severe Anaphylaxis Verified 07/14/18 23:49 [From [employer]win Compound] [id number]-[id number]-Rwx Reductase Allergy Severe Verified 07/14/18 23:49 Inhibitor chocolate flavor Allergy Verified 07/14/18 23:49 ottoniel Allergy Verified 07/14/18 23:49 Sulfa (Sulfonamide Allergy Verified 07/14/18 23:49 Antibiotics) sulfamethoxazole Allergy Verified 07/14/18 23:49 [From Bactrim] trimethoprim [From Bactrim] Allergy Verified 07/14/18 23:49 Medications: Current Medications Alprazolam (Xanax) 0.5 mg PO BIDPRN PRN PRN Reason: Anxiety Last Admin: 09/21/18 22:07 Dose: 0.5 mg Amitriptyline HCl (Elavil) 30 mg PO HS [facility] Last Admin: 09/21/18 20:15 Dose: 30 mg Amlodipine Besylate (Norvasc) 5 mg PO DAILY [facility] Last Admin: 09/22/18 08:33 Dose: 5 mg Cholecalciferol (Vitamin D3) 1,000 units PO DAILY [facility] Last Admin: 09/22/18 08:32 Dose: 1,000 units Clonidine (Catapres) 0.4 mg PO [facility] Last Admin: 09/21/18 20:15 Dose: 0.4 mg Colchicine (Colcrys) 0.6 mg PO BID-[facility] Last Admin: 09/22/18 08:33 Dose: 0.6 mg Dextrose/Water (Dextrose 50%) 25 gm SLOW IVP PRN PRN PRN Reason: Hypoglycemia Glucagon (Glucagon) 1 mg IM PRN PRN PRN Reason: Hypoglycemia Hydroxychloroquine Sulfate (Plaquenil) 200 mg PO BID [facility] Last Admin: 09/22/18 08:32 Dose: 200 mg Levofloxacin 500 mg/ Device 100 mls @ 100 mls/hr IVPB Q24HR [facility] Last Admin: 09/21/18 16:00 Dose: 100 mls Dextrose/Water (D5w) 1,000 mls @ 0 mls/hr IV .Q0M PRN PRN Reason: Hypoglycemia Insulin Human Lispro (Humalog) 0 units SC .MILD SLIDING SCALE PRN PRN Reason: Mild Correctional Scale Levothyroxine Sodium (Synthroid) 200 mcg PO 0600 [facility] Last Admin: 09/22/18 05:46 Dose: 200 mcg Miscellaneous Medication (Pharmacy To Dose) 1 each PO DAILYPRN PRN PRN Reason: LABS Oxymetazoline HCl (Oxymetazoline Hcl) 0 sprays NASAL Q12H PRN PRN Reason: Nasal Congestion Last Admin: 09/21/18 22:07 Dose: 1 spr Pantoprazole Sodium (Protonix) 40 mg PO QAM-[facility] Last Admin: 09/22/18 08:32 Dose: 40 mg Febuxostat [Uloric] (80 Mg) 1 each PO DAILY [facility] Prednisone (Prednisone) 20 mg PO QAM-[facility] Last Admin: 09/22/18 08:32 Dose: 20 mg Pregabalin (Lyrica) 50 mg PO BID [facility] Last Admin: 09/22/18 08:33 Dose: 50 mg Pregabalin (Lyrica) 100 mg PO QAM [facility] Last Admin: 09/22/18 08:32 Dose: 100 mg Saccharomyces Boulardii (Florastor) 250 mg PO DAILY [facility] Last Admin: 09/22/18 08:33 Dose: 250 mg Sodium Chloride (Flush - Normal Saline) 10 ml IVF Q12HR [facility] Last Admin: 09/22/18 08:34 Dose: 10 ml Sodium Chloride (Flush - Normal Saline) 10 ml IVF PRN PRN PRN Reason: Saline Flush Last Admin: 09/21/18 17:37 Dose: 10 ml Warfarin Sodium (Coumadin) 7.5 mg PO 1700 [facility] Last Admin: 09/21/18 16:01 Dose: 7.5 mg
[2018-09-22 13:50] LABS: Hemoglobin A1c 5.8 % (4.0-6.0)
--- NOTE | 2018-09-22 13:52 | PQF ---
DATE: 09-22-18 ATTN : DR. RAVI PRITCHARD Please exercise your independent, professional judgment in responding to the clarification form. Clinical indicators are provided on the bottom of this form for your review Please check appropriate box(s): [ x ] Encephalopathy: Type: [ x ] Acute [ ] Subacute [ ] Chronic Etiology: [ ] Hypertensive [ ] Metabolic [ ] Toxic [ ] Drug induced: [ ] Other (please specify) [ ] Transient Alteration of Awareness [ ] Other diagnosis [ ] Unable to determine In addition, please specify: Present on Admission (POA): [ x ] Yes [ ] No [ ] Unable to determine For continuity of documentation, please document condition throughout progress notes and discharge summary. Thank You. CLINICAL INDICATORS - SIGNS / SYMPTOMS / LABS CONSULT NOTE DR. ANDREWS 09-21-18: * ENCEPHALOPATHY DUE TO SULFONYLUREAS INDUCED HYPOGLYCEMIA, GLIMEPIRIDE ON HOLD , CONTINUE IV DEXTROSE, INCREASE IV STEROID DOSE RISK FACTORS: * CONSULT NOTE DR. ANDREWS 09-21-18: ENCEPHALOPATHY DUE TO SULFONYLUREAS INDUCED HYPOGLYCEMIA, GLIMEPIRIDE ON HOLD, CONTINUE IV DEXTROSE, INCREASE IV STEROID DOSE GLUCOSE: 09-20-18: 40, 36, 80, 36, LESS THAN 35, 73, 81, 43, 81, LESS THAN 35 TREATMENTS: * CONSULT NOTE DR. ANDREWS 09-21-18: GLIMEPIRIDE ON HOLD, CONTINUE IV DEXTROSE, INCREASE IV STEROID DOSE * H&P: WE WILL CHECK ACCUCHECKS EVERY 2 OR 1 HR, WE WILL ADMIT TO IMCU. WE WILL START HER ON D10 DRIP. (This form is maintained as a part of the permanent medical record) 2014 [employer]. All Rights Reserved [email or web address] [email or web address] Office: [phone] [facility]
--- NOTE | 2018-09-22 14:08 | PQF ---
DATE: 09-22-18 ATTN: DR. RAVI PRITCHARD Please exercise your independent, professional judgment in responding to the clarification form. Clinical indicators are provided on the bottom of this form for your review Please check appropriate box(s): [ ] Acute Renal Failure (ARF) / Acute Kidney Injury (CHIO) [ ] Insignificant Lab Values [ ] Other diagnosis [ x] Unable to determine In addition, please specify: Present on Admission (POA): [ ] Yes [ ] No [ x ] Unable to determine National Kidney Foundation Guidelines for CKD Staging Stage I Kidney damage with normal or increased GFR GFR > 90 Stage II Kidney damage with mildly decreased GFR GFR 60-89 Stage III Kidney damage with moderately decreased GFR GFR 30-59 Stage IV Kidney damage with severely decreased GFR GFR 16-29 Stage V Kidney failure GFR<15 ESRD End Stage Renal Disease On dialysis Acute Renal Failure/Acute Kidney Failure defined as: Increases in SCr by (>) 0.3 mg/dl within 48 hours OR- Increases in SCr by (>) 1.5 times baseline, known or presumed to have occurred within the prior 7 days OR- Urine volume < 0.5 ml/kg/hour for 6 hours (KDIGO supplement 2012 for RIFLE/SAVAGE criteria) For continuity of documentation, please document condition throughout progress notes and discharge summary. Thank You. CLINICAL INDICATORS - SIGNS / SYMPTOMS / LABS GFR: 09-20-18: 51 09-21-18: 44 09-21-18: 44 09-22-18: 37 CREATININE: 09-20-18: 1.07 09-21-18: 1.22 09-21-18: 1.22 09-22-18: 1.38 BUN: 09-20-18: 31 09-21-18: 26 09-21-18: 25 09-22-18: 25 RISK FACTORS: * H&P: FEMALE WITH MULTIPLE MEDICAL PROBLEMS INCLUDING RA ON CHRONIC STEROIDS , DM, HTN, IN WITH HYPOGLYCEMIA ON GLIMEPIRIDE TREATMENTS: * ER: NS IVF, DEXTROSE 50% IN WATER, D10 1/2 NS WITH 20KCL IVF (This form is maintained as a part of the permanent medical record) 2014 [employer] All Rights Reserved [email or web address] [email or web address] Office: [phone] KARI
--- NOTE | 2018-09-22 15:36 | PRG ---
DATE OF SERVICE: 09/22/2018 Ms. Renteria did well overnight. She is off her glucose infusions. Blood glucoses have drifted up. PHYSICAL EXAMINATION: VITAL SIGNS: She is afebrile, heart rate is 85, respiratory rate 16, oximetry is 94% on room air. LUNGS: Clear. HEART: Regular rhythm. ABDOMEN: Soft. LABORATORY DATA: White count 8.6, hemoglobin 8.6, platelets 364. Glucoses today have been between 148 and 309. Sodium 134, potassium 5, chloride 101, bicarbonate 24, BUN 25, creatinine 1.38. IMPRESSION: 1. Hypoglycemia? related to delayed clearance of an oral agent. 2. Chronic kidney disease. 3. Obesity. 4. Deconditioning. PLAN: Continue observation. She can move out of the intermediate care unit in my opinion. KARI
[2018-09-22] MEDS: Warfarin Sodium 7.5 MG TAB PO SCH (17:23)
[2018-09-22] MEDS: HumaLOG 300 UNITS/3 ML VIAL SC PRN ×2 (17:34→21:06)
[2018-09-22] MEDS: Amitriptyline HCl 10 MG TAB PO SCH (21:05)
[2018-09-22] MEDS: cloNIDine 0.1 MG TAB PO SCH (21:05)
[2018-09-22] MEDS: ALPRAZolam 0.5 MG TAB PO PRN (21:05)
[2018-09-23 04:05] LABS: INR-International Normal Ratio 1.1; Prothrombin Time 13.8 SEC (12.0-14.7)
[2018-09-23] MEDS: Levothyroxine Sodium 100 MCG TAB PO SCH (05:21)
[2018-09-23] MEDS: predniSONE 20 MG TAB PO SCH (09:07)
[2018-09-23] MEDS: Saccharomyces boulardii 250 MG CAP PO SCH (09:07)
[2018-09-23] MEDS: Hydroxychloroquine Sulfate 200 MG TAB PO SCH ×2 (09:07→20:41)
[2018-09-23] MEDS: Pregabalin 50 MG CAP PO SCH ×3 (09:07→20:41)
[2018-09-23] MEDS: Colchicine 0.6 MG TAB PO SCH ×2 (09:07→17:10)
[2018-09-23] MEDS: Amlodipine 5 MG TAB PO SCH (09:08)
[2018-09-23] MEDS: HumaLOG 300 UNITS/3 ML VIAL SC PRN ×2 (10:50→17:12)
[2018-09-23 13:49] VITALS: BMI 46.0
--- NOTE | 2018-09-23 14:15 | PDOC.PN ---
- Subjective Encounter Start Date: 09/23/18 Encounter Start Time: 11:11 Subjective: pt up in bed no complains - Objective Vital Signs & Weight: Vital Signs (12 hours) Temp Pulse Resp BP BP Pulse Ox 09/23/18 11:25 98.1 F 95 19 119/87 95 09/23/18 09:08 89 119/75 09/23/18 07:48 97.9 F 89 18 129/65 95 09/23/18 07:25 94 L 09/23/18 04:16 98.7 F 81 19 111/61 94 L Weight Admit Weight 305 lb 1.6 oz Weight 293 lb 12.8 oz I&O: 09/22/18 09/23/18 09/24/18 06:59 06:59 06:59 Intake Total 3040 1460 Output Total 3500 2200 Balance -460 -740 Result Diagrams: 09/22/18 04:51 09/22/18 04:51 Additional Labs: Accuchecks 09/23/18 09/23/18 09/22/18 10:34 00:23 20:27 POC Glucose 204 H 142 H 233 H 09/22/18 09/22/18 17:31 14:58 POC Glucose 314 H 309 H Phys Exam - Physical Examination Neck: no nodes, no JVD, supple, full ROM Respiratory: no wheezing, no rales, no rhonchi, wheezing present, clear to auscultation bilateral Cardiovascular: RRR, no significant murmur, no rub, gallop, irregular Gastrointestinal: soft, non-tender, no distention, positive bowel sounds Dx/Plan (1) Hypoglycemia Code(s): E16.2 - HYPOGLYCEMIA, UNSPECIFIED Status: Acute (2) Rheumatoid arthritis Code(s): M06.9 - RHEUMATOID ARTHRITIS, UNSPECIFIED Status: Acute (3) Anemia Code(s): D64.9 - ANEMIA, UNSPECIFIED Status: Chronic Qualifiers: Anemia type: unspecified type Qualified Code(s): D64.9 - Anemia, unspecified Comment: continue to monitor hemoglobin levels, ? due to sepsis (4) Diabetes type 2, controlled Code(s): E11.9 - TYPE 2 DIABETES MELLITUS WITHOUT COMPLICATIONS Status: Chronic Qualifiers: Diabetes mellitus shelter insulin use: without shelter use Diabetes mellitus complication status: with kidney complications Diabetes mellitus complication detail: with chronic kidney disease Chronic kidney disease stage : stage 3 (moderate) Qualified Code(s): E11.22 - Type 2 diabetes mellitus with diabetic chronic kidney disease; N18.3 - Chronic kidney disease, stage 3 ( moderate) Comment: continue accuchecks and insulin sliding scale. - Plan pt takes prednisone 5mg daily -: hbg alc is 5.8 pt may not need any antidiabetic meds -: possible discharge in am * . Review of Systems - Review of Systems Respiratory: negative: Cough, Dry, Shortness of Breath, Hemoptysis, SOB with Excertion, Pleuritic Pain, Sputum, Wheezing Cardiovascular: negative: chest pain, palpitations, orthopnea, paroxysmal nocturnal dyspnea, edema, light headedness, other Gastrointestinal: negative: Nausea, Vomiting, Abdominal Pain, Diarrhea, Constipation, Melena, Hematochezia, Other Genitourinary: negative: Dysuria, Frequency, Incontinence, Hematuria, Retention , Other - Medications/Allergies Allergies/Adverse Reactions: Allergies Allergy/AdvReac Type Severity Reaction Status Date / Time aspirin Allergy Severe Anaphylaxis Verified 07/14/18 23:49 [From Talwin Compound] codeine Allergy Severe Rash Verified 07/14/18 23:49 morphine Allergy Severe Anaphylaxis Verified 07/14/18 23:49 NSAIDS (Non-Steroidal Allergy Severe Verified 07/14/18 23:49 Anti-Inflamma Penicillins Allergy Severe Anaphylaxis Verified 07/14/18 23:49 pentazocine HCl Allergy Severe Anaphylaxis Verified 07/14/18 23:49 [From Talwin Compound] Rcadwdv-Ime-Gbo Reductase Allergy Severe Verified 07/14/18 23:49 Inhibitor chocolate flavor Allergy Verified 07/14/18 23:49 ottoniel Allergy Verified 07/14/18 23:49 Sulfa (Sulfonamide Allergy Verified 07/14/18 23:49 Antibiotics) sulfamethoxazole Allergy Verified 07/14/18 23:49 [From Bactrim] trimethoprim [From Bactrim] Allergy Verified 07/14/18 23:49 Medications: Current Medications Alprazolam (Xanax) 0.5 mg PO BIDPRN PRN PRN Reason: Anxiety Last Admin: 09/22/18 21:05 Dose: 0.5 mg Amitriptyline HCl (Elavil) 30 mg PO HS [facility] Last Admin: 09/22/18 21:05 Dose: 30 mg Amlodipine Besylate (Norvasc) 5 mg PO DAILY BRYAN Last Admin: 09/23/18 09:08 Dose: 5 mg Cholecalciferol (Vitamin D3) 1,000 units PO DAILY [facility] Last Admin: 09/23/18 09:08 Dose: 1,000 units Clonidine (Catapres) 0.4 mg PO HS [facility] Last Admin: 09/22/18 21:05 Dose: 0.4 mg Colchicine (Colcrys) 0.6 mg PO BID-[facility] Last Admin: 09/23/18 09:07 Dose: 0.6 mg Dextrose/Water (Dextrose 50%) 25 gm SLOW IVP PRN PRN PRN Reason: Hypoglycemia Glucagon (Glucagon) 1 mg IM PRN PRN PRN Reason: Hypoglycemia Hydroxychloroquine Sulfate (Plaquenil) 200 mg PO BID [facility] Last Admin: 09/23/18 09:07 Dose: 200 mg Levofloxacin 500 mg/ Device 100 mls @ 100 mls/hr IVPB Q24HR [facility] Last Admin: 09/22/18 17:23 Dose: 100 mls Dextrose/Water (D5w) 1,000 mls @ 0 mls/hr IV .Q0M PRN PRN Reason: Hypoglycemia Insulin Human Lispro (Humalog) 0 units SC .MILD SLIDING SCALE PRN PRN Reason: Mild Correctional Scale Last Admin: 09/23/18 10:50 Dose: 3 units Levothyroxine Sodium (Synthroid) 200 mcg PO 0600 [facility] Last Admin: 09/23/18 05:21 Dose: 200 mcg Miscellaneous Medication (Pharmacy To Dose) 1 each PO DAILYPRN PRN PRN Reason: LABS Oxymetazoline HCl (Oxymetazoline Hcl) 0 sprays NASAL Q12H PRN PRN Reason: Nasal Congestion Last Admin: 09/21/18 22:07 Dose: 1 spr Pantoprazole Sodium (Protonix) 40 mg PO QAM-[facility] Last Admin: 09/23/18 09:08 Dose: 40 mg Febuxostat [Uloric] (80 Mg) 1 each PO DAILY [facility] Prednisone (Prednisone) 5 mg PO QAM-[facility] Pregabalin (Lyrica) 50 mg PO BID [facility] Last Admin: 09/23/18 09:07 Dose: 50 mg Pregabalin (Lyrica) [facility] [place] Last Admin: 09/23/18 09:07 Dose: 100 mg Saccharomyces Boulardii (Florastor) 250 mg PO DAILY [facility] Last Admin: 09/23/18 09:07 Dose: 250 mg Sodium Chloride (Flush - Normal Saline) 10 ml IVF Q12HR [facility] Last Admin: 09/23/18 09:09 Dose: 10 ml Sodium Chloride (Flush - Normal Saline) 10 ml IVF PRN PRN PRN Reason: Saline Flush Last Admin: 09/21/18 17:37 Dose: 10 ml Warfarin Sodium (Coumadin) 10 mg PO 1700 [facility]
[2018-09-23] MEDS ORDERED: Warfarin Sodium 5 MG TAB PO SCH (17:00)
[2018-09-23] MEDS: cloNIDine 0.1 MG TAB PO SCH (20:40)
[2018-09-23] MEDS: Amitriptyline HCl 10 MG TAB PO SCH (20:41)
[2018-09-23] MEDS: Oxymetazoline HCl 0.05% ( 15 ML ) NASAL PRN (21:58)
[2018-09-24] MEDS: Levothyroxine Sodium 100 MCG TAB PO SCH (05:42)
[2018-09-24] MEDS: HumaLOG 300 UNITS/3 ML VIAL SC PRN (05:42)
[2018-09-24 06:02] LABS: INR-International Normal Ratio 1.1; Prothrombin Time 14.1 SEC (12.0-14.7)
[2018-09-24 06:51] LABS: #Eosinphils 0.1 thou/uL (0.0-0.7); #Monocytes 0.9 thou/uL (0.11-0.59); #Neutrophils 4.5 thou/uL (1.40-6.50); %Basophils 0.4 % (0.0-1.0); %Eosinophils 0.7 % (0.0-10.0); %Monocytes 11.9 % (0.0-10.0); %Neutrophils 59.9 % (42.0-75.0); Anisocytosis SLIGHT = 6-15 cells (100X) (0-5/hpf); Elliptocytes SLIGHT = 2-5 cells (100X) (0-1/hpf); Hemoglobin 9.3 g/dL (12.0-16.0); Hypochromia SLIGHT = 6-15 cells (100X) (0-5/hpf); MDiff Complete? YES; Mean Corpuscular HGB CONC 30.6 g/dL (32.0-36.0); Mean Corpuscular Hemoglobin 22.9 pg (27.0-31.0); Mean Corpuscular Volume 74.7 fL (78.0-98.0); Mean Platelet Volume 10.2 fL (7.4-10.4); Microcytosis SLIGHT = 6-15 cells (100X) (0-5/hpf); Platelet Count 370 thou/uL (130-400); RBC Distribution Width 21.4 % (11.5-14.5); Red Blood Cell (RBC) Count 4.05 mill/uL (4.20-5.40); White Blood Cell (WBC) Count 7.6 thou/uL (4.8-10.8)
[2018-09-24] MEDS ORDERED: predniSONE 5 MG TAB PO SCH (08:00)
[2018-09-24 08:21] VITALS: BP 110/67; TEMP 97.7
[2018-09-24] MEDS: Pregabalin 50 MG CAP PO SCH ×2 (08:28→08:30)
[2018-09-24] MEDS: Colchicine 0.6 MG TAB PO SCH (08:28)
[2018-09-24] MEDS: Hydroxychloroquine Sulfate 200 MG TAB PO SCH (08:29)
[2018-09-24] MEDS: Amlodipine 5 MG TAB PO SCH (08:29)
[2018-09-24] MEDS: Saccharomyces boulardii 250 MG CAP PO SCH (08:31)
--- NOTE | 2018-09-24 16:12 | DIS ---
DATE OF ADMISSION: 09/20/2018 DATE OF DISCHARGE: 09/24/2018 DISCHARGE DIAGNOSES: 1. Hypoglycemia. 2. Rheumatoid arthritis. 3. Anemia. 4. Diabetes. HOSPITAL COURSE: The patient is a very pleasant 68-year-old female who initially presented to the [facility] with significant hypoglycemia. Patient was admitted to ICU and was put on D10 drip, continued to have hypoglycemia even on the D10 drip. The patient was on glimepiride, which was discontinued. Patient was given multiple doses of glucagon and also D50 in addition to the D10. However, over 24 hours, patient's sugars continued to improve and were steady. Patient did not require any more D10. She has been eating. She does not require any glucagon either. She has been off of her glimepiride . Patient's hemoglobin A1c on checking was 5.8. She was initially on 20 mg of steroids while in the hospital following day which caused her sugars to be high; however, the patient normally takes 5 mg of steroids daily, which has been started. This is for her rheumatoid arthritis. Patient will be di scharged home. She will continue her steroids as 5 mg. I have not given her any other antidiabetic medications. Her home medications are as following. DISCHARGE MEDICATIONS: She will continue her tramadol 50 mg q.6 hours, colchicine 0.6 b.i.d. p rednisone 5 mg daily, Benadryl 10 mg p.o. b.i.d. p.r.n., clonidine 0.4 at bedtime; warfarin, I have t old her to take 10 mg for today and tomorrow and then resume at 7.5 and to check INR on Thursday. Levo thyroxine 200 mcg daily, Remicade once a week, Plaquenil 200 b.i.d., febuxostat 80 mg daily, enalapri l 20 mg daily, 10 mg p.o. b.i.d. p.r.n., amlodipine 5 mg daily, amitriptyline 30 mg at bedtime and Tylenol. PHYSICAL EXAMINATION: VITAL SIGNS: 97.7, 97, 20, 98% room air, 110/67. GENERAL: She is awake, alert, oriented x3, does not appear in distress. CARDIOVASCULAR: S1, S2 present. No murmurs, rubs or gallops. ABDOMEN: Soft, nontender. Bowel sounds are present x2. EXTREMITIES: No edema. DISCHARGE INSTRUCTIONS: Patient again will be discharged home. She has someone living with her. Sharon larsen will follow up with her primary care doctor on Thursday and also she will check her INR on Thursday. I did recommend the patient getting either Eliquis or Xarelto that will be easier; however, the patien t stated that she did have a massive bleed in the past. I will leave this up to her primary care. A lso, I have told the patient's to record her sugars 3 times a day until she sees her primary care doc tor.
[2018-09-24] MEDS ORDERED: Warfarin Sodium 2.5 MG TAB PO SCH (17:00)
--- NOTE | 2018-09-25 11:21 | EKG ---
Test Reason : AMS Blood Pressure : / mmHG Vent. Rate : 078 BPM Atrial Rate : 078 BPM P-R Int : 136 ms QRS Dur : 080 ms QT Int : 400 ms P-R-T Axes : 042 042 083 degrees QTc Int : 456 ms Normal sinus rhythm with sinus arrhythmia Nonspecific ST and T wave abnormality Abnormal ECG Confirmed by KOMAL COCHRAN, ANTHONY ([id number]), editorial project manager HANY GARCIA ([id number]) on 09/25/2018 11:20:49 AM Referred By: KOMAL Confirmed By:ANTHONY SAUCEDA MD
== END 2018-09-24 13:47 | disposition home or self-care (01) | DRG 638 ==
LOC: ERS 12:24 → IMCU/EMU 17:58 → T4-A 09-23 21:48
PROVIDERS: ADMIT Internal Medicine; ATTEND Internal Medicine
DX: E11.649 Type 2 diabetes mellitus with hypoglycemia without coma (principal); G93.40 Encephalopathy, unspecified; Z68.41 Body mass index [BMI] 40.0-44.9, adult; N39.0 Urinary tract infection, site not specified; M06.9 Rheumatoid arthritis, unspecified; D64.9 Anemia, unspecified; E66.01 Morbid (severe) obesity due to excess calories; Z79.52 Long term (current) use of systemic steroids; E87.5 Hyperkalemia; Z86.14 Personal history of Methicillin resistant Staphylococcus aureus infection; Z89.512 Acquired absence of left leg below knee; Z86.711 Personal history of pulmonary embolism; K21.9 Gastro-esophageal reflux disease without esophagitis; I10 Essential (primary) hypertension; Z96.653 Presence of artificial knee joint, bilateral; Z88.0 Allergy status to penicillin; Z88.5 Allergy status to narcotic agent; Z88.2 Allergy status to sulfonamides; Z88.8 Allergy status to other drugs, medicaments and biological substances; Z79.899 Other long term (current) drug therapy; Z79.01 Long term (current) use of anticoagulants; E03.9 Hypothyroidism, unspecified
CPT/HCPCS: 36415; 36416; 51701; 71045; 80048; 80053; 81003; 81015; 82533; 82550; 82553; 82728; 82805; 82945; 83036; 83525; 83540; 83605; 83690; 83735; 83880; 84100; 84443; 84484; 84681; 85025; 85610; 87040; 93005; 96361; 96372; 96374; 96375; A4217; G8978-GP-CL; G8979-GP-CK; G8996-GN-CI; G8997-GN-CH; J0131; J0696; J1610; J1720; J1956; J2354; J3475; J3480; J7050; J7506

== ENCOUNTER 2018-10-03 06:35 | Inpatient (IN) | payer MEDICARE, OTHER ==
[2018-10-03 07:26] LABS: #Eosinphils 0.1 thou/uL (0.0-0.7); #Lymphocytes 1.4 thou/uL (1.20-3.40); #Monocytes 0.7 thou/uL (0.11-0.59); #Neutrophils 8.1 thou/uL (1.40-6.50); %Basophils 0.2 % (0.0-1.0); %Eosinophils 0.7 % (0.0-10.0); %Lymphocytes 13.5 % (21.0-51.0); %Monocytes 6.7 % (0.0-10.0); Hemoglobin 9.1 g/dL (12.0-16.0); Mean Corpuscular HGB CONC 30.4 g/dL (32.0-36.0); Mean Corpuscular Hemoglobin 22.8 pg (27.0-31.0); Mean Platelet Volume 9.9 fL (7.4-10.4); Platelet Count 430 thou/uL (130-400); RBC Distribution Width 21.1 % (11.5-14.5); Red Blood Cell (RBC) Count 3.98 mill/uL (4.20-5.40); White Blood Cell (WBC) Count 10.3 thou/uL (4.8-10.8)
[2018-10-03 07:47] LABS: ALT (SGPT) 17 U/L (8-55); AST (SGOT) 21 U/L (5-34); Albumin 3.4 g/dL (3.4-4.8); Alkaline Phosphatase 154 U/L (40-150); Anion Gap 16 mmol/L (10-20); BUN (Urea Nitrogen) 36 mg/dL (9.8-20.1); Bilirubin, Total Less than 0.2 mg/dL (0.2-1.2); CK (CPK) 90 U/L (29-168); Calc. Creatinine Clearance 0 mL/min (70-130); Calcium 9.1 mg/dL (7.8-10.44); Carbon Dioxide 24 mmol/L (23-31); Chloride 100 mmol/L (98-107); Estimated GFR-MDRD 18; Globulin 3.1 g/dL (2.4-3.5); Glucose 187 mg/dL (80-115); Protein, Total 6.5 g/dL (6.0-8.3); Sodium 135 mmol/L (136-145)
[2018-10-03 07:50] LABS: CKMB 1.6 ng/mL (0-6.6); Troponin I Less than 0.010 ng/mL (< 0.028)
[2018-10-03 08:00] LABS: Bilirubin Negative (Negative); Blood, Urine Negative (Negative); Clarity CLEAR (Clear); Glucose, Urine (Dipstick) Negative (Negative); Leukocyte Negative (Negative); Nitrite Negative (Negative); Protein, Urine (Dipstick) Negative (Neg-Trace); Specific Gravity, Urine 1.008 (1.002-1.036); Urobilinogen 0.2 mg/dL (0.2-1.0); pH, Urine 5.5 (5.0-9.0)
--- NOTE | 2018-10-03 09:37 | RAD ---
RIGHT KNEE 4 VIES: HISTORY: The patient fell with knee pain. FINDINGS: There is a total knee prosthesis which is in satisfactory position. No signs of loosening or fractur e. Vascular calcifications are seen. IMPRESSION: No acute injury. POS: YVAN
--- NOTE | 2018-10-03 09:42 | RAD ---
LEFT KNEE 4 VIEWS: HISTORY: Knee pain after fall. FINDINGS: A total knee prosthesis is in good position. No evidence of loosening or fracture. Vascular calcifi cations are seen. IMPRESSION: No evidence of acute injury. POS: YVAN
--- NOTE | 2018-10-03 09:43 | RAD ---
RIGHT HIP 2 VIEWS: HISTORY: Hip pain status post fall. FINDINGS: The bones appear demineralized. There are arthritic changes of the hip. I do not see any definite s igns of fracture. Vascular calcifications are noted. IMPRESSION: No evidence of fracture. If there is a high clinical index with suspicion of fracture, CT may be hel pful in assessment. POS: YVAN
[2018-10-03] MEDS ORDERED: Ondansetron PF 4 MG/2 ML Vial IVP PRN ×2 (09:55→10:18)
[2018-10-03] MEDS ORDERED: Ondansetron ODT 4 MG TAB SL PRN (09:55)
[2018-10-03] MEDS ORDERED: Acetaminophen 325 MG TAB PO PRN ×2 (09:55→10:18)
[2018-10-03] MEDS ORDERED: Sodium Chloride 0.9% 1,000 ML IV SCH (09:55)
[2018-10-03 10:17] VITALS: BMI 45.6
[2018-10-03] MEDS ORDERED: Dextrose 50% Abboject 50 ML SYRINGE SLOW IVP PRN (10:18)
[2018-10-03] MEDS ORDERED: Artificial Tears 18 DROP/0.9 ML EA EYE PRN (10:18)
[2018-10-03] MEDS ORDERED: Loperamide HCl 2 MG CAP PO PRN (10:18)
[2018-10-03] MEDS ORDERED: Eucerin (Mineral Oil/Petrolatum,White) 30 gm Jar TOP PRN (10:18)
[2018-10-03] MEDS ORDERED: Diabetic Tussin 200 MG/10 ML UDCUP PO PRN (10:18)
[2018-10-03] MEDS ORDERED: Bisacodyl 5 MG TAB PO PRN (10:18)
[2018-10-03] MEDS ORDERED: hydrALAZINE 20 MG/ML VIAL SLOW IVP PRN (10:18)
[2018-10-03] MEDS ORDERED: Cepastat Lozenges 1 LOZ PO PRN (10:18)
[2018-10-03] MEDS ORDERED: Zolpidem Tartrate 5 MG TAB PO PRN (10:18)
[2018-10-03] MEDS ORDERED: Calcium Carbonate 500 MG ChewTAB PO PRN (10:18)
[2018-10-03] MEDS ORDERED: Senokot S 8.6-50 MG TAB PO PRN (10:18)
[2018-10-03] MEDS ORDERED: Dextrose 5% in Water 1,000 ML IV PRN (10:18)
[2018-10-03] MEDS ORDERED: Sodium Chloride 0.65% Nasal 44 ML BOT EA NARE PRN (10:18)
[2018-10-03] MEDS ORDERED: Bisacodyl 10 MG SUPP PR PRN (10:18)
[2018-10-03] MEDS ORDERED: Ondansetron ODT 4 MG TAB PO PRN (10:18)
[2018-10-03] MEDS ORDERED: Loratadine 10 MG TAB PO PRN (10:18)
[2018-10-03] MEDS ORDERED: Albuterol Sulfate 2.5 mg/3 ml Neb NEB PRN (10:19)
[2018-10-03] MEDS: Sodium Chloride 0.9% 1,000 ML IV SCH ×2 (10:58→20:45)
--- NOTE | 2018-10-03 11:34 | HP ---
PRIMARY CARE PHYSICIAN: Dr. Jyoti Burger. REASON FOR ADMISSION: Acute on chronic kidney failure, generalized weakness. HISTORY OF PRESENT ILLNESS: A 68-year-old female who was recently admitted in our hospital on 2017 with hypoglycemia. She was treated in hospital and discharged from the hospital on 09/24/2018. Per patient, when she was released, she was able to ambulate by herself. After discharge, she was d oing well at home, but for the last 3 days, she started feeling weak. She was having difficulty ambu lating. She had 2 falls at home. She was feeling overall weak without any focal deficit. She did n ot have any cough, upper or lower respiratory symptoms. She denies any UTI symptoms. She has wound over right posterior aspect of calf, which is bothering her. She is doing daily dressing. She does have home health and physical therapy, but patient feels subjectively that she is becoming more and m ore physically weak. She denies any chest pain, shortness of breath, dizziness, palpitation, orthopn ea, PND. Today, the patient was evaluated in the emergency room. She had knee x-ray and hip x-ray, which did not show any fracture or dislocation. Her hemoglobin was stable, but her creatinine was increased fr om her baseline 1.2-2.67. Patient reports that she is not eating or drinking significant enough at h ome. REVIEW OF SYSTEMS: The following complete review of systems was negative, unless otherwise mentioned in the HPI or below: Constitutional: Weight loss or gain, ability to conduct usual activities. Skin: Rash, itching. Eyes: Double vision, pain. ENT/Mouth: Nose bleeding, neck stiffness, pain, tenderness. Cardiovascular: Palpitations, dyspnea on exertion, orthopnea. Respiratory: Shortness of breath, wheezing, cough, hemoptysis, fever or night sweats. Gastrointestinal: Poor appetite, abdominal pain, heartburn, nausea, vomiting, constipation, or diarr hea. Genitourinary: Urgency, frequency, dysuria, nocturia. Musculoskeletal: Pain, swelling. Neurologic/Psychiatric: Anxiety, depression. Allergy/Immunologic: Skin rash, bleeding tendency. Please see my HPI for further detail. All review of system reviewed and negative except as mentioned in the HPI. EMERGENCY ROOM COURSE: Patient has received IV fluid 1 liter. PAST MEDICAL HISTORY: Morbid obesity, diabetes type 2, hypertension, gout with gouty arthritis, rheu matoid arthritis, history of pulmonary embolism, hypertension, GERD, history of Sjogren's syndrome, h ypothyroidism, asthma. PAST SURGICAL HISTORY: Bilateral total knee replacement, bilateral cataract surgery, bilateral rotat or cuff repair, total hysterectomy, appendicectomy, cyst removed from left hand, carpal tunnel repair . PAST PSYCHIATRIC HISTORY: Reviewed and negative. SOCIAL HISTORY: Patient lives at home with her . No history of tobacco, alcohol or illicit d rug abuse. FAMILY HISTORY: Coronary artery disease to her father and grandmother, both from heart clarita ck. ALLERGIES: Multiple including PENICILLIN gives anaphylactic reaction, CODEINE, NORCO, and MORPHINE g iris stomach upset, NSAID, SULFA DRUGS, STATIN, PENTAZOCINE. CURRENT HOME MEDICATIONS: Amlodipine 5 mg daily, clonidine 0.2 mg at bedtime, Coumadin 5 mg p.o. lizeth ly, Synthroid 200 mcg p.o. daily, Ventolin nebulization q.8 hourly, glimepiride 2 mg twice daily, Lyr ica 75 mg twice daily, prednisone 5 mg p.o. daily, Prilosec 20 mg daily, Plaquenil 200 mg twice daily , enalapril 20 mg daily, amitriptyline 30 mg p.o. at bedtime, clindamycin 300 mg p.o. 3 times daily. PHYSICAL EXAMINATION: VITAL SIGNS: On arrival, blood pressure 104/43, pulse 84, respiratory rate 20, temperature 97.9, sat uration 95% on room air, weight 130 kilograms. GENERAL: Patient is currently chronically ill, no obvious acute distress. HEENT: Head: Normocephalic, atraumatic. Eyes: Pupils round, reactive to light. Extraocular muscl e intact. ENT: Oropharynx within normal limits, somewhat dry appearing mucous membrane, no oral les ion, no pharyngeal erythema, no exudate. NECK: Supple, no JVD, no thyromegaly, no carotid bruit. LUNGS: Clear to auscultation without any rhonchi or rales. CARDIAC: S1, S2 appears regular. No murmur, no gallop, no rub. ABDOMEN: Obesity present. Bowel sounds present, nontender, nondistended. No organomegaly, no mass, no suprapubic tenderness. BACK: Unremarkable, no CVA tenderness. EXTREMITIES: Upper extremity, passive movement of all joints are normal. Lower extremity, bilateral lower extremity abrasion from fall, but no acute process. She does have wound covered with a dressi ng on the right posterior aspect of thigh. NEUROLOGIC: Nonfocal examination. She is moving all 4 limbs. Speech, normal. Motor and sensation grossly intact. Reflexes symmetrical. Sensation intact. SKIN: Other than wound over right posterior aspect of thigh unremarkable, noted tinea infection in s kin folds. PSYCHIATRIC: Normal affect. SIGNIFICANT LABORATORY DATA AND IMAGING: EKG showing normal sinus rhythm, left atrial enlargement. Knee x-ray reported as no fracture or dislocation. Hip x-ray reported as no fracture or dislocation. CBC: WBC 10.3, hemoglobin 9.1, MCV 75, platelet 430. BMP: Sodium 135, potassium 5.0, chloride 10 0, carbon dioxide 24, BUN 36, creatinine 2.67, glucose 187, calcium 9.1. LFT: AST 21, ALT 17, alkal ine phosphatase 154, albumin 3.4, CK 90, CK-MB 1.6, troponin I less than 0.010. Urinalysis normal. ASSESSMENT AND PLAN: 1. Acute on chronic kidney failure, baseline chronic kidney disease stage 2. The patient will be ad mitted to medical floor. We will check urine sodium, urine creatinine. We will hydrate her with IV fluid. Her renal failure is related with volume depletion. She will be given NS at 100 mL per hour and will repeat BMP tomorrow. We will hold on some antihypertensive medication, because of relativel y low blood pressure and avoid nephrotoxin agent. With hydration, we are expecting her renal functio n should improve. 2. Generalized weakness. This patient has multiple etiology for her overall weakness. She has gout y arthritis, rheumatoid arthritis, hypothyroidism as well as morbid obesity in recent hospitalization . She will need PT, OT, and patient agreed to go to rehab if she qualifies. 3. Wound over right thigh. Wound care team will be consulted. She had previously methicillin-resis tant Staphylococcus aureus infection, so we will continue doxycycline 100 mg twice daily. If needed, we will evaluate with General Surgery for possible need of I&D after wound care team evaluation. 4. Microcytic anemia with anemia of chronic disease. We will check ferritin and we will continue ferrous sulfate 325 mg p.o. daily. Based on ferritin, we will decide whether she needs IV betty ral iron infusion. 5. Hypertension. As mentioned above. Patient's blood pressure is currently relatively low, but if blood pressure permits, then we will selectively start antihypertensive medication. 6. Gout with gouty arthritis. Continue Uloric 80 mg daily, and colchicine 0.6 mg p.o. b.i.d. 7. Rheumatoid arthritis. Patient is getting infliximab as an outpatient basis. We will continue Pl aquenil 200 mg p.o. b.i.d. and prednisone 5 mg p.o. daily. 8. Sjogren's syndrome. Continue Artificial Tear and hard candy for moisturizing eye and mouth respe ctively. 9. Asthma, currently stable. We will continue DuoNeb therapy q.6 hourly p.r.n. basis. 10. Hypothyroidism. Continue Synthroid 200 mcg p.o. daily and check TSH. 11. Anxiety and depression. Continue Xanax 0.5 mg b.i.d. p.r.n. along with amitriptyline 30 mg p.o. at bedtime. 12. Morbid obesity. Dietary education given, weight loss education given. Patient will need PT, OT . 13. Diabetes type 2. Insulin as per sliding scale. Diabetic diet will be given. We will continue Amaryl 2 mg twice daily. 14. History of pulmonary embolism, on chronic warfarin therapy. We will monitor PT, INR and continu e warfarin 5 mg daily. 15. Deep venous thrombosis prophylaxis not needed because patient is already on warfarin therapy. 16. Gastrointestinal prophylaxis. Protonix 40 mg p.o. daily. CODE STATUS: The patient is FULL CODE. Patient's is surrogate decision maker. Disposition plan based on clinical course. Patient will need rehab placement.
[2018-10-03] MEDS: HumaLOG 300 UNITS/3 ML VIAL SC PRN ×3 (13:30→20:46)
[2018-10-03 13:47] LABS: Creatinine, Urine 83.01 mg/dL (47-110)
[2018-10-03] MEDS: traMADol HCl 50 MG TAB PO PRN ×2 (14:15→23:46)
[2018-10-03] MEDS: Doxycycline 100 MG CAP PO SCH (20:45)
[2018-10-04] MEDS ORDERED: Fentanyl 100 MCG/2 ML VIAL SLOW IVP SCH (04:30)
[2018-10-04 04:55] LABS: #Eosinphils 0.1 thou/uL (0.0-0.7); #Lymphocytes 1.9 thou/uL (1.20-3.40); #Monocytes 0.6 thou/uL (0.11-0.59); #Neutrophils 3.3 thou/uL (1.40-6.50); %Basophils 0.7 % (0.0-1.0); %Monocytes 9.7 % (0.0-10.0); %Neutrophils 55.6 % (42.0-75.0); Hemoglobin 8.8 g/dL (12.0-16.0); Mean Corpuscular HGB CONC 28.8 g/dL (32.0-36.0); Mean Corpuscular Hemoglobin 23.1 pg (27.0-31.0); Mean Platelet Volume 10.5 fL (7.4-10.4); Platelet Count 300 thou/uL (130-400); RBC Distribution Width 21.1 % (11.5-14.5); Red Blood Cell (RBC) Count 3.83 mill/uL (4.20-5.40); White Blood Cell (WBC) Count 5.9 thou/uL (4.8-10.8)
[2018-10-04 04:57] LABS: INR-International Normal Ratio 1.8; Prothrombin Time 21.3 SEC (12.0-14.7)
[2018-10-04] MEDS: HumaLOG 300 UNITS/3 ML VIAL SC PRN ×4 (05:03→20:28)
[2018-10-04 05:12] LABS: Anion Gap 16 mmol/L (10-20); BUN (Urea Nitrogen) 25 mg/dL (9.8-20.1); Calc. Creatinine Clearance 56 mL/min (70-130); Calcium 9.1 mg/dL (7.8-10.44); Carbon Dioxide 20 mmol/L (23-31); Chloride 107 mmol/L (98-107); Estimated GFR-MDRD 25; Glucose 162 mg/dL (80-115); Potassium 4.5 mmol/L (3.5-5.1); Sodium 138 mmol/L (136-145)
[2018-10-04] MEDS: Sodium Chloride 0.9% 1,000 ML IV SCH ×2 (06:00→17:44)
[2018-10-04] MEDS ORDERED: traMADol HCl 50 MG TAB PO PRN ×2 (07:28→12:52)
[2018-10-04] MEDS ORDERED: ALPRAZolam 0.5 MG TAB PO PRN (07:28)
[2018-10-04] MEDS: Ferrous Sulfate 325 MG TAB PO SCH (08:31)
[2018-10-04] MEDS: Colchicine 0.6 MG TAB PO SCH ×2 (08:31→16:08)
[2018-10-04] MEDS: predniSONE 5 MG TAB PO SCH (08:31)
[2018-10-04] MEDS: Hydroxychloroquine Sulfate 200 MG TAB PO SCH ×2 (08:32→20:24)
[2018-10-04] MEDS: Doxycycline 100 MG CAP PO SCH ×2 (08:32→20:24)
[2018-10-04] MEDS ORDERED: SYSTANE GEL EYE DROP 10 ML 10 GM BOT EA EYE SCH (09:00)
[2018-10-04] MEDS ORDERED: Non-Formulary Item 1 EACH (Levothyroxine Sodium [Levothyroxine Sodium] 200 MCG) PO SCH (09:00)
--- NOTE | 2018-10-04 09:45 | PDOC.PN ---
- Subjective Encounter Start Date: 10/04/18 Encounter Start Time: 08:10 -: old records requested/rev Patient seen and examined. No new complaints. No overnight events - Objective Resuscitation Status: Resuscitation Status FULL:Full Resuscitation MAR Reviewed: Yes Vital Signs & Weight: Vital Signs (12 hours) Temp Pulse Resp BP Pulse Ox 10/04/18 08:20 98.2 F 81 20 141/70 H 98 10/04/18 04:00 98.4 F 90 18 109/72 96 10/04/18 00:00 98.4 F 97 20 159/73 H 92 L Weight Weight 291 lb 7 oz I&O: 10/03/18 10/04/18 10/05/18 06:59 06:59 06:59 Intake Total 1450 Balance 1450 Result Diagrams: 10/04/18 04:11 10/04/18 04:11 Additional Labs: Accuchecks 10/04/18 10/03/18 10/03/18 04:46 20:14 16:56 POC Glucose 183 H 364 H 170 H 10/03/18 11:14 POC Glucose 154 H Phys Exam - Physical Examination Constitutional: NAD HEENT: PERRLA, moist MMs, sclera anicteric Neck: no JVD, supple Respiratory: no wheezing, no rales, no rhonchi Cardiovascular: RRR, no significant murmur, no rub Gastrointestinal: soft, non-tender, no distention, positive bowel sounds Musculoskeletal: no edema, pulses present wound right thigh Neurological: non-focal, normal sensation, moves all 4 limbs Psychiatric: normal affect, A&O x 3 Skin: no rash, normal turgor Dx/Plan (1) Acute worsening of stage 3 chronic kidney disease Code(s): N18.3 - CHRONIC KIDNEY DISEASE, STAGE 3 (MODERATE) Status: Acute Comment: (2) Weakness generalized Code(s): R53.1 - WEAKNESS Status: Acute (3) Wound of right leg Code(s): S81.801A - UNSPECIFIED OPEN WOUND, RIGHT LOWER LEG, INITIAL ENCOUNTER Status: Acute (4) Anemia, normocytic normochromic Code(s): D64.9 - ANEMIA, UNSPECIFIED Status: Chronic (5) Chronic anticoagulation Code(s): Z79.01 - WHALE TRAINER (CURRENT) USE OF ANTICOAGULANTS Status: Chronic (6) Diabetes type 2, controlled Code(s): E11.9 - TYPE 2 DIABETES MELLITUS WITHOUT COMPLICATIONS Status: Chronic Qualifiers: Comment: (7) GERD (gastroesophageal reflux disease) Code(s): K21.9 - GASTRO-ESOPHAGEAL REFLUX DISEASE WITHOUT ESOPHAGITIS Status: Chronic Qualifiers: Comment: (8) Gout Code(s): M10.9 - GOUT, UNSPECIFIED Status: Chronic Qualifiers: (9) HTN (hypertension) Code(s): I10 - ESSENTIAL (PRIMARY) HYPERTENSION Status: Chronic Qualifiers: Comment: (10) History of pulmonary embolus (PE) Code(s): Z86.711 - PERSONAL HISTORY OF PULMONARY EMBOLISM Status: Chronic Comment: on chronic anticoagulation (11) Rheumatoid arthritis Code(s): M06.9 - RHEUMATOID ARTHRITIS, UNSPECIFIED Status: Chronic - Plan cont current plan of care, continue antibiotics, 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 Review of Systems - Review of Systems Constitutional: weakness. negative: fever, chills, sweats, malaise, other ENT: negative: Ear Pain, Ear Discharge, Nose Pain, Nose Discharge, Nose Congestion, Mouth Pain, Mouth Swelling, Throat Pain, Throat Swelling, Other Respiratory: negative: Cough, Dry, Shortness of Breath, Hemoptysis, SOB with Excertion, Pleuritic Pain, Sputum, Wheezing Cardiovascular: negative: chest pain, palpitations, orthopnea, paroxysmal nocturnal dyspnea, edema, light headedness, other Gastrointestinal: negative: Nausea, Vomiting, Abdominal Pain, Diarrhea, Constipation, Melena, Hematochezia, Other Genitourinary: negative: Dysuria, Frequency, Incontinence, Hematuria, Retention , Other Musculoskeletal: negative: Neck Pain, Shoulder Pain, Arm Pain, Back Pain, Hand Pain, Leg Pain, Foot Pain, Other Skin: negative: Rash, Lesions, Will, Bruising, Other - Medications/Allergies Allergies/Adverse Reactions: Allergies Allergy/AdvReac Type Severity Reaction Status Date / Time aspirin Allergy Severe Anaphylaxis Verified 10/03/18 10:49 [From Talwin Compound] codeine Allergy Severe Rash Verified 10/03/18 10:49 morphine Allergy Severe Anaphylaxis Verified 10/03/18 10:49 NSAIDS (Non-Steroidal Allergy Severe Verified 10/03/18 10:49 Anti-Inflamma Penicillins Allergy Severe Anaphylaxis Verified 10/03/18 10:49 pentazocine HCl Allergy Severe Anaphylaxis Verified 10/03/18 10:49 [From Talwin Compound] [id number]-[id number] Reductase Allergy Severe Verified 10/03/18 10:49 Inhibitor chocolate flavor Allergy Verified 10/03/18 10:49 ottoniel Allergy Verified 10/03/18 10:49 Sulfa (Sulfonamide Allergy Verified 10/03/18 10:49 Antibiotics) sulfamethoxazole Allergy Verified 10/03/18 10:49 [From Bactrim] trimethoprim [From Bactrim] Allergy Verified 10/03/18 10:49 Medications: Current Medications Acetaminophen (Tylenol) 650 mg PO Q4H PRN PRN Reason: Headache/Fever/Mild Pain (1-3) Last Admin: 10/04/18 03:41 Dose: 650 mg Albuterol Sulfate (Ventolin) 2.5 mg NEB [id number] PRN PRN Reason: Wheezing Alprazolam (Xanax) 0.5 mg PO BID PRN PRN Reason: Anxiety Amitriptyline HCl (Elavil) 30 mg PO HS [facility] Artificial Tears (Tears Naturale) 2 drop EA EYE PRN PRN PRN Reason: Dry Eyes Bisacodyl (Dulcolax) 10 mg PO DAILYPRN PRN PRN Reason: Constipation Bisacodyl (Dulcolax) 10 mg MS DAILYPRN PRN PRN Reason: Constipation Calcium Carbonate (Tums) 1,000 mg PO Q4H PRN PRN Reason: Heartburn or Indigestion Cholecalciferol (Vitamin D3) 1,000 units PO DAILY [facility] Last Admin: 10/04/18 08:32 Dose: 1,000 units Colchicine (Colcrys) 0.6 mg PO BID-[facility] Last Admin: 10/04/18 08:31 Dose: 0.6 mg Dextrose/Water (Dextrose 50%) 25 gm SLOW IVP PRN PRN PRN Reason: Hypoglycemia Doxycycline Hyclate (Vibramycin) 100 mg PO BID [facility] Last Admin: 10/04/18 08:32 Dose: 100 mg Fentanyl (Sublimaze) 25 mcg SLOW IVP Q2H PRN PRN Reason: Pain Ferrous Sulfate (Feosol) 325 mg PO QAM-[facility] Last Admin: 10/04/18 08:31 Dose: 325 mg Glucagon (Glucagon) 1 mg IM PRN PRN PRN Reason: Hypoglycemia Guaifenesin (Robitussin Sf) 200 mg PO Q4H PRN PRN Reason: Cough Hydralazine HCl (Apresoline) 10 mg SLOW IVP Q4H PRN PRN Reason: SBP > 180 and HR < 70 Hydroxychloroquine Sulfate (Plaquenil) 200 mg PO BID [facility] Last Admin: 10/04/18 08:32 Dose: 200 mg Hypromellose (Systane Gel) 0 gm EA EYE TID [facility] Sodium Chloride (Normal Saline 0.9%) 1,000 mls @ 100 mls/hr IV .Q10H [facility] Last Admin: 10/04/18 06:00 Dose: 1,000 mls Dextrose/Water (D5w) 1,000 mls @ 0 mls/hr IV .Q0M PRN PRN Reason: Hypoglycemia Insulin Human Lispro (Humalog) 0 units SC .MODERATE SLIDING SC PRN PRN Reason: Moderate Correctional Scale Last Admin: 10/04/18 05:03 Dose: 2 unit Insulin Human Lispro (Humalog) 0 units SC .BEDTIME SLIDING SC PRN PRN Reason: Bedtime Correctional Scale Last Admin: 10/03/18 20:46 Dose: 5 unit Levothyroxine Sodium (Synthroid) 200 mcg PO 0600 [facility] Loperamide HCl (Imodium) 2 mg PO PRN PRN PRN Reason: Diarrhea/Loose Stools Loratadine (Claritin) 10 mg PO DAILYPRN PRN PRN Reason: Sinus Symptoms Mineral Oil/White Petrolatum (Eucerin Cream) 0 gm TOP BIDPRN PRN PRN Reason: Dry Skin Ondansetron HCl (Zofran Odt) 4 mg PO Q6H PRN PRN Reason: Nausea/Vomiting Ondansetron HCl (Zofran) 4 mg IVP Q6H PRN PRN Reason: Nausea/Vomiting Prednisone (Prednisone) 5 mg PO [facility] Last Admin: 10/04/18 08:31 Dose: 5 mg Senna/Docusate Sodium (Senokot S) 2 tab PO BID PRN PRN Reason: Constipation Sodium Chloride ([place] Nasal [place] 0.65%) 0 ml EA NARE QIDPRN PRN PRN Reason: Nasal Congestion Sodium Chloride (Flush - Normal Saline) 10 ml IVF Q12HR BRYAN Last Admin: 10/04/18 08:32 Dose: Not Given Sodium Chloride (Flush - Normal Saline) 10 ml IVF PRN PRN PRN Reason: Saline Flush Throat Lozenges (Cepastat Lozenges) 1 maverick PO Q2H PRN PRN Reason: Sore Throat Tramadol HCl (Ultram) 50 mg PO Q6H PRN PRN Reason: Moderate to Severe Pain (6-10) Zolpidem Tartrate (Ambien) 5 mg PO HSPRN PRN PRN Reason: Insomnia
[2018-10-04] MEDS: SYSTANE GEL EYE DROP 10 ML 10 GM BOT EA EYE SCH ×3 (11:57→20:24)
[2018-10-04] MEDS: Fentanyl 100 MCG/2 ML VIAL SLOW IVP PRN ×4 (13:32→23:08)
[2018-10-04] MEDS: traMADol HCl 50 MG TAB PO PRN (20:27)
[2018-10-04] MEDS ORDERED: Amitriptyline HCl 10 MG TAB PO SCH (21:00)
[2018-10-05] MEDS: Fentanyl 100 MCG/2 ML VIAL SLOW IVP PRN ×6 (02:24→15:49)
[2018-10-05] MEDS: Sodium Chloride 0.9% 1,000 ML IV SCH ×3 (04:36→13:42)
[2018-10-05 05:03] LABS: INR-International Normal Ratio 1.6; Prothrombin Time 19.4 SEC (12.0-14.7)
[2018-10-05 05:21] LABS: Anion Gap 11 mmol/L (10-20); BUN (Urea Nitrogen) 19 mg/dL (9.8-20.1); Calc. Creatinine Clearance 71 mL/min (70-130); Calcium 8.9 mg/dL (7.8-10.44); Carbon Dioxide 25 mmol/L (23-31); Chloride 107 mmol/L (98-107); Estimated GFR-MDRD 33; Glucose 132 mg/dL (80-115); Potassium 4.8 mmol/L (3.5-5.1); Sodium 138 mmol/L (136-145)
[2018-10-05] MEDS ORDERED: Levothyroxine Sodium 100 MCG TAB PO SCH (06:00)
[2018-10-05 06:28] LABS: #Eosinphils 0.1 thou/uL (0.0-0.7); #Lymphocytes 2.3 thou/uL (1.20-3.40); #Monocytes 0.6 thou/uL (0.11-0.59); #Neutrophils 4.3 thou/uL (1.40-6.50); %Basophils 0.3 % (0.0-1.0); %Eosinophils 1.2 % (0.0-10.0); %Lymphocytes 31.2 % (21.0-51.0); %Monocytes 8.5 % (0.0-10.0); %Neutrophils 58.8 % (42.0-75.0); Hemoglobin 8.5 g/dL (12.0-16.0); MDiff Complete? YES; Mean Corpuscular HGB CONC 28.3 g/dL (32.0-36.0); Mean Corpuscular Hemoglobin 21.2 pg (27.0-31.0); Mean Corpuscular Volume 74.9 fL (78.0-98.0); Mean Platelet Volume 9.5 fL (7.4-10.4); Microcytosis SLIGHT = 6-15 cells (100X) (0-5/hpf); Platelet Count 483 thou/uL (130-400); RBC Distribution Width 20.9 % (11.5-14.5); White Blood Cell (WBC) Count 7.4 thou/uL (4.8-10.8)
[2018-10-05 08:10] VITALS: BP 144/83; TEMP 98.1
[2018-10-05] MEDS: Doxycycline 100 MG CAP PO SCH (08:38)
[2018-10-05] MEDS: traMADol HCl 50 MG TAB PO PRN ×2 (08:38→17:14)
[2018-10-05] MEDS: Ferrous Sulfate 325 MG TAB PO SCH (08:38)
[2018-10-05] MEDS: Colchicine 0.6 MG TAB PO SCH ×2 (08:38→17:10)
[2018-10-05] MEDS: Hydroxychloroquine Sulfate 200 MG TAB PO SCH (08:39)
[2018-10-05] MEDS: predniSONE 5 MG TAB PO SCH (08:39)
[2018-10-05] MEDS: SYSTANE GEL EYE DROP 10 ML 10 GM BOT EA EYE SCH ×2 (08:39→15:17)
--- NOTE | 2018-10-05 09:56 | PDOC.PN ---
- Subjective Encounter Start Date: 10/05/18 Encounter Start Time: 08:40 Patient seen and examined. No new complaints. No overnight events - Objective Resuscitation Status: Resuscitation Status FULL:Full Resuscitation MAR Reviewed: Yes Vital Signs & Weight: Vital Signs (12 hours) Temp Pulse Resp BP Pulse Ox 10/05/18 08:00 98.1 F 82 16 144/83 H 94 L Weight Admit Weight 291 lb 7 oz Weight 291 lb 7 oz I&O: 10/04/18 10/05/18 10/06/18 06:59 06:59 06:59 Intake Total 1450 Balance 1450 Result Diagrams: 10/05/18 04:48 10/05/18 04:48 Additional Labs: Accuchecks 10/05/18 10/04/18 10/04/18 04:45 20:05 16:05 POC Glucose 145 H 248 H 177 H 10/04/18 11:43 POC Glucose 190 H Phys Exam - Physical Examination Constitutional: NAD HEENT: PERRLA, moist MMs, sclera anicteric Neck: no JVD, supple Respiratory: no wheezing, no rales, no rhonchi Cardiovascular: RRR, no significant murmur, no rub Gastrointestinal: soft, non-tender, no distention, positive bowel sounds Musculoskeletal: no edema, pulses present goity nodules on hand Neurological: non-focal, normal sensation, moves all 4 limbs Dx/Plan (1) Acute worsening of stage 3 chronic kidney disease Code(s): N18.3 - CHRONIC KIDNEY DISEASE, STAGE 3 (MODERATE) Status: Acute Comment: (2) Weakness generalized Code(s): R53.1 - WEAKNESS Status: Acute (3) Wound of right leg Code(s): S81.801A - UNSPECIFIED OPEN WOUND, RIGHT LOWER LEG, INITIAL ENCOUNTER Status: Acute (4) Anemia, normocytic normochromic Code(s): D64.9 - ANEMIA, UNSPECIFIED Status: Chronic (5) Chronic anticoagulation Code(s): Z79.01 - PENITENTIARY (CURRENT) USE OF ANTICOAGULANTS Status: Chronic (6) Diabetes type 2, controlled Code(s): E11.9 - TYPE 2 DIABETES MELLITUS WITHOUT COMPLICATIONS Status: Chronic Qualifiers: Comment: (7) GERD (gastroesophageal reflux disease) Code(s): K21.9 - GASTRO-ESOPHAGEAL REFLUX DISEASE WITHOUT ESOPHAGITIS Status: Chronic Qualifiers: Comment: (8) Gout Code(s): M10.9 - GOUT, UNSPECIFIED Status: Chronic Qualifiers: (9) HTN (hypertension) Code(s): I10 - ESSENTIAL (PRIMARY) HYPERTENSION Status: Chronic Qualifiers: Comment: (10) History of pulmonary embolus (PE) Code(s): Z86.711 - PERSONAL HISTORY OF PULMONARY EMBOLISM Status: Chronic Comment: on chronic anticoagulation (11) Rheumatoid arthritis Code(s): M06.9 - RHEUMATOID ARTHRITIS, UNSPECIFIED Status: Chronic - Plan cont current plan of care, 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 Review of Systems - Review of Systems Constitutional: weakness Eyes: negative: Pain, Vision Change, Conjunctivae Inflammation, Eyelid Inflammation, Redness, Other ENT: negative: Ear Pain, Ear Discharge, Nose Pain, Nose Discharge, Nose Congestion, Mouth Pain, Mouth Swelling, Throat Pain, Throat Swelling, Other Respiratory: negative: Cough, Dry, Shortness of Breath, Hemoptysis, SOB with Excertion, Pleuritic Pain, Sputum, Wheezing Cardiovascular: negative: chest pain, palpitations, orthopnea, paroxysmal nocturnal dyspnea, edema, light headedness, other Gastrointestinal: negative: Nausea, Vomiting, Abdominal Pain, Diarrhea, Constipation, Melena, Hematochezia, Other Genitourinary: negative: Dysuria, Frequency, Incontinence, Hematuria, Retention , Other Musculoskeletal: negative: Neck Pain, Shoulder Pain, Arm Pain, Back Pain, Hand Pain, Leg Pain, Foot Pain, Other Skin: negative: Rash, Lesions, Will, Bruising, Other - Medications/Allergies Allergies/Adverse Reactions: Allergies Allergy/AdvReac Type Severity Reaction Status Date / Time aspirin Allergy Severe Anaphylaxis Verified 10/03/18 10:49 [From Talwin Compound] codeine Allergy Severe Rash Verified 10/03/18 10:49 morphine Allergy Severe Anaphylaxis Verified 10/03/18 10:49 NSAIDS (Non-Steroidal Allergy Severe Verified 10/03/18 10:49 Anti-Inflamma Penicillins Allergy Severe Anaphylaxis Verified 10/03/18 10:49 pentazocine HCl Allergy Severe Anaphylaxis Verified 10/03/18 10:49 [From Talwin Compound] [id number]-[id number] Reductase Allergy Severe Verified 10/03/18 10:49 Inhibitor chocolate flavor Allergy Verified 10/03/18 10:49 ottoniel Allergy Verified 10/03/18 10:49 Sulfa (Sulfonamide Allergy Verified 10/03/18 10:49 Antibiotics) sulfamethoxazole Allergy Verified 10/03/18 10:49 [From Bactrim] trimethoprim [From Bactrim] Allergy Verified 10/03/18 10:49 Medications: Current Medications Acetaminophen (Tylenol) 650 mg PO Q4H PRN PRN Reason: Headache/Fever/Mild Pain (1-3) Last Admin: 10/04/18 03:41 Dose: 650 mg Albuterol Sulfate (Ventolin) 2.5 mg NEB [id number] PRN PRN Reason: Wheezing Alprazolam (Xanax) 0.5 mg PO BID PRN PRN Reason: Anxiety Last Admin: 10/05/18 00:41 Dose: 0.5 mg Amitriptyline HCl (Elavil) 30 mg PO [facility] Last Admin: 10/04/18 20:24 Dose: 30 mg Artificial Tears (Tears Naturale) 2 drop EA EYE PRN PRN PRN Reason: Dry Eyes Bisacodyl (Dulcolax) 10 mg PO DAILYPRN PRN PRN Reason: Constipation Bisacodyl (Dulcolax) 10 mg PA DAILYPRN PRN PRN Reason: Constipation Calcium Carbonate (Tums) 1,000 mg PO Q4H PRN PRN Reason: Heartburn or Indigestion Cholecalciferol (Vitamin D3) 1,000 units PO DAILY [facility] Last Admin: 10/05/18 08:39 Dose: 1,000 units Colchicine (Colcrys) 0.6 mg PO BID-[facility] Last Admin: 10/05/18 08:38 Dose: 0.6 mg Dextrose/Water (Dextrose 50%) 25 gm SLOW IVP PRN PRN PRN Reason: Hypoglycemia Doxycycline Hyclate (Vibramycin) 100 mg PO BID [facility] Last Admin: 10/05/18 08:38 Dose: 100 mg Fentanyl (Sublimaze) 25 mcg SLOW IVP Q2H PRN PRN Reason: Pain Last Admin: 10/05/18 07:59 Dose: 25 mcg Ferrous Sulfate (Feosol) 325 mg PO QAM-[facility] Last Admin: 10/05/18 08:38 Dose: 325 mg Glucagon (Glucagon) 1 mg IM PRN PRN PRN Reason: Hypoglycemia Guaifenesin (Robitussin Sf) 200 mg PO Q4H PRN PRN Reason: Cough Hydralazine HCl (Apresoline) 10 mg SLOW IVP Q4H PRN PRN Reason: SBP > 180 and HR < 70 Hydroxychloroquine Sulfate (Plaquenil) 200 mg PO BID [facility] Last Admin: 10/05/18 08:39 Dose: 200 mg Hypromellose (Systane Gel) 0 gm EA EYE TID [facility] Last Admin: 10/05/18 08:39 Dose: 1 drop Sodium Chloride (Normal Saline 0.9%) 1,000 mls @ 100 mls/hr IV .Q10H [facility] Last Admin: 10/05/18 04:36 Dose: 1,000 mls Dextrose/Water (D5w) 1,000 mls @ 0 mls/hr IV .Q0M PRN PRN Reason: Hypoglycemia Insulin Human Lispro (Humalog) 0 units SC .MODERATE SLIDING SC PRN PRN Reason: Moderate Correctional Scale Last Admin: 10/04/18 16:13 Dose: 2 unit Insulin Human Lispro (Humalog) 0 units SC .BEDTIME SLIDING SC PRN PRN Reason: Bedtime Correctional Scale Last Admin: 10/04/18 20:28 Dose: 2 unit Levothyroxine Sodium (Synthroid) 200 mcg PO 0600 [facility] Last Admin: 10/05/18 04:36 Dose: 200 mcg Loperamide HCl (Imodium) 2 mg PO PRN PRN PRN Reason: Diarrhea/Loose Stools Loratadine (Claritin) 10 mg PO DAILYPRN PRN PRN Reason: Sinus Symptoms Mineral Oil/White Petrolatum (Eucerin Cream) 0 gm TOP BIDPRN PRN PRN Reason: Dry Skin Ondansetron HCl (Zofran Odt) 4 mg PO Q6H PRN PRN Reason: Nausea/Vomiting Ondansetron HCl (Zofran) 4 mg IVP Q6H PRN PRN Reason: Nausea/Vomiting Prednisone (Prednisone) 5 mg PO QAM-[facility] Last Admin: 10/05/18 08:39 Dose: 5 mg Senna/Docusate Sodium (Senokot S) 2 tab PO BID PRN PRN Reason: Constipation Last Admin: 10/04/18 20:33 Dose: 2 tab Sodium Chloride ([place] Nasal [place] 0.65%) 0 ml EA NARE QIDPRN PRN PRN Reason: Nasal Congestion Sodium Chloride (Flush - Normal Saline) 10 ml IVF Q12HR [facility]YAN Last Admin: 10/05/18 08:39 Dose: Not Given Sodium Chloride (Flush - Normal Saline) 10 ml IVF PRN PRN PRN Reason: Saline Flush Throat Lozenges (Cepastat Lozenges) 1 maverick PO Q2H PRN PRN Reason: Sore Throat Tramadol HCl (Ultram) 100 mg PO Q6H PRN PRN Reason: Moderate to Severe Pain (6-10) Last Admin: 10/05/18 08:38 Dose: 100 mg Tramadol HCl (Ultram) 50 mg PO Q6H PRN PRN Reason: MILD Pain (1-5) Zolpidem Tartrate (Ambien) 5 mg PO HSPRN PRN PRN Reason: Insomnia
--- NOTE | 2018-10-05 14:56 | DIS ---
DATE OF ADMISSION: 10/03/2018 DATE OF DISCHARGE: 10/05/2018 PRIMARY CARE PHYSICIAN: Jyoti Buregr MD DISCHARGE DISPOSITION: [facility] swing bed. PRIMARY DISCHARGE DIAGNOSES: Acute on chronic kidney failure stage 3, generalized weakness, right lo wer extremity wound. SECONDARY DISCHARGE DIAGNOSES: Rheumatoid arthritis, gouty arthritis, hypertension, history of pulmo nary embolism, chronic anticoagulation, gastroesophageal reflux disease, diabetes type 2, normocytic normochromic anemia. PRIMARY PROCEDURE/OPERATION: None. RADIOLOGICAL INVESTIGATION: Knee x-ray, hip x-ray negative for any fracture or dislocation. SIGNIFICANT LABORATORY DATA: WBC 7.4, hemoglobin 8.5, MCV 74, platelet 483. INR 1.6. Sodium 138, p otassium 4.8, BUN 19, creatinine 1.54, calcium 8.9. Urinalysis normal. DISCHARGE MEDICATIONS: Tylenol 650 mg q.4. hourly p.r.n., albuterol nebulization t.i.d., amitriptyli ne 30 mg p.o. at bedtime, amlodipine 5 mg daily, Biotin 10,000 mcg daily, vitamin D3 of 1000 unit p.o . daily, Benadryl 25 mg p.o. b.i.d. p.r.n., enalapril 20 mg daily, Plaquenil 200 mg p.o. daily, Synth roid 200 mcg p.o. daily, Systane eyedrops b.i.d., Xanax 0.5 mg p.o. b.i.d., clonidine 0.4 mg p.o. at bedtime, colchicine 0.6 mg p.o. b.i.d., doxycycline 100 mg p.o. b.i.d., ferrous sulfate 325 mg p.o. d aily, prednisone 5 mg p.o. daily, tramadol 50 mg q.6 hourly p.r.n., warfarin 7.5 mg p.o. daily. CONTRAINDICATIONS: None. CODE STATUS: FULL CODE. INPATIENT CONSULTANTS: None. ALLERGIES: ASPIRIN, CODEINE, MORPHINE. DISCHARGE PLAN: Post hospital, the patient is discharged to swing bed. HOSPITAL COURSE: A 68-year-old female who was recently admitted in our hospital and after discharge, she was doing well, but she started feeling weak, dizzy and she was falling frequently at home. Ple ase see my HPI for further details. On admission, she was found with acute on chronic kidney failure . Rest of investigation was unremarkable. The patient was admitted to medical floor. We hydrated h er with IV fluid and her renal function improved to baseline. While in hospital, we holded her lisin opril, but upon discharge, we resumed all her previous medication including warfarin. This patient had generalized physical weakness and that is [facility] We did PT, OT while in hospital and with help of nurse case manager. The patient was a pproved for inpatient rehabilitation, [facility] swing bed. Paper work for discharge done. Discharge medication reconciliation done. The patient is seen and examined at bedside today. Please see my progress note from today for furthe r details. Total time spent on discharge day 31 minutes.
[2018-10-05] MEDS ORDERED: Warfarin Sodium 7.5 MG TAB PO SCH (17:00)
[2018-10-06] MEDS ORDERED: Amlodipine 5 MG TAB PO SCH (09:00)
== END 2018-10-05 17:33 | DRG 683 ==
LOC: ERS 06:35 → T4-A 09:54
PROVIDERS: ADMIT Internal Medicine; ATTEND Internal Medicine
DX: N17.9 Acute kidney failure, unspecified (principal); Z68.42 Body mass index [BMI] 45.0-49.9, adult; I12.9 Hypertensive chronic kidney disease with stage 1 through stage 4 chronic kidney disease, or unspecified chronic kidney disease; N18.3 Chronic kidney disease, stage 3 (moderate); S81.801A Unspecified open wound, right lower leg, initial encounter; D63.1 Anemia in chronic kidney disease; Z79.01 Long term (current) use of anticoagulants; E11.22 Type 2 diabetes mellitus with diabetic chronic kidney disease; K21.9 Gastro-esophageal reflux disease without esophagitis; M10.9 Gout, unspecified; Z86.711 Personal history of pulmonary embolism; M06.9 Rheumatoid arthritis, unspecified; Z91.81 History of falling; M19.90 Unspecified osteoarthritis, unspecified site; J45.909 Unspecified asthma, uncomplicated; E66.01 Morbid (severe) obesity due to excess calories; E03.9 Hypothyroidism, unspecified; M35.00 Sjogren syndrome, unspecified; F41.9 Anxiety disorder, unspecified; F32.9 Major depressive disorder, single episode, unspecified
CPT/HCPCS: 36415; 36416; 51701; 80048; 80053; 81003; 82550; 82553; 82570; 82728; 84300; 84484; 85025; 85610; 93005; 96360; A4353; G8978-GP-CL; G8979-GP-CJ; G8987-GO-CL; G8988-GO-CJ; J3010

== ENCOUNTER 2018-10-16 14:41 | Emergency (ER) | payer MEDICARE, OTHER ==
[2018-10-16 16:01] LABS: #Lymphocytes 1.2 thou/uL (1.20-3.40); #Monocytes 1.1 thou/uL (0.11-0.59); #Neutrophils 7.5 thou/uL (1.40-6.50); %Basophils 0.3 % (0.0-1.0); %Eosinophils 0.3 % (0.0-10.0); %Lymphocytes 12.5 % (21.0-51.0); %Monocytes 10.8 % (0.0-10.0); %Neutrophils 76.1 % (42.0-75.0); Hemoglobin 9.4 g/dL (12.0-16.0); Mean Corpuscular HGB CONC 29.5 g/dL (32.0-36.0); Mean Corpuscular Hemoglobin 22.1 pg (27.0-31.0); Mean Platelet Volume 9.1 fL (7.4-10.4); Platelet Count 532 thou/uL (130-400); RBC Distribution Width 20.6 % (11.5-14.5); Red Blood Cell (RBC) Count 4.27 mill/uL (4.20-5.40); White Blood Cell (WBC) Count 9.8 thou/uL (4.8-10.8)
[2018-10-16 16:05] LABS: PTT 93.6 SEC (22.9-36.1)
[2018-10-16 16:06] LABS: INR-International Normal Ratio 5.4
[2018-10-16 16:42] LABS: ALT (SGPT) 23 U/L (8-55); AST (SGOT) 34 U/L (5-34); Alkaline Phosphatase 246 U/L (40-150); Anion Gap 20 mmol/L (10-20); BUN (Urea Nitrogen) 33 mg/dL (9.8-20.1); Bilirubin, Total 0.4 mg/dL (0.2-1.2); Calc. Creatinine Clearance 0 mL/min (70-130); Carbon Dioxide 21 mmol/L (23-31); Chloride 96 mmol/L (98-107); Estimated GFR-MDRD 22; Globulin 4.3 g/dL (2.4-3.5); Glucose 168 mg/dL (80-115); Potassium 4.6 mmol/L (3.5-5.1); Protein, Total 7.3 g/dL (6.0-8.3); Sodium 132 mmol/L (136-145)
[2018-10-16] MEDS ORDERED: Ondansetron ODT 4 MG TAB ONE (19:11)
[2018-10-16] MEDS ORDERED: HYDROcodone/Acetaminophen 5/325 mg Tablet ONE (19:11)
== END 2018-10-16 19:40 | disposition home or self-care (01) ==
LOC: ERS 14:41
DX: E11.622 Type 2 diabetes mellitus with other skin ulcer (principal); L89.893 Pressure ulcer of other site, stage 3; R79.1 Abnormal coagulation profile; R11.10 Vomiting, unspecified; I12.9 Hypertensive chronic kidney disease with stage 1 through stage 4 chronic kidney disease, or unspecified chronic kidney disease; E11.22 Type 2 diabetes mellitus with diabetic chronic kidney disease; N18.9 Chronic kidney disease, unspecified; M10.9 Gout, unspecified; M06.9 Rheumatoid arthritis, unspecified; E87.1 Hypo-osmolality and hyponatremia; J45.909 Unspecified asthma, uncomplicated; E66.9 Obesity, unspecified; Z86.711 Personal history of pulmonary embolism; Z79.899 Other long term (current) drug therapy
CPT/HCPCS: 80053; 85025; 85610; 85730; 93005; Q0162

== ENCOUNTER 2018-10-18 14:57 | Observation (INO) | payer MEDICARE, OTHER ==
[2018-10-18 16:27] LABS: #Lymphocytes 1.2 thou/uL (1.20-3.40); #Monocytes 1.3 thou/uL (0.11-0.59); #Neutrophils 7.7 thou/uL (1.40-6.50); %Basophils 0.2 % (0.0-1.0); %Eosinophils 0.3 % (0.0-10.0); %Monocytes 12.5 % (0.0-10.0); %Neutrophils 74.9 % (42.0-75.0); Hemoglobin 9.9 g/dL (12.0-16.0); Mean Corpuscular HGB CONC 29.2 g/dL (32.0-36.0); Mean Corpuscular Hemoglobin 21.6 pg (27.0-31.0); Mean Corpuscular Volume 74.2 fL (78.0-98.0); Mean Platelet Volume 8.9 fL (7.4-10.4); Platelet Count 567 thou/uL (130-400); RBC Distribution Width 20.6 % (11.5-14.5); Red Blood Cell (RBC) Count 4.58 mill/uL (4.20-5.40); White Blood Cell (WBC) Count 10.2 thou/uL (4.8-10.8)
[2018-10-18] MEDS ORDERED: Ondansetron PF 4 MG/2 ML Vial ONE (16:30)
[2018-10-18] MEDS ORDERED: Morphine 2 MG/ML SYRINGE ONE (16:30)
[2018-10-18 16:33] LABS: Prothrombin Time 58.8 SEC (12.0-14.7)
[2018-10-18 16:34] LABS: PTT 105.4 SEC (22.9-36.1)
[2018-10-18 16:35] LABS: INR-International Normal Ratio 6.8
[2018-10-18 16:38] LABS: ALT (SGPT) 23 U/L (8-55); AST (SGOT) 38 U/L (5-34); Albumin 3.1 g/dL (3.4-4.8); Alkaline Phosphatase 273 U/L (40-150); Anion Gap 16 mmol/L (10-20); BUN (Urea Nitrogen) 24 mg/dL (9.8-20.1); Bilirubin, Total 0.4 mg/dL (0.2-1.2); CK (CPK) 294 U/L (29-168); Calc. Creatinine Clearance 0 mL/min (70-130); Calcium 9.4 mg/dL (7.8-10.44); Carbon Dioxide 24 mmol/L (23-31); Chloride 98 mmol/L (98-107); Estimated GFR-MDRD 25; Globulin 4.5 g/dL (2.4-3.5); Glucose 132 mg/dL (80-115); Potassium 4.9 mmol/L (3.5-5.1); Protein, Total 7.6 g/dL (6.0-8.3); Sodium 133 mmol/L (136-145)
[2018-10-18 16:43] LABS: CKMB 2.4 ng/mL (0-6.6); Troponin I Less than 0.010 ng/mL (< 0.028)
--- NOTE | 2018-10-18 17:16 | CT ---
CT OF HEAD NONCONTRAST: Indication: Altered mental status, stroke alert. History of headache, nausea. FINDINGS: There is no evidence of intracranial hemorrhage, mass effect, or midline shift. Mild global atrophy w ith compensatory dilatation of the ventricular system is present. There is scattered hypodensities of the cerebral parenchyma which may be on the basis of mild ischemic disease. IMPRESSION: No acute intracranial hemorrhage or mass effect. Notification of the results placed to ER care provider, Iva Mixon, at 1556 hours 10-18-18. POS: YVAN
[2018-10-18] MEDS ORDERED: Phytonadione 10 MG/ML AMP PO SCH (18:00)
[2018-10-18] MEDS: Acetaminophen 325 MG TAB PO SCH (21:13)
[2018-10-18] MEDS ORDERED: Morphine 2 MG/ML SYRINGE SLOW IVP SCH (23:00)
[2018-10-18 23:01] VITALS: BMI 43.6
[2018-10-18] MEDS ORDERED: Acetaminophen 325 MG TAB PO PRN (23:48)
[2018-10-18] MEDS ORDERED: Ondansetron ODT 4 MG TAB PO PRN (23:54)
[2018-10-18] MEDS ORDERED: Senokot S 8.6-50 MG TAB PO PRN (23:54)
[2018-10-18] MEDS ORDERED: Bisacodyl 5 MG TAB PO PRN (23:54)
[2018-10-18] MEDS ORDERED: Ondansetron PF 4 MG/2 ML Vial IVP PRN (23:54)
[2018-10-19] MEDS: Zolpidem Tartrate 5 MG TAB PO PRN ×2 (00:49→22:14)
[2018-10-19] MEDS ORDERED: Temazepam 15 MG CAP PO SCH (01:30)
[2018-10-19] MEDS: Acetaminophen 325 MG TAB PO SCH ×4 (03:20→22:14)
[2018-10-19 05:03] LABS: Reticulocyte Count 1.2 % (0.5-1.5)
[2018-10-19 05:06] LABS: INR-International Normal Ratio 3.9; Prothrombin Time 38.2 SEC (12.0-14.7)
[2018-10-19 05:07] LABS: PTT 93.3 SEC (22.9-36.1)
[2018-10-19 05:16] LABS: Anion Gap 17 mmol/L (10-20); BUN (Urea Nitrogen) 22 mg/dL (9.8-20.1); Calc. Creatinine Clearance 56 mL/min (70-130); Calcium 9.3 mg/dL (7.8-10.44); Carbon Dioxide 24 mmol/L (23-31); Chloride 99 mmol/L (98-107); Estimated GFR-MDRD 27; Glucose 82 mg/dL (80-115); Iron 16 ug/dL (50-170); Iron Binding Capacity, Total 168 mcg/dL (265-497); Potassium 4.4 mmol/L (3.5-5.1); Sodium 136 mmol/L (136-145)
[2018-10-19 05:34] LABS: Band 1 % (5-11); Hemoglobin 9.2 g/dL (12.0-16.0); Lymphocytes 45 % (21-51); MDiff Complete? YES; Mean Corpuscular HGB CONC 29.1 g/dL (32.0-36.0); Mean Corpuscular Hemoglobin 21.7 pg (27.0-31.0); Mean Corpuscular Volume 74.4 fL (78.0-98.0); Mean Platelet Volume 8.3 fL (7.4-10.4); Monocytes 11 % (0-10); Neutrophil 41 % (42-75); PLT Morphology Comment Appears Increased; Platelet Count 600 thou/uL (130-400); RBC Distribution Width 20.2 % (11.5-14.5); Red Blood Cell (RBC) Count 4.25 mill/uL (4.20-5.40); White Blood Cell (WBC) Count 9.3 thou/uL (4.8-10.8)
[2018-10-19] MEDS: Levothyroxine Sodium 100 MCG TAB PO SCH (06:07)
[2018-10-19] MEDS: ALPRAZolam 0.5 MG TAB PO PRN ×2 (06:18→22:14)
--- NOTE | 2018-10-19 06:18 | HP ---
CHIEF COMPLAINT: Abnormal lab, so patient was transferred to the hospital to be monitored. HISTORY OF PRESENT ILLNESS: This is a 68-year-old female with past medical history of gout, diabetes mellitus, hypertension, arthritis, hypothyroid, asthma, anemia, obesity, pulmonary embolism x2, pres enting with elevated INR. The patient was then transferred to our facility to be monitored. Per rec ords, patient takes Coumadin for PE x2 and on Thursday prior to the admission, patient was taking of he r Coumadin because patient's INR had been supratherapeutic. At this point, the patient denies any ch est pain, palpitation, abdominal pain. She denies vomiting: Denies dysuria, hematuria, melena, wes tochezia. The patient endorses headaches and nausea. Of note, patient do have bilateral ulcerations at her back, which patient states that equal to 10/10 pain. REVIEW OF SYSTEMS: Positive for elevated INR, nausea and headache. Otherwise as documented in the H PI, all other systems were reviewed and are negative. PAST MEDICAL HISTORY: Gout, diabetes mellitus type 2, hypertension, arthritis, hypothyroidism, hyper lipidemia, hypertriglyceridemia, asthma, anemia, obesity, pulmonary embolism x2. FAMILY HISTORY: Reviewed and noncontributory to this visit. PAST SURGICAL HISTORY: Bilateral TKRS, bilateral eye cataract surgery, bilateral rotator cuff repair s, total hysterectomy, appendectomy, left hand cyst removal from tendon, bilateral carpal tunnel surg aye. PSYCHIATRIC HISTORY: Reviewed and noncontributory. SOCIAL HISTORY: Denies alcohol use. Denies any illicit drug use. Denied smoking history. The wyatt ent lives at home. FAMILY HISTORY: Reviewed and noncontributory to this visit. ALLERGIES: The patient is allergic to ASPIRIN, BACTRIM, CODEINE, MORPHINE, NSAIDS, OPIOIDS, PENICILL IN, PENTAZOCINE, STATINS, SULFA DRUGS, TALWIN. CURRENT MEDICATIONS: Patient takes; 1. Amlodipine 5 mg. 2. Clonidine 0.2 mg. 3. Coumadin 5 mg. 4. Levothyroxine 200 mcg. 5. Albuterol 90 mcg inhaler t.i.d. 6. Glimepiride 1 mg. 7. Lyrica 75 mg. 8. Prednisone 5 mg. 9. Prilosec 40 mg. 10. Plaquenil 200 mg. 11. Enalapril 20 mg. 12. Amitriptyline 30 mg. 13. Clindamycin 300 mg t.i.d. 14. Zofran. PHYSICAL EXAMINATION: VITAL SIGNS: Blood pressure 126/66, pulse of 90, respiratory rate of 20, temperature of 99.2, oxygen saturation of 98. GENERAL: Patient is lying in bed, complaining of mild pain at the gluteal area. Alert, oriented x3, not in acute distress. HEENT: Normocephalic, atraumatic. Pupils are equally round and reactive to light. Extraocular move ments are intact. No scleral icterus. No conjunctival pallor. Mucous membranes are moist. NECK: Trachea is midline. No JVD. Full range of motion, supple. LUNGS: Clear to auscultation bilaterally. No wheezing, no rales, no rhonchus appreciated. CARDIOVASCULAR: S1, S2, regular rate and rhythm, no murmurs, no gallops, no rubs appreciated. ABDOMEN: Soft, nontender, nondistended, obese abdomen, positive bowel sounds in all quadrants. No p ulsatile masses noted. EXTREMITIES: 5/5 upper extremity strength, 4/5 lower extremity strength, 2+ edema noted at the lower extremity. Upper extremity has good pulses. No edema noted. NEUROLOGIC: Cranial nerves II-XII grossly intact. No neurologic deficits noted. SKIN: Warm, dry, and intact. IMAGING: EKG shows sinus rhythm with a rate of 90. Head CT is negative. In the ED, the patient was given vitamin K p.o. 5 mg, morphine, and Zofran. LABORATORY DATA: WBC 10.2, hemoglobin 9.9, hematocrit 34.0, platelet is 567. INR is 6.8. PT 68.8. PTT is 105.4. Sodium 133, potassium is 4.9, chloride is 98, carbon dioxide of 24, anion gap of 16, BUN is 24, creatinine is 1.98. Estimated GFR is 25, glucose 132. AST 38, ALT 23, alkaline phosphata se is 273. Creatinine kinase 294. Troponin is less than 0.010. ASSESSMENT AND PLAN: This is a 68-year-old female being admitted for supratherapeutic INR. At this point, we will give the patient vitamin K p.o. We are going to follow up in the morning coagulation labs. We will continue to monitor the patient closely. 1. Bilateral lower extremity edema. We will continue patient on current management. 2. Hypertension. We will continue patient on her home medication. 3. Hyperlipidemia. Continue patient on home medication. 4. Anemia. We have ordered anemia panel. We will follow up on the results. 5. Obesity. We advised the patient to eat healthy. 6. History of pulmonary embolisms. At this point, we are going to hold Coumadin since the patient h as supratherapeutic INR. We will consider switching the patient to Eliquis. The day team will make their recommendation whether Eliquis can be started on that. 7. Hypothyroidism. Continue the patient on her home medications. 8. Diabetes mellitus type 2. We will continue insulin sliding scale. 9. Deep venous thrombosis and gastrointestinal prophylaxis.
[2018-10-19 06:50] LABS: Folate (Folic Acid) 8.4 ng/mL (7.0-31.4)
[2018-10-19] MEDS ORDERED: Colchicine 0.6 MG TAB PO SCH (08:00)
[2018-10-19] MEDS: Multivitamin W/ Minerals 1 TAB PO SCH (08:21)
[2018-10-19] MEDS: Hydroxychloroquine Sulfate 200 MG TAB PO SCH ×2 (08:21→22:13)
[2018-10-19] MEDS: Famotidine/PF 20 mg/2ml Vial SLOW IVP SCH (08:22)
[2018-10-19] MEDS: Famotidine 20 MG TAB PO SCH (08:22)
[2018-10-19] MEDS: predniSONE 5 MG TAB PO SCH (08:22)
[2018-10-19] MEDS: Amlodipine 5 MG TAB PO SCH (08:22)
[2018-10-19] MEDS ORDERED: Biotin [Biotin] 10,000 MCG PO SCH (09:00)
[2018-10-19] MEDS: SYSTANE GEL EYE DROP 10 ML 10 GM BOT EA EYE SCH ×3 (10:05→22:12)
[2018-10-19] MEDS ORDERED: ALPRAZolam 0.25 MG TAB PO SCH (10:30)
[2018-10-19] MEDS: traMADol HCl 50 MG TAB PO PRN ×3 (10:44→23:19)
--- NOTE | 2018-10-19 14:54 | ULT ---
SOFT TISSUE ULTRASOUND RIGHT LOWER EXTREMITY: CLINICAL HISTORY: Edema and pain of right lower extremity. FINDINGS: Localized soft tissue ultrasound reveals ill-defined decreased echogenicity, compatible with infiltra ting soft tissue edema without evidence of a well formed abscess collection. IMPRESSION: Findings most consistent with soft tissue edema at the site of concern, within the right thigh soft t issue. POS: [facility]
--- NOTE | 2018-10-19 14:57 | PDOC.PN ---
- Subjective Encounter Start Date: 10/19/18 Encounter Start Time: 09:00 Pt seen for followup re: coagulopathy. c/o pain R thigh. No chest pain. - Objective Resuscitation Status: Resuscitation Status FULL:Full Resuscitation Vital Signs & Weight: Vital Signs (12 hours) Temp Pulse Resp BP Pulse Ox 10/19/18 12:36 98.9 F 99 16 126/58 L 95 10/19/18 08:11 98.1 F 109 H 20 132/60 96 10/19/18 04:45 106 H 10/19/18 04:00 97.8 F 113 H 20 114/69 94 L Weight Admit Weight 278 lb 9.6 oz Weight 278 lb 9.6 oz I&O: 10/18/18 10/19/18 10/20/18 06:59 06:59 06:59 Intake Total 240 Output Total 1075 Balance -835 Result Diagrams: 10/19/18 04:30 10/19/18 04:30 Additional Labs: Accuchecks 10/19/18 05:54 POC Glucose 100 Phys Exam - Physical Examination Morbid obesity HEENT: moist MMs, sclera anicteric, oral pharynx no lesions, 2+ tonsils Neck: no nodes, no JVD, supple, full ROM Respiratory: no wheezing, no rales, no rhonchi, clear to auscultation bilateral Cardiovascular: RRR, no rub S1, S2 Gastrointestinal: soft, non-tender, no distention, positive bowel sounds R thigh tenderness Neurological: moves all 4 limbs Deviation from normal: Pt in mild distress, oriented to person and place only, not to time Dx/Plan (1) Coagulopathy Status: Acute Comment: warfarin on hold, pt received vit k. Follow INR and start warfarin when appropriate. (2) Thigh pain Status: Acute Comment: check US to r/o fluid collection (hematoma etc) (3) GERD (gastroesophageal reflux disease) Code(s): K21.9 - GASTRO-ESOPHAGEAL REFLUX DISEASE WITHOUT ESOPHAGITIS Status: Chronic Qualifiers: Comment: (4) HTN (hypertension) Code(s): I10 - ESSENTIAL (PRIMARY) HYPERTENSION Status: Chronic Qualifiers: Comment: controlled (5) History of pulmonary embolus (PE) Code(s): Z86.711 - PERSONAL HISTORY OF PULMONARY EMBOLISM Status: Chronic Comment: resume warfarin when INR is subtherapeutic - Plan * . Review of Systems - Review of Systems Constitutional: negative: fever, chills, sweats, weakness, malaise Respiratory: negative: Cough, Shortness of Breath, SOB with Excertion, Pleuritic Pain, Wheezing Cardiovascular: negative: chest pain, palpitations, orthopnea, paroxysmal nocturnal dyspnea, edema, light headedness Gastrointestinal: negative: Nausea, Vomiting, Abdominal Pain, Diarrhea, Constipation, Melena, Hematochezia Genitourinary: negative: Dysuria, Frequency, Incontinence, Hematuria, Retention Musculoskeletal: Other (Thigh pain). negative: Neck Pain, Shoulder Pain, Arm Pain, Back Pain, Hand Pain, Leg Pain, Foot Pain - Medications/Allergies Allergies/Adverse Reactions: Allergies Allergy/AdvReac Type Severity Reaction Status Date / Time aspirin Allergy Severe Anaphylaxis Verified 10/03/18 10:49 [From Talwin Compound] codeine Allergy Severe Rash Verified 10/03/18 10:49 NSAIDS (Non-Steroidal Allergy Severe Verified 10/03/18 10:49 Anti-Inflamma Penicillins Allergy Severe Anaphylaxis Verified 10/03/18 10:49 Ljydzan-Cxh-Tuf Reductase Allergy Severe Verified 10/03/18 10:49 Inhibitor pentazocine HCl Allergy Mild Headache Verified 10/18/18 22:49 [From Talwin Compound] ottoniel Allergy Verified 10/03/18 10:49 Sulfa (Sulfonamide Allergy Verified 10/03/18 10:49 Antibiotics) sulfamethoxazole Allergy Verified 10/03/18 10:49 [From Bactrim] trimethoprim [From Bactrim] Allergy Verified 10/03/18 10:49 morphine AdvReac Mild Nausea Verified 10/18/18 22:49 Medications: Current Medications Acetaminophen (Tylenol) 650 mg PO 0300,0900,1500,2100 [facility] Last Admin: 10/19/18 08:21 Dose: 650 mg Acetaminophen (Tylenol) 650 mg PO Q4H PRN PRN Reason: Fever/Mild Pain 1-3 Alprazolam (Xanax) 0.5 mg PO BIDPRN PRN PRN Reason: Anxiety Last Admin: 10/19/18 06:18 Dose: 0.5 mg Amitriptyline HCl (Elavil) 30 mg PO HS [facility] Amlodipine Besylate (Norvasc) 5 mg PO DAILY [facility] Last Admin: 10/19/18 08:22 Dose: 5 mg Bisacodyl (Dulcolax) 10 mg PO DAILYPRN PRN PRN Reason: Constipation Cholecalciferol (Vitamin D3) 1,000 units PO DAILY [facility] Last Admin: 10/19/18 08:22 Dose: 1,000 units Clonidine (Catapres) 0.4 mg PO [facility] Enalapril Maleate (Vasotec) 20 mg PO DAILY [facility] Last Admin: 10/19/18 08:21 Dose: 20 mg Famotidine (Pepcid) [facility] Last Admin: 10/19/18 08:22 Dose: Not Given Famotidine (Pepcid) 20 mg PO QAM [facility] Last Admin: 10/19/18 08:22 Dose: 20 mg Hydroxychloroquine Sulfate (Plaquenil) 200 mg PO BID [facility] Last Admin: 10/19/18 08:21 Dose: 200 mg Hypromellose (Systane Gel) 0 gm EA EYE TID [facility] Last Admin: 10/19/18 10:05 Dose: 1 drop Iron/Minerals/Multivitamins (Theragran M) 1 tab PO DAILY [facility] Last Admin: 10/19/18 08:21 Dose: 1 tab Levothyroxine Sodium (Synthroid) 200 mcg PO 0600 [facility] Last Admin: 10/19/18 06:07 Dose: 200 mcg Ondansetron HCl (Zofran Odt) 4 mg PO Q6H PRN PRN Reason: Nausea/Vomiting Ondansetron HCl (Zofran) 4 mg IVP Q6H PRN PRN Reason: Nausea/Vomiting Pneumococcal 13-Valent Conj Vacc (Prevnar) 0.5 ml IM .ONCE ONE Stop: 10/20/18 09:01 Prednisone (Prednisone) 5 mg PO QAM-[facility] Last Admin: 10/19/18 08:22 Dose: 5 mg Senna/Docusate Sodium (Senokot S) 2 tab PO BID PRN PRN Reason: Constipation Sodium Chloride (Flush - Normal Saline) 10 ml IVF Q12HR PRN PRN Reason: Saline Flush Sodium Chloride (Flush - Normal Saline) 10 ml IVF PRN PRN PRN Reason: Saline Flush Tramadol HCl (Ultram) 50 mg PO Q6H PRN PRN Reason: Moderate to Severe Pain (6-10) Last Admin: 10/19/18 10:44 Dose: 50 mg Zolpidem Tartrate (Ambien) 5 mg PO HSPRN PRN PRN Reason: Insomnia Last Admin: 10/19/18 00:49 Dose: 5 mg
[2018-10-19] MEDS ORDERED: Morphine 2 MG/ML SYRINGE SLOW IVP SCH (20:45)
--- NOTE | 2018-10-19 21:17 | ULT ---
RENAL ULTRASOUND: 10/19/18 HISTORY: Acute kidney insufficiency. The right kidney measures 11 cm in length. There is a 2.5 cm cyst from the superior right kidney. No hydronephrosis. The left kidney measures approximately 11 cm in length. There is a 5 cm cyst from the superior left k idney. There is an echogenic focus in the mid left kidney which may represent a small calculus. Both kidneys show cortical thinning. No hydronephrosis. IMPRESSION: 1. Bilateral cortical thinning. 2. Bilateral renal cysts. 3. No hydronephrosis. 1. POS: [facility]
[2018-10-19] MEDS: cloNIDine 0.2 MG TAB PO SCH (22:13)
[2018-10-19] MEDS: Amitriptyline HCl 10 MG TAB PO SCH (22:13)
--- NOTE | 2018-10-19 23:34 | CON ---
DATE OF CONSULTATION: 10/19/2018 REASON FOR CONSULTATION: Elevated creatinine. HISTORY OF PRESENT ILLNESS: A 68-year-old female who has had CKD on and off and a baseline creatinin e of 1, which increased to 2.6, but has improved over the last couple of days, so I was consulted. T he patient has no headache, numbness, tingling or weakness. The patient denies any nausea, vomiting or chest pain. The patient has had multiple PEs. PAST MEDICAL HISTORY: Gout, diabetes mellitus, hypertension, hypothyroidism, hyperlipidemia, hyperte nsion, anemia, asthma, pulmonary embolism x2. PAST SURGICAL HISTORY: Hysterectomy, appendectomy, bilateral total knee replacement. SOCIAL HISTORY: No alcohol or drug use. FAMILY HISTORY: Negative for ESRD. ALLERGIES: Reviewed. HOME MEDICATIONS: Reviewed. REVIEW OF SYSTEMS: Fifteen-point review of systems was performed and was negative except for the pos itives noted above. GENERAL: Weakness. HEAD: Headache. NECK: No swelling or lumps. NOSE: No epistaxis or discharge. EYES: No diplopia or pain. RESPIRATORY: Dyspnea. CARDIOVASCULAR: Chest pain. GASTROINTESTINAL: Nausea. /FEATHER MIXER: Hematuria. MUSCULOSKELETAL: No joint pain. NEUROPSYCHIATRIC SYSTEMS: No suicidal ideation. No ideation. SKIN: Denies any rash or ulcer. CONSTITUTIONAL: No fever or chills. PHYSICAL EXAMINATION: GENERAL: The patient is awake, alert. VITAL SIGNS: Afebrile, pulse 80, breathing at 16, blood pressure 126/66. GENERAL APPEARANCE AND MENTAL STATUS: Fair. HEAD/NECK: Normocephalic. Atraumatic. EYES: EOMI. No deformity. EARS: Clear. No ulcers. NOSE: Intact. No lesions. MOUTH: Clear. No discharge. THROAT: Clear. No exudate. LUNGS: Clear. No crackles. CARDIAC: S1, S2. No rub. ABDOMEN: Benign. BS+. GENITALIA/RECTUM: Reyes absent. BACK/EXTREMITIES: Edema 0+ Ulcer-. NEUROLOGICAL: Alert and motor intact. SKIN: Rash- Bruise-. LYMPHATICS: Edema- Ulcer-. LABORATORY DATA: Show creatinine is 1.8. ASSESSMENT AND RECOMMENDATIONS: 1. Acute kidney injury with chronic kidney disease, most likely due to chronic progressive diabetic disease and decreased effective arterial blood volume. 2. Hypertension, stable. 3. Anemia, stable. 4. Medications based on glomerular filtration rate are appropriate. No indication for dialysis. Wo uld recommend getting a renal imaging to be sure there is no hydronephrosis.
[2018-10-20] MEDS: Acetaminophen 325 MG TAB PO SCH ×4 (02:04→20:00)
[2018-10-20 05:25] LABS: Prothrombin Time 22.3 SEC (12.0-14.7)
[2018-10-20 05:26] LABS: PTT 45.5 SEC (22.9-36.1)
[2018-10-20] MEDS: traMADol HCl 50 MG TAB PO PRN (06:17)
[2018-10-20] MEDS: Levothyroxine Sodium 100 MCG TAB PO SCH (06:18)
[2018-10-20 09:00] LABS: Anion Gap 17 mmol/L (10-20); BUN (Urea Nitrogen) 21 mg/dL (9.8-20.1); Calc. Creatinine Clearance 59 mL/min (70-130); Calcium 8.5 mg/dL (7.8-10.44); Carbon Dioxide 24 mmol/L (23-31); Chloride 98 mmol/L (98-107); Estimated GFR-MDRD 29; Glucose 84 mg/dL (80-115); Hemoglobin 8.7 g/dL (12.0-16.0); Mean Corpuscular HGB CONC 29.3 g/dL (32.0-36.0); Mean Corpuscular Hemoglobin 22.1 pg (27.0-31.0); Mean Corpuscular Volume 75.6 fL (78.0-98.0); Mean Platelet Volume 9.1 fL (7.4-10.4); Platelet Count 543 thou/uL (130-400); Potassium 4.1 mmol/L (3.5-5.1); RBC Distribution Width 21.1 % (11.5-14.5); Red Blood Cell (RBC) Count 3.94 mill/uL (4.20-5.40); Sodium 135 mmol/L (136-145); White Blood Cell (WBC) Count 9.6 thou/uL (4.8-10.8)
[2018-10-20] MEDS: Amlodipine 5 MG TAB PO SCH (09:00)
[2018-10-20] MEDS ORDERED: Prevnar 13-Val Conj/PF 0.5 ML SYRINGE IM ONE (09:00)
[2018-10-20] MEDS: predniSONE 5 MG TAB PO SCH (09:00)
[2018-10-20] MEDS: Famotidine 20 MG TAB PO SCH (09:00)
[2018-10-20] MEDS: Hydroxychloroquine Sulfate 200 MG TAB PO SCH ×2 (09:00→20:00)
[2018-10-20] MEDS: Multivitamin W/ Minerals 1 TAB PO SCH (09:02)
[2018-10-20] MEDS: SYSTANE GEL EYE DROP 10 ML 10 GM BOT EA EYE SCH ×3 (09:03→20:01)
[2018-10-20] MEDS: Morphine 4 MG/ML VIAL SLOW IVP PRN ×3 (10:02→21:03)
[2018-10-20 11:11] LABS: Band 2 % (5-11); Hypochromia SLIGHT = 6-15 cells (100X) (0-5/hpf); Lymphocytes 33 % (21-51); MDiff Complete? YES; Microcytosis SLIGHT = 6-15 cells (100X) (0-5/hpf); Monocytes 10 % (0-10); Neutrophil 54 % (42-75); Ovalocytes SLIGHT = 2-5 cells (100X) (0-1/hpf); PLT Morphology Comment Appears Increased; Polychromasia SLIGHT = 2-3 cells (100X) (0-2/hpf)
--- NOTE | 2018-10-20 12:07 | PRG ---
DATE OF SERVICE: 10/20/2018 SUBJECTIVE: This is a 68-year-old female being seen for acute kidney injury. The patient denies any nausea, vomiting, or chest pain. PHYSICAL EXAMINATION: GENERAL: Patient is awake, alert. VITAL SIGNS: Afebrile, pulse 75, breathing 16, blood pressure 114/57. OBJECTIVE: See above. Awake, alert, in no acute distress. GENERAL APPEARANCE AND MENTAL STATUS: Fair. HEAD/NECK: Normocephalic. Atraumatic. EYES: EOMI. No deformity. EARS: Clear. No ulcers. NOSE: Intact. No lesions. MOUTH: Clear. No discharge. THROAT: Clear. No exudate. LUNGS: Clear. No crackles. CARDIAC: S1, S2. No rub. ABDOMEN: Benign. BS+. GENITALIA/RECTUM: Reyes absent. BACK/EXTREMITIES: Edema 0+ Ulcer- NEUROLOGICAL: Alert and motor intact. SKIN: Rash- Bruise- LYMPHATICS: Edema- Ulcer- LABORATORY: Hemoglobin 8.7, creatinine 1.7. ASSESSMENT AND RECOMMENDATIONS: 1. Chronic kidney disease stage 4, stable. 2. Hypertension, stable. 3. Anemia, stable. No indication for dialysis. Renal cyst. The patient would need a repeat ultrasound in 2020.
--- NOTE | 2018-10-20 12:42 | CT ---
RIGHT LOWER EXTREMITY CT SCAN WITHOUT IV CONTRAST: History: 68-year-old female with history of right thigh pain with concern for hematoma. Patient had high INR. Comparison: Ultrasound examination, 10-19-18; prior right lower extremity CT 10-12-18. FINDINGS: There is some scattered nonspecific subcutaneous fat stranding laterally over the region of the right pelvis, right hip, and upper right thigh. No evidence for an abnormal focal fluid collection to sugg est abscess or hematoma. No intramuscular mass or abnormal fluid collection. No evidence for pyonephr osis. No evidence for fracture or dislocation or other significant acute osseous abnormality of the f emur or hip. IMPRESSION: Overall stable appearing lateral subcutaneous fat stranding, nonspecific, but could be consistent wit h some nonspecific edema. No significant change from the prior 10-12-18 study. POS: [facility]
[2018-10-20] MEDS: Famotidine/PF 20 mg/2ml Vial SLOW IVP SCH (13:05)
[2018-10-20] MEDS: ALPRAZolam 0.5 MG TAB PO PRN ×2 (16:24→23:03)
--- NOTE | 2018-10-20 17:38 | PDOC.PN ---
- Subjective Encounter Start Date: 10/20/18 Encounter Start Time: 10:00 Pt seen for followup re: right thigh pain. Denies chest pain. c/o pain in right thigh. - Objective Resuscitation Status: Resuscitation Status FULL:Full Resuscitation MAR Reviewed: Yes Vital Signs & Weight: Vital Signs (12 hours) Temp Pulse Pulse Pulse Resp BP BP 10/20/18 17:00 99.0 F 103 H 20 10/20/18 16:25 99.0 F 103 H 20 137/63 10/20/18 14:50 88 95 110/58 L 10/20/18 13:00 99.1 F 91 18 10/20/18 12:10 99.1 F 91 18 121/58 L 10/20/18 10:05 95 114/57 L 10/20/18 09:01 120/56 L 10/20/18 09:00 97 120/56 L 10/20/18 08:00 97.5 F L 98 20 BP BP Pulse Ox 10/20/18 17:00 137/63 97 10/20/18 16:25 97 10/20/18 14:50 143/65 H 10/20/18 13:00 121/58 L 10/20/18 12:10 10/20/18 10:05 10/20/18 09:01 10/20/18 09:00 10/20/18 08:00 120/56 L 97 Weight Admit Weight 278 lb 9.6 oz Weight 269 lb 6.4 oz I&O: 10/19/18 10/20/18 10/21/18 06:59 06:59 06:59 Intake Total 240 1061 Output Total 1073 1525 Balance -835 -072 Result Diagrams: 10/21/18 04:23 10/21/18 04:23 Additional Labs: Accuchecks 10/20/18 10/20/18 10/20/18 17:08 11:11 05:33 POC Glucose 171 H 117 H 96 10/19/18 20:49 POC Glucose 110 EKG Reviewed by me: Yes (Tele: NSR) Phys Exam - Physical Examination Morbid obesity HEENT: moist MMs Neck: supple Respiratory: clear to auscultation bilateral Cardiovascular: RRR Gastrointestinal: soft Neurological: moves all 4 limbs Psychiatric: normal affect Deviation from normal: right thigh wound present Dx/Plan (1) Thigh pain Status: Acute Comment: check CT thigh, pt had US u, no fluid collection (2) Physical deconditioning Code(s): R53.81 - OTHER MALAISE Status: Acute Comment: consult PT (3) Coagulopathy Status: Chronic Comment: INR 2.0, resume warfarin, pharmacy to dose warfarin (4) GERD (gastroesophageal reflux disease) Code(s): K21.9 - GASTRO-ESOPHAGEAL REFLUX DISEASE WITHOUT ESOPHAGITIS Status: Chronic Qualifiers: Comment: continue pepcid (5) HTN (hypertension) Code(s): I10 - ESSENTIAL (PRIMARY) HYPERTENSION Status: Chronic Qualifiers: Comment: controlled (6) History of pulmonary embolus (PE) Code(s): Z86.711 - PERSONAL HISTORY OF PULMONARY EMBOLISM Status: Chronic Comment: warfarin being resumed - Plan * . Review of Systems - Review of Systems Cardiovascular: negative: chest pain, palpitations, orthopnea, paroxysmal nocturnal dyspnea, edema, light headedness Gastrointestinal: negative: Nausea, Vomiting, Abdominal Pain, Diarrhea, Constipation, Melena, Hematochezia Musculoskeletal: Other (thigh pain) - Medications/Allergies Allergies/Adverse Reactions: Allergies Allergy/AdvReac Type Severity Reaction Status Date / Time aspirin Allergy Severe Anaphylaxis Verified 10/03/18 10:49 [From Talwin Compound] codeine Allergy Severe Rash Verified 10/03/18 10:49 NSAIDS (Non-Steroidal Allergy Severe Verified 10/03/18 10:49 Anti-Inflamma Penicillins Allergy Severe Anaphylaxis Verified 10/03/18 10:49 Nsvhkey-Uey-Dzv Reductase Allergy Severe Verified 10/03/18 10:49 Inhibitor pentazocine HCl Allergy Mild Headache Verified 10/18/18 22:49 [From Talwin Compound] ottoniel Allergy Verified 10/03/18 10:49 Sulfa (Sulfonamide Allergy Verified 10/03/18 10:49 Antibiotics) sulfamethoxazole Allergy Verified 10/03/18 10:49 [From Bactrim] trimethoprim [From Bactrim] Allergy Verified 10/03/18 10:49 morphine AdvReac Mild Nausea Verified 10/18/18 22:49 Medications: Current Medications Acetaminophen (Tylenol) 650 mg PO 0300,0900,1500,2100 [facility] Last Admin: 10/20/18 16:26 Dose: 650 mg Acetaminophen (Tylenol) 650 mg PO Q4H PRN PRN Reason: Fever/Mild Pain 1-3 Alprazolam (Xanax) 0.5 mg PO BIDPRN PRN PRN Reason: Anxiety Last Admin: 10/20/18 16:24 Dose: 0.5 mg Amitriptyline HCl (Elavil) 30 mg PO HS [facility] Last Admin: 10/19/18 22:13 Dose: 30 mg Amlodipine Besylate (Norvasc) 5 mg PO DAILY [facility] Last Admin: 10/20/18 09:00 Dose: 5 mg Bisacodyl (Dulcolax) 10 mg PO DAILYPRN PRN PRN Reason: Constipation Last Admin: 10/20/18 08:56 Dose: 10 mg Cholecalciferol (Vitamin D3) 1,000 units PO DAILY [facility] Last Admin: 10/20/18 08:59 Dose: 1,000 units Clonidine (Catapres) 0.4 mg PO HS [facility] Last Admin: 10/19/18 22:13 Dose: 0.4 mg Enalapril Maleate (Vasotec) 20 mg PO DAILY [facility] Last Admin: 10/20/18 09:01 Dose: 20 mg Famotidine (Pepcid) 20 mg PO QAM [facility] Last Admin: 10/20/18 09:00 Dose: 20 mg Hydroxychloroquine Sulfate (Plaquenil) 200 mg PO BID [facility] Last Admin: 10/20/18 09:00 Dose: 200 mg Hypromellose (Systane Gel) 0 gm EA EYE TID [facility] Last Admin: 10/20/18 16:24 Dose: 1 drop Iron/Minerals/Multivitamins (Theragran M) 1 tab PO DAILY [facility] Last Admin: 10/20/18 09:02 Dose: 1 tab Levothyroxine Sodium (Synthroid) 200 mcg PO 0600 [facility] Last Admin: 10/20/18 06:18 Dose: 200 mcg Morphine Sulfate (Morphine) 4 mg SLOW IVP Q4H PRN PRN Reason: Pain Last Admin: 10/20/18 16:59 Dose: 4 mg Ondansetron HCl (Zofran Odt) 4 mg PO Q6H PRN PRN Reason: Nausea/Vomiting Ondansetron HCl (Zofran) 4 mg IVP Q6H PRN PRN Reason: Nausea/Vomiting Prednisone (Prednisone) 5 mg PO QAM-[facility] Last Admin: 10/20/18 09:00 Dose: 5 mg Senna/Docusate Sodium (Senokot S) 2 tab PO BID PRN PRN Reason: Constipation Last Admin: 10/20/18 08:56 Dose: 2 tab Sodium Chloride (Flush - Normal Saline) 10 ml IVF Q12HR PRN PRN Reason: Saline Flush Last Admin: 10/20/18 09:03 Dose: 10 ml Sodium Chloride (Flush - Normal Saline) 10 ml IVF PRN PRN PRN Reason: Saline Flush Last Admin: 10/20/18 17:00 Dose: 10 ml Tramadol HCl (Ultram) 50 mg PO Q6H PRN PRN Reason: Moderate to Severe Pain (6-10) Last Admin: 10/20/18 06:17 Dose: 50 mg Zolpidem Tartrate (Ambien) 5 mg PO HSPRN PRN PRN Reason: Insomnia Last Admin: 10/19/18 22:14 Dose: 5 mg
[2018-10-20] MEDS ORDERED: Warfarin Sodium 5 MG TAB PO SCH (18:00)
[2018-10-20] MEDS: cloNIDine 0.2 MG TAB PO SCH (20:00)
[2018-10-20] MEDS: Amitriptyline HCl 10 MG TAB PO SCH (20:00)
[2018-10-20] MEDS: Zolpidem Tartrate 5 MG TAB PO PRN (21:07)
[2018-10-21] MEDS ORDERED: Nystatin Powder 15 GM BOT TOP PRN (00:11)
[2018-10-21] MEDS: Morphine 4 MG/ML VIAL SLOW IVP PRN ×2 (01:05→08:29)
[2018-10-21] MEDS: traMADol HCl 50 MG TAB PO PRN ×2 (03:43→10:27)
[2018-10-21] MEDS: Acetaminophen 325 MG TAB PO SCH ×3 (03:43→13:28)
[2018-10-21 05:11] LABS: #Basophils 0.1 thou/uL (0.0-0.2); #Eosinphils 0.1 thou/uL (0.0-0.7); #Lymphocytes 2.1 thou/uL (1.20-3.40); #Monocytes 1.4 thou/uL (0.11-0.59); #Neutrophils 5.7 thou/uL (1.40-6.50); %Basophils 1.3 % (0.0-1.0); %Eosinophils 0.7 % (0.0-10.0); %Lymphocytes 22.1 % (21.0-51.0); %Monocytes 14.7 % (0.0-10.0); %Neutrophils 61.2 % (42.0-75.0); Hemoglobin 9.3 g/dL (12.0-16.0); INR-International Normal Ratio 1.5; Mean Corpuscular HGB CONC 29.2 g/dL (32.0-36.0); Mean Corpuscular Volume 75.5 fL (78.0-98.0); Mean Platelet Volume 8.2 fL (7.4-10.4); Platelet Count 521 thou/uL (130-400); Prothrombin Time 18.1 SEC (12.0-14.7); RBC Distribution Width 20.2 % (11.5-14.5); Red Blood Cell (RBC) Count 4.22 mill/uL (4.20-5.40); White Blood Cell (WBC) Count 9.4 thou/uL (4.8-10.8)
[2018-10-21 05:18] LABS: Anion Gap 15 mmol/L (10-20); BUN (Urea Nitrogen) 22 mg/dL (9.8-20.1); Calc. Creatinine Clearance 61 mL/min (70-130); Calcium 9.3 mg/dL (7.8-10.44); Carbon Dioxide 25 mmol/L (23-31); Chloride 99 mmol/L (98-107); Estimated GFR-MDRD 31; Glucose 125 mg/dL (80-115); Potassium 4.2 mmol/L (3.5-5.1); Sodium 135 mmol/L (136-145)
[2018-10-21] MEDS: Levothyroxine Sodium 100 MCG TAB PO SCH (05:44)
[2018-10-21] MEDS: ALPRAZolam 0.5 MG TAB PO PRN (08:33)
[2018-10-21] MEDS: Amlodipine 5 MG TAB PO SCH (08:34)
[2018-10-21] MEDS: Famotidine 20 MG TAB PO SCH (08:34)
[2018-10-21] MEDS: predniSONE 5 MG TAB PO SCH (08:34)
[2018-10-21] MEDS: Hydroxychloroquine Sulfate 200 MG TAB PO SCH (08:34)
[2018-10-21] MEDS: Multivitamin W/ Minerals 1 TAB PO SCH (08:34)
[2018-10-21] MEDS: SYSTANE GEL EYE DROP 10 ML 10 GM BOT EA EYE SCH (08:35)
--- NOTE | 2018-10-21 11:37 | PRG ---
DATE OF SERVICE: 10/21/2018 SUBJECTIVE: This is a 68-year-old female, being seen for acute kidney injury. The patient denies an y nausea, vomiting or chest pain. PHYSICAL EXAMINATION: GENERAL: The patient is awake and alert, in no acute distress. VITAL SIGNS: Afebrile, pulse 95, breathing 16, blood pressure . GENERAL APPEARANCE AND MENTAL STATUS: Fair. HEAD/NECK: Normocephalic. Atraumatic. EYES: EOMI. No deformity. EARS: Clear. No ulcers. NOSE: Intact. No lesions. MOUTH: Clear. No discharge. THROAT: Clear. No exudate. LUNGS: Clear. No crackles. CARDIAC: S1, S2. No rub. ABDOMEN: Benign. BS+. GENITALIA/RECTUM: Reyes absent. BACK/EXTREMITIES: Edema 0+. Ulcer-. NEUROLOGICAL: Alert and motor intact. SKIN: Rash-. Bruise-. LYMPHATICS: Edema-. Ulcer-. LABORATORY DATA: Hemoglobin 9.3, creatinine 1.6. ASSESSMENT AND RECOMMENDATIONS: 1. Acute kidney injury with chronic kidney disease stage 3, stable. 2. Hypertension, stable. 3. Anemia, stable. 4. Medications based on glomerular filtration rate are appropriate.
[2018-10-21 11:53] VITALS: BP 106/51; TEMP 98.9
--- NOTE | 2018-10-21 13:35 | DIS ---
DATE OF ADMISSION: 10/18/2018 DATE OF DISCHARGE: 10/21/2018 PRIMARY CARE PROVIDER: Jyoti Burger M.D. DISCHARGE DIAGNOSES: 1. Coagulopathy. 2. Right thigh pain. 3. Acute on chronic stage IV renal failure. CONDITION OF PATIENT ON THE DAY OF DISCHARGE: Stable. I assessed Ms. Renteria on the day of discharge . She reports on and off right thigh pain. She denies any chest pain or shortness of breath. Vital signs are stable. S1 and S2 are heard, regular. Lungs are clear to auscultation bilaterally. DISCHARGE MEDICATIONS: Warfarin has been discontinued. She has been started on apixaban 2.5 mg 2 ti mes a day. The other discharge medications include Tylenol 650 mg every 4 hours as needed, amitripty line 30 mg at bedtime, amlodipine 5 mg daily, Biotin 10,000 mcg daily, vitamin D3 1000 units daily, e nalapril 20 mg daily, Plaquenil 200 mg 2 times a day, levothyroxine 200 mcg daily, Systane gel eyedro ps 1-2 drops to each eye 3 times a day, Xanax 0.5 mg 2 times a day as needed, Catapres 0.4 mg at bedt genoveva, colchicine 0.6 mg 2 times a day, morphine 4 mg IV q.4 hours p.r.n., multivitamins 1 tablet daily , prednisone 5 mg daily and tramadol 50 mg every 6 hours as needed. HOSPITAL COURSE: Ms. Renteria is a pleasant 68-year-old lady, who was admitted to [facility] on 10/18/2018. Please refer to Dr. Yusuf's history and physical note dated 10/19/2018 for further details. She was also seen by Nephrology Service for acute on chronic renal insufficien cy. She received vitamin K at the time of admission. Her supratherapeutic INR, which was 6.8 at the time of admission, decreased to 3.9 on 10/19/2018 and 1.5 on 10/21/2018. Her creatinine improved fr om 1.98 at the time of admission to 1.65 at the time of discharge. After discussing risks versus chad efits of novel oral anticoagulant agents, she has been started on apixaban 2.5 mg 2 times a day. Her daughter reports that her 2 episodes of pulmonary embolism were several years ago. She also complained of right thigh pain. She had soft tissue ultrasound done on 10/19/2018, which sh owed findings consistent with soft tissue edema. She does have a right thigh wound. She went on to have a noncontrast CT scan of the right thigh, which showed overall stable appearing left subcutaneou s fat stranding, nonspecific, but could be consistent with some nonspecific edema. There was no sign ificant change from a comparison study from 10/12/2018. She also had renal ultrasound, which showed bilateral cortical thinning, bilateral renal cysts and no hydronephrosis. Associate Theatre Professor recommends th at she should have repeat renal ultrasound in 2019. On the day of discharge, she has sodium 135, potassium 4.2, blood urea nitrogen 22 and creatinine 1.6 5. She has white count of 9400, hemoglobin 9.3 and platelet count of 521,000. Because of physical deconditioning, she has been evaluated for rehabilitation and has been accepted f or rehabilitation. She is being discharged for inpatient rehabilitation at [facility]. Many thanks for allowing me to participate in your patient's care. Please feel free to contact me wi th any questions or concerns. DISCHARGE DESTINATION: [facility] Rehabilitation.
[2018-10-21] MEDS ORDERED: Warfarin Sodium 5 MG TAB PO SCH (17:00)
[2018-10-21] MEDS ORDERED: Apixaban 2.5 MG TAB PO SCH (21:00)
== END 2018-10-21 14:10 ==
LOC: ERS 14:57 → 2NO 19:13
PROVIDERS: ADMIT Internal Medicine; ATTEND Internal Medicine
DX: R79.1 Abnormal coagulation profile (principal); M79.651 Pain in right thigh; I12.9 Hypertensive chronic kidney disease with stage 1 through stage 4 chronic kidney disease, or unspecified chronic kidney disease; E11.22 Type 2 diabetes mellitus with diabetic chronic kidney disease; N18.4 Chronic kidney disease, stage 4 (severe); N17.9 Acute kidney failure, unspecified; D63.1 Anemia in chronic kidney disease; R53.81 Other malaise; M10.9 Gout, unspecified; M19.90 Unspecified osteoarthritis, unspecified site; E03.9 Hypothyroidism, unspecified; J45.909 Unspecified asthma, uncomplicated; K21.9 Gastro-esophageal reflux disease without esophagitis; E66.9 Obesity, unspecified; Z68.41 Body mass index [BMI] 40.0-44.9, adult; Z86.711 Personal history of pulmonary embolism; Z79.01 Long term (current) use of anticoagulants; Z79.52 Long term (current) use of systemic steroids; Z79.84 Long term (current) use of oral hypoglycemic drugs; Z79.899 Other long term (current) drug therapy; Z88.0 Allergy status to penicillin; Z88.2 Allergy status to sulfonamides; Z88.1 Allergy status to other antibiotic agents; Z88.5 Allergy status to narcotic agent; Z88.6 Allergy status to analgesic agent; Z88.8 Allergy status to other drugs, medicaments and biological substances
CPT/HCPCS: 51702; 70450; 73700; 76770; 76999; 80048 ×3; 80053; 82550; 82553; 82607; 82728; 82746; 82962 ×3; 83540; 83550; 84484; 85025 ×4; 85046; 85610 ×4; 85730 ×3; 93005; 96374; 96375; 96376 ×4; 97139 ×4; 97530; 99285; G0378 ×3; G8978; G8979; 36415; 36416; J2270; J2405; J3430; S0028